=== PATIENT | male | born 1950 | race Hispanic/Latino ===

== ENCOUNTER 2021-05-30 15:36 | Emergency (ER) | payer OTHER ==
--- OUTSIDE RECORDS SUMMARY | 2021-05-30 15:38 | XMS REPORT | Continuity of Care Document ---
:1950 Author Organization [facility] t Address [address] [place] [address] Care Team Providers Name Role Phone Lorraine Attending Clinician Doctor Unassigned, Name Attending Clinician Unavailable Provider, Urgent Care Attending Clinician Unavailable Problems This patient has no known problems. Allergies, Adverse Reactions, Alerts This patient has no known allergies or adverse reactions. Medications This patient has no known medications. Procedures This patient has no known procedures. Encounters Start End Encounter Admission Attending Care Care Encounter Source Date/Time Date/Time Type Type Clinicians Facility Department ID 2021-03-02 2021-03-02 Letter Hernandez Peters [id number] 00:00:00 00:00:00 (Out) ROBERTO [id number] [facility] [id number] 2021-01-25 2021-01-25 Orders Doctor SANDRA [id number] 00:00:00 00:00:00 Only Unassigned, ROBERTO [id number] [place] [facility] [id number] 2020-12-20 2020-12-20 Urgent Provider, [facility] [id number] 17:21:39 18:31:21 Care [facility] [id number] [facility] [place] [id number] Professio [phone] [address] One Results This patient has no known results.
--- NOTE | 2021-05-30 18:40 | ER ---
Nurse's Notes [facility] Name: Raúl Najera Sr Age: 70 yrs Sex: Male : 1950 Arrival Date: 05/30/2021 Time: 15:40 Bed External Waiting Private MD: Diagnosis: Presentation: 05/30 15:50 Chief complaint: Abdominal cramping, malaise, and home BGL 200-400 x 2 days. hb Coronavirus screen: Client presents with at least one sign or symptom that may indicate coronavirus-19. Standard/surgical mask placed on the client. Provider contacted for isolation considerations. Ebola Screen: No symptoms or risks identified at this time. Initial Sepsis Screen: Does the patient meet any 2 criteria? No. Patient's initial sepsis screen is negative. Does the patient have a suspected source of infection? No. Patient's initial sepsis screen is negative. Risk Assessment: Do you want to hurt yourself or someone else? Patient reports no desire to harm self or others. Onset of symptoms was May 30, 2021. 15:50 Method Of Arrival: Ambulatory 15:50 Acuity: QUINTIN 3 hb Historical: - Allergies: 15:52 Iodine; hb - Home Meds: 15:53 metformin 500 mg Oral tab 1 tab 2 times per day [Active]; lisinopril 10 mg Oral tab 1 hb tab once daily [Active]; glimepiride 4 mg Oral tab 1 tab twice a day [Active]; atorvastatin 20 mg oral tab 1 tab once daily [Active]; - PMHx: 15:52 Diabetes mellitus; hb - PSHx: 15:52 hernia repair; hb - Immunization history:: Client reports receiving the 2nd dose of the Covid vaccine. - Social history:: Smoking status: Patient denies any tobacco usage or history of. Assessment: 18:39 Reassessment: called patient back to exam room. No answer. Unable to locate patient. ER hb registration staff member states that patient left due to wait time. Vital Signs: 15:50 BP 124 / 80; Pulse 88; Resp 16; Temp 97.8; Pulse Ox 100% on R/A; Weight 85.28 kg; hb Height 5 ft. 7 in. (170.18 cm); Pain 7/10; 15:50 Body Mass Index 29.44 (85.28 kg, 170.18 cm) hb ED Course: 15:40 Patient arrived in ED. as 15:51 Triage completed. hb 15:53 Arm band placed on. hb Administered Medications: No medications were administered Outcome: 18:39 Patient left the ED. hb Signatures: Yudelka Baker Heather, RN RN hb Corrections: (The following items were deleted from the chart) 15:53 15:52 Allergies: No Known Allergies; hb hb 15:53 15:52 Allergies: Iodinated Contrast Media - IV Dye; hb hb
[2021-05-30 18:47] VITALS: BP 124/80; TEMP 97.8; O2SAT 100
== END 2021-05-30 18:39 | disposition left against medical advice (07) ==
LOC: ER 15:36
DX: Z53.21 Procedure and treatment not carried out due to patient leaving prior to being seen by health care provider (principal)
CPT/HCPCS: 99281

== ENCOUNTER 2025-03-11 14:34 | Emergency (ER) | payer OTHER ==
--- OUTSIDE RECORDS SUMMARY | 2025-03-11 14:53 | XMS REPORT | Continuity of Care Document ---
Author Name Unknown Address [address] [place] [address] [facility] Address [address] [place] [address] Care Team Providers Care Chalk Cutter Name Role Phone Hernandez Peters Primary Care Physician Nurse, Ad[facility] Pob Immunization Attending Clinician Unavailable Emeterio Quintanilla DO Attending Clinician Hernandez Peters Attending Clinician [phone] GEORGINA TREJO Attending Clinician Unavailable Doctor Unassigned, [place] Attending Clinician U navailable MAURISIO YADAV Attending Clinician Unavailab le Provider, [facility] Attending Clinician Un available Maurisio Gonzalez Attending Clinician Payers Payer Name Policy Type Policy Number Effective Date Expirati on Date Source Problems Condition Name Condition Details Condition Category Status Onset Date Resolution Date Last Treatment Date Treating Clinician Comments Source No known active problems No known active problems Disease [facility] Allergies, Adverse Reactions, Alerts Allergy Name Allergy Type Status Severity Reaction(s) Onset Date Inactive Date Treating Clinician Comments Source [place] - Intraven ous Propensi ty to adverse reaction to drug Active 5-31 00:00: 00 Chucho Draper Iodine Strong - Oral Propensi ty to adverse reaction to drug Active 4-14 00:00: 00 Chucho Draper DYE DRUG INGREDI Active High Swelling 2-02 00:00: [address] [facility] Dye Drug Allergy Active Swelling 2-02 00:00: [address] IV [address] [facility] NO KNOWN ALLERGIE S Drug Class Active [facility] Social History Social Habit Start Date Stop Date Quantity Comments Source History of tobacco use Cigarette Smoker [facility] Exposure to SARS-CoV-2 (event) Not sure [facility] Cigarettes smoked current (pack per day) - Reported 2020-12-20 00:00:00 2020-12-20 00:00:00 [facility] Tobacco use and exposure 2020-12-20 00:00:00 2020-12-20 00:00:00 Never used [facility] Alcohol intake 2020-12-20 00:00:00 2020-12-20 00:00:00 Ex-drinker (finding) [facility] Sex Ass[birth year] At 1950 00:00:00 1950 00:00:00 [facility] Smoking Status Start Date Stop Date Source Former smoker 2020-12-20 00:00:00 2020-12-20 00:00:00 [facility] Medications Ordered Medication Name Filled Medication Name Start Date Stop Date Current Medication? Ordering Clinician Indication Dosage Frequency Signature (SIG) Comments Components Source azithromyci n 250 mg tablet 01-04 00:00: 00 Yes mg Chucho Draper fluticasone propionate 50 mcg/actuati on nasal spray,suspe nsion 01-04 00:00: 00 Yes 2mcg/ac tuation Chucho Draper Bromfed DM 2 mg-30 mg-10 mg/5 mL oral syrup 01-04 00:00: 00 Yes 10mg/5 mL Chucho Draper chlorhexidi ne gluconate 0.12 % mouthwash 01-04 00:00: 00 Yes % Chucho Draper lisinopril 10 mg tablet - 00:00: 00 Yes mg Chucho Draper metformin 500 mg tablet - 00:00: 00 Yes 1mg Chucho Draper cetirizine 10 mg tablet - 00:00: 00 Yes 1mg Chucho Draper finasteride 5 mg tablet - 00:00: 00 Yes 1mg Chucho Draper glimepiride 2 mg tablet - 00:00: 00 Yes 1mg Chucho Draper atorvastati n 80 mg tablet 1- 00:00: 00 Yes 1mg Chucho Draper Flonase Allergy Relief 50 mcg/actuati on nasal spray,suspe nsion - 00:00: 00 Yes 12mcg/a ctuatio n Chucho Draper tamsulosin 0.4 mg capsule - 00:00: 00 Yes 1mg Chucho Draper gabapentin 100 mg capsule - 00:00: 00 Yes 12mg Chucho Draper ibuprofen 800 mg tablet 2023-11 2- 00:00: 00 Yes 1mg Chucho Draper lisinopril 10 mg tablet 2023-11 0- 00:00: 00 Yes mg Chucho Draper metformin 500 mg tablet 2023-11 0- 00:00: 00 Yes 1mg Chucho Draper finasteride 5 mg tablet 2023-11 0- 00:00: 00 Yes 1mg Chucho Draper glimepiride 2 mg tablet 2023-11 0- 00:00: 00 Yes 1mg Chucho Draper atorvastati n 80 mg tablet 2023-11 0-05 00:00: 00 Yes 1mg Chucho Draper tamsulosin 0.4 mg capsule 2023-11 0- 00:00: 00 Yes 1mg Chucho Draper gabapentin 100 mg capsule 2023-11 0-05 00:00: 00 Yes 12mg Chucho Draper atorvastati n 80 mg tablet 06-15 00:00: 00 Yes 1mg Chucho Draper atorvastati n 40 mg tablet 06-05 00:00: 00 Yes mg Chucho Draper lisinopril 10 mg tablet 06-05 00:00: 00 Yes mg Chucho Draper metformin 500 mg tablet - 00:00: 00 Yes 1mg Chucho Draper finasteride 5 mg tablet - 00:00: 00 Yes 1mg Chucho Draper glimepiride 2 mg tablet 0 - 00:00: 00 Yes 1mg Chucho Draper tamsulosin 0.4 mg capsule - 00:00: 00 Yes 1mg Chucho Draper gabapentin 100 mg capsule 2023-0 - 00:00: 00 Yes 12mg Chucho Draper tamsulosin 0.4 mg capsule 0 - 00:00: 00 Yes 1mg Chucho Draper gabapentin 100 mg capsule 0 - 00:00: 00 Yes 12mg Chucho Draper finasteride 5 mg tablet 0 - 00:00: 00 Yes 1mg Chucho Draper metformin 500 mg tablet 0 - 00:00: 00 Yes 1mg Chucho Draper atorvastati n 40 mg tablet 0 - 00:00: 00 Yes mg Chucho Draper lisinopril 10 mg tablet 0 - 00:00: 00 Yes mg Chucho Draper glimepiride 2 mg tablet 0 - 00:00: 00 Yes 1mg Chucho Draper tamsulosin 0.4 mg capsule 0 - 00:00: 00 Yes 1mg Chucho Draper gabapentin 100 mg capsule 0 - 00:00: 00 Yes 12mg Chucho Draper atorvastati n 40 mg tablet 0 4- 00:00: 00 Yes mg Chucho Draper glimepiride 2 mg tablet 0 4-05 00:00: 00 Yes 1mg Chucho Draper lisinopril 10 mg tablet 0 1-22 00:00: 00 Yes mg Chucho Draper finasteride 5 mg tablet 0 1-04 00:00: 00 Yes mg Chucho Draper ergocalcife rol (vitamin D2) 1,250 mcg (50,000 unit) capsule 0 1-04 00:00: 00 Yes (50,000 unit) Chucho Draper gabapentin 100 mg capsule 0 1-03 00:00: 00 Yes mg Chucho Draper tamsulosin 0.4 mg capsule 0 1-03 00:00: 00 Yes mg Chucho Draper GLIMEPIRIDE 2 MG TABS 0 1-03 00:00: 00 Yes Chucho Draper TAKE 1 CAPSULE DAILY WITH FOOD. 0 1-03 00:00: 00 03-30 00:00 :00 No 400 Chucho Draper TAKE 1 TABLET AT BEDTIME. 1-03 00:00: 00 03-30 00:00 :00 No 40 Chucho Chayito Draper TAKE 1 TABLET BY MOUTH DAILY 2022-11 2-28 00:00: 00 03-30 00:00 :00 No 10 Chucho Chayito Draper TAKE 1 TABLET BY MOUTH DAILY 2022-11 1-25 00:00: 00 03-30 00:00 :00 No 10 Chucho Chayito Draper APPLY 1 APPLICATION ON THE SKIN TWICE A DAY APPLY TO AFFECTED AREAS 2022-11 1-09 00:00: 00 03-30 00:00 :00 No 1 Chucho Chayito Draper APPLY 1 APPLICATION ON THE SKIN TWICE A DAY APPLY TO AFFECTED AREAS 07-09 00:00: 00 03-30 00:00 :00 No 1 Chucho Chayito Draper 1 TAB EVERY 8 HOURS NEEDED FOR NAUSEA 07-09 00:00: 00 03-30 00:00 :00 No 4 Chucho Chayito Draper TAKE 1 TO 2 CAPSULES AT BEDTIME 0 07-09 00:00: 00 03-30 00:00 :00 No 100 Chucho Chayito Draper TAKE 1 TABLET BY MOUTH DAILY 0 07-09 00:00: 00 03-30 00:00 :00 No 10 Chucho Chayito Draper TAKE 1 CAPSULE BY MOUTH ONCE DAILY 07-09 00:00: 00 03-30 00:00 :00 No 4 Chucho Chayito Draper GLIMEPIRIDE 2 MG TABS 03-30 00:00: 00 Yes Chucho Chayito Drpaer TAKE 1 TABLET AT BEDTIME. 03-30 00:00: 00 03-30 00:00 :00 No 40 Chucho Chayito Draper TAKE 1 TO 2 CAPSULES AT BEDTIME 0 03-30 00:00: 00 03-30 00:00 :00 No 100 Chucho Chayito Draper TAKE 1 CAPSULE TWICE DAILY. 03-30 00:00: 00 03-30 00:00 :00 No 100 Chucho Chayito Draper TAKE 1 TABLET BY MOUTH DAILY 2023-0 5-13 00:00: 00 03-30 00:00 :00 No 10 Chucho Draper TAKE 1 TABLET BY MOUTH DAILY 3-14 00:00: 00 03-30 00:00 :00 No 10 Chucho Draper TAMSULOSIN HYDROCHLORI DE 0.4 MG 2-19 00:00: 00 Yes Chucho Draper TAKE 1 TABLET TWICE DAILY. 2-19 00:00: 00 03-30 00:00 :00 No 500 Chucho Draper ATORVASTATI N CALCIUM 40 MG TABS 2-07 00:00: 00 Yes Chucho Draper APPLY 1 APPLICATION ON THE SKIN TWICE A DAY APPLY 2GRAMS TO AFFECTED JOINTS 2 TIMES A DAY 2- 00:00: 00 03-30 00:00 :00 No 1 Chucoh Draper TAKE 1 TABLET BY MOUTH TWICE A DAY 2- 00:00: 00 03-30 00:00 :00 No 500 Chucho Draper TAKE 1 TABLET BY MOUTH TWICE A DAY - 00:00: 00 03-30 00:00 :00 No 2 Chucho Draper TAKE 1 TO 2 CAPSULES AT BEDTIME 12-25 00:00: 00 03-30 00:00 :00 No 100 Chucho Draper TAKE 1 TABLET DAILY. 1-19 00:00: 00 03-30 00:00 :00 No 10 Chucho Draper SULFAMETHOX AZOLE/TRIME THOPRIM DS 800-160 MG TABS 2021-11 0-11 00:00: 00 Yes Chucho Draper MUPIROCIN 2 % OINT 2021-11 0-11 00:00: 00 Yes Chucho Draper INDOMETHACI N 50 MG - 00:00: 00 Yes Chucho Draper GABAPENTIN 100 MG - 00:00: 00 Yes Chucho Draper TAMSULOSIN HYDROCHLORI DE 0.4 MG CAPS 9-24 00:00: 00 No TAMSULOSIN HYDROCHLORI DE 0.4 MG CAPS -24 00:00: 00 Yes Chucho Draper LEVOFLOXACI N 500 MG TABS -22 00:00: 00 Yes Chucho Draper diclofenac 1 % topical gel 04-18 00:00: 00 No % lisinopril 10 mg tablet 04-18 00:00: 00 No 1mg glimepiride 2 mg tablet 04-18 00:00: 00 No 1mg metformin ER 500 mg tablet,exte nded release 24 hr 04-18 00:00: 00 No 1mg atorvastati n 40 mg tablet 04-18 00:00: 00 No 1mg diclofenac 1 % topical gel 04-18 00:00: 00 No % lisinopril 10 mg tablet 04-18 00:00: 00 No 1mg glimepiride 2 mg tablet 04-18 00:00: 00 No 1mg metformin ER 500 mg tablet,exte nded release 24 hr 04-18 00:00: 00 No 1mg atorvastati n 40 mg tablet 04-18 00:00: 00 No 1mg diclofenac 1 % topical gel 04-18 00:00: 00 No % lisinopril 10 mg tablet 04-18 00:00: 00 No 1mg glimepiride 2 mg tablet 04-18 00:00: 00 No 1mg metformin ER 500 mg tablet,exte nded release 24 hr 04-18 00:00: 00 No 1mg atorvastati n 40 mg tablet 04-18 00:00: 00 No 1mg diclofenac 1 % topical gel 04-18 00:00: 00 Yes % Chucho Draper lisinopril 10 mg tablet 04-18 00:00: 00 Yes 1mg Chucho Draper glimepiride 2 mg tablet 04-18 00:00: 00 Yes 1mg Chucho Draper metformin ER 500 mg tablet,exte nded release 24 hr 04-18 00:00: 00 Yes 1mg Chucho Draper atorvastati n 40 mg tablet 04-18 00:00: 00 Yes 1mg Chucho Draper diclofenac 1 % topical gel 03-06 00:00: 00 No % ProAir HFA 90 mcg/actuati on aerosol inhaler 0 03-06 00:00: 00 No 12mcg/a ctuatio n prednisone 10 mg tablet 03-06 00:00: 00 No 1mg azithromyci n 250 mg tablet 03-06 00:00: 00 No mg Dose Unknown 03-06 00:00: 00 No diclofenac 1 % topical gel 03-06 00:00: 00 No % ProAir HFA 90 mcg/actuati on aerosol inhaler 03-06 00:00: 00 No 12mcg/a ctuatio n prednisone 10 mg tablet 03-06 00:00: 00 No 1mg azithromyci n 250 mg tablet 03-06 00:00: 00 No mg Dose Unknown 03-06 00:00: 00 No diclofenac 1 % topical gel 03-06 00:00: 00 No % ProAir HFA 90 mcg/actuati on aerosol inhaler 03-06 00:00: 00 No 12mcg/a ctuatio n prednisone 10 mg tablet 03-06 00:00: 00 No 1mg azithromyci n 250 mg tablet 03-06 00:00: 00 No mg Dose Unknown 03-06 00:00: 00 No diclofenac 1 % topical gel 03-06 00:00: 00 Yes % Chucho Draper ProAir HFA 90 mcg/actuati on aerosol inhaler 03-06 00:00: 00 Yes 12mcg/a ctuatio n Chucho Draper prednisone 10 mg tablet 03-06 00:00: 00 Yes 1mg Chucho Draper azithromyci n 250 mg tablet 03-06 00:00: 00 Yes mg Chucho Draper Dose Unknown 03-06 00:00: 00 Yes Chucho Draper OSELTAMIVIR PHOSPHATE 75 MG - 00:00: 00 Yes Chucho Draper AZITHROMYCI N 250 MG TABS 2022-0 4-19 00:00: 00 Yes Chucho Draper PREDNISONE 10 MG TABS 2021-0 4-19 00:00: 00 Yes Chucho Draper ALBUTEROL SULFATE HFA 108 (90 Base) MCG/ACT AERS 2021-0 4-19 00:00: 00 Yes Chucho Draper benzonatate 100 mg capsule 2021-0 4-14 00:00: 00 No 1mg Dose Unknown 2021-0 4-14 00:00: 00 No benzonatate 100 mg capsule 2021-0 4-14 00:00: 00 No 1mg Dose Unknown 2021-0 4-14 00:00: 00 No benzonatate 100 mg capsule 2021-0 4-14 00:00: 00 No 1mg Dose Unknown 2021-0 4-14 00:00: 00 No benzonatate 100 mg capsule 2021-0 4-14 00:00: 00 Yes 1mg Chucho Draper Dose Unknown 2021-0 4-14 00:00: 00 Yes Chucho Draper TAKE 1 TABLET BY MOUTH EVERY 12 HOURS NEEDED 2021-0 4-14 00:00: 00 Yes Chucho Draper bromphenira mine-pseudo ephedrine-D M 2 mg-30 mg-10 mg/5 mL oral syrup 2021-0 4-12 00:00: 00 No 5mg/5 mL Dose Unknown 2021-0 4-12 00:00: 00 No Dose Unknown 2021-0 4-12 00:00: 00 No Dose Unknown 2021-0 4-12 00:00: 00 No bromphenira mine-pseudo ephedrine-D M 2 mg-30 mg-10 mg/5 mL oral syrup 2021-0 4-12 00:00: 00 No 5mg/5 mL Dose Unknown 2021-0 4-12 00:00: 00 No Dose Unknown 2021-0 4-12 00:00: 00 No Dose Unknown 2021-0 4-12 00:00: 00 No bromphenira mine-pseudo ephedrine-D M 2 mg-30 mg-10 mg/5 mL oral syrup 2021-0 4-12 00:00: 00 No 5mg/5 mL Dose Unknown 2021-0 4-12 00:00: 00 No Dose Unknown 2021-0 4-12 00:00: 00 No Dose Unknown 2022-0 4-12 00:00: 00 No bromphenira mine-pseudo ephedrine-D M 2 mg-30 mg-10 mg/5 mL oral syrup 2022-0 4-12 00:00: 00 Yes 5mg/5 mL Chucho Draper Dose Unknown 2022-0 4-12 00:00: 00 Yes Chucho Draper Dose Unknown 2022-0 4-12 00:00: 00 Yes Chucho Draper Dose Unknown 2022-0 4-12 00:00: 00 Yes Chucho Draper Dose Unknown 2022-0 3-21 00:00: 00 No Dose Unknown 2022-0 3-21 00:00: 00 No Dose Unknown 2022-0 3-21 00:00: 00 No Dose Unknown 2022-0 3-21 00:00: 00 No Dose Unknown 2022-0 3-21 00:00: 00 No Dose Unknown 2022-0 3-21 00:00: 00 No Dose Unknown 2022-0 3-21 00:00: 00 No Dose Unknown 2022-0 3-21 00:00: 00 No Dose Unknown 2022-0 3-21 00:00: 00 No Dose Unknown 2022-0 3-21 00:00: 00 Yes Chucho Draper Dose Unknown 2022-0 3-21 00:00: 00 Yes Chucho Draper Dose Unknown 2022-0 3-21 00:00: 00 Yes Chucho Draper Dose Unknown 2022-0 3-10 00:00: 00 No Dose Unknown 2022-0 3-10 00:00: 00 No Dose Unknown 2022-0 3-10 00:00: 00 No Dose Unknown 2022-0 3-10 00:00: 00 No Dose Unknown 2022-0 3-10 00:00: 00 No Dose Unknown 2022-0 3-10 00:00: 00 No Dose Unknown 2022-0 3-10 00:00: 00 No Dose Unknown 2022-0 3-10 00:00: 00 No Dose Unknown 2022-0 3-10 00:00: 00 No Dose Unknown 2022-0 3-10 00:00: 00 Yes Chucho Draper Dose Unknown 2022-0 3-10 00:00: 00 Yes Chucho Draper Dose Unknown 2022-0 3-10 00:00: 00 Yes Chucho Draper Dose Unknown 2022-0 3-08 00:00: 00 No Dose Unknown 2022-0 3-08 00:00: 00 No Dose Unknown 2022-0 3-08 00:00: 00 No Dose Unknown 2022-0 3-08 00:00: 00 No Dose Unknown 2022-0 3-08 00:00: 00 No Dose Unknown 2022-0 3-08 00:00: 00 No Dose Unknown 2022-0 3-08 00:00: 00 No Dose Unknown 2022-0 3-08 00:00: 00 No Dose Unknown 2022-0 3-08 00:00: 00 No Dose Unknown 2022-0 3-08 00:00: 00 Yes Chucho Draper Dose Unknown 2022-0 3-08 00:00: 00 Yes Chucho Draper Dose Unknown 2022-0 3-08 00:00: 00 Yes Chucho Draper Dose Unknown 2022-0 3-07 00:00: 00 No lisinopril 10 mg tablet 2-0 3-07 00:00: 00 No 1mg metformin ER 500 mg tablet,exte nded release 24 hr 2-0 3-07 00:00: 00 No 1mg glimepiride 2 mg tablet 2-0 3-07 00:00: 00 No 1mg atorvastati n 40 mg tablet 2-0 3-07 00:00: 00 No 1mg Dose Unknown 2022-0 3-07 00:00: 00 No Dose Unknown 2-0 3-07 00:00: 00 No Dose Unknown 2-0 3-07 00:00: 00 No Dose Unknown 2-0 3-07 00:00: 00 No lisinopril 10 mg tablet 2022-0 3-07 00:00: 00 No 1mg metformin ER 500 mg tablet,exte nded release 24 hr 2-0 3-07 00:00: 00 No 1mg glimepiride 2 mg tablet 2022-0 3-07 00:00: 00 No 1mg atorvastati n 40 mg tablet 2-0 3-07 00:00: 00 No 1mg Dose Unknown 2022-0 3-07 00:00: 00 No Dose Unknown 2022-0 3-07 00:00: 00 No Dose Unknown 2022-0 3-07 00:00: 00 No Dose Unknown 0 01-22 00:00: 00 No lisinopril 10 mg tablet 0 01-22 00:00: 00 No 1mg metformin ER 500 mg tablet,exte nded release 24 hr 01-22 00:00: 00 No 1mg glimepiride 2 mg tablet 0 01-22 00:00: 00 No 1mg atorvastati n 40 mg tablet 01-22 00:00: 00 No 1mg Dose Unknown 01-22 00:00: 00 No Dose Unknown 01-22 00:00: 00 No Dose Unknown 01-22 00:00: 00 No Dose Unknown 01-22 00:00: 00 Yes Chucho Draper lisinopril 10 mg tablet 01-22 00:00: 00 Yes 1mg Chucho Draper metformin ER 500 mg tablet,exte nded release 24 hr 01-22 00:00: 00 Yes 1mg Chucho Draper glimepiride 2 mg tablet 01-22 00:00: 00 Yes 1mg Chucho Draper atorvastati n 40 mg tablet 01-22 00:00: 00 Yes 1mg Chucho Draper Dose Unknown 01-22 00:00: 00 Yes Chucho Draper Dose Unknown 01-22 00:00: 00 Yes Chucho Draper Dose Unknown 01-22 00:00: 00 Yes Chucho Draper Dose Unknown 01-22 00:00: 00 Yes 2 Chucho Draper Flonase Sensimist 27.5 mcg/actuati on nasal spray,suspe nsion 2020-11 00:00: 00 No 1mcg/ac tuation benzonatate 100 mg capsule 2020-11 00:00: 00 No 1mg Flonase Sensimist 27.5 mcg/actuati on nasal spray,suspe nsion 2020-11 00:00: 00 No 1mcg/ac tuation benzonatate 100 mg capsule 2020-11 00:00: 00 No 1mg Flonase Sensimist 27.5 mcg/actuati on nasal spray,suspe nsion 2020-11 00:00: 00 No 1mcg/ac tuation benzonatate 100 mg capsule 2020-11 00:00: 00 No 1mg Flonase Sensimist 27.5 mcg/actuati on nasal spray,suspe nsion 2020-11 00:00: 00 Yes 1mcg/ac tuation Chucho Draper benzonatate 100 mg capsule 2020-11 00:00: 00 Yes 1mg Chucho Draper atorvastati n 40 mg tablet 2020-11 00:00: 00 No 1mg lisinopril 10 mg tablet 2020-11 00:00: 00 No 1mg glimepiride 2 mg tablet 2020-11 00:00: 00 No 1mg metformin ER 500 mg tablet,exte nded release 24 hr 2020-11 00:00: 00 No 1mg atorvastati n 40 mg tablet 2020-11 00:00: 00 No 1mg lisinopril 10 mg tablet 2020-11 2 00:00: 00 No 1mg glimepiride 2 mg tablet 2020-11 2 00:00: 00 No 1mg metformin ER 500 mg tablet,exte nded release 24 hr 2020-11 00:00: 00 No 1mg atorvastati n 40 mg tablet 2020-11 2 00:00: 00 No 1mg lisinopril 10 mg tablet 2020-11 2 00:00: 00 No 1mg glimepiride 2 mg tablet 2020-11 2 00:00: 00 No 1mg metformin ER 500 mg tablet,exte nded release 24 hr 2020-11 00:00: 00 No 1mg lisinopril 10 mg tablet 2020-11 2 00:00: 00 Yes 1mg Chucho Draper glimepiride 2 mg tablet 2020-11 2 00:00: 00 Yes 1mg Chucho Draper metformin ER 500 mg tablet,exte nded release 24 hr 2020-11 00:00: 00 Yes 1mg Chucho Draper atorvastati n 40 mg tablet 2020-11 2- 00:00: 00 Yes 1mg Chucho Draper lisinopril 10 mg tablet 0 8-10 00:00: 00 No 1mg metformin ER 500 mg tablet,exte nded release 24 hr 8-10 00:00: 00 No 1mg glimepiride 2 mg tablet 0 8-10 00:00: 00 No 1mg atorvastati n 40 mg tablet 8-10 00:00: 00 No 1mg lisinopril 10 mg tablet 8-10 00:00: 00 No 1mg metformin ER 500 mg tablet,exte nded release 24 hr 8- 00:00: 00 No 1mg glimepiride 2 mg tablet 8-10 00:00: 00 No 1mg atorvastati n 40 mg tablet 8-10 00:00: 00 No 1mg lisinopril 10 mg tablet 8-10 00:00: 00 No 1mg metformin ER 500 mg tablet,exte nded release 24 hr 8- 00:00: 00 No 1mg glimepiride 2 mg tablet 8-10 00:00: 00 No 1mg atorvastati n 40 mg tablet 8-10 00:00: 00 No 1mg lisinopril 10 mg tablet 0 8-10 00:00: 00 Yes 1mg Chucho Draper metformin ER 500 mg tablet,exte nded release 24 hr 8-10 00:00: 00 Yes 1mg Chucho Draper glimepiride 2 mg tablet 8-10 00:00: 00 Yes 1mg Chucho Draper atorvastati n 40 mg tablet 8-10 00:00: 00 Yes 1mg Chucho Draper ciprofloxac in 500 mg tablet 0 7-16 00:00: 00 No 1mg ciprofloxac in 500 mg tablet 0 7-16 00:00: 00 No 1mg ciprofloxac in 500 mg tablet 0 7-16 00:00: 00 No 1mg ciprofloxac in 500 mg tablet 0 16 00:00: 00 Yes 1mg Chucho Draper glimepiride 2 mg tablet 0 05-31 00:00: 00 No 1mg metformin ER 500 mg tablet,exte nded release 24 hr 0 05-31 00:00: 00 No 1mg cyclobenzap rine 5 mg tablet 0 05-31 00:00: 00 No 12mg docusate sodium 100 mg capsule 0 05-31 00:00: 00 No 12mg dicyclomine 10 mg capsule 0 05-31 00:00: 00 No 1mg glimepiride 2 mg tablet 0 05-31 00:00: 00 No 1mg glimepiride 2 mg tablet 0 05-31 00:00: 00 No 1mg metformin ER 500 mg tablet,exte nded release 24 hr 05-31 00:00: 00 No 1mg cyclobenzap rine 5 mg tablet 05-31 00:00: 00 No 12mg docusate sodium 100 mg capsule 05-31 00:00: 00 No 12mg dicyclomine 10 mg capsule 0 05-31 00:00: 00 No 1mg metformin ER 500 mg tablet,exte nded release 24 hr 05-31 00:00: 00 No 1mg cyclobenzap rine 5 mg tablet 05-31 00:00: 00 No 12mg docusate sodium 100 mg capsule 05-31 00:00: 00 No 12mg dicyclomine 10 mg capsule 0 14 00:00: 00 No 1mg glimepiride 2 mg tablet 0 14 00:00: 00 Yes 1mg Chucho Draper metformin ER 500 mg tablet,exte nded release 24 hr 05-31 00:00: 00 Yes 1mg Chucho Draper cyclobenzap rine 5 mg tablet 0 14 00:00: 00 Yes 12mg Chucho Draper docusate sodium 100 mg capsule 0 -14 00:00: 00 Yes 12mg Chucho Draper dicyclomine 10 mg capsule -14 00:00: 00 Yes 1mg Chucho Draper levofloxaci n 500 mg tablet 0 6-16 00:00: 00 No 1mg levofloxaci n 500 mg tablet 0 6-16 00:00: 00 No 1mg levofloxaci n 500 mg tablet 0 6-16 00:00: 00 No 1mg levofloxaci n 500 mg tablet 0 05-03 00:00: 00 Yes 1mg Chucho Draper Bromfed DM 2 mg-30 mg-10 mg/5 mL oral syrup - 00:00: 00 No 5mg/5 mL Bromfed DM 2 mg-30 mg-10 mg/5 mL oral syrup 05-02 00:00: 00 No 5mg/5 mL Bromfed DM 2 mg-30 mg-10 mg/5 mL oral syrup 05-02 00:00: 00 No 5mg/5 mL Bromfed DM 2 mg-30 mg-10 mg/5 mL oral syrup 05-02 00:00: 00 Yes 5mg/5 mL Chucho Draper prednisone 20 mg tablet 04-26 00:00: 00 No 1mg azithromyci n 250 mg tablet 04-26 00:00: 00 No mg Bromfed DM 2 mg-30 mg-10 mg/5 mL oral syrup 04-26 00:00: 00 No 5mg/5 mL prednisone 20 mg tablet 04-26 00:00: 00 No 1mg azithromyci n 250 mg tablet 04-26 00:00: 00 No mg Bromfed DM 2 mg-30 mg-10 mg/5 mL oral syrup 0 04-26 00:00: 00 No 5mg/5 mL prednisone 20 mg tablet 04-26 00:00: 00 No 1mg azithromyci n 250 mg tablet 04-26 00:00: 00 No mg Bromfed DM 2 mg-30 mg-10 mg/5 mL oral syrup 0 04-26 00:00: 00 No 5mg/5 mL prednisone 20 mg tablet 04-26 00:00: 00 Yes 1mg Chucho Draper azithromyci n 250 mg tablet 04-26 00:00: 00 Yes mg Chucho Draper Bromfed DM 2 mg-30 mg-10 mg/5 mL oral syrup 04-26 00:00: 00 Yes 5mg/5 mL Chucho Draper triamcinolo ne acetonide 0.1 % topical cream 03-21 00:00: 00 No 1% dexamethaso ne 4 mg tablet 03-21 00:00: 00 No 1mg triamcinolo ne acetonide 0.1 % topical cream 03-21 00:00: 00 No 1% dexamethaso ne 4 mg tablet 03-21 00:00: 00 No 1mg triamcinolo ne acetonide 0.1 % topical cream 03-21 00:00: 00 No 1% dexamethaso ne 4 mg tablet 03-21 00:00: 00 No 1mg triamcinolo ne acetonide 0.1 % topical cream 03-21 00:00: 00 Yes 1% Chucho Draper dexamethaso ne 4 mg tablet 03-21 00:00: 00 Yes 1mg Chucho Draper hydrocortis one 0.5 % lotion 03-15 00:00: 00 No 1% prednisone 20 mg tablet 03-15 00:00: 00 No 1mg Dose Unknown 03-15 00:00: 00 No hydrocortis one 0.5 % lotion 03-15 00:00: 00 No 1% prednisone 20 mg tablet 03-15 00:00: 00 No 1mg Dose Unknown 03-15 00:00: 00 No hydrocortis one 0.5 % lotion 03-15 00:00: 00 No 1% prednisone 20 mg tablet 03-15 00:00: 00 No 1mg Dose Unknown 03-15 00:00: 00 No hydrocortis one 0.5 % lotion 03-15 00:00: 00 Yes 1% Chucho Draper prednisone 20 mg tablet - 00:00: 00 Yes 1mg Chucho Draper Dose Unknown 4-28 00:00: 00 Yes Chucho Draper lisinopril 10 mg tablet 0 3- 00:00: 00 No 1mg pioglitazon e 15 mg tablet 0 3- 00:00: 00 No 1mg metformin 500 mg tablet 0 3-11 00:00: 00 No 1mg glimepiride 4 mg tablet 0 3- 00:00: 00 No 1mg atorvastati n 40 mg tablet 0 3- 00:00: 00 No 1mg lisinopril 10 mg tablet 0 3- 00:00: 00 No 1mg pioglitazon e 15 mg tablet 0 3- 00:00: 00 No 1mg metformin 500 mg tablet 0 3- 00:00: 00 No 1mg glimepiride 4 mg tablet 0 3- 00:00: 00 No 1mg atorvastati n 40 mg tablet 0 3- 00:00: 00 No 1mg lisinopril 10 mg tablet 0 3- 00:00: 00 No 1mg pioglitazon e 15 mg tablet 0 3- 00:00: 00 No 1mg metformin 500 mg tablet 0 3- 00:00: 00 No 1mg glimepiride 4 mg tablet 0 3-11 00:00: 00 No 1mg atorvastati n 40 mg tablet 0 3-11 00:00: 00 No 1mg lisinopril 10 mg tablet 0 3-11 00:00: 00 Yes 1mg [facility] Draper pioglitazon e 15 mg tablet 0 3-11 00:00: 00 Yes 1mg [facility] Draper metformin 500 mg tablet 0 3-11 00:00: 00 Yes 1mg [facility] Draper glimepiride 4 mg tablet 0 3-11 00:00: 00 Yes 1mg [facility]uch[facility] Draper atorvastati n 40 mg tablet 0 3-11 00:00: 00 Yes 1mg [facility] Draper ondansetron (ZOFRAN-ODT ) disintegrat ing tablet 8 mg 12-21 01:15: 00 12-21 00:13 :00 No [id number] 8mg [facility] ondansetron (ZOFRAN ODT) 8 mg disintegrat ing tablet 12-20 00:00: 00 Yes [id number] 8mg Take 1 tablet by mouth every 8 (eight) hours as needed for Nausea and Vomiting (N/V). [facility] diclofenac sodium 75 mg tablet,rebeka yed release 2019-11 00:00: 00 No 1mg cyclobenzap rine 5 mg tablet 2019-11 00:00: 00 No 12mg diclofenac sodium 75 mg tablet,rebeka yed release 2019-11 00:00: 00 No 1mg cyclobenzap rine 5 mg tablet 2019-11 00:00: 00 No 12mg diclofenac sodium 75 mg tablet,reebka yed release 2019-11 00:00: 00 No 1mg cyclobenzap rine 5 mg tablet 2019-11 00:00: 00 No 12mg diclofenac sodium 75 mg tablet,rebeka yed release 2019-11 00:00: 00 Yes 1mg [facility]uch[facility] Draper cyclobenzap rine 5 mg tablet 2019-11 00:00: 00 Yes 12mg [facility] Draper ProAir HFA 90 mcg/actuati on aerosol inhaler 2019-11 00:00: 00 No 12mcg/a ctuatio n levofloxaci n 500 mg tablet 2019-11 00:00: 00 No 1mg ondansetron 8 mg disintegrat ing tablet 2019-11 00:00: 00 No 1mg benzonatate 100 mg capsule 2019-11 00:00: 00 No 12mg ProAir HFA 90 mcg/actuati on aerosol inhaler 2019-11 00:00: 00 No 12mcg/a ctuatio n levofloxaci n 500 mg tablet 2019-11 00:00: 00 No 1mg ondansetron 8 mg disintegrat ing tablet 2019-11 00:00: 00 No 1mg benzonatate 100 mg capsule 2019-11 00:00: 00 No 12mg ProAir HFA 90 mcg/actuati on aerosol inhaler 2019-11 00:00: 00 No 12mcg/a ctuatio n levofloxaci n 500 mg tablet 2019-11 00:00: 00 No 1mg ondansetron 8 mg disintegrat ing tablet 2019-11 00:00: 00 No 1mg benzonatate 100 mg capsule 2019-11 00:00: 00 No 12mg ProAir HFA 90 mcg/actuati on aerosol inhaler 2019-11 00:00: 00 Yes 12mcg/a ctuatio percy Chucho Draper levofloxaci n 500 mg tablet 2019-11 00:00: 00 Yes 1mg Chucho Draper ondansetron 8 mg disintegrat ing tablet 2019-11 00:00: 00 Yes 1mg Chucho Draper benzonatate 100 mg capsule 2019-11 00:00: 00 Yes 12mg Chucho Draper pioglitazon e 30 mg tablet 2019-11 00:00: 00 No 1mg lisinopril 10 mg tablet 2019-11 00:00: 00 No 1mg glimepiride 4 mg tablet 2019-11 00:00: 00 No 1mg metformin 500 mg tablet 2019-11 00:00: 00 No 1mg atorvastati n 40 mg tablet 2019-11 00:00: 00 No 1mg pioglitazon e 30 mg tablet 2019-11 00:00: 00 No 1mg lisinopril 10 mg tablet 2019-11 00:00: 00 No 1mg glimepiride 4 mg tablet 2019-11 00:00: 00 No 1mg metformin 500 mg tablet 2019-11 00:00: 00 No 1mg atorvastati n 40 mg tablet 2019-11 00:00: 00 No 1mg pioglitazon e 30 mg tablet 2019-11 00:00: 00 No 1mg lisinopril 10 mg tablet 2019-11 00:00: 00 No 1mg glimepiride 4 mg tablet 2019-11 00:00: 00 No 1mg metformin 500 mg tablet 2019-11 00:00: 00 No 1mg atorvastati n 40 mg tablet 2019-11 00:00: 00 No 1mg pioglitazon e 30 mg tablet 2019-11 00:00: 00 Yes 1mg Chucho Draper lisinopril 10 mg tablet 2019-11 00:00: 00 Yes 1mg Chucho Draper glimepiride 4 mg tablet 2019-11 00:00: 00 Yes 1mg Chucho Draper metformin 500 mg tablet 2019-11 00:00: 00 Yes 1mg Chucho Draper atorvastati n 40 mg tablet 2019-11 00:00: 00 Yes 1mg Chucho Draper lisinopril 10 mg tablet 05-30 00:00: 00 No 1mg pioglitazon e 30 mg tablet 05-30 00:00: 00 No 1mg metformin 500 mg tablet 05-30 00:00: 00 No 1mg glimepiride 4 mg tablet 05-30 00:00: 00 No 1mg atorvastati n 40 mg tablet 05-30 00:00: 00 No 1mg lisinopril 10 mg tablet 05-30 00:00: 00 No 1mg pioglitazon e 30 mg tablet 05-30 00:00: 00 No 1mg metformin 500 mg tablet 05-30 00:00: 00 No 1mg glimepiride 4 mg tablet 05-30 00:00: 00 No 1mg atorvastati n 40 mg tablet 05-30 00:00: 00 No 1mg lisinopril 10 mg tablet 05-30 00:00: 00 No 1mg pioglitazon e 30 mg tablet 05-30 00:00: 00 No 1mg metformin 500 mg tablet 05-30 00:00: 00 No 1mg glimepiride 4 mg tablet 05-30 00:00: 00 No 1mg atorvastati n 40 mg tablet 05-30 00:00: 00 No 1mg lisinopril 10 mg tablet 05-30 00:00: 00 Yes 1mg Chucho Draper pioglitazon e 30 mg tablet 05-30 00:00: 00 Yes 1mg Chucho Draper metformin 500 mg tablet 05-30 00:00: 00 Yes 1mg Chucho Draper glimepiride 4 mg tablet 05-30 00:00: 00 Yes 1mg Chucho Draper atorvastati n 40 mg tablet 05-30 00:00: 00 Yes 1mg Chucho Draper lisinopril 10 mg tablet 05-26 00:00: 00 No 1mg pioglitazon e 30 mg tablet 05-26 00:00: 00 No 1mg glimepiride 4 mg tablet 05-26 00:00: 00 No 1mg metformin 500 mg tablet 05-26 00:00: 00 No 1mg atorvastati n 40 mg tablet 05-26 00:00: 00 No 1mg lisinopril 10 mg tablet 05-26 00:00: 00 No 1mg pioglitazon e 30 mg tablet 05-26 00:00: 00 No 1mg glimepiride 4 mg tablet 05-26 00:00: 00 No 1mg metformin 500 mg tablet 05-26 00:00: 00 No 1mg atorvastati n 40 mg tablet 05-26 00:00: 00 No 1mg lisinopril 10 mg tablet 05-26 00:00: 00 No 1mg pioglitazon e 30 mg tablet 05-26 00:00: 00 No 1mg glimepiride 4 mg tablet 05-26 00:00: 00 No 1mg metformin 500 mg tablet 05-26 00:00: 00 No 1mg atorvastati n 40 mg tablet 05-26 00:00: 00 No 1mg lisinopril 10 mg tablet 05-26 00:00: 00 Yes 1mg Chucho Draper pioglitazon e 30 mg tablet 05-26 00:00: 00 Yes 1mg Chucho Draper glimepiride 4 mg tablet 05-26 00:00: 00 Yes 1mg Chucho Draper metformin 500 mg tablet 0 - 00:00: 00 Yes 1mg Chucho Draper atorvastati n 40 mg tablet 0 - 00:00: 00 Yes 1mg Chucho Draper pioglitazon e 30 mg tablet 0 -08 00:00: 00 No 1mg lisinopril 10 mg tablet 0 4-08 00:00: 00 No 1mg pioglitazon e 30 mg tablet 0 - 00:00: 00 No 1mg lisinopril 10 mg tablet 0 -08 00:00: 00 No 1mg glimepiride 4 mg tablet 0 -08 00:00: 00 No 1mg metformin 500 mg tablet 0 - 00:00: 00 No 1mg atorvastati n 40 mg tablet 0 - 00:00: 00 No 1mg glimepiride 4 mg tablet 0 4- 00:00: 00 No 1mg metformin 500 mg tablet 0 - 00:00: 00 No 1mg atorvastati n 40 mg tablet 0 4- 00:00: 00 No 1mg pioglitazon e 30 mg tablet 0 - 00:00: 00 No 1mg lisinopril 10 mg tablet 0 -08 00:00: 00 No 1mg glimepiride 4 mg tablet 0 4-08 00:00: 00 No 1mg metformin 500 mg tablet 0 - 00:00: 00 No 1mg atorvastati n 40 mg tablet 0 - 00:00: 00 No 1mg pioglitazon e 30 mg tablet 0 4-08 00:00: 00 Yes 1mg Chucho Draper lisinopril 10 mg tablet 0 -08 00:00: 00 Yes 1mg Chucho Draper glimepiride 4 mg tablet 0 4-08 00:00: 00 Yes 1mg Chucho Draper metformin 500 mg tablet 0 4-08 00:00: 00 Yes 1mg Chucho Draper atorvastati n 40 mg tablet 0 4-08 00:00: 00 Yes 1mg Chucho Draper pioglitazon e 30 mg tablet 0 2-13 00:00: 00 No 1mg pioglitazon e 30 mg tablet 0 2-13 00:00: 00 No 1mg pioglitazon e 30 mg tablet 0 2-13 00:00: 00 No 1mg pioglitazon e 30 mg tablet 0 2- 00:00: 00 Yes 1mg Chucho Draper pioglitazon e 30 mg tablet 2018-11 2-12 00:00: 00 No 1mg pioglitazon e 30 mg tablet 2018-11 2 00:00: 00 No 1mg pioglitazon e 30 mg tablet 2018-11 2 00:00: 00 No 1mg pioglitazon e 30 mg tablet 2018-11 2 00:00: 00 Yes 1mg Chucho Draper lisinopril 10 mg tablet 2018-11 2- 00:00: 00 No 1mg glimepiride 4 mg tablet 2018-11 2- 00:00: 00 No 1mg atorvastati n 40 mg tablet 2018-11 2 00:00: 00 No 1mg lisinopril 10 mg tablet 2018-11 2 00:00: 00 No 1mg glimepiride 4 mg tablet 2018-11 2- 00:00: 00 No 1mg atorvastati n 40 mg tablet 2018-11 2- 00:00: 00 No 1mg lisinopril 10 mg tablet 2018-11 2- 00:00: 00 No 1mg glimepiride 4 mg tablet 2018-11 2- 00:00: 00 No 1mg atorvastati n 40 mg tablet 2018-11 2 00:00: 00 No 1mg lisinopril 10 mg tablet 2018-11 2 00:00: 00 Yes 1mg Chucho Draper glimepiride 4 mg tablet 2018-11 2- 00:00: 00 Yes 1mg Chucho Draper atorvastati n 40 mg tablet 2018-11 2- 00:00: 00 Yes 1mg Chucho Draper lisinopril 10 mg tablet 2018-11 125 00:00: 00 No 1mg glimepiride 4 mg tablet 2018-11 00:00: 00 No 1mg metformin 500 mg tablet 2018-11 00:00: 00 No 1mg lisinopril 10 mg tablet 2018-11 00:00: 00 No 1mg glimepiride 4 mg tablet 2018-11 00:00: 00 No 1mg metformin 500 mg tablet 2018-11 00:00: 00 No 1mg lisinopril 10 mg tablet 2018-11 00:00: 00 No 1mg glimepiride 4 mg tablet 2018-11 00:00: 00 No 1mg metformin 500 mg tablet 2018-11 00:00: 00 No 1mg lisinopril 10 mg tablet 2018-11 00:00: 00 Yes 1mg Chucho Draper glimepiride 4 mg tablet 2018-11 00:00: 00 Yes 1mg Chucho Draper metformin 500 mg tablet 2018-11 00:00: 00 Yes 1mg Chucho Draper lisinopril 10 mg tablet 07-13 00:00: 00 No 1mg glimepiride 4 mg tablet 07-13 00:00: 00 No 1mg lisinopril 10 mg tablet 07-13 00:00: 00 No 1mg glimepiride 4 mg tablet 07-13 00:00: 00 No 1mg lisinopril 10 mg tablet 07-13 00:00: 00 No 1mg glimepiride 4 mg tablet 07-13 00:00: 00 No 1mg lisinopril 10 mg tablet 07-13 00:00: 00 Yes 1mg Chucho Draper glimepiride 4 mg tablet 07-13 00:00: 00 Yes 1mg Chucho Draper lisinopril 10 mg tablet 04-21 00:00: 00 No 1mg glimepiride 4 mg tablet 04-21 00:00: 00 No 1mg metformin 500 mg tablet 04-21 00:00: 00 No 1mg lisinopril 10 mg tablet 04-21 00:00: 00 No 1mg glimepiride 4 mg tablet 04-21 00:00: 00 No 1mg metformin 500 mg tablet 04-21 00:00: 00 No 1mg lisinopril 10 mg tablet 04-21 00:00: 00 No 1mg glimepiride 4 mg tablet 04-21 00:00: 00 No 1mg metformin 500 mg tablet 04-21 00:00: 00 No 1mg lisinopril 10 mg tablet 04-21 00:00: 00 Yes 1mg Chucho Draper glimepiride 4 mg tablet 04-21 00:00: 00 Yes 1mg Chucho Draper metformin 500 mg tablet 04-21 00:00: 00 Yes 1mg Chucho Draper lisinopril 10 mg tablet 01-08 00:00: 00 No 1mg metformin 500 mg tablet 01-08 00:00: 00 No 1mg glimepiride 4 mg tablet 01-08 00:00: 00 No 1mg lisinopril 10 mg tablet 01-08 00:00: 00 No 1mg metformin 500 mg tablet 01-08 00:00: 00 No 1mg glimepiride 4 mg tablet 01-08 00:00: 00 No 1mg lisinopril 10 mg tablet 01-08 00:00: 00 No 1mg metformin 500 mg tablet 01-08 00:00: 00 No 1mg glimepiride 4 mg tablet 01-08 00:00: 00 No 1mg lisinopril 10 mg tablet 01-08 00:00: 00 Yes 1mg Chucho Draper metformin 500 mg tablet 01-08 00:00: 00 Yes 1mg Chucho Draper glimepiride 4 mg tablet 01-08 00:00: 00 Yes 1mg Chucho Draper lisinopril 10 mg tablet 12-09 00:00: 00 No 1mg lisinopril 10 mg tablet 12-09 00:00: 00 No 1mg lisinopril 10 mg tablet 12-09 00:00: 00 No 1mg lisinopril 10 mg tablet 12-09 00:00: 00 Yes 1mg Chucho Draper glimepiride 4 mg tablet 2017-11 00:00: 00 No 1mg metformin 500 mg tablet 2017-11 00:00: 00 No 1mg glimepiride 4 mg tablet 2017-11 00:00: 00 No 1mg metformin 500 mg tablet 2017-11 00:00: 00 No 1mg glimepiride 4 mg tablet 2017-11 00:00: 00 No 1mg metformin 500 mg tablet 2017-11 00:00: 00 No 1mg glimepiride 4 mg tablet 2017-11 00:00: 00 Yes 1mg Chucho Draper metformin 500 mg tablet 2017-11 00:00: 00 Yes 1mg Chucho Draper lisinopril 10 mg tablet 2017-11 00:00: 00 No 1mg lisinopril 10 mg tablet 2017-11 00:00: 00 No 1mg lisinopril 10 mg tablet 2017-11 00:00: 00 No 1mg lisinopril 10 mg tablet 2017-11 00:00: 00 Yes 1mg Chucho Draper lisinopril 10 mg tablet 07-31 00:00: 00 No 1mg lisinopril 10 mg tablet 07-31 00:00: 00 No 1mg lisinopril 10 mg tablet 07-31 00:00: 00 No 1mg lisinopril 10 mg tablet 07-31 00:00: 00 Yes 1mg Chucho Draper lisinopril 10 mg tablet 07-09 00:00: 00 No 1mg metformin 500 mg tablet 07-09 00:00: 00 No 1mg glipizide 10 mg tablet 07-09 00:00: 00 No 1mg lisinopril 10 mg tablet 07-09 00:00: 00 No 1mg metformin 500 mg tablet 07-09 00:00: 00 No 1mg glipizide 10 mg tablet 07-09 00:00: 00 No 1mg lisinopril 10 mg tablet 07-09 00:00: 00 No 1mg metformin 500 mg tablet 07-09 00:00: 00 No 1mg glipizide 10 mg tablet 07-09 00:00: 00 No 1mg lisinopril 10 mg tablet 07-09 00:00: 00 Yes 1mg Chucho Draper metformin 500 mg tablet 07-09 00:00: 00 Yes 1mg Chucho Draper glipizide 10 mg tablet 07-09 00:00: 00 Yes 1mg Chucho Draper lisinopril 10 mg tablet 04-03 00:00: 00 No 1mg glipizide 10 mg tablet 04-03 00:00: 00 No 1mg metformin 500 mg tablet 04-03 00:00: 00 No 1mg lisinopril 10 mg tablet 04-03 00:00: 00 No 1mg glipizide 10 mg tablet 04-03 00:00: 00 No 1mg metformin 500 mg tablet 04-03 00:00: 00 No 1mg lisinopril 10 mg tablet 04-03 00:00: 00 No 1mg glipizide 10 mg tablet 04-03 00:00: 00 No 1mg metformin 500 mg tablet 04-03 00:00: 00 No 1mg lisinopril 10 mg tablet 04-03 00:00: 00 Yes 1mg Chucho Draper glipizide 10 mg tablet 04-03 00:00: 00 Yes 1mg Chucho Draper metformin 500 mg tablet 04-03 00:00: 00 Yes 1mg Chucho Draper metformin 500 mg tablet 01-07 00:00: 00 No 1mg glipizide 10 mg tablet 01-07 00:00: 00 No 1mg metformin 500 mg tablet 01-07 00:00: 00 No 1mg glipizide 10 mg tablet 01-07 00:00: 00 No 1mg metformin 500 mg tablet 01-07 00:00: 00 No 1mg glipizide 10 mg tablet 01-07 00:00: 00 No 1mg metformin 500 mg tablet 01-07 00:00: 00 Yes 1mg Chucho Draper glipizide 10 mg tablet 01-07 00:00: 00 Yes 1mg Chucho Draper lisinopril 10 mg tablet 01-06 00:00: 00 No 1mg lisinopril 10 mg tablet 01-06 00:00: 00 No 1mg lisinopril 10 mg tablet 01-06 00:00: 00 No 1mg lisinopril 10 mg tablet 01-06 00:00: 00 Yes 1mg Chucho Draper lisinopril 10 mg tablet 2016-11 00:00: 00 No 1mg metformin 1,000 mg tablet 2016-11 00:00: 00 No 1mg glipizide 10 mg tablet 2016-11 00:00: 00 No 1mg lisinopril 10 mg tablet 2016-11 00:00: 00 No 1mg metformin 1,000 mg tablet 2016-11 00:00: 00 No 1mg glipizide 10 mg tablet 2016-11 00:00: 00 No 1mg lisinopril 10 mg tablet 2016-11 00:00: 00 No 1mg metformin 1,000 mg tablet 2016-11 00:00: 00 No 1mg glipizide 10 mg tablet 2016-11 00:00: 00 No 1mg lisinopril 10 mg tablet 2016-11 00:00: 00 Yes 1mg Chucho Draper metformin 1,000 mg tablet 2016-11 00:00: 00 Yes 1mg Chucho Draper glipizide 10 mg tablet 2016-11 00:00: 00 Yes 1mg Chucho Draper lisinopril 10 mg tablet 2016-11 00:00: 00 No 1mg glipizide 10 mg tablet 2016-11 00:00: 00 No 1mg metformin 1,000 mg tablet 2016-11 00:00: 00 No 1mg lisinopril 10 mg tablet 2016-11 00:00: 00 No 1mg glipizide 10 mg tablet 2016-11 00:00: 00 No 1mg metformin 1,000 mg tablet 2016-11 00:00: 00 No 1mg lisinopril 10 mg tablet 2016-11 00:00: 00 No 1mg glipizide 10 mg tablet 2016-11 00:00: 00 No 1mg metformin 1,000 mg tablet 2016-11 00:00: 00 No 1mg lisinopril 10 mg tablet 2016-11 00:00: 00 Yes 1mg Chucho Draper glipizide 10 mg tablet 2016-11 00:00: 00 Yes 1mg Chucho Draper metformin 1,000 mg tablet 2016-11 00:00: 00 Yes 1mg Chucho Draper glipizide 10 mg tablet 05-28 00:00: 00 No 1mg metformin 1,000 mg tablet 05-28 00:00: 00 No 1mg glipizide 10 mg tablet 05-28 00:00: 00 No 1mg metformin 1,000 mg tablet 05-28 00:00: 00 No 1mg glipizide 10 mg tablet 05-28 00:00: 00 No 1mg metformin 1,000 mg tablet 05-28 00:00: 00 No 1mg glipizide 10 mg tablet 05-28 00:00: 00 Yes 1mg Chucho Draper metformin 1,000 mg tablet 05-28 00:00: 00 Yes 1mg Chucho Draper lisinopril 10 mg tablet 05-27 00:00: 00 No 1mg lisinopril 10 mg tablet 05-27 00:00: 00 No 1mg lisinopril 10 mg tablet 05-27 00:00: 00 No 1mg lisinopril 10 mg tablet 05-27 00:00: 00 Yes 1mg Chucho Draper metformin 500 mg tablet 04-09 00:00: 00 No 1mg glimepiride 2 mg tablet 04-09 00:00: 00 No 1mg metformin 500 mg tablet 04-09 00:00: 00 No 1mg glimepiride 2 mg tablet 04-09 00:00: 00 No 1mg metformin 500 mg tablet 04-09 00:00: 00 No 1mg glimepiride 2 mg tablet 04-09 00:00: 00 No 1mg metformin 500 mg tablet 04-09 00:00: 00 Yes 1mg Chucho Draper glimepiride 2 mg tablet 04-09 00:00: 00 Yes 1mg Chuch[facility] Draper Immunizations Ordered Immunization Name Filled Immunization Name Date Status Comments Source SHINGRIX VACCINE SHINGRIX VACCINE 2023-07-09 00:00:00 Completed [facility] Draper Tdap Tdap 2023-07-09 00:00:00 Completed [facility]o Draper SHINGRIX VACCINE SHINGRIX VACCINE 2023-07-09 00:00:00 Completed [facility] Draper Tdap Tdap 2023-07-09 00:00:00 Completed [facility]uch[facility] Draper SARS-COV-2 COVID-19 PFIZER VACCINE 2021-09-18 00:00:00 Completed [facility] SARS-COV-2 COVID-19 PFIZER VACCINE 2021-02-23 00:00:00 Completed [facility] SARS-COV-2 COVID-19 PFIZER VACCINE 2021-02-23 00:00:00 Completed [facility] SARS-COV-2 COVID-19 PFIZER VACCINE 2021-02-02 00:00:00 Completed [facility] SARS-COV-2 COVID-19 PFIZER VACCINE 2021-02-02 00:00:00 Completed [facility] Vital Signs Vital Name Observation Time Observation Value Comments S ource Systolic blood pressure 2020-12-20 23:54:00 125 mm[Hg] [facility] Diastolic blood pressure 2020-12-20 23:54:00 67 mm[Hg] [place] [facility] Heart rate 2020-12-20 23:54:00 91 /min [facility] Body temperature 2020-12-20 23:45:00 35.72 Elizabeth [facility] Respiratory rate 2020-12-20 23:45:00 20 /min [facility] Body height 2020-12-20 23:45:00 170.2 cm [facility] Body weight 2020-12-20 23:45:00 85.843 kg [facility] BMI 2020-12-20 23:45:00 29.64 kg/m2 [facility] Oxygen saturation in Arterial blood by Pulse oximetry 2020-12-20 23:45:00 97 /min [facility] Systolic blood pressure 2020-12-20 23:54:00 125 mm[Hg] [facility] Diastolic blood pressure 2020-12-20 23:54:00 67 mm[Hg] [facility] Heart rate 2020-12-20 23:54:00 91 /min [facility] 2020-12-20 23:45:00 35.72 Elizabeth [facility] Respiratory rate 2020-12-20 23:45:00 20 /min [facility] Body height 2020-12-20 23:45:00 170.2 cm [facility] Body weight 2020-12-20 23:45:00 85.843 kg [facility] BMI 2020-12-20 23:45:00 29.64 kg/m2 [facility] Oxygen saturation in Arterial blood by Pulse oximetry 2020-12-20 23:45:00 97 /min [facility] BP Systolic 2025-01-04 09:39:00 170 mm[Hg] Step [facility] BP Diastolic 2025-01-04 09:39:00 82 mm[Hg] Eleazar phen F [facility] Weight Measured 2025-01-04 09:39:00 168.20 pounds Chucho F [facility] Height Measured 2025-01-04 09:39:00 67.50 inches Chucho F [place] Body Temperature 2025-01-04 09:39:00 98.40 degrees Chucho F [facility] Heart Rate 2025-01-04 09:39:00 65.00 /min Josy en F [facility] Respiratory Rate 2025-01-04 09:39:00 18.00 /min Chucho F [facility] BP Systolic 2025-01-04 09:30:00 170 mm[Hg] Step hen F [facility] BP Diastolic 2025-01-04 09:30:00 82 mm[Hg] Eleazar phen F [facility] Weight Measured 2025-01-04 09:30:00 168.20 pounds Chucho F Baron Height Measured 2025-01-04 09:30:00 67.50 inches Chucho F [place] Body Temperature 2025-01-04 09:30:00 98.40 degrees Chucho F [facility] Heart Rate 2025-01-04 09:30:00 65.00 /min Josy en F [facility] Respiratory Rate 2025-01-04 09:30:00 18.00 /min Chucho F [facility] BP Systolic 2024-11-27 11:17:00 134 mm[Hg] Step hen F [facility] BP Diastolic 2024-11-27 11:17:00 66 mm[Hg] Eleazar phen F [facility] Weight Measured 2024-11-27 11:17:00 168.00 pounds Chucho F [facility] Height Measured 2024-11-27 11:17:00 67.50 inches Chucho F [facility] Body Temperature 2024-11-27 11:17:00 98.10 degrees Chucho F [facility] Heart Rate 2024-11-27 11:17:00 71.00 /min Josy en F [facility] Respiratory Rate 2024-11-27 11:17:00 18.00 /min Chucho F [facility] BP Systolic 2024-10-23 14:48:00 148 mm[Hg] Step hen F [facility] BP Diastolic 2024-10-23 14:48:00 76 mm[Hg] Eleazar phen F [facility] Weight Measured 2024-10-23 14:48:00 166.20 pounds Chucho F [facility] Height Measured 2024-10-23 14:48:00 67.50 inches Chucho F [facility] Body Temperature 2024-10-23 14:48:00 97.90 degrees Chucho F [facility] Heart Rate 2024-10-23 14:48:00 74.00 /min Josy en F [facility] Respiratory Rate 2024-10-23 14:48:00 18.00 /min Chucho F [facility] BP Systolic 2024-08-21 11:12:00 125 mm[Hg] Step hen F Baron BP Diastolic 2024-08-21 11:12:00 67 mm[Hg] Eleazar phen F Baron Weight Measured 2024-08-21 11:12:00 167.60 pounds Chucho F Baron Height Measured 2024-08-21 11:12:00 67.50 inches Chucho F Baron Body Temperature 2024-08-21 11:12:00 Chucho F Baron Heart Rate 2024-08-21 11:12:00 Josy en F Baron Respiratory Rate 2024-08-21 11:12:00 Chucho F Baron BP Systolic 2024-06-05 15:22:00 127 mm[Hg] Step hen F [facility] BP Diastolic 2024-06-05 15:22:00 60 mm[Hg] Eleazar phen F [facility] Weight Measured 2024-06-05 15:22:00 177.60 pounds Chucho F Baron Height Measured 2024-06-05 15:22:00 67.50 inches Chucho F Baron Body Temperature 2024-06-05 15:22:00 Chucho F Baron Heart Rate 2024-06-05 15:22:00 64.00 /min Josy en F Baron Respiratory Rate 2024-06-05 15:22:00 Chucho F Baron BP Systolic 2024-03-13 15:17:00 150 mm[Hg] Step hen F Baron BP Diastolic 2024-03-13 15:17:00 65 mm[Hg] Eleazar phen F Baron Weight Measured 2024-03-13 15:17:00 176.20 pounds Chucho F Baron Height Measured 2024-03-13 15:17:00 67.50 inches Chucho F Baron Body Temperature 2024-03-13 15:17:00 98.20 degrees Chucho F Baron Heart Rate 2024-03-13 15:17:00 76.00 /min Josy en F Baron Respiratory Rate 2024-03-13 15:17:00 19.00 /min Chucho F Baron BP Systolic 2024-02-22 14:58:00 153 mm[Hg] Step hen F Baron BP Diastolic 2024-02-22 14:58:00 68 mm[Hg] Eleazar phen F Baron Weight Measured 2024-02-22 14:58:00 176.40 pounds Chucho F Baron Height Measured 2024-02-22 14:58:00 67.50 inches Chucho F Baron Body Temperature 2024-02-22 14:58:00 98.30 degrees Chucho F Baron Heart Rate 2024-02-22 14:58:00 63.00 /min Josy en F Baron Respiratory Rate 2024-02-22 14:58:00 20.00 /min Chucho F Baron BP Systolic 2024-02-22 14:34:00 153 mm[Hg] Step hen F Baron BP Diastolic 2024-02-22 14:34:00 68 mm[Hg] Eleazar phen F [facility] Weight Measured 2024-02-22 14:34:00 176.40 pounds Chucho F Baron Height Measured 2024-02-22 14:34:00 67.50 inches Chucho F Baron Body Temperature 2024-02-22 14:34:00 98.30 degrees Chucho F Baron Heart Rate 2024-02-22 14:34:00 63.00 /min Josy en F Baron Respiratory Rate 2024-02-22 14:34:00 20.00 /min Chucho F Baron BP Systolic 2023-11-20 13:48:00 130 mm[Hg] Step hen F Baron BP Diastolic 2023-11-20 13:48:00 71 mm[Hg] Eleazar phen F [facility] Weight Measured 2023-11-20 13:48:00 174.20 pounds Chucho F Baron Height Measured 2023-11-20 13:48:00 67.50 inches Chucho F Baron Body Temperature 2023-11-20 13:48:00 98.10 degrees Chucho F [facility] Heart Rate 2023-11-20 13:48:00 69.00 /min Josy en F Baron Respiratory Rate 2023-11-20 13:48:00 18.00 /min Ch[place] F Baron BP Systolic 2023-07-09 14:52:00 130 mm[Hg] Step hen F Baron BP Diastolic 2023-07-09 14:52:00 73 mm[Hg] Eleazar phen F [facility] Weight Measured 2023-07-09 14:52:00 174.40 pounds Chucho F Baron Height Measured 2023-07-09 14:52:00 67.50 inches Chucho F [facility] Body Temperature 2023-07-09 14:52:00 98.10 degrees Chucho F [facility] Heart Rate 2023-07-09 14:52:00 74.00 /min Josy en F Baron Respiratory Rate 2023-07-09 14:52:00 17.00 /min Chucho F Baron BP Systolic 2023-03-30 13:19:00 145 mm[Hg] Step hen F Baron BP Diastolic 2023-03-30 13:19:00 74 mm[Hg] Eleazar phen F Baron Weight Measured 2023-03-30 13:19:00 183.00 pounds Chucho F Baron Height Measured 2023-03-30 13:19:00 67.50 inches Chucho F Baron Body Temperature 2023-03-30 13:19:00 98.40 degrees Chucho F Baron Heart Rate 2023-03-30 13:19:00 74.00 /min Josy en F Baron Respiratory Rate 2023-03-30 13:19:00 Chucho F Baron BP Systolic 2022-12-25 10:31:00 137 mm[Hg] Step hen F Baron BP Diastolic 2022-12-25 10:31:00 73 mm[Hg] Eleazar phen F Baron Weight Measured 2022-12-25 10:31:00 180.80 pounds Chucho F Baron Height Measured 2022-12-25 10:31:00 67.50 inches Chucho F Baron Body Temperature 2022-12-25 10:31:00 98.20 degrees Chucho F Baron Heart Rate 2022-12-25 10:31:00 68.00 /min Josy en F Baron Respiratory Rate 2022-12-25 10:31:00 18.00 /min Chucho F Baron BP Systolic 2022-08-28 10:42:00 126 mm[Hg] Step hen F Baron BP Diastolic 2022-08-28 10:42:00 68 mm[Hg] Eleazar phen F Baron Weight Measured 2022-08-28 10:42:00 179.60 pounds Chucho F Baron Height Measured 2022-08-28 10:42:00 67.50 inches Chucho F Baron Body Temperature 2022-08-28 10:42:00 98.20 degrees Chucho F Baron Heart Rate 2022-08-28 10:42:00 66.00 /min Josy en F Baron Respiratory Rate 2022-08-28 10:42:00 17.00 /min Chucho F Baron BP Systolic 2022-08-14 16:44:00 171 mm[Hg] Step hen F Baron BP Diastolic 2022-08-14 16:44:00 83 mm[Hg] Eleazar phen F Baron Weight Measured 2022-08-14 16:44:00 178.20 pounds Chucho F Baron Height Measured 2022-08-14 16:44:00 67.50 inches Chucho F Baron Body Temperature 2022-08-14 16:44:00 98.40 degrees Chucho F Baron Heart Rate 2022-08-14 16:44:00 74.00 /min Josy en F Baron Respiratory Rate 2022-08-14 16:44:00 18.00 /min Chucho F Baron BP Systolic 2022-08-07 14:47:00 130 mm[Hg] Step hen F Baron BP Diastolic 2022-08-07 14:47:00 75 mm[Hg] Eleazar graham F Baron Weight Measured 2022-08-07 14:47:00 179.00 pounds Chucho F Baron Height Measured 2022-08-07 14:47:00 67.50 inches Chucho F Baron Body Temperature 2022-08-07 14:47:00 98.30 degrees Chucho F Baron Heart Rate 2022-08-07 14:47:00 74.00 /min Josy en F Baron Respiratory Rate 2022-08-07 14:47:00 17.00 /min Chucho F Baron BP Systolic 2022-03-06 10:40:00 125 mm[Hg] BP Diastolic 2022-03-06 10:40:00 69 mm[Hg] Weight Measured 2022-03-06 10:40:00 177.30 pounds Height Measured 2022-03-06 10:40:00 67.50 inches Body Temperature 2022-03-06 10:40:00 98.10 degrees Heart Rate 2022-03-06 10:40:00 80.00 /min Respiratory Rate 2022-03-06 10:40:00 17.00 /min BP Systolic 2021-11-13 13:24:00 BP Diastolic 2021-11-13 13:24:00 Weight Measured 2021-11-13 13:24:00 187.00 pounds Height Measured 2021-11-13 13:24:00 67.50 inches Body Temperature 2021-11-13 13:24:00 Heart Rate 2021-11-13 13:24:00 Respiratory Rate 2021-11-13 13:24:00 BP Systolic 2021-06-14 17:31:00 132 mm[Hg] BP Diastolic 2021-06-14 17:31:00 80 mm[Hg] Weight Measured 2021-06-14 17:31:00 187.00 pounds Height Measured 2021-06-14 17:31:00 67.50 inches Body Temperature 2021-06-14 17:31:00 98.30 degrees Heart Rate 2021-06-14 17:31:00 83.00 /min Respiratory Rate 2021-06-14 17:31:00 16.00 /min BP Systolic 2021-05-31 09:37:00 151 mm[Hg] BP Diastolic 2021-05-31 09:37:00 84 mm[Hg] Weight Measured 2021-05-31 09:37:00 184.00 pounds Height Measured 2021-05-31 09:37:00 67.50 inches Body Temperature 2021-05-31 09:37:00 98.10 degrees Heart Rate 2021-05-31 09:37:00 81.00 /min Respiratory Rate 2021-05-31 09:37:00 16.00 /min BP Systolic 2021-05-17 09:09:00 126 mm[Hg] BP Diastolic 2021-05-17 09:09:00 73 mm[Hg] Weight Measured 2021-05-17 09:09:00 189.80 pounds Height Measured 2021-05-17 09:09:00 67.50 inches Body Temperature 2021-05-17 09:09:00 98.70 degrees Heart Rate 2021-05-17 09:09:00 75.00 /min Respiratory Rate 2021-05-17 09:09:00 BP Systolic 2021-05-02 09:29:00 129 mm[Hg] BP Diastolic 2021-05-02 09:29:00 80 mm[Hg] Weight Measured 2021-05-02 09:29:00 183.20 pounds Height Measured 2021-05-02 09:29:00 67.50 inches Body Temperature 2021-05-02 09:29:00 98.30 degrees Heart Rate 2021-05-02 09:29:00 74.00 /min Respiratory Rate 2021-05-02 09:29:00 16.00 /min BP Systolic 2021-03-21 10:14:00 149 mm[Hg] BP Diastolic 2021-03-21 10:14:00 70 mm[Hg] Weight Measured 2021-03-21 10:14:00 183.20 pounds Height Measured 2021-03-21 10:14:00 67.50 inches Body Temperature 2021-03-21 10:14:00 98.20 degrees Heart Rate 2021-03-21 10:14:00 73.00 /min Respiratory Rate 2021-03-21 10:14:00 16.00 /min BP Systolic 2021-03-15 10:56:00 125 mm[Hg] BP Diastolic 2021-03-15 10:56:00 67 mm[Hg] Weight Measured 2021-03-15 10:56:00 183.20 pounds Height Measured 2021-03-15 10:56:00 67.50 inches Body Temperature 2021-03-15 10:56:00 97.70 degrees Heart Rate 2021-03-15 10:56:00 66.00 /min Respiratory Rate 2021-03-15 10:56:00 17.00 /min BP Systolic 2021-01-25 14:30:00 131 mm[Hg] BP Diastolic 2021-01-25 14:30:00 76 mm[Hg] Weight Measured 2021-01-25 14:30:00 186.60 pounds Height Measured 2021-01-25 14:30:00 67.50 inches Body Temperature 2021-01-25 14:30:00 98.60 degrees Heart Rate 2021-01-25 14:30:00 83.00 /min Respiratory Rate 2021-01-25 14:30:00 16.00 /min Procedures Procedure Date / Time Performed Performing Clinicia n Source SARS-COV-2 COVID-19 VACCINE,0.3ML,IM (PFIZER) 2021-09-18 20:40:01 Doctor Unassigned, [facility] REFERRAL- REQUEST/RESPONSE 2021-01-25 06:01:00 Doctor Unassigned, [facility] Plan of Care Planned Activity Planned Date Details Comments Source Goal Plan of Care Note [code = 02973-3] Goal Plan of Care Note [code = 94068-4] Goal Plan of Care Note [code = 54255-5] Goal Plan of Care Note [code = 17195-7] Goal Plan of Care Note [code = 74501-7] Goal Plan of Care Note [code = 19399-5] Goal Plan of Care Note [code = 59057-4] Goal Plan of Care Note [code = 17236-4] Goal Plan of Care Note [code = 60262-2] Goal Plan of Care Note [code = 26658-4] Goal Plan of Care Note [code = 81880-2] Goal Plan of Care Note [code = 29196-3] Goal Plan of Care Note [code = 90278-5] Goal Plan of Care Note [code = 40195-6] Goal Plan of Care Note [code = 63052-1] Goal Plan of Care Note [code = 01249-8] Goal Plan of Care Note [code = 30653-5] Goal Plan of Care Note [code = 50776-1] Goal Plan of Care Note [code = 08987-2] Goal Plan of Care Note [code = 97778-1] Goal Plan of Care Note [code = 82088-7] Goal Plan of Care Note [code = 51488-1] Goal Plan of Care Note [code = 45837-8] Goal Plan of Care Note [code = 73257-5] Goal Plan of Care Note [code = 86655-0] Goal Plan of Care Note [code = 40496-2] Goal Plan of Care Note [code = 16843-9] Goal Plan of Care Note [code = 72087-0] Goal Plan of Care Note [code = 33078-9] Goal Plan of Care Note [code = 93826-4] Goal Plan of Care Note [code = 83460-4] Goal Plan of Care Note [code = 46296-1] Goal Plan of Care Note [code = 69014-7] Goal Plan of Care Note [code = 01120-0] Goal Plan of Care Note [code = 39338-5] Goal Plan of Care Note [code = 10028-8] Goal Plan of Care Note [code = 60848-9] Goal Plan of Care Note [code = 99826-8] Goal Plan of Care Note [code = 50070-2] Goal Plan of Care Note [code = 98276-5] Goal Plan of Care Note [code = 78050-0] Goal Plan of Care Note [code = 85782-8] Goal Plan of Care Note [code = 12814-1] Goal Plan of Care Note [code = 69702-9] Goal Plan of Care Note [code = 28078-6] Goal Plan of Care Note [code = 90713-8] Goal Plan of Care Note [code = 36204-6] Goal Plan of Care Note [code = 09518-4] Goal Plan of Care Note [code = 87250-0] Goal Plan of Care Note [code = 79327-6] Goal Plan of Care Note [code = 03637-7] Goal Plan of Care Note [code = 62759-7] Goal Plan of Care Note [code = 70799-7] Goal Plan of Care Note [code = 27103-7] Goal Plan of Care Note [code = 21804-3] Goal Plan of Care Note [code = 58778-0] Goal Plan of Care Note [code = 25976-3] Goal Plan of Care Note [code = 45454-1] Goal Plan of Care Note [code = 24829-9] Goal Plan of Care Note [code = 84490-0] Goal Plan of Care Note [code = 73112-2] Goal Plan of Care Note [code = 45921-0] Goal Plan of Care Note [code = 70474-9] Goal Plan of Care Note [code = 71165-2] Goal Plan of Care Note [code = 43492-1] Goal Plan of Care Note [code = 14745-9] Goal Plan of Care Note [code = 29343-8] Goal Plan of Care Note [code = 41111-9] Goal Plan of Care Note [code = 39683-8] Goal Plan of Care Note [code = 64768-3] Goal Plan of Care Note [code = 40511-0] Goal Plan of Care Note [code = 62194-9] Goal Plan of Care Note [code = 54656-3] Goal Plan of Care Note [code = 23487-0] Goal Plan of Care Note [code = 52613-8] Goal Plan of Care Note [code = 81706-4] Goal Plan of Care Note [code = 39880-2] Goal Plan of Care Note [code = 51234-9] Goal Plan of Care Note [code = 49045-2] Goal Plan of Care Note [code = 16682-0] Goal Plan of Care Note [code = 28922-1] Goal Plan of Care Note [code = 38555-7] Goal Plan of Care Note [code = 13157-8] Goal Plan of Care Note [code = 97357-0] Goal Plan of Care Note [code = 81853-8] Goal Plan of Care Note [code = 59854-6] Goal Plan of Care Note [code = 35245-3] Encounters Start Date/Time End Date/Time Encounter Type Admission Type Attending [facility] Care Department Encounter ID Source 2025-01-04 09:11:51 2025-01-04 09:11:51 Outpatient [facility] [id number] Chucho Draper 2025-01-04 00:00:00 2025-01-04 00:00:00 Outpatient Visit [facility] [id number] Chucho Draper 2024-11-27 11:12:57 2024-11-27 11:12:57 Outpatient [facility] [id number] Chucho Draper 2024-11-27 00:00:00 2024-11-27 00:00:00 Outpatient Visit [facility] [id number] Chucho Draper 2024-10-23 00:00:00 2024-10-23 00:00:00 Outpatient Visit [facility] [id number] [id number] Chucho Draper 2024-08-21 11:11:53 2024-08-21 11:11:53 Outpatient [facility] 1004 Chucho Draper 2024-08-21 00:00:00 2024-08-21 00:00:00 Outpatient Visit [facility] [id number] Chucho Draper 2024-06-05 15:21:57 2024-06-05 15:21:57 Outpatient [facility] [id number] Chucho Draper 2024-06-05 00:00:00 2024-06-05 00:00:00 Outpatient Visit [facility] [id number] Chucho Draper 2024-03-13 15:05:54 2024-03-13 15:05:54 Outpatient [facility] [id number] Chucho Draper 2024-03-13 00:00:00 2024-03-13 00:00:00 Outpatient Visit [facility] [id number] Chucho Draper 2024-03-02 10:00:44 2024-03-02 10:00:44 Outpatient [facility] [id number] Chucho Draper 2024-02-22 14:26:15 2024-02-22 14:26:15 Outpatient [facility] [id number] Chucho Draper 2023-11-20 13:43:12 2023-11-20 13:43:12 Outpatient [facility] [id number] Chucho Draper 2023-09-26 10:08:01 2023-09-26 10:08:01 Outpatient [facility] [id number] Chucho Draper 2023-07-11 15:02:53 2023-07-11 15:02:53 Outpatient [facility] [id number] Chucho Draper 2023 11:42:52 2023 11:42:52 Outpatient [facility] [id number] Chucho Stratton Baron 2023-07-09 14:45:49 2023-07-09 14:45:49 Outpatient [facility] [id number] Chucho Draper 2023-03-30 13:14:27 2023-03-30 13:14:27 Outpatient [facility] [id number] Chucho Draper 2022-12-26 10:38:14 2022-12-26 10:38:14 Outpatient [facility] [id number] Chucho Draper 2022-12-25 10:21:50 2022-12-25 10:21:50 Outpatient [facility] [id number] Chucho Draper 2022-08-28 10:37:54 2022-08-28 10:37:54 Outpatient [facility] [id number] Chucho Draper 2022-08-14 00:00:00 2022-08-14 00:00:00 Outpatient Visit [id number] 2022-08-09 00:00:00 2022-08-09 00:00:00 Outpatient Visit [id number] 2022-08-07 00:00:00 2022-08-07 00:00:00 Outpatient Visit [id number] -[id number] 113ced 2021-09-18 15:39:08 2021-09-18 15:49:08 Imm/Inj Visit Nurse, Porsche Shah [facility] Emeterio Bass [facility] 1.2.840.114 350.1.13.10 4.2.7.2.686 [id number] [facility] 2021-03-02 00:00:00 2021-03-02 00:00:00 Letter (Out) [facility] 1.2.840.114 350.1.13.10 4.2.7.2.686 [id number] 2021-03-02 00:00:00 2021-03-02 00:00:00 Letter (Out) [facility] 1.2.840.114 350.1.13.10 4.2.7.2.686 [id number] [facility] 2021-02-23 12:50:00 2021-02-23 12:50:00 Outpatient GEORGINA LEMUS [facility] [id number] [facility] 2021-02-02 12:50:00 2021-02-02 12:50:00 Outpatient GEORGINA LEMUS [facility] [id number] [facility] 2021-01-25 00:00:00 2021-01-25 00:00:00 Orders Only Doctor Unassigned, [facility] 1.2840.114 350.1.13.10 4.2.7.2.686 [id number] 2021-01-25 00:00:00 2021-01-25 00:00:00 Orders Only Doctor Unassigned, [facility] 1.2840.114 350.1.13.10 4.2.7.2.686 [id number] [facility] 2020-12-20 19:20:00 2020-12-20 19:20:00 Outpatient R MAURISIO YADAV [facility] [id number] [facility] 2020-12-20 17:21:39 2020-12-20 18:31:21 Urgent Care Provider, [facility] 1.840.114 350.1.13.10 4.2.7.2.686 [id number] 2020-12-20 17:21:39 2020-12-20 18:31:21 Urgent Care Provider, [facility] Maurisio Yadav [facility] 1.840.114 350.1.13.10 4.2.7.2.686 [id number] [facility] Results Test Description Test Time Test Comments Results Result Co mments Source LIPID [id number] 02:58:20* Test Item Value Reference Range Interpretation Comme nts CHOLESTEROL (test code = 2210) 128 MG/DL <200 TRIGLYCERIDES (test code = 2232) 144 MG/DL <150 HDL CHOLESTEROL (test code = 2220) 38 MG/DL >39 L CALC LDL CHOL (test code = 2237) 67 MG/DL <100 NOTE: CALCULATED LDL IS BASED ON JESUS-WHEELER METHOD WHICHINCLUDES ADJUSTABLE TRIGLYCERIDE:VLDL CHOLESTEROL RATIO.THIS FACTOR VARIES BY MEASURED TRIGLYCERIDE AND NON-HDLCHOLESTEROL CONCENTRATIONS WITH INCREASED CALCULATED LDL SEENIN HIGHER TRIGLYCERIDE OR LOWER NON-HDL SPECIMENS. FOR MOREINFORMATION, SEE CLIENT ANNOUNCEMENT AT [email or web address] RISK RATIO LDL/HDL (test code = 2237) 1.76 RATIO <3.55 COMPREHENSIVE METABOLIC [id number] 02:58:20* Test Item Value Reference Range Interpretation Comme nts GLUCOSE (test code = 2216) 260 MG/DL 70-99 H BUN (test code = 2207) 15 MG/DL 8-23 CREATININE (test code = 221) 0.76 MG/DL 0.80-1.40 L eGFR (2020 CKD-EPI) (test code = 73950) 95 ML/MIN/1.73 >60 CALC BUN/CREAT (test code = 2234) 20 RATIO 6-28 SODIUM (test code = 223) 132 MEQ/L 133-146 L POTASSIUM (test code = 2228) 4.1 MEQ/L 3.5-5.4 CHLORIDE (test code = 2214) 97 MEQ/L 95-107 CARBON DIOXIDE (test code = 2206) 23 MEQ/L 19-31 CALCIUM (test code = 2209) 8.9 MG/DL 8.5-10.5 PROTEIN, TOTAL (test code = 222) 6.5 G/DL 6.1-8.3 ALBUMIN (test code = 2201) 3.9 G/DL 3.5-5.2 CALC GLOBULIN (test code = 2240) 2.6 G/DL 1.9-3.7 CALC A/G RATIO (test code = 2233) 1.5 RATIO 1.0-2.6 BILIRUBIN, TOTAL (test code = 2206) 0.4 MG/DL <=1.2 ALKALINE PHOSPHATASE (test code = 220) 96 U/L 40-125 AST (test code = 2218) 9 U/L 9-50 ALT (test code = 2219) 8 U/L 5-50 UNLESS OTHERWISE INDICATED, ALL TESTING PERFORMED AT [facility] [address] [place] [address] [employer] INSTALLER: MAL LOZANO M.D. CLIA NUMBER [id number] [place]. [id number] HEMOGLOBIN [id number] 00:00:00* Test Item Value Reference Range Interpretation Comme nts HEMOGLOBIN A1c (test code = 32916) 8.7 % Chucho DraperLIPID [id number] 00:00:00* Test Item Value Reference Range Interpretation Comme nts CHOLESTEROL (test code = 2210) 128 MG/DL TRIGLYCERIDES (test code = 2232) 144 MG/DL HDL CHOLESTEROL (test code = 2220) 38 MG/DL CALC LDL CHOL (test code = 2237) 67 MG/DL RISK RATIO LDL/HDL (test cod e = 2238) 1.76 RATIO Ch[facility] DraperCOMPREHENSIVE METABOLIC [id number] 00:00:00* Test Item Value Reference Range Interpretation Comme nts GLUCOSE (test code = 2217) 260 MG/DL BUN (test code = 2208) 15 MG/DL CREATININE (test code = 2214) 0.76 MG/DL eGFR (2020 CKD-EPI) (test co de = 88637) 95 ML/MIN/1.73 CALC BUN/CREAT (test code = 2235) 20 RATIO SODIUM (test code = 2231) 132 MEQ/L POTASSIUM (test code = 2228) 4.1 MEQ/L CHLORIDE (test code = 2215) 97 MEQ/L CARBON DIOXIDE (test code = 2206) 23 MEQ/L CALCIUM (test code = 2209) 8.9 MG/DL PROTEIN, TOTAL (test code = 2229) 6.5 G/DL ALBUMIN (test code = 2201) 3.9 G/DL CALC GLOBULIN (test code = 2240) 2.6 G/DL CALC A/G RATIO (test code = 2234) 1.5 RATIO BILIRUBIN, TOTAL (test code = 2207) 0.4 MG/DL ALKALINE PHOSPHATASE (test code = 2204) 96 U/L AST (test code = 2218) 9 U/L ALT (test code = 2219) 8 U/L Chucho DraperURIC [id number] 04:28:43* Test Item Value Reference Range Interpretation Comme nts URIC ACID (test code = 2233) 3.9 MG/DL 3.7-8.0 UNLESS OTHERWISE INDICATED, ALL TESTING PERFORMED AT [facility] [address] [place] [address] [employer] INSTALLER: MAL LOZANO M.D. CLIA NUMBER [id number] [place]. [id number] URIC [id number] 00:00:00* Test Item Value Reference Range Interpretation Comme nts URIC ACID (test code = 2233) 3.9 MG/DL Chucho DraperURIC [id number] 00:00:00* Test Item Value Reference Range Interpretation Comme nts URIC ACID (test code = 2233) 3.9 MG/DL Chucho DraperALBUMIN/CREATININE RATIO, URINE, [id number] 04:46:32* Test Item Value Reference Range Interpretation Comme nts CREATININE, URINE, CONC. (test code = 2072) 311.9 MG/DL NOT ESTAB ALBUMIN, URINE, RANDOM (test code = 92754) 2.3 MG/DL NOT ESTAB CALC ALBUMIN/CREAT, RND (test code = 38912) 7 MG/G <30 Note: Albumin/Creatinine ratio reference interval reflects ADA and NKF guidelines. HIV 1/2 4TH GEN, RFLX [id number] 04:14:20* Test Item Value Reference Range Interpretation Comme nts HIV 1/2 4TH GEN, RFLX CONF (test code = 3514) NON-REACTIVE NON-REACTIVE UNLESS OTHERWISE INDICATED, ALL TESTING PERFORMED AT [facility] [address] [place] [address] [employer] INSTALLER: MAL LOZANO M.D. CLIA NUMBER [id number] [place]. [id number] LIPID [id number] 03:44:22* Test Item Value Reference Range Interpretation Comme nts CHOLESTEROL (test code = 2210) 161 MG/DL <200 TRIGLYCERIDES (test code = 2232) 147 MG/DL <150 HDL CHOLESTEROL (test code = 2220) 39 MG/DL >39 L CALC LDL CHOL (test code = 2237) 98 MG/DL <100 NOTE: CALCULATED LDL IS BASED ON JESUS-WHEELER METHOD WHICHINCLUDES ADJUSTABLE TRIGLYCERIDE:VLDL CHOLESTEROL RATIO.THIS FACTOR VARIES BY MEASURED TRIGLYCERIDE AND NON-HDLCHOLESTEROL CONCENTRATIONS WITH INCREASED CALCULATED LDL SEENIN HIGHER TRIGLYCERIDE OR LOWER NON-HDL SPECIMENS. FOR MOREINFORMATION, SEE CLIENT ANNOUNCEMENT AT [email or web address]-[email or web address] RISK RATIO LDL/HDL (test code = 2238) 2.51 RATIO <3.55 COMPREHENSIVE METABOLIC [id number] 03:44:22* Test Item Value Reference Range Interpretation Comme nts GLUCOSE (test code = 2216) 128 MG/DL 70-99 H BUN (test code = 2207) 21 MG/DL 8-23 CREATININE (test code = 4) 0.91 MG/DL 0.80-1.40 eGFR (2020 CKD-EPI) (test co de = 06233) 89 ML/MIN/1.73 >60 CALC BUN/CREAT (test code = 2235) 23 RATIO 6-28 SODIUM (test code = 223) 140 MEQ/L 133-146 POTASSIUM (test code = 2228) 4.4 MEQ/L 3.5-5.4 CHLORIDE (test code = 2214) 102 MEQ/L 95-107 CARBON DIOXIDE (test code = 6) 25 MEQ/L 19-31 CALCIUM (test code = 2208) 9.7 MG/DL 8.5-10.5 PROTEIN, TOTAL (test code = 2228) 7.3 G/DL 6.1-8.3 ALBUMIN (test code = 2200) 4.4 G/DL 3.5-5.2 CALC GLOBULIN (test code = 2240) 2.9 G/DL 1.9-3.7 CALC A/G RATIO (test code = 4) 1.5 RATIO 1.0-2.6 BILIRUBIN, TOTAL (test code = 2206) 0.7 MG/DL <=1.2 ALKALINE PHOSPHATASE (test code = 2203) 80 U/L 40-125 AST (test code = 2218) 11 U/L 9-50 ALT (test code = 2219) 10 U/L 5-50 HEMOGLOBIN [id number] 03:09:15* Test Item Value Reference Range Interpretation Comme nts HEMOGLOBIN A1c (test code = 68387) 7.4 % 4.2-5.6 H [employer] GUIDELINES FOR HGB A1C: PREDIABETES/INCREASED RISK . . . . . . . 5.7-6.4% DIAGNOSIS OF DIABETES . . . . . . . . . >=6.5% WITH CONFIRMATION OR APPROPRIATE SYMPTOMS NOTE: ASSAY MAY BE AFFECTED BY HEMOGLOBINOPATHIES (SICKLE CELL ANEMIA, S-C DISEASE, OTHERS) OR ARTIFICIALLY LOWERED BY DECREASED RED CELL SURVIVAL (HEMOLYTIC ANEMIAS, BLOOD LOSS, ETC.). CONSIDER ALTERNATE TESTING OR LABORATORY CONSULTATION. CBC W/AUTO DIFF WITH [id number] 02:33:45* Test Item Value Reference Range Interpretation Comme nts WBC (test code = 1001) 10.1 K/UL 3.5-11.0 RBC (test code = 1002) 5.18 M/UL 4.50-6.10 HEMOGLOBIN (test code = 1003) 14.5 G/DL 13.5-17.0 HEMATOCRIT (test code = 1004) 44.5 % 40.0-51.0 MCV (test code = 1005) 85.9 fL 80.0-99.0 MCH (test code = 1006) 28.0 PG 25.0-33.0 MCHC (test code = 1007) 32.6 G/DL 31.0-36.0 RDW (test code = 1038) 13.5 % 11.5-15.0 NEUTROPHILS (test code = 1008) 78.3 % LYMPHOCYTES (test code = 1010) 11.4 % MONOCYTES (test code = 1011) 6.2 % EOSINOPHILS (test code = 1012) 3.2 % BASOPHILS (test code = 1013) 0.5 % IMMATURE GRANULOCYTES (test code = 1036) 0.4 % NUCLEATED RBCS (test code = 1065) 0.0 /100 WBC'S See_Comment [Automated messa ge] The system which generated this result transmitted reference range: 0.0. The reference range was not used to interpret this result as normal/abnormal. PLATELET COUNT (test code = 1015) 264 K/UL 130-400 ABSOLUTE NEUTROPHILS (test code = 1066) 7.92 K/UL 1.50-7.50 H ABSOLUTE LYMPHOCYTES (test code = 1067) 1.15 K/UL 1.00-4.00 ABSOLUTE MONOCYTES (test code = 1068) 0.63 K/UL 0.20-1.00 ABSOLUTE EOSINOPHILS (test code = 1040) 0.32 K/UL 0.00-0.50 ABSOLUTE BASOPHILS (test code = 1069) 0.05 K/UL 0.00-0.20 ABS IMMATURE GRANULOCYTES (test code = 1020) 0.04 K/UL 0.00-0.10 ABS NUCLEATED RBCS (test code = 64821) 0.00 K/UL 0.00-0.11 HEMOGLOBIN [id number] 00:00:00* Test Item Value Reference Range Interpretation Comme nts HEMOGLOBIN A1c (test code = 74094) 7.4 % Chucho DraperLIPID [id number] 00:00:00* Test Item Value Reference Range Interpretation Comme nts CHOLESTEROL (test code = 2210) 161 MG/DL TRIGLYCERIDES (test code = 2232) 147 MG/DL HDL CHOLESTEROL (test code = 2220) 39 MG/DL CALC LDL CHOL (test code = 2237) 98 MG/DL RISK RATIO LDL/HDL (test cod e = 2238) 2.51 RATIO Chucho DraperCBC W/AUTO [id number] 00:00:00* Test Item Value Reference Range Interpretation Comme nts WBC (test code = 1001) 10.1 K/UL RBC (test code = 1002) 5.18 M/UL HEMOGLOBIN (test code = 1003) 14.5 G/DL HEMATOCRIT (test code = 1004) 44.5 % MCV (test code = 1005) 85.9 fL MCH (test code = 1006) 28.0 PG MCHC (test code = 1007) 32.6 G/DL RDW (test code = 1038) 13.5 % NEUTROPHILS (test code = 1008) 78.3 % LYMPHOCYTES (test code = 1010) 11.4 % MONOCYTES (test code = 1011) 6.2 % EOSINOPHILS (test code = 1012) 3.2 % BASOPHILS (test code = 1013) 0.5 % IMMATURE GRANULOCYTES (test code = 1036) 0.4 % NUCLEATED RBCS (test code = 1065) 0.0 /100WBC'S PLATELET COUNT (test code = 1015) 264 K/UL ABSOLUTE NEUTROPHILS (test c ode = 1066) 7.92 K/UL ABSOLUTE LYMPHOCYTES (test c ode = 1067) 1.15 K/UL ABSOLUTE MONOCYTES (test cod e = 1068) 0.63 K/UL ABSOLUTE EOSINOPHILS (test c ode = 1040) 0.32 K/UL ABSOLUTE BASOPHILS (test cod e = 1069) 0.05 K/UL ABS IMMATURE GRANULOCYTES (t est code = 1020) 0.04 K/UL ABS NUCLEATED RBCS (test cod e = 54979) 0.00 K/UL Chucho DraperCOMPREHENSIVE METABOLIC [id number] 00:00:00* Test Item Value Reference Range Interpretation Comme nts GLUCOSE (test code = 7) 128 MG/DL BUN (test code = 2208) 21 MG/DL CREATININE (test code = 2214) 0.91 MG/DL eGFR (2020 CKD-EPI) (test co de = 37869) 89 ML/MIN/1.73 CALC BUN/CREAT (test code = 2235) 23 RATIO SODIUM (test code = 2231) 140 MEQ/L POTASSIUM (test code = 2228) 4.4 MEQ/L CHLORIDE (test code = 2215) 102 MEQ/L CARBON DIOXIDE (test code = 2206) 25 MEQ/L CALCIUM (test code = 2209) 9.7 MG/DL PROTEIN, TOTAL (test code = 222) 7.3 G/DL ALBUMIN (test code = 2200) 4.4 G/DL CALC GLOBULIN (test code = 2240) 2.9 G/DL CALC A/G RATIO (test code = 2234) 1.5 RATIO BILIRUBIN, TOTAL (test code = 2207) 0.7 MG/DL ALKALINE PHOSPHATASE (test code = 4) 80 U/L AST (test code = 2218) 11 U/L ALT (test code = 2219) 10 U/L Chucho DraperALBUMIN/CREATININE RATIO, RANDOM [id number] 00:00:00* Test Item Value Reference Range Interpretation Comme nts CREATININE, URINE, CONC. (te st code = 2072) 311.9 MG/DL ALBUMIN, URINE, RANDOM (test code = 95680) 2.3 MG/DL CALC ALBUMIN/CREAT, RND (irina t code = 94976) 7 MG/G Chucho DraperHIV 1/2 4TH GEN, RFLX [id number] 00:00:00* Test Item Value Reference Range Interpretation Comme thong HIV 1/2 4TH GEN, RFLX CONF ( test code = 3514) NON-REACTIVE Chucho DraperHEMOGLOBIN [id number] 00:00:00* Test Item Value Reference Range Interpretation Comme nts HEMOGLOBIN A1c (test code = 01746) 7.4 % Chucho DraperLIPID [id number] 00:00:00* Test Item Value Reference Range Interpretation Comme nts CHOLESTEROL (test code = 2210) 161 MG/DL TRIGLYCERIDES (test code = 2232) 147 MG/DL HDL CHOLESTEROL (test code = 2220) 39 MG/DL CALC LDL CHOL (test code = 2237) 98 MG/DL RISK RATIO LDL/HDL (test cod e = 2238) 2.51 RATIO Chucho DraperCBC W/AUTO [id number] 00:00:00* Test Item Value Reference Range Interpretation Comme nts WBC (test code = 1001) 10.1 K/UL RBC (test code = 1002) 5.18 M/UL HEMOGLOBIN (test code = 1003) 14.5 G/DL HEMATOCRIT (test code = 1004) 44.5 % MCV (test code = 1005) 85.9 fL MCH (test code = 1006) 28.0 PG MCHC (test code = 1007) 32.6 G/DL RDW (test code = 1038) 13.5 % NEUTROPHILS (test code = 1008) 78.3 % LYMPHOCYTES (test code = 1010) 11.4 % MONOCYTES (test code = 1011) 6.2 % EOSINOPHILS (test code = 1012) 3.2 % BASOPHILS (test code = 1013) 0.5 % IMMATURE GRANULOCYTES (test code = 1036) 0.4 % NUCLEATED RBCS (test code = 1065) 0.0 /100WBC'S PLATELET COUNT (test code = 1015) 264 K/UL ABSOLUTE NEUTROPHILS (test c ode = 1066) 7.92 K/UL ABSOLUTE LYMPHOCYTES (test c ode = 1067) 1.15 K/UL ABSOLUTE MONOCYTES (test cod e = 1068) 0.63 K/UL ABSOLUTE EOSINOPHILS (test c ode = 1040) 0.32 K/UL ABSOLUTE BASOPHILS (test cod e = 1069) 0.05 K/UL ABS IMMATURE GRANULOCYTES (t est code = 1020) 0.04 K/UL ABS NUCLEATED RBCS (test cod e = 06886) 0.00 K/UL Chucho DraperCOMPREHENSIVE METABOLIC [id number] 00:00:00* Test Item Value Reference Range Interpretation Comme nts GLUCOSE (test code = 2217) 128 MG/DL BUN (test code = 2208) 21 MG/DL CREATININE (test code = 2214) 0.91 MG/DL eGFR (2020 CKD-EPI) (test co de = 62791) 89 ML/MIN/1.73 CALC BUN/CREAT (test code = 2235) 23 RATIO SODIUM (test code = 2231) 140 MEQ/L POTASSIUM (test code = 2228) 4.4 MEQ/L CHLORIDE (test code = 2215) 102 MEQ/L CARBON DIOXIDE (test code = 2206) 25 MEQ/L CALCIUM (test code = 2209) 9.7 MG/DL PROTEIN, TOTAL (test code = 2229) 7.3 G/DL ALBUMIN (test code = 2201) 4.4 G/DL CALC GLOBULIN (test code = 2240) 2.9 G/DL CALC A/G RATIO (test code = 2234) 1.5 RATIO BILIRUBIN, TOTAL (test code = 2207) 0.7 MG/DL ALKALINE PHOSPHATASE (test code = 2204) 80 U/L AST (test code = 2218) 11 U/L ALT (test code = 2219) 10 U/L Chucho DraperALBUMIN/CREATININE RATIO, RANDOM [id number] 00:00:00* Test Item Value Reference Range Interpretation Comme [facility] CREATININE, URINE, CONC. (te st code = 2072) 311.9 MG/DL ALBUMIN, URINE, RANDOM (test code = 19108) 2.3 MG/DL CALC ALBUMIN/CREAT, RND (irina t code = 58519) 7 MG/G Chucho DraperHIV 1/2 4TH GEN, RFLX [id number] 00:00:00* Test Item Value Reference Range Interpretation Comme thong HIV 1/2 4TH GEN, RFLX CONF ( test code = 3514) NON-REACTIVE Chucho DraperHEMOGLOBIN [id number] 00:00:00* Test Item Value Reference Range Interpretation Comme nts HEMOGLOBIN A1c (test code = 42384) 7.4 % Chucho DraperLIPID [id number] 00:00:00* Test Item Value Reference Range Interpretation Comme nts CHOLESTEROL (test code = 2210) 161 MG/DL TRIGLYCERIDES (test code = 2232) 147 MG/DL HDL CHOLESTEROL (test code = 2220) 39 MG/DL CALC LDL CHOL (test code = 2237) 98 MG/DL RISK RATIO LDL/HDL (test cod e = 2238) 2.51 RATIO Chucho DraperCBC W/AUTO [id number] 00:00:00* Test Item Value Reference Range Interpretation Comme nts WBC (test code = 1001) 10.1 K/UL RBC (test code = 1002) 5.18 M/UL HEMOGLOBIN (test code = 1003) 14.5 G/DL HEMATOCRIT (test code = 1004) 44.5 % MCV (test code = 1005) 85.9 fL MCH (test code = 1006) 28.0 PG MCHC (test code = 1007) 32.6 G/DL RDW (test code = 1038) 13.5 % NEUTROPHILS (test code = 1008) 78.3 % LYMPHOCYTES (test code = 1010) 11.4 % MONOCYTES (test code = 1011) 6.2 % EOSINOPHILS (test code = 1012) 3.2 % BASOPHILS (test code = 1013) 0.5 % IMMATURE GRANULOCYTES (test code = 1036) 0.4 % NUCLEATED RBCS (test code = 1065) 0.0 /100WBC'S PLATELET COUNT (test code = 1015) 264 K/UL ABSOLUTE NEUTROPHILS (test c ode = 1066) 7.92 K/UL ABSOLUTE LYMPHOCYTES (test c ode = 1067) 1.15 K/UL ABSOLUTE MONOCYTES (test cod e = 1068) 0.63 K/UL ABSOLUTE EOSINOPHILS (test c ode = 1040) 0.32 K/UL ABSOLUTE BASOPHILS (test cod e = 1069) 0.05 K/UL ABS IMMATURE GRANULOCYTES (t est code = 1020) 0.04 K/UL ABS NUCLEATED RBCS (test cod e = 22015) 0.00 K/UL Chucho Stratton OberlinCOMPREHENSIVE METABOLIC [id number] 00:00:00* Test Item Value Reference Range Interpretation Comme nts GLUCOSE (test code = 2217) 128 MG/DL BUN (test code = 2208) 21 MG/DL CREATININE (test code = 2214) 0.91 MG/DL eGFR (2020 CKD-EPI) (test co de = 38840) 89 ML/MIN/1.73 CALC BUN/CREAT (test code = 2235) 23 RATIO SODIUM (test code = 2231) 140 MEQ/L POTASSIUM (test code = 2228) 4.4 MEQ/L CHLORIDE (test code = 2215) 102 MEQ/L CARBON DIOXIDE (test code = 2206) 25 MEQ/L CALCIUM (test code = 2209) 9.7 MG/DL PROTEIN, TOTAL (test code = 2229) 7.3 G/DL ALBUMIN (test code = 2201) 4.4 G/DL CALC GLOBULIN (test code = 2240) 2.9 G/DL CALC A/G RATIO (test code = 2234) 1.5 RATIO BILIRUBIN, TOTAL (test code = 2207) 0.7 MG/DL ALKALINE PHOSPHATASE (test code = 2204) 80 U/L AST (test code = 2218) 11 U/L ALT (test code = 2219) 10 U/L Chucho DraperALBUMIN/CREATININE RATIO, RANDOM [id number] 00:00:00* Test Item Value Reference Range Interpretation Comme thong CREATININE, URINE, CONC. (te st code = 2072) 311.9 MG/DL ALBUMIN, URINE, RANDOM (test code = 52892) 2.3 MG/DL CALC ALBUMIN/CREAT, RND (irina t code = 26632) 7 MG/G Chucho DraperHIV 1/2 4TH GEN, RFLX [id number] 00:00:00* Test Item Value Reference Range Interpretation Comme thong HIV 1/2 4TH GEN, RFLX CONF ( test code = 3514) NON-REACTIVE Chucho DraperHEMOGLOBIN [id number] 00:00:00* Test Item Value Reference Range Interpretation Comme thong HEMOGLOBIN A1c (test code = 73850) 7.4 % Chucho DraperLIPID [id number] 00:00:00* Test Item Value Reference Range Interpretation Comme thong CHOLESTEROL (test code = 2210) 161 MG/DL TRIGLYCERIDES (test code = 2232) 147 MG/DL HDL CHOLESTEROL (test code = 2220) 39 MG/DL CALC LDL CHOL (test code = 2237) 98 MG/DL RISK RATIO LDL/HDL (test cod e = 2238) 2.51 RATIO Chucho DraperCBC W/AUTO [id number] 00:00:00* Test Item Value Reference Range Interpretation Comme nts WBC (test code = 1001) 10.1 K/UL RBC (test code = 1002) 5.18 M/UL HEMOGLOBIN (test code = 1003) 14.5 G/DL HEMATOCRIT (test code = 1004) 44.5 % MCV (test code = 1005) 85.9 fL MCH (test code = 1006) 28.0 PG MCHC (test code = 1007) 32.6 G/DL RDW (test code = 1038) 13.5 % NEUTROPHILS (test code = 1008) 78.3 % LYMPHOCYTES (test code = 1010) 11.4 % MONOCYTES (test code = 1011) 6.2 % EOSINOPHILS (test code = 1012) 3.2 % BASOPHILS (test code = 1013) 0.5 % IMMATURE GRANULOCYTES (test code = 1036) 0.4 % NUCLEATED RBCS (test code = 1065) 0.0 /100WBC'S PLATELET COUNT (test code = 1015) 264 K/UL ABSOLUTE NEUTROPHILS (test c ode = 1066) 7.92 K/UL ABSOLUTE LYMPHOCYTES (test c ode = 1067) 1.15 K/UL ABSOLUTE MONOCYTES (test cod e = 1068) 0.63 K/UL ABSOLUTE EOSINOPHILS (test c ode = 1040) 0.32 K/UL ABSOLUTE BASOPHILS (test cod e = 1069) 0.05 K/UL ABS IMMATURE GRANULOCYTES (t est code = 1020) 0.04 K/UL ABS NUCLEATED RBCS (test cod e = 88780) 0.00 K/UL Chucho F BaronCOMPREHENSIVE METABOLIC [id number] 00:00:00* Test Item Value Reference Range Interpretation Comme nts GLUCOSE (test code = 2217) 128 MG/DL BUN (test code = 2208) 21 MG/DL CREATININE (test code = 2214) 0.91 MG/DL eGFR (2020 CKD-EPI) (test co de = 84018) 89 ML/MIN/1.73 CALC BUN/CREAT (test code = 2235) 23 RATIO SODIUM (test code = 2231) 140 MEQ/L POTASSIUM (test code = 2228) 4.4 MEQ/L CHLORIDE (test code = 2215) 102 MEQ/L CARBON DIOXIDE (test code = 2206) 25 MEQ/L CALCIUM (test code = 2209) 9.7 MG/DL PROTEIN, TOTAL (test code = 2229) 7.3 G/DL ALBUMIN (test code = 2201) 4.4 G/DL CALC GLOBULIN (test code = 2240) 2.9 G/DL CALC A/G RATIO (test code = 2234) 1.5 RATIO BILIRUBIN, TOTAL (test code = 2207) 0.7 MG/DL ALKALINE PHOSPHATASE (test code = 2204) 80 U/L AST (test code = 2218) 11 U/L ALT (test code = 2219) 10 U/L Chucho Stratton AustinALBUMIN/CREATININE RATIO, RANDOM [id number] 00:00:00* Test Item Value Reference Range Interpretation Comme nts CREATININE, URINE, CONC. (te st code = 207) 311.9 MG/DL ALBUMIN, URINE, RANDOM (test code = 25172) 2.3 MG/DL CALC ALBUMIN/CREAT, RND (irina t code = 78051) 7 MG/G Chucho Stratton AustinHIV 1/2 4TH GEN, RFLX [id number] 00:00:00* Test Item Value Reference Range Interpretation Comme nts HIV 1/2 4TH GEN, RFLX CONF ( test code = 3514) NON-REACTIVE Chucho Stratton AustinALBUMIN/CREATININE RATIO, URINE, [id number] 09:59:05* Test Item Value Reference Range Interpretation Comme nts CREATININE, URINE, CONC. (test code = 207) TEST NOT PERFORMED MG/DL NOT ESTAB Unable to perform testing, specimen not received.Charges adjusted as applicable. ALBUMIN, URINE, RANDOM (test code = 63368) TEST NOT PERFORMED MG/DL NOT ESTAB CALC ALBUMIN/CREAT, RND (test code = 92543) TEST NOT PERFORMED MG/G <30 Note: Albumin/Creatinine ratio reference interval reflects ADA and NKF guidelines. ALBUMIN/CREATININE RATIO, RANDOM [id number] 00:00:00* Test Item Value Reference Range Interpretation Comme nts CREATININE, URINE, CONC. (test code = 207) TEST NOT PERFORMED MG/DL ALBUMIN, URINE, RANDOM (test code = 63818) TEST NOT PERFORMED MG/DL CALC ALBUMIN/CREAT, RND (test code = 13643) TEST NOT PERFORMED MG/G Chucho Chayito AustinALBUMIN/CREATININE RATIO, RANDOM [id number] 00:00:00* Test Item Value Reference Range Interpretation Comme nts CREATININE, URINE, CONC. (test code = 2072) TEST NOT PERFORMED MG/DL ALBUMIN, URINE, RANDOM (test code = 46084) TEST NOT PERFORMED MG/DL CALC ALBUMIN/CREAT, RND (test code = 72973) TEST NOT PERFORMED MG/G Chucho Chayito AustinALBUMIN/CREATININE RATIO, RANDOM [id number] 00:00:00* Test Item Value Reference Range Interpretation Comme nts CREATININE, URINE, CONC. (test code = 207) TEST NOT PERFORMED MG/DL ALBUMIN, URINE, RANDOM (test code = 12379) TEST NOT PERFORMED MG/DL CALC ALBUMIN/CREAT, RND (test code = 59639) TEST NOT PERFORMED MG/G Chucho Stratton AustinALBUMIN/CREATININE RATIO, RANDOM [id number] 00:00:00* Test Item Value Reference Range Interpretation Comme nts CREATININE, URINE, CONC. (test code = 2071) TEST NOT PERFORMED MG/DL ALBUMIN, URINE, RANDOM (test code = 33771) TEST NOT PERFORMED MG/DL CALC ALBUMIN/CREAT, RND (test code = 27798) TEST NOT PERFORMED MG/G Chucho DraperCOMPREHENSIVE METABOLIC [id number] 00:26:42* Test Item Value Reference Range Interpretation Comme nts GLUCOSE (test code = 2216) 218 MG/DL 70-99 H BUN (test code = 2207) 12 MG/DL 8-23 CREATININE (test code = 2213) 1.00 MG/DL 0.80-1.40 eGFR (2020 CKD-EPI) (test co de = 13503) 80 ML/MIN/1.73 >60 CALC BUN/CREAT (test code = 2234) 12 RATIO 6-28 SODIUM (test code = 2231) 136 MEQ/L 133-146 POTASSIUM (test code = 2228) 4.5 MEQ/L 3.5-5.4 CHLORIDE (test code = 2215) 100 MEQ/L 95-107 CARBON DIOXIDE (test code = 2206) 26 MEQ/L 19-31 CALCIUM (test code = 2209) 9.2 MG/DL 8.5-10.5 PROTEIN, TOTAL (test code = 2229) 6.7 G/DL 6.1-8.3 ALBUMIN (test code = 1) 4.3 G/DL 3.5-5.2 CALC GLOBULIN (test code = 2240) 2.4 G/DL 1.9-3.7 CALC A/G RATIO (test code = 2234) 1.8 RATIO 1.0-2.6 BILIRUBIN, TOTAL (test code = 2206) 0.3 MG/DL <=1.2 ALKALINE PHOSPHATASE (test code = 2204) 85 U/L 40-125 AST (test code = 2218) 10 U/L 9-50 ALT (test code = 2219) 13 U/L 5-50 LIPID [id number] 00:26:42* Test Item Value Reference Range Interpretation Comme nts CHOLESTEROL (test code = 2210) 198 MG/DL <200 TRIGLYCERIDES (test code = 2232) 326 MG/DL <150 H HDL CHOLESTEROL (test code = 2220) 41 MG/DL >39 CALC LDL CHOL (test code = 2237) 114 MG/DL <100 H NOTE: CALCULATED LDL IS BASED ON JESUS-WHEELER METHOD WHICHINCLUDES ADJUSTABLE TRIGLYCERIDE:VLDL CHOLESTEROL RATIO.THIS FACTOR VARIES BY MEASURED TRIGLYCERIDE AND NON-HDLCHOLESTEROL CONCENTRATIONS WITH INCREASED CALCULATED LDL SEENIN HIGHER TRIGLYCERIDE OR LOWER NON-HDL SPECIMENS. FOR MOREINFORMATION, SEE CLIENT ANNOUNCEMENT AT [email or web address] RISK RATIO LDL/HDL (test code = 2238) 2.78 RATIO <3.55 COMPREHENSIVE METABOLIC [id number] 00:00:00* Test Item Value Reference Range Interpretation Comme nts GLUCOSE (test code = 2217) 218 MG/DL BUN (test code = 2208) 12 MG/DL CREATININE (test code = 2214) 1.00 MG/DL eGFR (2020 CKD-EPI) (test co de = 89175) 80 ML/MIN/1.73 CALC BUN/CREAT (test code = 2235) 12 RATIO SODIUM (test code = 2231) 136 MEQ/L POTASSIUM (test code = 2228) 4.5 MEQ/L CHLORIDE (test code = 2215) 100 MEQ/L CARBON DIOXIDE (test code = 2206) 26 MEQ/L CALCIUM (test code = 2209) 9.2 MG/DL PROTEIN, TOTAL (test code = 2229) 6.7 G/DL ALBUMIN (test code = 2201) 4.3 G/DL CALC GLOBULIN (test code = 2240) 2.4 G/DL CALC A/G RATIO (test code = 2234) 1.8 RATIO BILIRUBIN, TOTAL (test code = 2207) 0.3 MG/DL ALKALINE PHOSPHATASE (test code = 2204) 85 U/L AST (test code = 2218) 10 U/L ALT (test code = 2219) 13 U/L Chucho Stratton AustinLIPID [id number] 00:00:00* Test Item Value Reference Range Interpretation Comme nts CHOLESTEROL (test code = 2210) 198 MG/DL TRIGLYCERIDES (test code = 2232) 326 MG/DL HDL CHOLESTEROL (test code = 2220) 41 MG/DL CALC LDL CHOL (test code = 2237) 114 MG/DL RISK RATIO LDL/HDL (test cod e = 2238) 2.78 RATIO Chucho Stratton AustinCOMPREHENSIVE METABOLIC [id number] 00:00:00* Test Item Value Reference Range Interpretation Comme nts GLUCOSE (test code = 2217) 218 MG/DL BUN (test code = 2208) 12 MG/DL CREATININE (test code = 2214) 1.00 MG/DL eGFR (2020 CKD-EPI) (test co de = 16477) 80 ML/MIN/1.73 CALC BUN/CREAT (test code = 2235) 12 RATIO SODIUM (test code = 2231) 136 MEQ/L POTASSIUM (test code = 2228) 4.5 MEQ/L CHLORIDE (test code = 2215) 100 MEQ/L CARBON DIOXIDE (test code = 2206) 26 MEQ/L CALCIUM (test code = 2209) 9.2 MG/DL PROTEIN, TOTAL (test code = 2229) 6.7 G/DL ALBUMIN (test code = 2201) 4.3 G/DL CALC GLOBULIN (test code = 2240) 2.4 G/DL CALC A/G RATIO (test code = 2234) 1.8 RATIO BILIRUBIN, TOTAL (test code = 2207) 0.3 MG/DL ALKALINE PHOSPHATASE (test code = 2204) 85 U/L AST (test code = 2218) 10 U/L ALT (test code = 2219) 13 U/L Chucho Stratton AustinLIPID [id number] 00:00:00* Test Item Value Reference Range Interpretation Comme nts CHOLESTEROL (test code = 2210) 198 MG/DL TRIGLYCERIDES (test code = 2232) 326 MG/DL HDL CHOLESTEROL (test code = 2220) 41 MG/DL CALC LDL CHOL (test code = 2237) 114 MG/DL RISK RATIO LDL/HDL (test cod e = 2238) 2.78 RATIO Chucho Stratton AustinCOMPREHENSIVE METABOLIC [id number] 00:00:00* Test Item Value Reference Range Interpretation Comme nts GLUCOSE (test code = 2217) 218 MG/DL BUN (test code = 2208) 12 MG/DL CREATININE (test code = 2214) 1.00 MG/DL eGFR (2020 CKD-EPI) (test co de = 77063) 80 ML/MIN/1.73 CALC BUN/CREAT (test code = 2235) 12 RATIO SODIUM (test code = 2231) 136 MEQ/L POTASSIUM (test code = 2228) 4.5 MEQ/L CHLORIDE (test code = 2215) 100 MEQ/L CARBON DIOXIDE (test code = 2206) 26 MEQ/L CALCIUM (test code = 2209) 9.2 MG/DL PROTEIN, TOTAL (test code = 2229) 6.7 G/DL ALBUMIN (test code = 2201) 4.3 G/DL CALC GLOBULIN (test code = 2240) 2.4 G/DL CALC A/G RATIO (test code = 2234) 1.8 RATIO BILIRUBIN, TOTAL (test code = 2207) 0.3 MG/DL ALKALINE PHOSPHATASE (test code = 2204) 85 U/L AST (test code = 2218) 10 U/L ALT (test code = 2219) 13 U/L Chucho Stratton AustinLIPID [id number] 00:00:00* Test Item Value Reference Range Interpretation Comme nts CHOLESTEROL (test code = 2210) 198 MG/DL TRIGLYCERIDES (test code = 2232) 326 MG/DL HDL CHOLESTEROL (test code = 2220) 41 MG/DL CALC LDL CHOL (test code = 2237) 114 MG/DL RISK RATIO LDL/HDL (test cod e = 2238) 2.78 RATIO Chucho DraperCOMPREHENSIVE METABOLIC [id number] 00:00:00* Test Item Value Reference Range Interpretation Comme nts GLUCOSE (test code = 2217) 218 MG/DL BUN (test code = 2208) 12 MG/DL CREATININE (test code = 2214) 1.00 MG/DL eGFR (2020 CKD-EPI) (test co de = 40352) 80 ML/MIN/1.73 CALC BUN/CREAT (test code = 2235) 12 RATIO SODIUM (test code = 2231) 136 MEQ/L POTASSIUM (test code = 2228) 4.5 MEQ/L CHLORIDE (test code = 2215) 100 MEQ/L CARBON DIOXIDE (test code = 2206) 26 MEQ/L CALCIUM (test code = 2209) 9.2 MG/DL PROTEIN, TOTAL (test code = 2229) 6.7 G/DL ALBUMIN (test code = 2201) 4.3 G/DL CALC GLOBULIN (test code = 2240) 2.4 G/DL CALC A/G RATIO (test code = 2234) 1.8 RATIO BILIRUBIN, TOTAL (test code = 2207) 0.3 MG/DL ALKALINE PHOSPHATASE (test code = 2204) 85 U/L AST (test code = 2218) 10 U/L ALT (test code = 2219) 13 U/L Chucho DraperLIPID [id number] 00:00:00* Test Item Value Reference Range Interpretation Comme nts CHOLESTEROL (test code = 2210) 198 MG/DL TRIGLYCERIDES (test code = 2232) 326 MG/DL HDL CHOLESTEROL (test code = 2220) 41 MG/DL CALC LDL CHOL (test code = 2237) 114 MG/DL RISK RATIO LDL/HDL (test cod e = 2238) 2.78 RATIO Chucho Stratton AustinHEMOGLOBIN [id number] 04:07:14* Test Item Value Reference Range Interpretation Comme nts HEMOGLOBIN A1c (test code = 99459) 7.5 % 4.2-5.6 H [employer] GUIDELINES FOR HGB A1C: PREDIABETES/INCREASED RISK . . . . . . . 5.7-6.4% DIAGNOSIS OF DIABETES . . . . . . . . . >=6.5% WITH CONFIRMATION OR APPROPRIATE SYMPTOMS NOTE: ASSAY MAY BE AFFECTED BY HEMOGLOBINOPATHIES (SICKLE CELL ANEMIA, S-C DISEASE, OTHERS) OR ARTIFICIALLY LOWERED BY DECREASED RED CELL SURVIVAL (HEMOLYTIC ANEMIAS, BLOOD LOSS, ETC.). CONSIDER ALTERNATE TESTING OR LABORATORY CONSULTATION. UNLESS OTHERWISE INDICATED, ALL TESTING PERFORMED AT [facility] [address] [place] [address] [employer] INSTALLER: MAL LOZANO M.D. CLIA NUMBER [id number] [place]. [id number] HEMOGLOBIN [id number] 00:00:00* Test Item Value Reference Range Interpretation Comme nts HEMOGLOBIN A1c (test code = 40267) 7.5 % Chucho F AustinHEMOGLOBIN [id number] 00:00:00* Test Item Value Reference Range Interpretation Comme thong HEMOGLOBIN A1c (test code = 20971) 7.5 % Chucho DraperHEMOGLOBIN [id number] 00:00:00* Test Item Value Reference Range Interpretation Comme thong HEMOGLOBIN A1c (test code = 34427) 7.5 % Chucho Stratton AustinHEMOGLOBIN [id number] 00:00:00* Test Item Value Reference Range Interpretation Comme thong HEMOGLOBIN A1c (test code = 47767) 7.5 % Chucho DraperVITAMIN D, 25 [id number] 11:09:33* Test Item Value Reference Range Interpretation Comme [facility] VITAMIN D, 25 OH (test code = 4958) 35 NG/ML SEE BELOW NOTE: 25-HYDR OXYVITAMIN D ASSAY INCLUDES 25-HYDROXYVITAMIN D2 AND D3. INTERPRETIVE RANGES PEDIATRIC (<17 YEARS) . . . . . . . . . . . NG/ML 20-100ADULT: INSUFFICIENT . . . . . . . . . . . . . . NG/ML <20 SUBOPTIMAL . . . . . . . . . . . . . . . NG/ML 20-29 OPTIMAL . . . . . . . . . . . . . . . . . NG/ML 30-100 HEMOGLOBIN [id number] 02:54:21* Test Item Value Reference Range Interpretation Comme [facility] HEMOGLOBIN A1c (test code = 77537) 6.9 % 4.2-5.6 H [employer] GUIDELINES FOR HGB A1C: PREDIABETES/INCREASED RISK . . . . . . . 5.7-6.4% DIAGNOSIS OF DIABETES . . . . . . . . . >=6.5% WITH CONFIRMATION OR APPROPRIATE SYMPTOMS NOTE: ASSAY MAY BE AFFECTED BY HEMOGLOBINOPATHIES (SICKLE CELL ANEMIA, S-C DISEASE, OTHERS) OR ARTIFICIALLY LOWERED BY DECREASED RED CELL SURVIVAL (HEMOLYTIC ANEMIAS, BLOOD LOSS, ETC.). CONSIDER ALTERNATE TESTING OR LABORATORY CONSULTATION. UNLESS OTHERWISE INDICATED, ALL TESTING PERFORMED AT [facility] [address] [place] [address] [employer]FF[employer] INSTALLER: MAL LOZANO M.D. [place] NUMBER [id number] [place]. [id number] VITAMIN D, 25 [id number] 00:00:00* Test Item Value Reference Range Interpretation Comme nts VITAMIN D, 25 OH (test code = 4958) 35 NG/ML Chucho Stratton AustinHEMOGLOBIN [id number] 00:00:00* Test Item Value Reference Range Interpretation Comme nts HEMOGLOBIN A1c (test code = 49902) 6.9 % Chucho Stratton AustinVITAMIN D, 25 [id number] 00:00:00* Test Item Value Reference Range Interpretation Comme nts VITAMIN D, 25 OH (test code = 4958) 35 NG/ML Chucho Stratton AustinHEMOGLOBIN [id number] 00:00:00* Test Item Value Reference Range Interpretation Comme nts HEMOGLOBIN A1c (test code = 34302) 6.9 % Chucho Stratton AustinVITAMIN D, 25 [id number] 00:00:00* Test Item Value Reference Range Interpretation Comme nts VITAMIN D, 25 OH (test code = 4958) 35 NG/ML Chucho Stratton AustinHEMOGLOBIN [id number] 00:00:00* Test Item Value Reference Range Interpretation Comme nts HEMOGLOBIN A1c (test code = 33481) 6.9 % Chucho Stratton AustinVITAMIN D, 25 [id number] 00:00:00* Test Item Value Reference Range Interpretation Comme nts VITAMIN D, 25 OH (test code = 4958) 35 NG/ML Chucho Stratton AustinHEMOGLOBIN [id number] 00:00:00* Test Item Value Reference Range Interpretation Comme nts HEMOGLOBIN A1c (test code = 75636) 6.9 % Chucho Stratton AustinVITAMIN D, 25 [id number] 00:00:00* Test Item Value Reference Range Interpretation Comme nts VITAMIN D, 25 OH (test code = 4958) 35 NG/ML Chucho Stratton AustinHEMOGLOBIN [id number] 00:00:00* Test Item Value Reference Range Interpretation Comme nts HEMOGLOBIN A1c (test code = 97278) 6.9 % Chucho Stratton AustinVITAMIN D, 25 [id number] 00:00:00* Test Item Value Reference Range Interpretation Comme nts VITAMIN D, 25 OH (test code = 4958) 35 NG/ML Chucho Stratton AustinHEMOGLOBIN [id number] 00:00:00* Test Item Value Reference Range Interpretation Comme nts HEMOGLOBIN A1c (test code = 52336) 6.9 % Chucho DraperVITAMIN D, 25 [id number] 05:30:43* Test Item Value Reference Range Interpretation Comme [facility] VITAMIN D, 25 OH (test code = 4958) 15 NG/ML SEE BELOW L EFFECTIVE 2022, PLEASE NOTE NEW METHODOLOGY IS ELECTROCHEMILUMINESCENCE BINDING ASSAY. NOTE: 25-HYDROXYVITAMIN D ASSAY INCLUDES 25-HYDROXYVITAMIN D2 AND D3. INTERPRETIVE RANGES PEDIATRIC (<17 YEARS) . . . . . . . . . . . NG/ML 20-100ADULT: INSUFFICIENT . . . . . . . . . . . . . . NG/ML <20 SUBOPTIMAL . . . . . . . . . . . . . . . NG/ML 20-29 OPTIMAL . . . . . . . . . . . . . . . . . NG/ML 30-100 UNLESS OTHERWISE INDICATED, ALL TESTING PERFORMED AT [facility] [address] [place] [address] MUFFLER INSTALLER: MAL LOZANO M.D. IA NUMBER [id number] [place] [id number] PSA, [id number] 05:04:57* Test Item Value Reference Range Interpretation Comme [facility] PSA, TOTAL (test code = 2606) 8.12 NG/ML <=4.00 H NOTE: Methodolog y is Juan Jose Blanca Electrochemiluminescence Immunoassay traceable to WHO reference standard 96/760. HEMOGLOBIN [id number] 04:34:19* Test Item Value Reference Range Interpretation Comme [facility] HEMOGLOBIN A1c (test code = 56505) 6.6 % 4.2-5.6 H [employer] GUIDELINES FOR HGB A1C: PREDIABETES/INCREASED RISK . . . . . . . 5.7-6.4% DIAGNOSIS OF DIABETES . . . . . . . . . >=6.5% WITH CONFIRMATION OR APPROPRIATE SYMPTOMS NOTE: ASSAY MAY BE AFFECTED BY HEMOGLOBINOPATHIES (SICKLE CELL ANEMIA, S-C DISEASE, OTHERS) OR ARTIFICIALLY LOWERED BY DECREASED RED CELL SURVIVAL (HEMOLYTIC ANEMIAS, BLOOD LOSS, ETC.). CONSIDER ALTERNATE TESTING OR LABORATORY CONSULTATION. LIPID [id number] 04:25:59* Test Item Value Reference Range Interpretation Comme nts CHOLESTEROL (test code = 2210) 146 MG/DL <200 TRIGLYCERIDES (test code = 2232) 160 MG/DL <150 H HDL CHOLESTEROL (test code = 2220) 48 MG/DL >39 CALC LDL CHOL (test code = 2237) 74 MG/DL <100 NOTE: CALCULATED LDL IS BASED ON JESUS-WHEELER METHOD WHICHINCLUDES ADJUSTABLE TRIGLYCERIDE:VLDL CHOLESTEROL RATIO.THIS FACTOR VARIES BY MEASURED TRIGLYCERIDE AND NON-HDLCHOLESTEROL CONCENTRATIONS WITH INCREASED CALCULATED LDL SEENIN HIGHER TRIGLYCERIDE OR LOWER NON-HDL SPECIMENS. FOR MOREINFORMATION, SEE CLIENT ANNOUNCEMENT AT [email or web address] [email or web address] RATIO LDL/HDL (test code = 2238) 1.54 RATIO <3.55 COMPREHENSIVE METABOLIC [id number] 04:25:59* Test Item Value Reference Range Interpretation Comme nts GLUCOSE (test code = 221) 66 MG/DL 70-99 L BUN (test code = 2207) 16 MG/DL 8-23 CREATININE (test code = 2214) 0.91 MG/DL 0.80-1.40 eGFR (2020 CKD-EPI) (test co de = 35456) 90 ML/MIN/1.73 >60 CALC BUN/CREAT (test code = 2235) 18 RATIO 6-28 SODIUM (test code = 223) 137 MEQ/L 133-146 POTASSIUM (test code = 2228) 4.3 MEQ/L 3.5-5.4 CHLORIDE (test code = 2215) 100 MEQ/L 95-107 CARBON DIOXIDE (test code = 2206) 27 MEQ/L 19-31 CALCIUM (test code = 2209) 9.7 MG/DL 8.5-10.5 PROTEIN, TOTAL (test code = 222) 7.4 G/DL 6.1-8.3 ALBUMIN (test code = 2201) 4.5 G/DL 3.5-5.2 CALC GLOBULIN (test code = 2240) 2.9 G/DL 1.9-3.7 CALC A/G RATIO (test code = 2234) 1.6 RATIO 1.0-2.6 BILIRUBIN, TOTAL (test code = 2207) 0.6 MG/DL <=1.2 ALKALINE PHOSPHATASE (test code = 2204) 78 U/L 40-125 AST (test code = 2218) 13 U/L 9-50 ALT (test code = 2219) 11 U/L 5-50 CBC W/AUTO DIFF WITH [id number] 03:27:25* Test Item Value Reference Range Interpretation Comme nts WBC (test code = 1001) 7.9 K/UL 3.5-11.0 RBC (test code = 1002) 5.49 M/UL 4.50-6.10 HEMOGLOBIN (test code = 1003) 14.9 G/DL 13.5-17.0 HEMATOCRIT (test code = 1004) 45.8 % 40.0-51.0 MCV (test code = 1005) 83.4 fL 80.0-99.0 MCH (test code = 1006) 27.1 PG 25.0-33.0 MCHC (test code = 1007) 32.5 G/DL 31.0-36.0 RDW (test code = 1038) 13.3 % 11.5-15.0 NEUTROPHILS (test code = 1008) 59.5 % LYMPHOCYTES (test code = 1010) 29.2 % MONOCYTES (test code = 1011) 8.1 % EOSINOPHILS (test code = 1012) 2.4 % BASOPHILS (test code = 1013) 0.5 % IMMATURE GRANULOCYTES (test code = 1036) 0.3 % NUCLEATED RBCS (test code = 1065) 0.0 /100 WBC'S See_Comment [Automated [employer]] The system which generated this result transmitted reference range: 0.0. The reference range was not used to interpret this result as normal/abnormal. PLATELET COUNT (test code = 1015) 249 K/UL 130-400 ABSOLUTE NEUTROPHILS (test code = 1066) 4.73 K/UL 1.50-7.50 ABSOLUTE LYMPHOCYTES (test code = 1067) 2.32 K/UL 1.00-4.00 ABSOLUTE MONOCYTES (test code = 1068) 0.64 K/UL 0.20-1.00 ABSOLUTE EOSINOPHILS (test code = 1040) 0.19 K/UL 0.00-0.50 ABSOLUTE BASOPHILS (test code = 1069) 0.04 K/UL 0.00-0.20 ABS IMMATURE GRANULOCYTES (test code = 1020) 0.02 K/UL 0.00-0.10 ABS NUCLEATED RBCS (test code = 51824) 0.00 K/UL 0.00-0.11 CBC W/AUTO [id number] 00:00:00* Test Item Value Reference Range Interpretation Comme nts WBC (test code = 1001) 7.9 K/UL RBC (test code = 1002) 5.49 M/UL HEMOGLOBIN (test code = 1003) 14.9 G/DL HEMATOCRIT (test code = 1004) 45.8 % MCV (test code = 1005) 83.4 fL MCH (test code = 1006) 27.1 PG MCHC (test code = 1007) 32.5 G/DL RDW (test code = 1038) 13.3 % NEUTROPHILS (test code = 1008) 59.5 % LYMPHOCYTES (test code = 1010) 29.2 % MONOCYTES (test code = 1011) 8.1 % EOSINOPHILS (test code = 1012) 2.4 % BASOPHILS (test code = 1013) 0.5 % IMMATURE GRANULOCYTES (test code = 1036) 0.3 % NUCLEATED RBCS (test code = 1065) 0.0 /100WBC'S PLATELET COUNT (test code = 1015) 249 K/UL ABSOLUTE NEUTROPHILS (test c ode = 1066) 4.73 K/UL ABSOLUTE LYMPHOCYTES (test c ode = 1067) 2.32 K/UL ABSOLUTE MONOCYTES (test cod e = 1068) 0.64 K/UL ABSOLUTE EOSINOPHILS (test c ode = 1040) 0.19 K/UL ABSOLUTE BASOPHILS (test cod e = 1069) 0.04 K/UL ABS IMMATURE GRANULOCYTES (t est code = 1020) 0.02 K/UL ABS NUCLEATED RBCS (test cod e = 80101) 0.00 K/UL Chucho DraperHEMOGLOBIN [id number] 00:00:00* Test Item Value Reference Range Interpretation Comme nts HEMOGLOBIN A1c (test code = 58754) 6.6 % Chucho DraperLIPID [id number] 00:00:00* Test Item Value Reference Range Interpretation Comme nts CHOLESTEROL (test code = 2210) 146 MG/DL TRIGLYCERIDES (test code = 2232) 160 MG/DL HDL CHOLESTEROL (test code = 2220) 48 MG/DL CALC LDL CHOL (test code = 2237) 74 MG/DL RISK RATIO LDL/HDL (test cod e = 2238) 1.54 RATIO Chucoh DraperCOMPREHENSIVE METABOLIC [id number] 00:00:00* Test Item Value Reference Range Interpretation Comme nts GLUCOSE (test code = 2217) 66 MG/DL BUN (test code = 2208) 16 MG/DL CREATININE (test code = 2214) 0.91 MG/DL eGFR (2020 CKD-EPI) (test co de = 94709) 90 ML/MIN/1.73 CALC BUN/CREAT (test code = 2235) 18 RATIO SODIUM (test code = 2231) 137 MEQ/L POTASSIUM (test code = 2228) 4.3 MEQ/L CHLORIDE (test code = 2215) 100 MEQ/L CARBON DIOXIDE (test code = 2206) 27 MEQ/L CALCIUM (test code = 2209) 9.7 MG/DL PROTEIN, TOTAL (test code = 2229) 7.4 G/DL ALBUMIN (test code = 2201) 4.5 G/DL CALC GLOBULIN (test code = 2240) 2.9 G/DL CALC A/G RATIO (test code = 2234) 1.6 RATIO BILIRUBIN, TOTAL (test code = 2207) 0.6 MG/DL ALKALINE PHOSPHATASE (test code = 2203) 78 U/L AST (test code = 221) 13 U/L ALT (test code = 2219) 11 U/L Chucho Chayito BaronPSA, [id number] 00:00:00* Test Item Value Reference Range Interpretation Comme [facility] PSA, TOTAL (test code = 2606) 8.12 NG/ML Chucho Stratton BaronVITAMIN D, 25 [id number] 00:00:00* Test Item Value Reference Range Interpretation Comme [facility] VITAMIN D, 25 OH (test code = 4958) 15 NG/ML Chucho Stratton BaronCBC W/AUTO [id number] 00:00:00* Test Item Value Reference Range Interpretation Comme nts WBC (test code = 1001) 7.9 K/UL RBC (test code = 1002) 5.49 M/UL HEMOGLOBIN (test code = 1003) 14.9 G/DL HEMATOCRIT (test code = 1004) 45.8 % MCV (test code = 1005) 83.4 fL MCH (test code = 1006) 27.1 PG MCHC (test code = 1007) 32.5 G/DL RDW (test code = 1038) 13.3 % NEUTROPHILS (test code = 1008) 59.5 % LYMPHOCYTES (test code = 1010) 29.2 % MONOCYTES (test code = 1011) 8.1 % EOSINOPHILS (test code = 1012) 2.4 % BASOPHILS (test code = 1013) 0.5 % IMMATURE GRANULOCYTES (test code = 1036) 0.3 % NUCLEATED RBCS (test code = 1065) 0.0 /100WBC'S PLATELET COUNT (test code = 1015) 249 K/UL ABSOLUTE NEUTROPHILS (test c ode = 1066) 4.73 K/UL ABSOLUTE LYMPHOCYTES (test c ode = 1067) 2.32 K/UL ABSOLUTE MONOCYTES (test cod e = 1068) 0.64 K/UL ABSOLUTE EOSINOPHILS (test c ode = 1040) 0.19 K/UL ABSOLUTE BASOPHILS (test cod e = 1069) 0.04 K/UL ABS IMMATURE GRANULOCYTES (t est code = 1020) 0.02 K/UL ABS NUCLEATED RBCS (test cod e = 13561) 0.00 K/UL Chucho DraperHEMOGLOBIN [id number] 00:00:00* Test Item Value Reference Range Interpretation Comme nts HEMOGLOBIN A1c (test code = 94328) 6.6 % Chucho DraperLIPID [id number] 00:00:00* Test Item Value Reference Range Interpretation Comme nts CHOLESTEROL (test code = 2210) 146 MG/DL TRIGLYCERIDES (test code = 2232) 160 MG/DL HDL CHOLESTEROL (test code = 2220) 48 MG/DL CALC LDL CHOL (test code = 2237) 74 MG/DL RISK RATIO LDL/HDL (test cod e = 2238) 1.54 RATIO Chucho DraperCOMPREHENSIVE METABOLIC [id number] 00:00:00* Test Item Value Reference Range Interpretation Comme nts GLUCOSE (test code = 2217) 66 MG/DL BUN (test code = 2208) 16 MG/DL CREATININE (test code = 2214) 0.91 MG/DL eGFR (2020 CKD-EPI) (test co de = 97154) 90 ML/MIN/1.73 CALC BUN/CREAT (test code = 2235) 18 RATIO SODIUM (test code = 2231) 137 MEQ/L POTASSIUM (test code = 2228) 4.3 MEQ/L CHLORIDE (test code = 2215) 100 MEQ/L CARBON DIOXIDE (test code = 2206) 27 MEQ/L CALCIUM (test code = 2209) 9.7 MG/DL PROTEIN, TOTAL (test code = 2229) 7.4 G/DL ALBUMIN (test code = 2201) 4.5 G/DL CALC GLOBULIN (test code = 2240) 2.9 G/DL CALC A/G RATIO (test code = 2234) 1.6 RATIO BILIRUBIN, TOTAL (test code = 2207) 0.6 MG/DL ALKALINE PHOSPHATASE (test code = 2204) 78 U/L AST (test code = 2218) 13 U/L ALT (test code = 2219) 11 U/L Chucho DraperPSA, [id number] 00:00:00* Test Item Value Reference Range Interpretation Comme nts PSA, TOTAL (test code = 2606) 8.12 NG/ML Chucho DraperVITAMIN D, 25 [id number] 00:00:00* Test Item Value Reference Range Interpretation Comme nts VITAMIN D, 25 OH (test code = 4958) 15 NG/ML Chucho DraperCBC W/AUTO [id number] 00:00:00* Test Item Value Reference Range Interpretation Comme nts WBC (test code = 1001) 7.9 K/UL RBC (test code = 1002) 5.49 M/UL HEMOGLOBIN (test code = 1003) 14.9 G/DL HEMATOCRIT (test code = 1004) 45.8 % MCV (test code = 1005) 83.4 fL MCH (test code = 1006) 27.1 PG MCHC (test code = 1007) 32.5 G/DL RDW (test code = 1038) 13.3 % NEUTROPHILS (test code = 1008) 59.5 % LYMPHOCYTES (test code = 1010) 29.2 % MONOCYTES (test code = 1011) 8.1 % EOSINOPHILS (test code = 1012) 2.4 % BASOPHILS (test code = 1013) 0.5 % IMMATURE GRANULOCYTES (test code = 1036) 0.3 % NUCLEATED RBCS (test code = 1065) 0.0 /100WBC'S PLATELET COUNT (test code = 1015) 249 K/UL ABSOLUTE NEUTROPHILS (test c ode = 1066) 4.73 K/UL ABSOLUTE LYMPHOCYTES (test c ode = 1067) 2.32 K/UL ABSOLUTE MONOCYTES (test cod e = 1068) 0.64 K/UL ABSOLUTE EOSINOPHILS (test c ode = 1040) 0.19 K/UL ABSOLUTE BASOPHILS (test cod e = 1069) 0.04 K/UL ABS IMMATURE GRANULOCYTES (t est code = 1020) 0.02 K/UL ABS NUCLEATED RBCS (test cod e = 81732) 0.00 K/UL Chucho DraperHEMOGLOBIN [id number] 00:00:00* Test Item Value Reference Range Interpretation Comme nts HEMOGLOBIN A1c (test code = 24821) 6.6 % Chucho DraperLIPID [id number] 00:00:00* Test Item Value Reference Range Interpretation Comme nts CHOLESTEROL (test code = 2210) 146 MG/DL TRIGLYCERIDES (test code = 2232) 160 MG/DL HDL CHOLESTEROL (test code = 2220) 48 MG/DL CALC LDL CHOL (test code = 2237) 74 MG/DL RISK RATIO LDL/HDL (test cod e = 2238) 1.54 RATIO Chucho DraperCOMPREHENSIVE METABOLIC [id number] 00:00:00* Test Item Value Reference Range Interpretation Comme nts GLUCOSE (test code = 2217) 66 MG/DL BUN (test code = 2208) 16 MG/DL CREATININE (test code = 2214) 0.91 MG/DL eGFR (2020 CKD-EPI) (test co de = 29084) 90 ML/MIN/1.73 CALC BUN/CREAT (test code = 2235) 18 RATIO SODIUM (test code = 2231) 137 MEQ/L POTASSIUM (test code = 2228) 4.3 MEQ/L CHLORIDE (test code = 2215) 100 MEQ/L CARBON DIOXIDE (test code = 2206) 27 MEQ/L CALCIUM (test code = 2209) 9.7 MG/DL PROTEIN, TOTAL (test code = 2229) 7.4 G/DL ALBUMIN (test code = 2201) 4.5 G/DL CALC GLOBULIN (test code = 2240) 2.9 G/DL CALC A/G RATIO (test code = 2234) 1.6 RATIO BILIRUBIN, TOTAL (test code = 2207) 0.6 MG/DL ALKALINE PHOSPHATASE (test code = 2204) 78 U/L AST (test code = 2218) 13 U/L ALT (test code = 2219) 11 U/L Chucho DraperPSA, [id number] 00:00:00* Test Item Value Reference Range Interpretation Comme nts PSA, TOTAL (test code = 2606) 8.12 NG/ML Chucho DraperVITAMIN D, 25 [id number] 00:00:00* Test Item Value Reference Range Interpretation Comme nts VITAMIN D, 25 OH (test code = 4958) 15 NG/ML Chucho DraperCBC W/AUTO [id number] 00:00:00* Test Item Value Reference Range Interpretation Comme nts WBC (test code = 1001) 7.9 K/UL RBC (test code = 1002) 5.49 M/UL HEMOGLOBIN (test code = 1003) 14.9 G/DL HEMATOCRIT (test code = 1004) 45.8 % MCV (test code = 1005) 83.4 fL MCH (test code = 1006) 27.1 PG MCHC (test code = 1007) 32.5 G/DL RDW (test code = 1038) 13.3 % NEUTROPHILS (test code = 1008) 59.5 % LYMPHOCYTES (test code = 1010) 29.2 % MONOCYTES (test code = 1011) 8.1 % EOSINOPHILS (test code = 1012) 2.4 % BASOPHILS (test code = 1013) 0.5 % IMMATURE GRANULOCYTES (test code = 1036) 0.3 % NUCLEATED RBCS (test code = 1065) 0.0 /100WBC'S PLATELET COUNT (test code = 1015) 249 K/UL ABSOLUTE NEUTROPHILS (test c ode = 1066) 4.73 K/UL ABSOLUTE LYMPHOCYTES (test c ode = 1067) 2.32 K/UL ABSOLUTE MONOCYTES (test cod e = 1068) 0.64 K/UL ABSOLUTE EOSINOPHILS (test c ode = 1040) 0.19 K/UL ABSOLUTE BASOPHILS (test cod e = 1069) 0.04 K/UL ABS IMMATURE GRANULOCYTES (t est code = 1020) 0.02 K/UL ABS NUCLEATED RBCS (test cod e = 52949) 0.00 K/UL Chucho DraperHEMOGLOBIN [id number] 00:00:00* Test Item Value Reference Range Interpretation Comme nts HEMOGLOBIN A1c (test code = 32526) 6.6 % Chucho DraperLIPID [id number] 00:00:00* Test Item Value Reference Range Interpretation Comme nts CHOLESTEROL (test code = 2210) 146 MG/DL TRIGLYCERIDES (test code = 2232) 160 MG/DL HDL CHOLESTEROL (test code = 2220) 48 MG/DL CALC LDL CHOL (test code = 2237) 74 MG/DL RISK RATIO LDL/HDL (test cod e = 2238) 1.54 RATIO Chucho DraperCOMPREHENSIVE METABOLIC [id number] 00:00:00* Test Item Value Reference Range Interpretation Comme nts GLUCOSE (test code = 2217) 66 MG/DL BUN (test code = 2208) 16 MG/DL CREATININE (test code = 2214) 0.91 MG/DL eGFR (2020 CKD-EPI) (test co de = 94347) 90 ML/MIN/1.73 CALC BUN/CREAT (test code = 2235) 18 RATIO SODIUM (test code = 2231) 137 MEQ/L POTASSIUM (test code = 2228) 4.3 MEQ/L CHLORIDE (test code = 2215) 100 MEQ/L CARBON DIOXIDE (test code = 2206) 27 MEQ/L CALCIUM (test code = 2209) 9.7 MG/DL PROTEIN, TOTAL (test code = 2229) 7.4 G/DL ALBUMIN (test code = 2201) 4.5 G/DL CALC GLOBULIN (test code = 2240) 2.9 G/DL CALC A/G RATIO (test code = 2234) 1.6 RATIO BILIRUBIN, TOTAL (test code = 2207) 0.6 MG/DL ALKALINE PHOSPHATASE (test code = 2204) 78 U/L AST (test code = 2218) 13 U/L ALT (test code = 2219) 11 U/L Chucho DraperPSA, [id number] 00:00:00* Test Item Value Reference Range Interpretation Comme nts PSA, TOTAL (test code = 2606) 8.12 NG/ML Chucho DraperVITAMIN D, 25 [id number] 00:00:00* Test Item Value Reference Range Interpretation Comme nts VITAMIN D, 25 OH (test code = 4958) 15 NG/ML Chucho DraperCBC W/AUTO [id number] 00:00:00* Test Item Value Reference Range Interpretation Comme nts WBC (test code = 1001) 7.9 K/UL RBC (test code = 1002) 5.49 M/UL HEMOGLOBIN (test code = 1003) 14.9 G/DL HEMATOCRIT (test code = 1004) 45.8 % MCV (test code = 1005) 83.4 fL MCH (test code = 1006) 27.1 PG MCHC (test code = 1007) 32.5 G/DL RDW (test code = 1038) 13.3 % NEUTROPHILS (test code = 1008) 59.5 % LYMPHOCYTES (test code = 1010) 29.2 % MONOCYTES (test code = 1011) 8.1 % EOSINOPHILS (test code = 1012) 2.4 % BASOPHILS (test code = 1013) 0.5 % IMMATURE GRANULOCYTES (test code = 1036) 0.3 % NUCLEATED RBCS (test code = 1065) 0.0 /100WBC'S PLATELET COUNT (test code = 1015) 249 K/UL ABSOLUTE NEUTROPHILS (test c ode = 1066) 4.73 K/UL ABSOLUTE LYMPHOCYTES (test c ode = 1067) 2.32 K/UL ABSOLUTE MONOCYTES (test cod e = 1068) 0.64 K/UL ABSOLUTE EOSINOPHILS (test c ode = 1040) 0.19 K/UL ABSOLUTE BASOPHILS (test cod e = 1069) 0.04 K/UL ABS IMMATURE GRANULOCYTES (t est code = 1020) 0.02 K/UL ABS NUCLEATED RBCS (test cod e = 21389) 0.00 K/UL Chucho DraperHEMOGLOBIN [id number] 00:00:00* Test Item Value Reference Range Interpretation Comme nts HEMOGLOBIN A1c (test code = 76416) 6.6 % Chucho DraperLIPID [id number] 00:00:00* Test Item Value Reference Range Interpretation Comme nts CHOLESTEROL (test code = 2210) 146 MG/DL TRIGLYCERIDES (test code = 2232) 160 MG/DL HDL CHOLESTEROL (test code = 2220) 48 MG/DL CALC LDL CHOL (test code = 2237) 74 MG/DL RISK RATIO LDL/HDL (test cod e = 2238) 1.54 RATIO Chucho DraperCOMPREHENSIVE METABOLIC [id number] 00:00:00* Test Item Value Reference Range Interpretation Comme nts GLUCOSE (test code = 2217) 66 MG/DL BUN (test code = 2208) 16 MG/DL CREATININE (test code = 2214) 0.91 MG/DL eGFR (2020 CKD-EPI) (test co de = 59858) 90 ML/MIN/1.73 CALC BUN/CREAT (test code = 2235) 18 RATIO SODIUM (test code = 2231) 137 MEQ/L POTASSIUM (test code = 2228) 4.3 MEQ/L CHLORIDE (test code = 2215) 100 MEQ/L CARBON DIOXIDE (test code = 2206) 27 MEQ/L CALCIUM (test code = 2209) 9.7 MG/DL PROTEIN, TOTAL (test code = 2229) 7.4 G/DL ALBUMIN (test code = 2201) 4.5 G/DL CALC GLOBULIN (test code = 2240) 2.9 G/DL CALC A/G RATIO (test code = 2234) 1.6 RATIO BILIRUBIN, TOTAL (test code = 2207) 0.6 MG/DL ALKALINE PHOSPHATASE (test code = 220) 78 U/L AST (test code = 2218) 13 U/L ALT (test code = 2219) 11 U/L Chucho DraperPSA, [id number] 00:00:00* Test Item Value Reference Range Interpretation Comme [facility] PSA, TOTAL (test code = 2606) 8.12 NG/ML Chucho DraperVITAMIN D, 25 [id number] 00:00:00* Test Item Value Reference Range Interpretation Comme [facility] VITAMIN D, 25 OH (test code = 4958) 15 NG/ML Chucho DraperCBC W/AUTO [id number] 00:00:00* Test Item Value Reference Range Interpretation Comme nts WBC (test code = 1001) 7.9 K/UL RBC (test code = 1002) 5.49 M/UL HEMOGLOBIN (test code = 1003) 14.9 G/DL HEMATOCRIT (test code = 1004) 45.8 % MCV (test code = 1005) 83.4 fL MCH (test code = 1006) 27.1 PG MCHC (test code = 1007) 32.5 G/DL RDW (test code = 1038) 13.3 % NEUTROPHILS (test code = 1008) 59.5 % LYMPHOCYTES (test code = 1010) 29.2 % MONOCYTES (test code = 1011) 8.1 % EOSINOPHILS (test code = 1012) 2.4 % BASOPHILS (test code = 1013) 0.5 % IMMATURE GRANULOCYTES (test code = 1036) 0.3 % NUCLEATED RBCS (test code = 1065) 0.0 /100WBC'S PLATELET COUNT (test code = 1015) 249 K/UL ABSOLUTE NEUTROPHILS (test c ode = 1066) 4.73 K/UL ABSOLUTE LYMPHOCYTES (test c ode = 1067) 2.32 K/UL ABSOLUTE MONOCYTES (test cod e = 1068) 0.64 K/UL ABSOLUTE EOSINOPHILS (test c ode = 1040) 0.19 K/UL ABSOLUTE BASOPHILS (test cod e = 1069) 0.04 K/UL ABS IMMATURE GRANULOCYTES (t est code = 1020) 0.02 K/UL ABS NUCLEATED RBCS (test cod e = 65009) 0.00 K/UL Chucho DraperHEMOGLOBIN [id number] 00:00:00* Test Item Value Reference Range Interpretation Comme nts HEMOGLOBIN A1c (test code = 36723) 6.6 % Chucho DraperLIPID [id number] 00:00:00* Test Item Value Reference Range Interpretation Comme nts CHOLESTEROL (test code = 2210) 146 MG/DL TRIGLYCERIDES (test code = 2232) 160 MG/DL HDL CHOLESTEROL (test code = 2220) 48 MG/DL CALC LDL CHOL (test code = 2237) 74 MG/DL RISK RATIO LDL/HDL (test cod e = 2238) 1.54 RATIO Chucho DraperCOMPREHENSIVE METABOLIC [id number] 00:00:00* Test Item Value Reference Range Interpretation Comme nts GLUCOSE (test code = 2217) 66 MG/DL BUN (test code = 2208) 16 MG/DL CREATININE (test code = 2214) 0.91 MG/DL eGFR (2020 CKD-EPI) (test co de = 21827) 90 ML/MIN/1.73 CALC BUN/CREAT (test code = 2235) 18 RATIO SODIUM (test code = 2231) 137 MEQ/L POTASSIUM (test code = 2228) 4.3 MEQ/L CHLORIDE (test code = 2215) 100 MEQ/L CARBON DIOXIDE (test code = 2206) 27 MEQ/L CALCIUM (test code = 2209) 9.7 MG/DL PROTEIN, TOTAL (test code = 2229) 7.4 G/DL ALBUMIN (test code = 2201) 4.5 G/DL CALC GLOBULIN (test code = 2240) 2.9 G/DL CALC A/G RATIO (test code = 2234) 1.6 RATIO BILIRUBIN, TOTAL (test code = 2207) 0.6 MG/DL ALKALINE PHOSPHATASE (test code = 2204) 78 U/L AST (test code = 2218) 13 U/L ALT (test code = 2219) 11 U/L Chucho DraperPSA, [id number] 00:00:00* Test Item Value Reference Range Interpretation Comme [facility] PSA, TOTAL (test code = 2606) 8.12 NG/ML Chucho DraperVITAMIN D, 25 [id number] 00:00:00* Test Item Value Reference Range Interpretation Comme [facility] VITAMIN D, 25 OH (test code = 4958) 15 NG/ML Chucho DraperPSA, [id number] 05:52:53* Test Item Value Reference Range [facility]ation [facility], T[facility] (test code = 2606) TEST NOT PERFORMED NG/ML See_Comment Specimen received in an unspun tube not compliant with tube marketing database consultant requirements. Results cannot be reported. NOTE: Methodology is Juan Jose Blanca Electrochemiluminescence Immunoassay traceable to WHO reference standard 96/760. [Automated message] The system which generated this result transmitted reference range: <=4.00. The reference range was not used to interpret this result as normal/abnormal. HEMOGLOBIN [id number] 01:58:35* Test Item Value Reference Range Interpretation Comme [facility] HEMOGLOBIN A1c (test code = 67082) 6.8 % 4.2-5.6 H [employer] GUIDELINES FOR HGB A1C: PREDIABETES/INCREASED RISK . . . . . . . 5.7-6.4% DIAGNOSIS OF DIABETES . . . . . . . . . >=6.5% WITH CONFIRMATION OR APPROPRIATE SYMPTOMS NOTE: ASSAY MAY BE AFFECTED BY HEMOGLOBINOPATHIES (SICKLE CELL ANEMIA, S-C DISEASE, OTHERS) OR ARTIFICIALLY LOWERED BY DECREASED RED CELL SURVIVAL (HEMOLYTIC ANEMIAS, BLOOD LOSS, ETC.). CONSIDER ALTERNATE TESTING OR LABORATORY CONSULTATION. UNLESS OTHERWISE INDICATED, ALL TESTING PERFORMED AT [facility] [address] [place] [id number] MUFFLER INSTALLER: MAL LOZANO M.D. CLIA NUMBER [id number] [place]. [id number] HEMOGLOBIN [id number] 00:00:00* Test Item Value Reference Range Interpretation Comme nts HEMOGLOBIN A1c (test code = 70227) 6.8 % Chucho DraperPSA, [id number] 00:00:00* Test Item Value Reference Range Interpretation Comme nts PSA, TOTAL (test code = 2606) TEST NOT PERFORMED NG/ML Chucho Stratton AustinHEMOGLOBIN [id number] 00:00:00* Test Item Value Reference Range Interpretation Comme nts HEMOGLOBIN A1c (test code = 64389) 6.8 % Chucho Stratton AustinPSA, [id number] 00:00:00* Test Item Value Reference Range Interpretation Comme nts PSA, TOTAL (test code = 2606) TEST NOT PERFORMED NG/ML Chucho Stratton AustinHEMOGLOBIN [id number] 00:00:00* Test Item Value Reference Range Interpretation Comme nts HEMOGLOBIN A1c (test code = 78625) 6.8 % Chucho Stratton AustinPSA, [id number] 00:00:00* Test Item Value Reference Range Interpretation Comme nts PSA, TOTAL (test code = 2606) TEST NOT PERFORMED NG/ML Chucho Stratton AustinHEMOGLOBIN [id number] 00:00:00* Test Item Value Reference Range Interpretation Comme nts HEMOGLOBIN A1c (test code = 00862) 6.8 % Chucho Stratton AustinPSA, [id number] 00:00:00* Test Item Value Reference Range Interpretation Comme nts PSA, TOTAL (test code = 2606) TEST NOT PERFORMED NG/ML Chucho Stratton AustinHEMOGLOBIN [id number] 00:00:00* Test Item Value Reference Range Interpretation Comme nts HEMOGLOBIN A1c (test code = 96412) 6.8 % Chucho Stratton AustinPSA, [id number] 00:00:00* Test Item Value Reference Range Interpretation Comme nts PSA, TOTAL (test code = 2606) TEST NOT PERFORMED NG/ML Chucho Stratton AustinHEMOGLOBIN [id number] 00:00:00* Test Item Value Reference Range Interpretation Comme nts HEMOGLOBIN A1c (test code = 97935) 6.8 % Chucho Stratton AustinPSA, [id number] 00:00:00* Test Item Value Reference Range Interpretation Comme nts PSA, TOTAL (test code = 2606) TEST NOT PERFORMED NG/ML Chucho Dill, [id number] 05:57:20* Test Item Value Reference Range Interpretation Comme nts PSA, TOTAL (test code = 2606) 6.96 NG/ML See_Comment H NOTE: Methodolog y is Juan Jose Blanca Electrochemiluminescence Immunoassay traceable to WHO reference standard 96/760. [facility] has important pathology staff changes effective 01/16/2023. New pathology staff will provide uninterrupted, excellent patient care and clinical consultation. See URL: [email or web address]. UNLESS OTHERWISE INDICATED, ALL TESTING PERFORMED AT [facility] [address] [place] [address] CLIA: [id number], CAP: [id number] [Automated message] The system which generated this result transmitted reference range: <=4.00. The reference range was not used to interpret this result as normal/abnormal. HEMOGLOBIN [id number] 05:36:24* Test Item Value Reference Range Interpretation Comme [facility] HEMOGLOBIN A1c (test code = 72431) 7.2 % 4.2-5.6 H [employer] GUIDELINES FOR HGB A1C: PREDIABETES/INCREASED RISK . . . . . . . 5.7-6.4% DIAGNOSIS OF DIABETES . . . . . . . . . >=6.5% WITH CONFIRMATION OR APPROPRIATE SYMPTOMS NOTE: ASSAY MAY BE AFFECTED BY HEMOGLOBINOPATHIES (SICKLE CELL ANEMIA, S-C DISEASE, OTHERS) OR ARTIFICIALLY LOWERED BY DECREASED RED CELL SURVIVAL (HEMOLYTIC ANEMIAS, BLOOD LOSS, ETC.). CONSIDER ALTERNATE TESTING OR LABORATORY CONSULTATION. LIPID [id number] 03:10:33* Test Item Value Reference Range Interpretation Comme nts CHOLESTEROL (test code = 2210) 127 MG/DL <200 TRIGLYCERIDES (test code = 2232) 149 MG/DL <150 HDL CHOLESTEROL (test code = 2220) 39 MG/DL >39 L CALC LDL CHOL (test code = 2237) 65 MG/DL <100 NOTE: CALCULATED LDL IS BASED ON JESUS-WHEELER METHOD WHICHINCLUDES ADJUSTABLE TRIGLYCERIDE:VLDL CHOLESTEROL RATIO.THIS FACTOR VARIES BY MEASURED TRIGLYCERIDE AND NON-HDLCHOLESTEROL CONCENTRATIONS WITH INCREASED CALCULATED LDL SEENIN HIGHER TRIGLYCERIDE OR LOWER NON-HDL SPECIMENS. FOR MOREINFORMATION, SEE CLIENT ANNOUNCEMENT AT [email or web address] RISK RATIO LDL/HDL (test code = 2238) 1.67 RATIO <3.55 LIPID [id number] 00:00:00* Test Item Value Reference Range Interpretation Comme nts CHOLESTEROL (test code = 2210) 127 MG/DL TRIGLYCERIDES (test code = 2232) 149 MG/DL HDL CHOLESTEROL (test code = 2220) 39 MG/DL CALC LDL CHOL (test code = 2237) 65 MG/DL RISK RATIO LDL/HDL (test cod e = 2238) 1.67 RATIO Chucho DraperPSA, [id number] 00:00:00* Test Item Value Reference Range Interpretation Comme nts PSA, TOTAL (test code = 2606) 6.96 NG/ML Chucho [place] [id number] 00:00:00* Test Item Value Reference Range Interpretation Comme nts HEMOGLOBIN A1c (test code = 85644) 7.2 % Chucho DraperLIPID [id number] 00:00:00* Test Item Value Reference Range Interpretation Comme nts CHOLESTEROL (test code = 2210) 127 MG/DL TRIGLYCERIDES (test code = 2232) 149 MG/DL HDL CHOLESTEROL (test code = 2220) 39 MG/DL CALC LDL CHOL (test code = 2237) 65 MG/DL RISK RATIO LDL/HDL (test cod e = 2238) 1.67 RATIO Chucho DraperPSA, [id number] 00:00:00* Test Item Value Reference Range Interpretation Comme nts PSA, TOTAL (test code = 2606) 6.96 NG/ML Chucho [place] [id number] 00:00:00* Test Item Value Reference Range Interpretation Comme nts HEMOGLOBIN A1c (test code = 30554) 7.2 % Chucho Strat[place] [id number] 00:00:00* Test Item Value Reference Range Interpretation Comme nts CHOLESTEROL (test code = 2210) 127 MG/DL TRIGLYCERIDES (test code = 2232) 149 MG/DL HDL CHOLESTEROL (test code = 2220) 39 MG/DL CALC LDL CHOL (test code = 2237) 65 MG/DL RISK RATIO LDL/HDL (test cod e = 2238) 1.67 RATIO Chucho DraperPSA, [id number] 00:00:00* Test Item Value Reference Range Interpretation Comme nts PSA, TOTAL (test code = 2606) 6.96 NG/ML Chucho DraperHEMOGLOBIN [id number] 00:00:00* Test Item Value Reference Range Interpretation Comme nts HEMOGLOBIN A1c (test code = 22027) 7.2 % Chucho DraperLIPID [id number] 00:00:00* Test Item Value Reference Range Interpretation Comme nts CHOLESTEROL (test code = 2210) 127 MG/DL TRIGLYCERIDES (test code = 2232) 149 MG/DL HDL CHOLESTEROL (test code = 2220) 39 MG/DL CALC LDL CHOL (test code = 2237) 65 MG/DL RISK RATIO LDL/HDL (test cod e = 2238) 1.67 RATIO Chucho DraperPSA, [id number] 00:00:00* Test Item Value Reference Range Interpretation Comme nts PSA, TOTAL (test code = 2606) 6.96 NG/ML Chucho DraperHEMOGLOBIN [id number] 00:00:00* Test Item Value Reference Range Interpretation Comme nts HEMOGLOBIN A1c (test code = 82154) 7.2 % Chucho DraperLIPID [id number] 00:00:00* Test Item Value Reference Range Interpretation Comme nts CHOLESTEROL (test code = 2210) 127 MG/DL TRIGLYCERIDES (test code = 2232) 149 MG/DL HDL CHOLESTEROL (test code = 2220) 39 MG/DL CALC LDL CHOL (test code = 2237) 65 MG/DL RISK RATIO LDL/HDL (test cod e = 2238) 1.67 RATIO Chucho DraperPSA, [id number] 00:00:00* Test Item Value Reference Range Interpretation Comme nts PSA, TOTAL (test code = 2606) 6.96 NG/ML Chucho [place] AustinHEMOGLOBIN [id number] 00:00:00* Test Item Value Reference Range Interpretation Comme nts HEMOGLOBIN A1c (test code = 06099) 7.2 % Chucho DraperLIPID [id number] 00:00:00* Test Item Value Reference Range Interpretation Comme nts CHOLESTEROL (test code = 2210) 127 MG/DL TRIGLYCERIDES (test code = 2232) 149 MG/DL HDL CHOLESTEROL (test code = 2220) 39 MG/DL CALC LDL CHOL (test code = 2237) 65 MG/DL RISK RATIO LDL/HDL (test cod e = 2238) 1.67 RATIO Chucho DraperPSA, [id number] 00:00:00* Test Item Value Reference Range Interpretation Comme thong PSA, TOTAL (test code = 2606) 6.96 NG/ML Chucho DraperHEMOGLOBIN [id number] 00:00:00* Test Item Value Reference Range Interpretation Comme nts HEMOGLOBIN A1c (test code = 31481) 7.2 % Chucho DraperCOMPREHENSIVE METABOLIC [id number] 05:49:17* Test Item Value Reference Range Interpretation Comme nts GLUCOSE (test code = 2217) 146 MG/DL 70-99 H BUN (test code = 2208) 19 MG/DL 8-23 CREATININE (test code = 2214) 0.93 MG/DL 0.80-1.40 eGFR (2020 CKD-EPI) (test code = 94259) 88 ML/MIN/1.73 >60 CALC BUN/CREAT (test code = 2235) 20 RATIO 6-28 SODIUM (test code = 2231) 140 MEQ/L 133-146 POTASSIUM (test code = 2228) 4.1 MEQ/L 3.5-5.4 CHLORIDE (test code = 2215) 104 MEQ/L 95-107 CARBON DIOXIDE (test code = 2206) 24 MEQ/L 19-31 CALCIUM (test code = 2209) 9.4 MG/DL 8.5-10.5 PROTEIN, TOTAL (test code = 2229) 7.0 G/DL 6.1-8.3 ALBUMIN (test code = 2201) 4.2 G/DL 3.5-5.2 CALC GLOBULIN (test code = 2240) 2.8 G/DL 1.9-3.7 CALC A/G RATIO (test code = 2234) 1.5 RATIO 1.0-2.6 BILIRUBIN, TOTAL (test code = 2207) 0.3 MG/DL See_Comment [Automated me ssage] The system which generated this result transmitted reference range: <=1.2. The reference range was not used to interpret this result as normal/abnormal. ALKALINE PHOSPHATASE (test code = 2204) 95 U/L 40-125 AST (test code = 2218) 8 U/L 9-50 L ALT (test code = 2219) 7 U/L 5-50 LIPID [id number] 05:49:17* Test Item Value Reference Range Interpretation Comme nts CHOLESTEROL (test code = 2210) 176 MG/DL <200 TRIGLYCERIDES (test code = 2232) 308 MG/DL <150 H HDL CHOLESTEROL (test code = 2220) 32 MG/DL >39 L CALC LDL CHOL (test code = 2237) 103 MG/DL <100 H NOTE: CALCULATED LDL IS BASED ON JESUS-WHEELER METHOD WHICHINCLUDES ADJUSTABLE TRIGLYCERIDE:VLDL CHOLESTEROL RATIO.THIS FACTOR VARIES BY MEASURED TRIGLYCERIDE AND NON-HDLCHOLESTEROL CONCENTRATIONS WITH INCREASED CALCULATED LDL SEENIN HIGHER TRIGLYCERIDE OR LOWER NON-HDL SPECIMENS. FOR MOREINFORMATION, SEE CLIENT ANNOUNCEMENT AT [email or web address] RISK RATIO LDL/HDL (test code = 2238) 3.22 RATIO <3.55 PSA, [id number] 05:47:25* Test Item Value Reference Range Interpretation Comme nts PSA, TOTAL (test code = 2606) 7.90 NG/ML See_Comment H NOTE: Methodolog y is Juan [employer]anca Electrochemiluminescence Immunoassay traceable to WHO reference standard 96/760. [Automated message] The system which generated this result transmitted reference range: <=4.00. The reference range was not used to interpret this result as normal/abnormal. HEMOGLOBIN [id number] 05:17:46* Test Item Value Reference Range Interpretation Comme [facility] HEMOGLOBIN A1c (test code = 28079) 7.2 % 4.2-5.6 H [employer] GUIDELINES FOR HGB A1C: PREDIABETES/INCREASED RISK . . . . . . . 5.7-6.4% DIAGNOSIS OF DIABETES . . . . . . . . . >=6.5% WITH CONFIRMATION OR APPROPRIATE SYMPTOMS NOTE: ASSAY MAY BE AFFECTED BY HEMOGLOBINOPATHIES (SICKLE CELL ANEMIA, S-C DISEASE, OTHERS) OR ARTIFICIALLY LOWERED BY DECREASED RED CELL SURVIVAL (HEMOLYTIC ANEMIAS, BLOOD LOSS, ETC.). CONSIDER ALTERNATE TESTING OR LABORATORY CONSULTATION. UNLESS OTHERWISE INDICATED, ALL TESTING PERFORMED [facility] [employer] [address] [place] [id number] MUFFLER INSTALLER: CINDY GRESHAM M.D. CLIA NUMBER [id number] [place]. [id number] CBC W/AUTO DIFF WITH [id number] 02:43:45* Test Item Value Reference Range Interpretation Comme nts WBC (test code = 1001) 7.4 K/UL 3.5-11.0 RBC (test code = 1002) 5.26 M/UL 4.50-6.10 HEMOGLOBIN (test code = 1003) 14.5 G/DL 13.5-17.0 HEMATOCRIT (test code = 1004) 42.8 % 40.0-51.0 MCV (test code = 1005) 81.4 fL 80.0-99.0 MCH (test code = 1006) 27.6 PG 25.0-33.0 MCHC (test code = 1007) 33.9 G/DL 31.0-36.0 RDW (test code = 1038) 13.5 % 11.5-15.0 NEUTROPHILS (test code = 1008) 57.3 % LYMPHOCYTES (test code = 1010) 32.2 % MONOCYTES (test code = 1011) 7.7 % EOSINOPHILS (test code = 1012) 2.0 % BASOPHILS (test code = 1013) 0.4 % IMMATURE GRANULOCYTES (test code = 1036) 0.4 % NUCLEATED RBCS (test code = 1065) 0.0 /100 WBC'S See_Comment [Automated [employer]] The system which generated this result transmitted reference range: 0.0. The reference range was not used to interpret this result as normal/abnormal. PLATELET COUNT (test code = 1015) 235 K/UL 130-400 ABSOLUTE NEUTROPHILS (test code = 1066) 4.22 K/UL 1.50-7.50 ABSOLUTE LYMPHOCYTES (test code = 1067) 2.38 K/UL 1.00-4.00 ABSOLUTE MONOCYTES (test code = 1068) 0.57 K/UL 0.20-1.00 ABSOLUTE EOSINOPHILS (test code = 1040) 0.15 K/UL 0.00-0.50 ABSOLUTE BASOPHILS (test code = 1069) 0.03 K/UL 0.00-0.20 ABS IMMATURE GRANULOCYTES (test code = 1020) 0.03 K/UL 0.00-0.10 ABS NUCLEATED RBCS (test code = 49908) 0.00 K/UL 0.00-0.11 PSA, [id number] 00:00:00* Test Item Value Reference Range Interpretation Comme nts PSA, TOTAL (test code = 2606) 7.90 NG/ML CBC W/AUTO [id number] 00:00:00* Test Item Value Reference Range Interpretation Comme nts WBC (test code = 1001) 7.4 K/UL RBC (test code = 1002) 5.26 M/UL HEMOGLOBIN (test code = 1003) 14.5 G/DL HEMATOCRIT (test code = 1004) 42.8 % MCV (test code = 1005) 81.4 fL MCH (test code = 1006) 27.6 PG MCHC (test code = 1007) 33.9 G/DL RDW (test code = 1038) 13.5 % NEUTROPHILS (test code = 1008) 57.3 % LYMPHOCYTES (test code = 1010) 32.2 % MONOCYTES (test code = 1011) 7.7 % EOSINOPHILS (test code = 1012) 2.0 % BASOPHILS (test code = 1013) 0.4 % IMMATURE GRANULOCYTES (test code = 1036) 0.4 % NUCLEATED RBCS (test code = 1065) 0.0 /100WBC'S PLATELET COUNT (test code = 1015) 235 K/UL ABSOLUTE NEUTROPHILS (test c ode = 1066) 4.22 K/UL ABSOLUTE LYMPHOCYTES (test c ode = 1067) 2.38 K/UL ABSOLUTE MONOCYTES (test cod e = 1068) 0.57 K/UL ABSOLUTE EOSINOPHILS (test c ode = 1040) 0.15 K/UL ABSOLUTE BASOPHILS (test cod e = 1069) 0.03 K/UL ABS IMMATURE GRANULOCYTES (t est code = 1020) 0.03 K/UL ABS NUCLEATED RBCS (test cod e = 74456) 0.00 K/UL COMPREHENSIVE METABOLIC [id number] 00:00:00* Test Item Value Reference Range Interpretation Comme nts GLUCOSE (test code = 2217) 146 MG/DL BUN (test code = 2208) 19 MG/DL CREATININE (test code = 2214) 0.93 MG/DL eGFR (2020 CKD-EPI) (test co de = 38405) 88 ML/MIN/1.73 CALC BUN/CREAT (test code = 2235) 20 RATIO SODIUM (test code = 2231) 140 MEQ/L POTASSIUM (test code = 2228) 4.1 MEQ/L CHLORIDE (test code = 2215) 104 MEQ/L CARBON DIOXIDE (test code = 2206) 24 MEQ/L CALCIUM (test code = 2209) 9.4 MG/DL PROTEIN, TOTAL (test code = 2229) 7.0 G/DL ALBUMIN (test code = 2201) 4.2 G/DL CALC GLOBULIN (test code = 2240) 2.8 G/DL CALC A/G RATIO (test code = 2234) 1.5 RATIO BILIRUBIN, TOTAL (test code = 2207) 0.3 MG/DL ALKALINE PHOSPHATASE (test code = 2204) 95 U/L AST (test code = 2218) 8 U/L ALT (test code = 2219) 7 U/L LIPID [id number] 00:00:00* Test Item Value Reference Range Interpretation Comme nts CHOLESTEROL (test code = 2210) 176 MG/DL TRIGLYCERIDES (test code = 2232) 308 MG/DL HDL CHOLESTEROL (test code = 2220) 32 MG/DL CALC LDL CHOL (test code = 2237) 103 MG/DL RISK RATIO LDL/HDL (test cod e = 2238) 3.22 RATIO HEMOGLOBIN [id number] 00:00:00* Test Item Value Reference Range Interpretation Comme nts HEMOGLOBIN A1c (test code = 87532) 7.2 % PSA, [id number] 00:00:00* Test Item Value Reference Range Interpretation Comme nts PSA, TOTAL (test code = 2606) 7.90 NG/ML CBC W/AUTO [id number] 00:00:00* Test Item Value Reference Range Interpretation Comme nts WBC (test code = 1001) 7.4 K/UL RBC (test code = 1002) 5.26 M/UL HEMOGLOBIN (test code = 1003) 14.5 G/DL HEMATOCRIT (test code = 1004) 42.8 % MCV (test code = 1005) 81.4 fL MCH (test code = 1006) 27.6 PG MCHC (test code = 1007) 33.9 G/DL RDW (test code = 1038) 13.5 % NEUTROPHILS (test code = 1008) 57.3 % LYMPHOCYTES (test code = 1010) 32.2 % MONOCYTES (test code = 1011) 7.7 % EOSINOPHILS (test code = 1012) 2.0 % BASOPHILS (test code = 1013) 0.4 % IMMATURE GRANULOCYTES (test code = 1036) 0.4 % NUCLEATED RBCS (test code = 1065) 0.0 /100WBC'S PLATELET COUNT (test code = 1015) 235 K/UL ABSOLUTE NEUTROPHILS (test c ode = 1066) 4.22 K/UL ABSOLUTE LYMPHOCYTES (test c ode = 1067) 2.38 K/UL ABSOLUTE MONOCYTES (test cod e = 1068) 0.57 K/UL ABSOLUTE EOSINOPHILS (test c ode = 1040) 0.15 K/UL ABSOLUTE BASOPHILS (test cod e = 1069) 0.03 K/UL ABS IMMATURE GRANULOCYTES (t est code = 1020) 0.03 K/UL ABS NUCLEATED RBCS (test cod e = 53882) 0.00 K/UL COMPREHENSIVE METABOLIC [id number] 00:00:00* Test Item Value Reference Range Interpretation Comme nts GLUCOSE (test code = 2217) 146 MG/DL BUN (test code = 2208) 19 MG/DL CREATININE (test code = 2214) 0.93 MG/DL eGFR (2020 CKD-EPI) (test co de = 15565) 88 ML/MIN/1.73 CALC BUN/CREAT (test code = 2235) 20 RATIO SODIUM (test code = 2231) 140 MEQ/L POTASSIUM (test code = 2228) 4.1 MEQ/L CHLORIDE (test code = 2215) 104 MEQ/L CARBON DIOXIDE (test code = 2206) 24 MEQ/L CALCIUM (test code = 2209) 9.4 MG/DL PROTEIN, TOTAL (test code = 2229) 7.0 G/DL ALBUMIN (test code = 2201) 4.2 G/DL CALC GLOBULIN (test code = 2240) 2.8 G/DL CALC A/G RATIO (test code = 2234) 1.5 RATIO BILIRUBIN, TOTAL (test code = 2207) 0.3 MG/DL ALKALINE PHOSPHATASE (test code = 2204) 95 U/L AST (test code = 2218) 8 U/L ALT (test code = 2219) 7 U/L LIPID [id number] 00:00:00* Test Item Value Reference Range Interpretation Comme nts CHOLESTEROL (test code = 2210) 176 MG/DL TRIGLYCERIDES (test code = 2232) 308 MG/DL HDL CHOLESTEROL (test code = 2220) 32 MG/DL CALC LDL CHOL (test code = 2237) 103 MG/DL RISK RATIO LDL/HDL (test cod e = 2238) 3.22 RATIO HEMOGLOBIN [id number] 00:00:00* Test Item Value Reference Range Interpretation Comme nts HEMOGLOBIN A1c (test code = 98310) 7.2 % PSA, [id number] 00:00:00* Test Item Value Reference Range Interpretation Comme nts PSA, TOTAL (test code = 2606) 7.90 NG/ML CBC W/AUTO [id number] 00:00:00* Test Item Value Reference Range Interpretation Comme nts WBC (test code = 1001) 7.4 K/UL RBC (test code = 1002) 5.26 M/UL HEMOGLOBIN (test code = 1003) 14.5 G/DL HEMATOCRIT (test code = 1004) 42.8 % MCV (test code = 1005) 81.4 fL MCH (test code = 1006) 27.6 PG MCHC (test code = 1007) 33.9 G/DL RDW (test code = 1038) 13.5 % NEUTROPHILS (test code = 1008) 57.3 % LYMPHOCYTES (test code = 1010) 32.2 % MONOCYTES (test code = 1011) 7.7 % EOSINOPHILS (test code = 1012) 2.0 % BASOPHILS (test code = 1013) 0.4 % IMMATURE GRANULOCYTES (test code = 1036) 0.4 % NUCLEATED RBCS (test code = 1065) 0.0 /100WBC'S PLATELET COUNT (test code = 1015) 235 K/UL ABSOLUTE NEUTROPHILS (test c ode = 1066) 4.22 K/UL ABSOLUTE LYMPHOCYTES (test c ode = 1067) 2.38 K/UL ABSOLUTE MONOCYTES (test cod e = 1068) 0.57 K/UL ABSOLUTE EOSINOPHILS (test c ode = 1040) 0.15 K/UL ABSOLUTE BASOPHILS (test cod e = 1069) 0.03 K/UL ABS IMMATURE GRANULOCYTES (t est code = 1020) 0.03 K/UL ABS NUCLEATED RBCS (test cod e = 37526) 0.00 K/UL COMPREHENSIVE METABOLIC [id number] 00:00:00* Test Item Value Reference Range Interpretation Comme nts GLUCOSE (test code = 2217) 146 MG/DL BUN (test code = 2208) 19 MG/DL CREATININE (test code = 2214) 0.93 MG/DL eGFR (2020 CKD-EPI) (test co de = 01739) 88 ML/MIN/1.73 CALC BUN/CREAT (test code = 2235) 20 RATIO SODIUM (test code = 2231) 140 MEQ/L POTASSIUM (test code = 2228) 4.1 MEQ/L CHLORIDE (test code = 2215) 104 MEQ/L CARBON DIOXIDE (test code = 2206) 24 MEQ/L CALCIUM (test code = 2209) 9.4 MG/DL PROTEIN, TOTAL (test code = 2229) 7.0 G/DL ALBUMIN (test code = 2201) 4.2 G/DL CALC GLOBULIN (test code = 2240) 2.8 G/DL CALC A/G RATIO (test code = 2234) 1.5 RATIO BILIRUBIN, TOTAL (test code = 2207) 0.3 MG/DL ALKALINE PHOSPHATASE (test code = 2204) 95 U/L AST (test code = 2218) 8 U/L ALT (test code = 2219) 7 U/L LIPID [id number] 00:00:00* Test Item Value Reference Range Interpretation Comme nts CHOLESTEROL (test code = 2210) 176 MG/DL TRIGLYCERIDES (test code = 2232) 308 MG/DL HDL CHOLESTEROL (test code = 2220) 32 MG/DL CALC LDL CHOL (test code = 2237) 103 MG/DL RISK RATIO LDL/HDL (test cod e = 2238) 3.22 RATIO HEMOGLOBIN [id number] 00:00:00* Test Item Value Reference Range Interpretation Comme nts HEMOGLOBIN A1c (test code = 53114) 7.2 % CBC W/AUTO [id number] 00:00:00* Test Item Value Reference Range Interpretation Comme nts WBC (test code = 1001) 7.4 K/UL RBC (test code = 1002) 5.26 M/UL HEMOGLOBIN (test code = 1003) 14.5 G/DL HEMATOCRIT (test code = 1004) 42.8 % MCV (test code = 1005) 81.4 fL MCH (test code = 1006) 27.6 PG MCHC (test code = 1007) 33.9 G/DL RDW (test code = 1038) 13.5 % NEUTROPHILS (test code = 1008) 57.3 % LYMPHOCYTES (test code = 1010) 32.2 % MONOCYTES (test code = 1011) 7.7 % EOSINOPHILS (test code = 1012) 2.0 % BASOPHILS (test code = 1013) 0.4 % IMMATURE GRANULOCYTES (test code = 1036) 0.4 % NUCLEATED RBCS (test code = 1065) 0.0 /100WBC'S PLATELET COUNT (test code = 1015) 235 K/UL ABSOLUTE NEUTROPHILS (test c ode = 1066) 4.22 K/UL ABSOLUTE LYMPHOCYTES (test c ode = 1067) 2.38 K/UL ABSOLUTE MONOCYTES (test cod e = 1068) 0.57 K/UL ABSOLUTE EOSINOPHILS (test c ode = 1040) 0.15 K/UL ABSOLUTE BASOPHILS (test cod e = 1069) 0.03 K/UL ABS IMMATURE GRANULOCYTES (t est code = 1020) 0.03 K/UL ABS NUCLEATED RBCS (test cod e = 50046) 0.00 K/UL Chucho F BaronCOMPREHENSIVE METABOLIC [id number] 00:00:00* Test Item Value Reference Range Interpretation Comme nts GLUCOSE (test code = 2217) 146 MG/DL BUN (test code = 2208) 19 MG/DL CREATININE (test code = 2214) 0.93 MG/DL eGFR (2020 CKD-EPI) (test co de = 94268) 88 ML/MIN/1.73 CALC BUN/CREAT (test code = 2235) 20 RATIO SODIUM (test code = 2231) 140 MEQ/L POTASSIUM (test code = 2228) 4.1 MEQ/L CHLORIDE (test code = 2215) 104 MEQ/L CARBON DIOXIDE (test code = 2206) 24 MEQ/L CALCIUM (test code = 2209) 9.4 MG/DL PROTEIN, TOTAL (test code = 2229) 7.0 G/DL ALBUMIN (test code = 2201) 4.2 G/DL CALC GLOBULIN (test code = 2240) 2.8 G/DL CALC A/G RATIO (test code = 2234) 1.5 RATIO BILIRUBIN, TOTAL (test code = 2207) 0.3 MG/DL ALKALINE PHOSPHATASE (test code = 2204) 95 U/L AST (test code = 2218) 8 U/L ALT (test code = 2219) 7 U/L Chucho DraperLIPID [id number] 00:00:00* Test Item Value Reference Range Interpretation Comme nts CHOLESTEROL (test code = 2210) 176 MG/DL TRIGLYCERIDES (test code = 2232) 308 MG/DL HDL CHOLESTEROL (test code = 2220) 32 MG/DL CALC LDL CHOL (test code = 2237) 103 MG/DL RISK RATIO LDL/HDL (test cod e = 2238) 3.22 RATIO Chucho DraperHEMOGLOBIN [id number] 00:00:00* Test Item Value Reference Range Interpretation Comme thong HEMOGLOBIN A1c (test code = 21491) 7.2 % Chucho DraperPSA, [id number] 00:00:00* Test Item Value Reference Range Interpretation Comme nts PSA, TOTAL (test code = 2606) 7.90 NG/ML Chucho DraperCBC W/AUTO [id number] 00:00:00* Test Item Value Reference Range Interpretation Comme nts WBC (test code = 1001) 7.4 K/UL RBC (test code = 1002) 5.26 M/UL HEMOGLOBIN (test code = 1003) 14.5 G/DL HEMATOCRIT (test code = 1004) 42.8 % MCV (test code = 1005) 81.4 fL MCH (test code = 1006) 27.6 PG MCHC (test code = 1007) 33.9 G/DL RDW (test code = 1038) 13.5 % NEUTROPHILS (test code = 1008) 57.3 % LYMPHOCYTES (test code = 1010) 32.2 % MONOCYTES (test code = 1011) 7.7 % EOSINOPHILS (test code = 1012) 2.0 % BASOPHILS (test code = 1013) 0.4 % IMMATURE GRANULOCYTES (test code = 1036) 0.4 % NUCLEATED RBCS (test code = 1065) 0.0 /100WBC'S PLATELET COUNT (test code = 1015) 235 K/UL ABSOLUTE NEUTROPHILS (test c ode = 1066) 4.22 K/UL ABSOLUTE LYMPHOCYTES (test c ode = 1067) 2.38 K/UL ABSOLUTE MONOCYTES (test cod e = 1068) 0.57 K/UL ABSOLUTE EOSINOPHILS (test c ode = 1040) 0.15 K/UL ABSOLUTE BASOPHILS (test cod e = 1069) 0.03 K/UL ABS IMMATURE GRANULOCYTES (t est code = 1020) 0.03 K/UL ABS NUCLEATED RBCS (test cod e = 82779) 0.00 K/UL Chucho DraperCOMPREHENSIVE METABOLIC [id number] 00:00:00* Test Item Value Reference Range Interpretation Comme nts GLUCOSE (test code = 2217) 146 MG/DL BUN (test code = 2208) 19 MG/DL CREATININE (test code = 2214) 0.93 MG/DL eGFR (2020 CKD-EPI) (test co de = 41049) 88 ML/MIN/1.73 CALC BUN/CREAT (test code = 2235) 20 RATIO SODIUM (test code = 2231) 140 MEQ/L POTASSIUM (test code = 2228) 4.1 MEQ/L CHLORIDE (test code = 2215) 104 MEQ/L CARBON DIOXIDE (test code = 2206) 24 MEQ/L CALCIUM (test code = 2209) 9.4 MG/DL PROTEIN, TOTAL (test code = 2229) 7.0 G/DL ALBUMIN (test code = 2201) 4.2 G/DL CALC GLOBULIN (test code = 2240) 2.8 G/DL CALC A/G RATIO (test code = 2234) 1.5 RATIO BILIRUBIN, TOTAL (test code = 2207) 0.3 MG/DL ALKALINE PHOSPHATASE (test code = 2204) 95 U/L AST (test code = 2218) 8 U/L ALT (test code = 2219) 7 U/L Chucho DraperLIPID [id number] 00:00:00* Test Item Value Reference Range Interpretation Comme nts CHOLESTEROL (test code = 2210) 176 MG/DL TRIGLYCERIDES (test code = 2232) 308 MG/DL HDL CHOLESTEROL (test code = 2220) 32 MG/DL CALC LDL CHOL (test code = 2237) 103 MG/DL RISK RATIO LDL/HDL (test cod e = 2238) 3.22 RATIO Chucho DraperHEMOGLOBIN [id number] 00:00:00* Test Item Value Reference Range Interpretation Comme nts HEMOGLOBIN A1c (test code = 03149) 7.2 % Chucho DraperPSA, [id number] 00:00:00* Test Item Value Reference Range Interpretation Comme nts PSA, TOTAL (test code = 2606) 7.90 NG/ML Chucho DraperCBC W/AUTO [id number] 00:00:00* Test Item Value Reference Range Interpretation Comme nts WBC (test code = 1001) 7.4 K/UL RBC (test code = 1002) 5.26 M/UL HEMOGLOBIN (test code = 1003) 14.5 G/DL HEMATOCRIT (test code = 1004) 42.8 % MCV (test code = 1005) 81.4 fL MCH (test code = 1006) 27.6 PG MCHC (test code = 1007) 33.9 G/DL RDW (test code = 1038) 13.5 % NEUTROPHILS (test code = 1008) 57.3 % LYMPHOCYTES (test code = 1010) 32.2 % MONOCYTES (test code = 1011) 7.7 % EOSINOPHILS (test code = 1012) 2.0 % BASOPHILS (test code = 1013) 0.4 % IMMATURE GRANULOCYTES (test code = 1036) 0.4 % NUCLEATED RBCS (test code = 1065) 0.0 /100WBC'S PLATELET COUNT (test code = 1015) 235 K/UL ABSOLUTE NEUTROPHILS (test c ode = 1066) 4.22 K/UL ABSOLUTE LYMPHOCYTES (test c ode = 1067) 2.38 K/UL ABSOLUTE MONOCYTES (test cod e = 1068) 0.57 K/UL ABSOLUTE EOSINOPHILS (test c ode = 1040) 0.15 K/UL ABSOLUTE BASOPHILS (test cod e = 1069) 0.03 K/UL ABS IMMATURE GRANULOCYTES (t est code = 1020) 0.03 K/UL ABS NUCLEATED RBCS (test cod e = 87433) 0.00 K/UL Chucho DraperCOMPREHENSIVE METABOLIC [id number] 00:00:00* Test Item Value Reference Range Interpretation Comme nts GLUCOSE (test code = 2217) 146 MG/DL BUN (test code = 2208) 19 MG/DL CREATININE (test code = 2214) 0.93 MG/DL eGFR (2020 CKD-EPI) (test co de = 55401) 88 ML/MIN/1.73 CALC BUN/CREAT (test code = 2235) 20 RATIO SODIUM (test code = 2231) 140 MEQ/L POTASSIUM (test code = 2228) 4.1 MEQ/L CHLORIDE (test code = 2215) 104 MEQ/L CARBON DIOXIDE (test code = 2206) 24 MEQ/L CALCIUM (test code = 2209) 9.4 MG/DL PROTEIN, TOTAL (test code = 2229) 7.0 G/DL ALBUMIN (test code = 2201) 4.2 G/DL CALC GLOBULIN (test code = 2240) 2.8 G/DL CALC A/G RATIO (test code = 2234) 1.5 RATIO BILIRUBIN, TOTAL (test code = 2207) 0.3 MG/DL ALKALINE PHOSPHATASE (test code = 2204) 95 U/L AST (test code = 2218) 8 U/L ALT (test code = 2219) 7 U/L Chucho DraperLIPID [id number] 00:00:00* Test Item Value Reference Range Interpretation Comme nts CHOLESTEROL (test code = 2210) 176 MG/DL TRIGLYCERIDES (test code = 2232) 308 MG/DL HDL CHOLESTEROL (test code = 2220) 32 MG/DL CALC LDL CHOL (test code = 2237) 103 MG/DL RISK RATIO LDL/HDL (test cod e = 2238) 3.22 RATIO Chucho DraperHEMOGLOBIN [id number] 00:00:00* Test Item Value Reference Range Interpretation Comme nts HEMOGLOBIN A1c (test code = 79270) 7.2 % Chucho DraperPSA, [id number] 00:00:00* Test Item Value Reference Range Interpretation Comme nts PSA, TOTAL (test code = 2606) 7.90 NG/ML Chucho DraperCBC W/AUTO [id number] 00:00:00* Test Item Value Reference Range Interpretation Comme nts WBC (test code = 1001) 7.4 K/UL RBC (test code = 1002) 5.26 M/UL HEMOGLOBIN (test code = 1003) 14.5 G/DL HEMATOCRIT (test code = 1004) 42.8 % MCV (test code = 1005) 81.4 fL MCH (test code = 1006) 27.6 PG MCHC (test code = 1007) 33.9 G/DL RDW (test code = 1038) 13.5 % NEUTROPHILS (test code = 1008) 57.3 % LYMPHOCYTES (test code = 1010) 32.2 % MONOCYTES (test code = 1011) 7.7 % EOSINOPHILS (test code = 1012) 2.0 % BASOPHILS (test code = 1013) 0.4 % IMMATURE GRANULOCYTES (test code = 1036) 0.4 % NUCLEATED RBCS (test code = 1065) 0.0 /100WBC'S PLATELET COUNT (test code = 1015) 235 K/UL ABSOLUTE NEUTROPHILS (test c ode = 1066) 4.22 K/UL ABSOLUTE LYMPHOCYTES (test c ode = 1067) 2.38 K/UL ABSOLUTE MONOCYTES (test cod e = 1068) 0.57 K/UL ABSOLUTE EOSINOPHILS (test c ode = 1040) 0.15 K/UL ABSOLUTE BASOPHILS (test cod e = 1069) 0.03 K/UL ABS IMMATURE GRANULOCYTES (t est code = 1020) 0.03 K/UL ABS NUCLEATED RBCS (test cod e = 37378) 0.00 K/UL Chucho DraperCOMPREHENSIVE METABOLIC [id number] 00:00:00* Test Item Value Reference Range Interpretation Comme nts GLUCOSE (test code = 2217) 146 MG/DL BUN (test code = 2208) 19 MG/DL CREATININE (test code = 2214) 0.93 MG/DL eGFR (2020 CKD-EPI) (test co de = 39722) 88 ML/MIN/1.73 CALC BUN/CREAT (test code = 2235) 20 RATIO SODIUM (test code = 2231) 140 MEQ/L POTASSIUM (test code = 2228) 4.1 MEQ/L CHLORIDE (test code = 2215) 104 MEQ/L CARBON DIOXIDE (test code = 2206) 24 MEQ/L CALCIUM (test code = 2209) 9.4 MG/DL PROTEIN, TOTAL (test code = 2229) 7.0 G/DL ALBUMIN (test code = 2201) 4.2 G/DL CALC GLOBULIN (test code = 2240) 2.8 G/DL CALC A/G RATIO (test code = 2234) 1.5 RATIO BILIRUBIN, TOTAL (test code = 2207) 0.3 MG/DL ALKALINE PHOSPHATASE (test code = 2204) 95 U/L AST (test code = 2218) 8 U/L ALT (test code = 2219) 7 U/L Chucho DraperLIPID [id number] 00:00:00* Test Item Value Reference Range Interpretation Comme nts CHOLESTEROL (test code = 2210) 176 MG/DL TRIGLYCERIDES (test code = 2232) 308 MG/DL HDL CHOLESTEROL (test code = 2220) 32 MG/DL CALC LDL CHOL (test code = 2237) 103 MG/DL RISK RATIO LDL/HDL (test cod e = 2238) 3.22 RATIO Chucho DraperHEMOGLOBIN [id number] 00:00:00* Test Item Value Reference Range Interpretation Comme nts HEMOGLOBIN A1c (test code = 53174) 7.2 % Chucho DraperPSA, [id number] 00:00:00* Test Item Value Reference Range Interpretation Comme nts PSA, TOTAL (test code = 2606) 7.90 NG/ML Chucho DraperCBC W/AUTO [id number] 00:00:00* Test Item Value Reference Range Interpretation Comme nts WBC (test code = 1001) 7.4 K/UL RBC (test code = 1002) 5.26 M/UL HEMOGLOBIN (test code = 1003) 14.5 G/DL HEMATOCRIT (test code = 1004) 42.8 % MCV (test code = 1005) 81.4 fL MCH (test code = 1006) 27.6 PG MCHC (test code = 1007) 33.9 G/DL RDW (test code = 1038) 13.5 % NEUTROPHILS (test code = 1008) 57.3 % LYMPHOCYTES (test code = 1010) 32.2 % MONOCYTES (test code = 1011) 7.7 % EOSINOPHILS (test code = 1012) 2.0 % BASOPHILS (test code = 1013) 0.4 % IMMATURE GRANULOCYTES (test code = 1036) 0.4 % NUCLEATED RBCS (test code = 1065) 0.0 /100WBC'S PLATELET COUNT (test code = 1015) 235 K/UL ABSOLUTE NEUTROPHILS (test c ode = 1066) 4.22 K/UL ABSOLUTE LYMPHOCYTES (test c ode = 1067) 2.38 K/UL ABSOLUTE MONOCYTES (test cod e = 1068) 0.57 K/UL ABSOLUTE EOSINOPHILS (test c ode = 1040) 0.15 K/UL ABSOLUTE BASOPHILS (test cod e = 1069) 0.03 K/UL ABS IMMATURE GRANULOCYTES (t est code = 1020) 0.03 K/UL ABS NUCLEATED RBCS (test cod e = 53451) 0.00 K/UL Chucho DraperCOMPREHENSIVE METABOLIC [id number] 00:00:00* Test Item Value Reference Range Interpretation Comme nts GLUCOSE (test code = 2217) 146 MG/DL BUN (test code = 2208) 19 MG/DL CREATININE (test code = 2214) 0.93 MG/DL eGFR (2020 CKD-EPI) (test co de = 63311) 88 ML/MIN/1.73 CALC BUN/CREAT (test code = 2235) 20 RATIO SODIUM (test code = 2231) 140 MEQ/L POTASSIUM (test code = 2228) 4.1 MEQ/L CHLORIDE (test code = 2215) 104 MEQ/L CARBON DIOXIDE (test code = 2206) 24 MEQ/L CALCIUM (test code = 2209) 9.4 MG/DL PROTEIN, TOTAL (test code = 2229) 7.0 G/DL ALBUMIN (test code = 2201) 4.2 G/DL CALC GLOBULIN (test code = 2240) 2.8 G/DL CALC A/G RATIO (test code = 2234) 1.5 RATIO BILIRUBIN, TOTAL (test code = 2207) 0.3 MG/DL ALKALINE PHOSPHATASE (test code = 2204) 95 U/L AST (test code = 2218) 8 U/L ALT (test code = 2219) 7 U/L Chucho DraeprLIPID [id number] 00:00:00* Test Item Value Reference Range Interpretation Comme nts CHOLESTEROL (test code = 2210) 176 MG/DL TRIGLYCERIDES (test code = 2232) 308 MG/DL HDL CHOLESTEROL (test code = 2220) 32 MG/DL CALC LDL CHOL (test code = 2237) 103 MG/DL RISK RATIO LDL/HDL (test cod e = 2238) 3.22 RATIO Chucho DraperHEMOGLOBIN [id number] 00:00:00* Test Item Value Reference Range Interpretation Comme nts HEMOGLOBIN A1c (test code = 00545) 7.2 % Chucho DraperPSA, [id number] 00:00:00* Test Item Value Reference Range Interpretation Comme nts PSA, TOTAL (test code = 2606) 7.90 NG/ML Chucho DraperCBC W/AUTO [id number] 00:00:00* Test Item Value Reference Range Interpretation Comme nts WBC (test code = 1001) 7.4 K/UL RBC (test code = 1002) 5.26 M/UL HEMOGLOBIN (test code = 1003) 14.5 G/DL HEMATOCRIT (test code = 1004) 42.8 % MCV (test code = 1005) 81.4 fL MCH (test code = 1006) 27.6 PG MCHC (test code = 1007) 33.9 G/DL RDW (test code = 1038) 13.5 % NEUTROPHILS (test code = 1008) 57.3 % LYMPHOCYTES (test code = 1010) 32.2 % MONOCYTES (test code = 1011) 7.7 % EOSINOPHILS (test code = 1012) 2.0 % BASOPHILS (test code = 1013) 0.4 % IMMATURE GRANULOCYTES (test code = 1036) 0.4 % NUCLEATED RBCS (test code = 1065) 0.0 /100WBC'S PLATELET COUNT (test code = 1015) 235 K/UL ABSOLUTE NEUTROPHILS (test c ode = 1066) 4.22 K/UL ABSOLUTE LYMPHOCYTES (test c ode = 1067) 2.38 K/UL ABSOLUTE MONOCYTES (test cod e = 1068) 0.57 K/UL ABSOLUTE EOSINOPHILS (test c ode = 1040) 0.15 K/UL ABSOLUTE BASOPHILS (test cod e = 1069) 0.03 K/UL ABS IMMATURE GRANULOCYTES (t est code = 1020) 0.03 K/UL ABS NUCLEATED RBCS (test cod e = 75160) 0.00 K/UL Chucho DraperCOMPREHENSIVE METABOLIC [id number] 00:00:00* Test Item Value Reference Range Interpretation Comme nts GLUCOSE (test code = 2217) 146 MG/DL BUN (test code = 2208) 19 MG/DL CREATININE (test code = 2214) 0.93 MG/DL eGFR (2020 CKD-EPI) (test co de = 66357) 88 ML/MIN/1.73 CALC BUN/CREAT (test code = 2235) 20 RATIO SODIUM (test code = 2231) 140 MEQ/L POTASSIUM (test code = 2228) 4.1 MEQ/L CHLORIDE (test code = 2215) 104 MEQ/L CARBON DIOXIDE (test code = 2206) 24 MEQ/L CALCIUM (test code = 2209) 9.4 MG/DL PROTEIN, TOTAL (test code = 2229) 7.0 G/DL ALBUMIN (test code = 2201) 4.2 G/DL CALC GLOBULIN (test code = 2240) 2.8 G/DL CALC A/G RATIO (test code = 2234) 1.5 RATIO BILIRUBIN, TOTAL (test code = 2207) 0.3 MG/DL ALKALINE PHOSPHATASE (test code = 2204) 95 U/L AST (test code = 2218) 8 U/L ALT (test code = 2219) 7 U/L Chucho DraperLIPID [id number] 00:00:00* Test Item Value Reference Range Interpretation Comme nts CHOLESTEROL (test code = 2210) 176 MG/DL TRIGLYCERIDES (test code = 2232) 308 MG/DL HDL CHOLESTEROL (test code = 0) 32 MG/DL CALC LDL CHOL (test code = 7) 103 MG/DL RISK RATIO LDL/HDL (test cod e = 2238) 3.22 RATIO Chucho DraperHEMOGLOBIN [id number] 00:00:00* Test Item Value Reference Range Interpretation Comme thong HEMOGLOBIN A1c (test code = 77814) 7.2 % Chucho DraperPSA, [id number] 00:00:00* Test Item Value Reference Range Interpretation Comme nts PSA, TOTAL (test code = 2606) 7.90 NG/ML Chucho DraperCOMPREHENSIVE METABOLIC [id number] 00:00:00* Test Item Value Reference Range Interpretation Comme nts GLUCOSE (test code = 2217) 176 MG/DL BUN (test code = 2208) 22 MG/DL CREATININE (test code = 2214) 0.99 MG/DL eGFR AMER. (test cod e = 37484) 90 ML/MIN/1.73 eGFR NON- AMER. (test code = 95500) 77 ML/MIN/1.73 CALC BUN/CREAT (test code = 2235) 22 RATIO SODIUM (test code = 2231) 135 MEQ/L POTASSIUM (test code = 2228) 4.9 MEQ/L CHLORIDE (test code = 2215) 99 MEQ/L CARBON DIOXIDE (test code = 2206) 24 MEQ/L CALCIUM (test code = 2209) 9.9 MG/DL PROTEIN, TOTAL (test code = 2229) 7.5 G/DL ALBUMIN (test code = 2201) 4.7 G/DL CALC GLOBULIN (test code = 2240) 2.8 G/DL CALC A/G RATIO (test code = 2234) 1.7 RATIO BILIRUBIN, TOTAL (test code = 2207) 1.1 MG/DL ALKALINE PHOSPHATASE (test code = 2204) 70 U/L AST (test code = 2218) 8 U/L ALT (test code = 2219) 17 U/L CBC W/AUTO [id number] 00:00:00* Test Item Value Reference Range Interpretation Comme nts WBC (test code = 1001) 12.1 K/UL RBC (test code = 1002) 5.94 M/UL HEMOGLOBIN (test code = 1003) 16.0 G/DL HEMATOCRIT (test code = 1004) 48.0 % MCV (test code = 1005) 80.8 fL MCH (test code = 1006) 26.9 PG MCHC (test code = 1007) 33.3 G/DL RDW (test code = 1038) 14.4 % NEUTROPHILS (test code = 1008) 79.6 % LYMPHOCYTES (test code = 1010) 11.7 % MONOCYTES (test code = 1011) 6.2 % EOSINOPHILS (test code = 1012) 0.2 % BASOPHILS (test code = 1013) 0.4 % IMMATURE GRANULOCYTES (test code = 1036) 1.9 % NUCLEATED RBCS (test code = 1065) 0.0 /100WBC'S PLATELET COUNT (test code = 1015) 285 K/UL ABSOLUTE NEUTROPHILS (test c ode = 1066) 9.65 K/UL ABSOLUTE LYMPHOCYTES (test c ode = 1067) 1.42 K/UL ABSOLUTE MONOCYTES (test cod e = 1068) 0.75 K/UL ABSOLUTE EOSINOPHILS (test c ode = 1040) 0.03 K/UL ABSOLUTE BASOPHILS (test cod e = 1069) 0.05 K/UL ABS IMMATURE GRANULOCYTES (t est code = 1020) 0.23 K/UL ABS NUCLEATED RBCS (test cod e = 28178) 0.00 K/UL HEMOGLOBIN [id number] 00:00:00* Test Item Value Reference Range Interpretation Comme nts HEMOGLOBIN A1c (test code = 05121) 7.6 % COMPREHENSIVE METABOLIC [id number] 00:00:00* Test Item Value Reference Range Interpretation Comme nts GLUCOSE (test code = 2217) 176 MG/DL BUN (test code = 2208) 22 MG/DL CREATININE (test code = 2214) 0.99 MG/DL eGFR AMER. (test cod e = 05652) 90 ML/MIN/1.73 eGFR NON- AMER. (test code = 15481) 77 ML/MIN/1.73 CALC BUN/CREAT (test code = 2235) 22 RATIO SODIUM (test code = 2231) 135 MEQ/L POTASSIUM (test code = 2228) 4.9 MEQ/L CHLORIDE (test code = 2215) 99 MEQ/L CARBON DIOXIDE (test code = 2206) 24 MEQ/L CALCIUM (test code = 2209) 9.9 MG/DL PROTEIN, TOTAL (test code = 2229) 7.5 G/DL ALBUMIN (test code = 2201) 4.7 G/DL CALC GLOBULIN (test code = 2240) 2.8 G/DL CALC A/G RATIO (test code = 2234) 1.7 RATIO BILIRUBIN, TOTAL (test code = 2207) 1.1 MG/DL ALKALINE PHOSPHATASE (test code = 2204) 70 U/L AST (test code = 2218) 8 U/L ALT (test code = 2219) 17 U/L CBC W/AUTO [id number] 00:00:00* Test Item Value Reference Range Interpretation Comme nts WBC (test code = 1001) 12.1 K/UL RBC (test code = 1002) 5.94 M/UL HEMOGLOBIN (test code = 1003) 16.0 G/DL HEMATOCRIT (test code = 1004) 48.0 % MCV (test code = 1005) 80.8 fL MCH (test code = 1006) 26.9 PG MCHC (test code = 1007) 33.3 G/DL RDW (test code = 1038) 14.4 % NEUTROPHILS (test code = 1008) 79.6 % LYMPHOCYTES (test code = 1010) 11.7 % MONOCYTES (test code = 1011) 6.2 % EOSINOPHILS (test code = 1012) 0.2 % BASOPHILS (test code = 1013) 0.4 % IMMATURE GRANULOCYTES (test code = 1036) 1.9 % NUCLEATED RBCS (test code = 1065) 0.0 /100WBC'S PLATELET COUNT (test code = 1015) 285 K/UL ABSOLUTE NEUTROPHILS (test c ode = 1066) 9.65 K/UL ABSOLUTE LYMPHOCYTES (test c ode = 1067) 1.42 K/UL ABSOLUTE MONOCYTES (test cod e = 1068) 0.75 K/UL ABSOLUTE EOSINOPHILS (test c ode = 1040) 0.03 K/UL ABSOLUTE BASOPHILS (test cod e = 1069) 0.05 K/UL ABS IMMATURE GRANULOCYTES (t est code = 1020) 0.23 K/UL ABS NUCLEATED RBCS (test cod e = 35959) 0.00 K/UL HEMOGLOBIN [id number] 00:00:00* Test Item Value Reference Range Interpretation Comme nts HEMOGLOBIN A1c (test code = 10797) 7.6 % COMPREHENSIVE METABOLIC [id number] 00:00:00* Test Item Value Reference Range Interpretation Comme nts GLUCOSE (test code = 2217) 176 MG/DL BUN (test code = 2208) 22 MG/DL CREATININE (test code = 2214) 0.99 MG/DL eGFR AMER. (test cod e = 51099) 90 ML/MIN/1.73 eGFR NON- AMER. (test code = 64554) 77 ML/MIN/1.73 CALC BUN/CREAT (test code = 2235) 22 RATIO SODIUM (test code = 2231) 135 MEQ/L POTASSIUM (test code = 2228) 4.9 MEQ/L CHLORIDE (test code = 2215) 99 MEQ/L CARBON DIOXIDE (test code = 2206) 24 MEQ/L CALCIUM (test code = 2209) 9.9 MG/DL PROTEIN, TOTAL (test code = 2229) 7.5 G/DL ALBUMIN (test code = 2201) 4.7 G/DL CALC GLOBULIN (test code = 2240) 2.8 G/DL CALC A/G RATIO (test code = 2234) 1.7 RATIO BILIRUBIN, TOTAL (test code = 2207) 1.1 MG/DL ALKALINE PHOSPHATASE (test code = 2204) 70 U/L AST (test code = 2218) 8 U/L ALT (test code = 2219) 17 U/L CBC W/AUTO [id number] 00:00:00* Test Item Value Reference Range Interpretation Comme nts WBC (test code = 1001) 12.1 K/UL RBC (test code = 1002) 5.94 M/UL HEMOGLOBIN (test code = 1003) 16.0 G/DL HEMATOCRIT (test code = 1004) 48.0 % MCV (test code = 1005) 80.8 fL MCH (test code = 1006) 26.9 PG MCHC (test code = 1007) 33.3 G/DL RDW (test code = 1038) 14.4 % NEUTROPHILS (test code = 1008) 79.6 % LYMPHOCYTES (test code = 1010) 11.7 % MONOCYTES (test code = 1011) 6.2 % EOSINOPHILS (test code = 1012) 0.2 % BASOPHILS (test code = 1013) 0.4 % IMMATURE GRANULOCYTES (test code = 1036) 1.9 % NUCLEATED RBCS (test code = 1065) 0.0 /100WBC'S PLATELET COUNT (test code = 1015) 285 K/UL ABSOLUTE NEUTROPHILS (test c ode = 1066) 9.65 K/UL ABSOLUTE LYMPHOCYTES (test c ode = 1067) 1.42 K/UL ABSOLUTE MONOCYTES (test cod e = 1068) 0.75 K/UL ABSOLUTE EOSINOPHILS (test c ode = 1040) 0.03 K/UL ABSOLUTE BASOPHILS (test cod e = 1069) 0.05 K/UL ABS IMMATURE GRANULOCYTES (t est code = 1020) 0.23 K/UL ABS NUCLEATED RBCS (test cod e = 28113) 0.00 K/UL HEMOGLOBIN [id number] 00:00:00* Test Item Value Reference Range Interpretation Comme nts HEMOGLOBIN A1c (test code = 84983) 7.6 % CBC W/AUTO [id number] 00:00:00* Test Item Value Reference Range Interpretation Comme nts WBC (test code = 1001) 12.1 K/UL RBC (test code = 1002) 5.94 M/UL HEMOGLOBIN (test code = 1003) 16.0 G/DL HEMATOCRIT (test code = 1004) 48.0 % MCV (test code = 1005) 80.8 fL MCH (test code = 1006) 26.9 PG MCHC (test code = 1007) 33.3 G/DL RDW (test code = 1038) 14.4 % NEUTROPHILS (test code = 1008) 79.6 % LYMPHOCYTES (test code = 1010) 11.7 % MONOCYTES (test code = 1011) 6.2 % EOSINOPHILS (test code = 1012) 0.2 % BASOPHILS (test code = 1013) 0.4 % IMMATURE GRANULOCYTES (test code = 1036) 1.9 % NUCLEATED RBCS (test code = 1065) 0.0 /100WBC'S PLATELET COUNT (test code = 1015) 285 K/UL ABSOLUTE NEUTROPHILS (test c ode = 1066) 9.65 K/UL ABSOLUTE LYMPHOCYTES (test c ode = 1067) 1.42 K/UL ABSOLUTE MONOCYTES (test cod e = 1068) 0.75 K/UL ABSOLUTE EOSINOPHILS (test c ode = 1040) 0.03 K/UL ABSOLUTE BASOPHILS (test cod e = 1069) 0.05 K/UL ABS IMMATURE GRANULOCYTES (t est code = 1020) 0.23 K/UL ABS NUCLEATED RBCS (test cod e = 93798) 0.00 K/UL Chucho DraperHEMOGLOBIN [id number] 00:00:00* Test Item Value Reference Range Interpretation Comme nts HEMOGLOBIN A1c (test code = 85730) 7.6 % Chucho DraperCOMPREHENSIVE METABOLIC [id number] 00:00:00* Test Item Value Reference Range Interpretation Comme nts GLUCOSE (test code = 2217) 176 MG/DL BUN (test code = 2208) 22 MG/DL CREATININE (test code = 2214) 0.99 MG/DL eGFR AMER. (test cod e = 68186) 90 ML/MIN/1.73 eGFR NON- AMER. (test code = 66686) 77 ML/MIN/1.73 CALC BUN/CREAT (test code = 2235) 22 RATIO SODIUM (test code = 2231) 135 MEQ/L POTASSIUM (test code = 2228) 4.9 MEQ/L CHLORIDE (test code = 2215) 99 MEQ/L CARBON DIOXIDE (test code = 2206) 24 MEQ/L CALCIUM (test code = 2209) 9.9 MG/DL PROTEIN, TOTAL (test code = 2229) 7.5 G/DL ALBUMIN (test code = 2201) 4.7 G/DL CALC GLOBULIN (test code = 2240) 2.8 G/DL CALC A/G RATIO (test code = 2234) 1.7 RATIO BILIRUBIN, TOTAL (test code = 2207) 1.1 MG/DL ALKALINE PHOSPHATASE (test code = 2204) 70 U/L AST (test code = 2218) 8 U/L ALT (test code = 2219) 17 U/L Chucho DraperCBC W/AUTO [id number] 00:00:00* Test Item Value Reference Range Interpretation Comme nts WBC (test code = 1001) 12.1 K/UL RBC (test code = 1002) 5.94 M/UL HEMOGLOBIN (test code = 1003) 16.0 G/DL HEMATOCRIT (test code = 1004) 48.0 % MCV (test code = 1005) 80.8 fL MCH (test code = 1006) 26.9 PG MCHC (test code = 1007) 33.3 G/DL RDW (test code = 1038) 14.4 % NEUTROPHILS (test code = 1008) 79.6 % LYMPHOCYTES (test code = 1010) 11.7 % MONOCYTES (test code = 1011) 6.2 % EOSINOPHILS (test code = 1012) 0.2 % BASOPHILS (test code = 1013) 0.4 % IMMATURE GRANULOCYTES (test code = 1036) 1.9 % NUCLEATED RBCS (test code = 1065) 0.0 /100WBC'S PLATELET COUNT (test code = 1015) 285 K/UL ABSOLUTE NEUTROPHILS (test c ode = 1066) 9.65 K/UL ABSOLUTE LYMPHOCYTES (test c ode = 1067) 1.42 K/UL ABSOLUTE MONOCYTES (test cod e = 1068) 0.75 K/UL ABSOLUTE EOSINOPHILS (test c ode = 1040) 0.03 K/UL ABSOLUTE BASOPHILS (test cod e = 1069) 0.05 K/UL ABS IMMATURE GRANULOCYTES (t est code = 1020) 0.23 K/UL ABS NUCLEATED RBCS (test cod e = 96022) 0.00 K/UL Chucho DraperHEMOGLOBIN [id number] 00:00:00* Test Item Value Reference Range Interpretation Comme nts HEMOGLOBIN A1c (test code = 87150) 7.6 % Chucho DraperCOMPREHENSIVE METABOLIC [id number] 00:00:00* Test Item Value Reference Range Interpretation Comme nts GLUCOSE (test code = 2217) 176 MG/DL BUN (test code = 2208) 22 MG/DL CREATININE (test code = 2214) 0.99 MG/DL eGFR AMER. (test cod e = 47263) 90 ML/MIN/1.73 eGFR NON- AMER. (test code = 24468) 77 ML/MIN/1.73 CALC BUN/CREAT (test code = 2235) 22 RATIO SODIUM (test code = 2231) 135 MEQ/L POTASSIUM (test code = 2228) 4.9 MEQ/L CHLORIDE (test code = 2215) 99 MEQ/L CARBON DIOXIDE (test code = 2206) 24 MEQ/L CALCIUM (test code = 2209) 9.9 MG/DL PROTEIN, TOTAL (test code = 2229) 7.5 G/DL ALBUMIN (test code = 2201) 4.7 G/DL CALC GLOBULIN (test code = 2240) 2.8 G/DL CALC A/G RATIO (test code = 2234) 1.7 RATIO BILIRUBIN, TOTAL (test code = 2207) 1.1 MG/DL ALKALINE PHOSPHATASE (test code = 2204) 70 U/L AST (test code = 2218) 8 U/L ALT (test code = 2219) 17 U/L Chucho DraperCBC W/AUTO [id number] 00:00:00* Test Item Value Reference Range Interpretation Comme nts WBC (test code = 1001) 12.1 K/UL RBC (test code = 1002) 5.94 M/UL HEMOGLOBIN (test code = 1003) 16.0 G/DL HEMATOCRIT (test code = 1004) 48.0 % MCV (test code = 1005) 80.8 fL MCH (test code = 1006) 26.9 PG MCHC (test code = 1007) 33.3 G/DL RDW (test code = 1038) 14.4 % NEUTROPHILS (test code = 1008) 79.6 % LYMPHOCYTES (test code = 1010) 11.7 % MONOCYTES (test code = 1011) 6.2 % EOSINOPHILS (test code = 1012) 0.2 % BASOPHILS (test code = 1013) 0.4 % IMMATURE GRANULOCYTES (test code = 1036) 1.9 % NUCLEATED RBCS (test code = 1065) 0.0 /100WBC'S PLATELET COUNT (test code = 1015) 285 K/UL ABSOLUTE NEUTROPHILS (test c ode = 1066) 9.65 K/UL ABSOLUTE LYMPHOCYTES (test c ode = 1067) 1.42 K/UL ABSOLUTE MONOCYTES (test cod e = 1068) 0.75 K/UL ABSOLUTE EOSINOPHILS (test c ode = 1040) 0.03 K/UL ABSOLUTE BASOPHILS (test cod e = 1069) 0.05 K/UL ABS IMMATURE GRANULOCYTES (t est code = 1020) 0.23 K/UL ABS NUCLEATED RBCS (test cod e = 21806) 0.00 K/UL Chucho DraperHEMOGLOBIN [id number] 00:00:00* Test Item Value Reference Range Interpretation Comme nts HEMOGLOBIN A1c (test code = 24100) 7.6 % Chucho DraperCOMPREHENSIVE METABOLIC [id number] 00:00:00* Test Item Value Reference Range Interpretation Comme nts GLUCOSE (test code = 2217) 176 MG/DL BUN (test code = 2208) 22 MG/DL CREATININE (test code = 2214) 0.99 MG/DL eGFR AMER. (test cod e = 30066) 90 ML/MIN/1.73 eGFR NON- AMER. (test code = 70625) 77 ML/MIN/1.73 CALC BUN/CREAT (test code = 2235) 22 RATIO SODIUM (test code = 2231) 135 MEQ/L POTASSIUM (test code = 2228) 4.9 MEQ/L CHLORIDE (test code = 2215) 99 MEQ/L CARBON DIOXIDE (test code = 2206) 24 MEQ/L CALCIUM (test code = 2209) 9.9 MG/DL PROTEIN, TOTAL (test code = 2229) 7.5 G/DL ALBUMIN (test code = 2201) 4.7 G/DL CALC GLOBULIN (test code = 2240) 2.8 G/DL CALC A/G RATIO (test code = 2234) 1.7 RATIO BILIRUBIN, TOTAL (test code = 2207) 1.1 MG/DL ALKALINE PHOSPHATASE (test code = 2204) 70 U/L AST (test code = 2218) 8 U/L ALT (test code = 2219) 17 U/L Chucho DraperCBC W/AUTO [id number] 00:00:00* Test Item Value Reference Range Interpretation Comme nts WBC (test code = 1001) 12.1 K/UL RBC (test code = 1002) 5.94 M/UL HEMOGLOBIN (test code = 1003) 16.0 G/DL HEMATOCRIT (test code = 1004) 48.0 % MCV (test code = 1005) 80.8 fL MCH (test code = 1006) 26.9 PG MCHC (test code = 1007) 33.3 G/DL RDW (test code = 1038) 14.4 % NEUTROPHILS (test code = 1008) 79.6 % LYMPHOCYTES (test code = 1010) 11.7 % MONOCYTES (test code = 1011) 6.2 % EOSINOPHILS (test code = 1012) 0.2 % BASOPHILS (test code = 1013) 0.4 % IMMATURE GRANULOCYTES (test code = 1036) 1.9 % NUCLEATED RBCS (test code = 1065) 0.0 /100WBC'S PLATELET COUNT (test code = 1015) 285 K/UL ABSOLUTE NEUTROPHILS (test c ode = 1066) 9.65 K/UL ABSOLUTE LYMPHOCYTES (test c ode = 1067) 1.42 K/UL ABSOLUTE MONOCYTES (test cod e = 1068) 0.75 K/UL ABSOLUTE EOSINOPHILS (test c ode = 1040) 0.03 K/UL ABSOLUTE BASOPHILS (test cod e = 1069) 0.05 K/UL ABS IMMATURE GRANULOCYTES (t est code = 1020) 0.23 K/UL ABS NUCLEATED RBCS (test cod e = 72130) 0.00 K/UL Chucho DraperHEMOGLOBIN [id number] 00:00:00* Test Item Value Reference Range Interpretation Comme nts HEMOGLOBIN A1c (test code = 90833) 7.6 % Chucho DraperCOMPREHENSIVE METABOLIC [id number] 00:00:00* Test Item Value Reference Range Interpretation Comme nts GLUCOSE (test code = 2217) 176 MG/DL BUN (test code = 2208) 22 MG/DL CREATININE (test code = 2214) 0.99 MG/DL eGFR AMER. (test cod e = 92200) 90 ML/MIN/1.73 eGFR NON- AMER. (test code = 59927) 77 ML/MIN/1.73 CALC BUN/CREAT (test code = 2235) 22 RATIO SODIUM (test code = 2231) 135 MEQ/L POTASSIUM (test code = 2228) 4.9 MEQ/L CHLORIDE (test code = 2215) 99 MEQ/L CARBON DIOXIDE (test code = 2206) 24 MEQ/L CALCIUM (test code = 2209) 9.9 MG/DL PROTEIN, TOTAL (test code = 2229) 7.5 G/DL ALBUMIN (test code = 2201) 4.7 G/DL CALC GLOBULIN (test code = 2240) 2.8 G/DL CALC A/G RATIO (test code = 2234) 1.7 RATIO BILIRUBIN, TOTAL (test code = 2207) 1.1 MG/DL ALKALINE PHOSPHATASE (test code = 2204) 70 U/L AST (test code = 2218) 8 U/L ALT (test code = 2219) 17 U/L Chucho [facility] W/AUTO [id number] 00:00:00* Test Item Value Reference Range Interpretation Comme nts WBC (test code = 1001) 12.1 K/UL RBC (test code = 1002) 5.94 M/UL HEMOGLOBIN (test code = 1003) 16.0 G/DL HEMATOCRIT (test code = 1004) 48.0 % MCV (test code = 1005) 80.8 fL MCH (test code = 1006) 26.9 PG MCHC (test code = 1007) 33.3 G/DL RDW (test code = 1038) 14.4 % NEUTROPHILS (test code = 1008) 79.6 % LYMPHOCYTES (test code = 1010) 11.7 % MONOCYTES (test code = 1011) 6.2 % EOSINOPHILS (test code = 1012) 0.2 % BASOPHILS (test code = 1013) 0.4 % IMMATURE GRANULOCYTES (test code = 1036) 1.9 % NUCLEATED RBCS (test code = 1065) 0.0 /100WBC'S PLATELET COUNT (test code = 1015) 285 K/UL ABSOLUTE NEUTROPHILS (test c ode = 1066) 9.65 K/UL ABSOLUTE LYMPHOCYTES (test c ode = 1067) 1.42 K/UL ABSOLUTE MONOCYTES (test cod e = 1068) 0.75 K/UL ABSOLUTE EOSINOPHILS (test c ode = 1040) 0.03 K/UL ABSOLUTE BASOPHILS (test cod e = 1069) 0.05 K/UL ABS IMMATURE GRANULOCYTES (t est code = 1020) 0.23 K/UL ABS NUCLEATED RBCS (test cod e = 89329) 0.00 K/UL Chucho DraperHEMOGLOBIN [id number] 00:00:00* Test Item Value Reference Range Interpretation Comme nts HEMOGLOBIN A1c (test code = 29008) 7.6 % Chucho DraperCOMPREHENSIVE METABOLIC [id number] 00:00:00* Test Item Value Reference Range Interpretation Comme nts GLUCOSE (test code = 2217) 176 MG/DL BUN (test code = 2208) 22 MG/DL CREATININE (test code = 2214) 0.99 MG/DL eGFR AMER. (test cod e = 45243) 90 ML/MIN/1.73 eGFR NON- AMER. (test code = 18647) 77 ML/MIN/1.73 CALC BUN/CREAT (test code = 2235) 22 RATIO SODIUM (test code = 2231) 135 MEQ/L POTASSIUM (test code = 2228) 4.9 MEQ/L CHLORIDE (test code = 2215) 99 MEQ/L CARBON DIOXIDE (test code = 2206) 24 MEQ/L CALCIUM (test code = 2209) 9.9 MG/DL PROTEIN, TOTAL (test code = 2229) 7.5 G/DL ALBUMIN (test code = 2201) 4.7 G/DL CALC GLOBULIN (test code = 2240) 2.8 G/DL CALC A/G RATIO (test code = 2234) 1.7 RATIO BILIRUBIN, TOTAL (test code = 2207) 1.1 MG/DL ALKALINE PHOSPHATASE (test code = 2204) 70 U/L AST (test code = 2218) 8 U/L ALT (test code = 2219) 17 U/L Chucho DraperCBC W/AUTO [id number] 00:00:00* Test Item Value Reference Range Interpretation Comme nts WBC (test code = 1001) 12.1 K/UL RBC (test code = 1002) 5.94 M/UL HEMOGLOBIN (test code = 1003) 16.0 G/DL HEMATOCRIT (test code = 1004) 48.0 % MCV (test code = 1005) 80.8 fL MCH (test code = 1006) 26.9 PG MCHC (test code = 1007) 33.3 G/DL RDW (test code = 1038) 14.4 % NEUTROPHILS (test code = 1008) 79.6 % LYMPHOCYTES (test code = 1010) 11.7 % MONOCYTES (test code = 1011) 6.2 % EOSINOPHILS (test code = 1012) 0.2 % BASOPHILS (test code = 1013) 0.4 % IMMATURE GRANULOCYTES (test code = 1036) 1.9 % NUCLEATED RBCS (test code = 1065) 0.0 /100WBC'S PLATELET COUNT (test code = 1015) 285 K/UL ABSOLUTE NEUTROPHILS (test c ode = 1066) 9.65 K/UL ABSOLUTE LYMPHOCYTES (test c ode = 1067) 1.42 K/UL ABSOLUTE MONOCYTES (test cod e = 1068) 0.75 K/UL ABSOLUTE EOSINOPHILS (test c ode = 1040) 0.03 K/UL ABSOLUTE BASOPHILS (test cod e = 1069) 0.05 K/UL ABS IMMATURE GRANULOCYTES (t est code = 1020) 0.23 K/UL ABS NUCLEATED RBCS (test cod e = 61613) 0.00 K/UL Chucho DraperHEMOGLOBIN [id number] 00:00:00* Test Item Value Reference Range Interpretation Comme nts HEMOGLOBIN A1c (test code = 67858) 7.6 % Chucho DraperCOMPREHENSIVE METABOLIC [id number] 00:00:00* Test Item Value Reference Range Interpretation Comme nts GLUCOSE (test code = 2217) 176 MG/DL BUN (test code = 2208) 22 MG/DL CREATININE (test code = 2214) 0.99 MG/DL eGFR AMER. (test cod e = 65668) 90 ML/MIN/1.73 eGFR NON- AMER. (test code = 14384) 77 ML/MIN/1.73 CALC BUN/CREAT (test code = 2235) 22 RATIO SODIUM (test code = 2231) 135 MEQ/L POTASSIUM (test code = 2228) 4.9 MEQ/L CHLORIDE (test code = 2215) 99 MEQ/L CARBON DIOXIDE (test code = 2206) 24 MEQ/L CALCIUM (test code = 2209) 9.9 MG/DL PROTEIN, TOTAL (test code = 2229) 7.5 G/DL ALBUMIN (test code = 2201) 4.7 G/DL CALC GLOBULIN (test code = 2240) 2.8 G/DL CALC A/G RATIO (test code = 2234) 1.7 RATIO BILIRUBIN, TOTAL (test code = 2207) 1.1 MG/DL ALKALINE PHOSPHATASE (test code = 2204) 70 U/L AST (test code = 2218) 8 U/L ALT (test code = 2219) 17 U/L Chucho Stratton AustinCOMPREHENSIVE METABOLIC [id number] 00:00:00* Test Item Value Reference Range Interpretation Comme nts GLUCOSE (test code = 2217) 93 MG/DL BUN (test code = 2208) 22 MG/DL CREATININE (test code = 2214) 0.96 MG/DL eGFR AMER. (test cod e = 72996) 93 ML/MIN/1.73 eGFR NON- AMER. (test code = 30594) 80 ML/MIN/1.73 CALC BUN/CREAT (test code = 2235) 23 RATIO SODIUM (test code = 2231) 138 MEQ/L POTASSIUM (test code = 2228) 4.8 MEQ/L CHLORIDE (test code = 2215) 98 MEQ/L CARBON DIOXIDE (test code = 2206) 27 MEQ/L CALCIUM (test code = 2209) 10.0 MG/DL PROTEIN, TOTAL (test code = 2229) 7.8 G/DL ALBUMIN (test code = 2201) 4.9 G/DL CALC GLOBULIN (test code = 2240) 2.9 G/DL CALC A/G RATIO (test code = 2234) 1.7 RATIO BILIRUBIN, TOTAL (test code = 2207) 0.7 MG/DL ALKALINE PHOSPHATASE (test code = 2204) 73 U/L AST (test code = 2218) 8 U/L ALT (test code = 2219) 12 U/L CBC W/AUTO [id number] 00:00:00* Test Item Value Reference Range Interpretation Comme nts WBC (test code = 1001) 14.4 K/UL RBC (test code = 1002) 5.60 M/UL HEMOGLOBIN (test code = 1003) 15.5 G/DL HEMATOCRIT (test code = 1004) 45.6 % MCV (test code = 1005) 81.4 fL MCH (test code = 1006) 27.7 PG MCHC (test code = 1007) 34.0 G/DL RDW (test code = 1038) 14.5 % NEUTROPHILS (test code = 1008) 83.1 % LYMPHOCYTES (test code = 1010) 12.7 % MONOCYTES (test code = 1011) 3.2 % EOSINOPHILS (test code = 1012) 0.1 % BASOPHILS (test code = 1013) 0.3 % IMMATURE GRANULOCYTES (test code = 1036) 0.6 % NUCLEATED RBCS (test code = 1065) 0.0 /100WBC'S PLATELET COUNT (test code = 1015) 255 K/UL ABSOLUTE NEUTROPHILS (test c ode = 1066) 11.99 K/UL ABSOLUTE LYMPHOCYTES (test c ode = 1067) 1.83 K/UL ABSOLUTE MONOCYTES (test cod e = 1068) 0.46 K/UL ABSOLUTE EOSINOPHILS (test c ode = 1040) 0.01 K/UL ABSOLUTE BASOPHILS (test cod e = 1069) 0.05 K/UL ABS IMMATURE GRANULOCYTES (t est code = 1020) 0.09 K/UL ABS NUCLEATED RBCS (test cod e = 52328) 0.00 K/UL LIPID [id number] 00:00:00* Test Item Value Reference Range Interpretation Comme nts CHOLESTEROL (test code = 2210) 173 MG/DL TRIGLYCERIDES (test code = 2232) 227 MG/DL HDL CHOLESTEROL (test code = 2220) 45 MG/DL CALC LDL CHOL (test code = 2237) 96 MG/DL RISK RATIO LDL/HDL (test cod e = 2238) 2.13 RATIO HEMOGLOBIN [id number] 00:00:00* Test Item Value Reference Range Interpretation Comme nts HEMOGLOBIN A1c (test code = 72496) 6.5 % PSA, [id number] 00:00:00* Test Item Value Reference Range Interpretation Comme nts PSA, TOTAL (test code = 2606) 6.88 NG/ML COMPREHENSIVE METABOLIC [id number] 00:00:00* Test Item Value Reference Range Interpretation Comme nts GLUCOSE (test code = 2217) 93 MG/DL BUN (test code = 2208) 22 MG/DL CREATININE (test code = 2214) 0.96 MG/DL eGFR AMER. (test cod e = 36441) 93 ML/MIN/1.73 eGFR NON- AMER. (test code = 10095) 80 ML/MIN/1.73 CALC BUN/CREAT (test code = 2235) 23 RATIO SODIUM (test code = 2231) 138 MEQ/L POTASSIUM (test code = 2228) 4.8 MEQ/L CHLORIDE (test code = 2215) 98 MEQ/L CARBON DIOXIDE (test code = 2206) 27 MEQ/L CALCIUM (test code = 2209) 10.0 MG/DL PROTEIN, TOTAL (test code = 2229) 7.8 G/DL ALBUMIN (test code = 2201) 4.9 G/DL CALC GLOBULIN (test code = 2240) 2.9 G/DL CALC A/G RATIO (test code = 2234) 1.7 RATIO BILIRUBIN, TOTAL (test code = 2207) 0.7 MG/DL ALKALINE PHOSPHATASE (test code = 2204) 73 U/L AST (test code = 2218) 8 U/L ALT (test code = 2219) 12 U/L CBC W/AUTO [id number] 00:00:00* Test Item Value Reference Range Interpretation Comme nts WBC (test code = 1001) 14.4 K/UL RBC (test code = 1002) 5.60 M/UL HEMOGLOBIN (test code = 1003) 15.5 G/DL HEMATOCRIT (test code = 1004) 45.6 % MCV (test code = 1005) 81.4 fL MCH (test code = 1006) 27.7 PG MCHC (test code = 1007) 34.0 G/DL RDW (test code = 1038) 14.5 % NEUTROPHILS (test code = 1008) 83.1 % LYMPHOCYTES (test code = 1010) 12.7 % MONOCYTES (test code = 1011) 3.2 % EOSINOPHILS (test code = 1012) 0.1 % BASOPHILS (test code = 1013) 0.3 % IMMATURE GRANULOCYTES (test code = 1036) 0.6 % NUCLEATED RBCS (test code = 1065) 0.0 /100WBC'S PLATELET COUNT (test code = 1015) 255 K/UL ABSOLUTE NEUTROPHILS (test c ode = 1066) 11.99 K/UL ABSOLUTE LYMPHOCYTES (test c ode = 1067) 1.83 K/UL ABSOLUTE MONOCYTES (test cod e = 1068) 0.46 K/UL ABSOLUTE EOSINOPHILS (test c ode = 1040) 0.01 K/UL ABSOLUTE BASOPHILS (test cod e = 1069) 0.05 K/UL ABS IMMATURE GRANULOCYTES (t est code = 1020) 0.09 K/UL ABS NUCLEATED RBCS (test cod e = 08095) 0.00 K/UL LIPID [id number] 00:00:00* Test Item Value Reference Range Interpretation Comme nts CHOLESTEROL (test code = 2210) 173 MG/DL TRIGLYCERIDES (test code = 2232) 227 MG/DL HDL CHOLESTEROL (test code = 2220) 45 MG/DL CALC LDL CHOL (test code = 2237) 96 MG/DL RISK RATIO LDL/HDL (test cod e = 2238) 2.13 RATIO HEMOGLOBIN [id number] 00:00:00* Test Item Value Reference Range Interpretation Comme nts HEMOGLOBIN A1c (test code = 53754) 6.5 % PSA, [id number] 00:00:00* Test Item Value Reference Range Interpretation Comme nts PSA, TOTAL (test code = 2606) 6.88 NG/ML COMPREHENSIVE METABOLIC [id number] 00:00:00* Test Item Value Reference Range Interpretation Comme nts GLUCOSE (test code = 2217) 93 MG/DL BUN (test code = 2208) 22 MG/DL CREATININE (test code = 2214) 0.96 MG/DL eGFR AMER. (test cod e = 08889) 93 ML/MIN/1.73 eGFR NON- AMER. (test code = 99906) 80 ML/MIN/1.73 CALC BUN/CREAT (test code = 2235) 23 RATIO SODIUM (test code = 2231) 138 MEQ/L POTASSIUM (test code = 2228) 4.8 MEQ/L CHLORIDE (test code = 2215) 98 MEQ/L CARBON DIOXIDE (test code = 2206) 27 MEQ/L CALCIUM (test code = 2209) 10.0 MG/DL PROTEIN, TOTAL (test code = 2229) 7.8 G/DL ALBUMIN (test code = 2201) 4.9 G/DL CALC GLOBULIN (test code = 2240) 2.9 G/DL CALC A/G RATIO (test code = 2234) 1.7 RATIO BILIRUBIN, TOTAL (test code = 2207) 0.7 MG/DL ALKALINE PHOSPHATASE (test code = 2204) 73 U/L AST (test code = 2218) 8 U/L ALT (test code = 2219) 12 U/L CBC W/AUTO [id number] 00:00:00* Test Item Value Reference Range Interpretation Comme nts WBC (test code = 1001) 14.4 K/UL RBC (test code = 1002) 5.60 M/UL HEMOGLOBIN (test code = 1003) 15.5 G/DL HEMATOCRIT (test code = 1004) 45.6 % MCV (test code = 1005) 81.4 fL MCH (test code = 1006) 27.7 PG MCHC (test code = 1007) 34.0 G/DL RDW (test code = 1038) 14.5 % NEUTROPHILS (test code = 1008) 83.1 % LYMPHOCYTES (test code = 1010) 12.7 % MONOCYTES (test code = 1011) 3.2 % EOSINOPHILS (test code = 1012) 0.1 % BASOPHILS (test code = 1013) 0.3 % IMMATURE GRANULOCYTES (test code = 1036) 0.6 % NUCLEATED RBCS (test code = 1065) 0.0 /100WBC'S PLATELET COUNT (test code = 1015) 255 K/UL ABSOLUTE NEUTROPHILS (test c ode = 1066) 11.99 K/UL ABSOLUTE LYMPHOCYTES (test c ode = 1067) 1.83 K/UL ABSOLUTE MONOCYTES (test cod e = 1068) 0.46 K/UL ABSOLUTE EOSINOPHILS (test c ode = 1040) 0.01 K/UL ABSOLUTE BASOPHILS (test cod e = 1069) 0.05 K/UL ABS IMMATURE GRANULOCYTES (t est code = 1020) 0.09 K/UL ABS NUCLEATED RBCS (test cod e = 54190) 0.00 K/UL LIPID [id number] 00:00:00* Test Item Value Reference Range Interpretation Comme nts CHOLESTEROL (test code = 2210) 173 MG/DL TRIGLYCERIDES (test code = 2232) 227 MG/DL HDL CHOLESTEROL (test code = 2220) 45 MG/DL CALC LDL CHOL (test code = 2237) 96 MG/DL RISK RATIO LDL/HDL (test cod e = 2238) 2.13 RATIO HEMOGLOBIN [id number] 00:00:00* Test Item Value Reference Range Interpretation Comme nts HEMOGLOBIN A1c (test code = 06957) 6.5 % PSA, [id number] 00:00:00* Test Item Value Reference Range Interpretation Comme nts PSA, TOTAL (test code = 2606) 6.88 NG/ML COMPREHENSIVE METABOLIC [id number] 00:00:00* Test Item Value Reference Range Interpretation Comme nts GLUCOSE (test code = 2217) 93 MG/DL BUN (test code = 2208) 22 MG/DL CREATININE (test code = 2214) 0.96 MG/DL eGFR AMER. (test cod e = 30340) 93 ML/MIN/1.73 eGFR NON- AMER. (test code = 61125) 80 ML/MIN/1.73 CALC BUN/CREAT (test code = 2235) 23 RATIO SODIUM (test code = 2231) 138 MEQ/L POTASSIUM (test code = 2228) 4.8 MEQ/L CHLORIDE (test code = 2215) 98 MEQ/L CARBON DIOXIDE (test code = 2206) 27 MEQ/L CALCIUM (test code = 2209) 10.0 MG/DL PROTEIN, TOTAL (test code = 2229) 7.8 G/DL ALBUMIN (test code = 2201) 4.9 G/DL CALC GLOBULIN (test code = 2240) 2.9 G/DL CALC A/G RATIO (test code = 2234) 1.7 RATIO BILIRUBIN, TOTAL (test code = 2207) 0.7 MG/DL ALKALINE PHOSPHATASE (test code = 2204) 73 U/L AST (test code = 2218) 8 U/L ALT (test code = 2219) 12 U/L Chucho DraperCBBlue W/AUTO [id number] 00:00:00* Test Item Value Reference Range Interpretation Comme nts WBC (test code = 1001) 14.4 K/UL RBC (test code = 1002) 5.60 M/UL HEMOGLOBIN (test code = 1003) 15.5 G/DL HEMATOCRIT (test code = 1004) 45.6 % MCV (test code = 1005) 81.4 fL MCH (test code = 1006) 27.7 PG MCHC (test code = 1007) 34.0 G/DL RDW (test code = 1038) 14.5 % NEUTROPHILS (test code = 1008) 83.1 % LYMPHOCYTES (test code = 1010) 12.7 % MONOCYTES (test code = 1011) 3.2 % EOSINOPHILS (test code = 1012) 0.1 % BASOPHILS (test code = 1013) 0.3 % IMMATURE GRANULOCYTES (test code = 1036) 0.6 % NUCLEATED RBCS (test code = 1065) 0.0 /100WBC'S PLATELET COUNT (test code = 1015) 255 K/UL ABSOLUTE NEUTROPHILS (test c ode = 1066) 11.99 K/UL ABSOLUTE LYMPHOCYTES (test c ode = 1067) 1.83 K/UL ABSOLUTE MONOCYTES (test cod e = 1068) 0.46 K/UL ABSOLUTE EOSINOPHILS (test c ode = 1040) 0.01 K/UL ABSOLUTE BASOPHILS (test cod e = 1069) 0.05 K/UL ABS IMMATURE GRANULOCYTES (t est code = 1020) 0.09 K/UL ABS NUCLEATED RBCS (test cod e = 43280) 0.00 K/UL Chucho DraperLIPID [id number] 00:00:00* Test Item Value Reference Range Interpretation Comme nts CHOLESTEROL (test code = 2210) 173 MG/DL TRIGLYCERIDES (test code = 2232) 227 MG/DL HDL CHOLESTEROL (test code = 2220) 45 MG/DL CALC LDL CHOL (test code = 2237) 96 MG/DL RISK RATIO LDL/HDL (test cod e = 2238) 2.13 RATIO Chucho DraperHEMOGLOBIN [id number] 00:00:00* Test Item Value Reference Range Interpretation Comme nts HEMOGLOBIN A1c (test code = 56690) 6.5 % Chucho DraperPSA, [id number] 00:00:00* Test Item Value Reference Range Interpretation Comme nts PSA, TOTAL (test code = 2606) 6.88 NG/ML Chcuho DraperCOMPREHENSIVE METABOLIC [id number] 00:00:00* Test Item Value Reference Range Interpretation Comme nts GLUCOSE (test code = 2217) 93 MG/DL BUN (test code = 2208) 22 MG/DL CREATININE (test code = 2214) 0.96 MG/DL eGFR AMER. (test cod e = 28921) 93 ML/MIN/1.73 eGFR NON- AMER. (test code = 26243) 80 ML/MIN/1.73 CALC BUN/CREAT (test code = 2235) 23 RATIO SODIUM (test code = 2231) 138 MEQ/L POTASSIUM (test code = 2228) 4.8 MEQ/L CHLORIDE (test code = 2215) 98 MEQ/L CARBON DIOXIDE (test code = 2206) 27 MEQ/L CALCIUM (test code = 2209) 10.0 MG/DL PROTEIN, TOTAL (test code = 2229) 7.8 G/DL ALBUMIN (test code = 2201) 4.9 G/DL CALC GLOBULIN (test code = 2240) 2.9 G/DL CALC A/G RATIO (test code = 2234) 1.7 RATIO BILIRUBIN, TOTAL (test code = 2207) 0.7 MG/DL ALKALINE PHOSPHATASE (test code = 2204) 73 U/L AST (test code = 2218) 8 U/L ALT (test code = 2219) 12 U/L Chucho [facility] W/AUTO [id number] 00:00:00* Test Item Value Reference Range Interpretation Comme nts WBC (test code = 1001) 14.4 K/UL RBC (test code = 1002) 5.60 M/UL HEMOGLOBIN (test code = 1003) 15.5 G/DL HEMATOCRIT (test code = 1004) 45.6 % MCV (test code = 1005) 81.4 fL MCH (test code = 1006) 27.7 PG MCHC (test code = 1007) 34.0 G/DL RDW (test code = 1038) 14.5 % NEUTROPHILS (test code = 1008) 83.1 % LYMPHOCYTES (test code = 1010) 12.7 % MONOCYTES (test code = 1011) 3.2 % EOSINOPHILS (test code = 1012) 0.1 % BASOPHILS (test code = 1013) 0.3 % IMMATURE GRANULOCYTES (test code = 1036) 0.6 % NUCLEATED RBCS (test code = 1065) 0.0 /100WBC'S PLATELET COUNT (test code = 1015) 255 K/UL ABSOLUTE NEUTROPHILS (test c ode = 1066) 11.99 K/UL ABSOLUTE LYMPHOCYTES (test c ode = 1067) 1.83 K/UL ABSOLUTE MONOCYTES (test cod e = 1068) 0.46 K/UL ABSOLUTE EOSINOPHILS (test c ode = 1040) 0.01 K/UL ABSOLUTE BASOPHILS (test cod e = 1069) 0.05 K/UL ABS IMMATURE GRANULOCYTES (t est code = 1020) 0.09 K/UL ABS NUCLEATED RBCS (test cod e = 25197) 0.00 K/UL Chucho DraperLIPID [id number] 00:00:00* Test Item Value Reference Range Interpretation Comme nts CHOLESTEROL (test code = 2210) 173 MG/DL TRIGLYCERIDES (test code = 2232) 227 MG/DL HDL CHOLESTEROL (test code = 2220) 45 MG/DL CALC LDL CHOL (test code = 2237) 96 MG/DL RISK RATIO LDL/HDL (test cod e = 2238) 2.13 RATIO Chucho DraperHEMOGLOBIN [id number] 00:00:00* Test Item Value Reference Range Interpretation Comme thong HEMOGLOBIN A1c (test code = 66228) 6.5 % Chucho DraperPSA, [id number] 00:00:00* Test Item Value Reference Range Interpretation Comme nts PSA, TOTAL (test code = 2606) 6.88 NG/ML Chucho DraperCOMPREHENSIVE METABOLIC [id number] 00:00:00* Test Item Value Reference Range Interpretation Comme nts GLUCOSE (test code = 2217) 93 MG/DL BUN (test code = 2208) 22 MG/DL CREATININE (test code = 2214) 0.96 MG/DL eGFR AMER. (test cod e = 49732) 93 ML/MIN/1.73 eGFR NON- AMER. (test code = 53084) 80 ML/MIN/1.73 CALC BUN/CREAT (test code = 2235) 23 RATIO SODIUM (test code = 2231) 138 MEQ/L POTASSIUM (test code = 2228) 4.8 MEQ/L CHLORIDE (test code = 2215) 98 MEQ/L CARBON DIOXIDE (test code = 2206) 27 MEQ/L CALCIUM (test code = 2209) 10.0 MG/DL PROTEIN, TOTAL (test code = 2229) 7.8 G/DL ALBUMIN (test code = 2201) 4.9 G/DL CALC GLOBULIN (test code = 2240) 2.9 G/DL CALC A/G RATIO (test code = 2234) 1.7 RATIO BILIRUBIN, TOTAL (test code = 2207) 0.7 MG/DL ALKALINE PHOSPHATASE (test code = 2204) 73 U/L AST (test code = 2218) 8 U/L ALT (test code = 2219) 12 U/L Chucho DraperCBC W/AUTO [id number] 00:00:00* Test Item Value Reference Range Interpretation Comme nts WBC (test code = 1001) 14.4 K/UL RBC (test code = 1002) 5.60 M/UL HEMOGLOBIN (test code = 1003) 15.5 G/DL HEMATOCRIT (test code = 1004) 45.6 % MCV (test code = 1005) 81.4 fL MCH (test code = 1006) 27.7 PG MCHC (test code = 1007) 34.0 G/DL RDW (test code = 1038) 14.5 % NEUTROPHILS (test code = 1008) 83.1 % LYMPHOCYTES (test code = 1010) 12.7 % MONOCYTES (test code = 1011) 3.2 % EOSINOPHILS (test code = 1012) 0.1 % BASOPHILS (test code = 1013) 0.3 % IMMATURE GRANULOCYTES (test code = 1036) 0.6 % NUCLEATED RBCS (test code = 1065) 0.0 /100WBC'S PLATELET COUNT (test code = 1015) 255 K/UL ABSOLUTE NEUTROPHILS (test c ode = 1066) 11.99 K/UL ABSOLUTE LYMPHOCYTES (test c ode = 1067) 1.83 K/UL ABSOLUTE MONOCYTES (test cod e = 1068) 0.46 K/UL ABSOLUTE EOSINOPHILS (test c ode = 1040) 0.01 K/UL ABSOLUTE BASOPHILS (test cod e = 1069) 0.05 K/UL ABS IMMATURE GRANULOCYTES (t est code = 1020) 0.09 K/UL ABS NUCLEATED RBCS (test cod e = 49213) 0.00 K/UL Chucho DraperLIPID [id number] 00:00:00* Test Item Value Reference Range Interpretation Comme nts CHOLESTEROL (test code = 2210) 173 MG/DL TRIGLYCERIDES (test code = 2232) 227 MG/DL HDL CHOLESTEROL (test code = 2220) 45 MG/DL CALC LDL CHOL (test code = 2237) 96 MG/DL RISK RATIO LDL/HDL (test cod e = 2238) 2.13 RATIO Chucho DraperHEMOGLOBIN [id number] 00:00:00* Test Item Value Reference Range Interpretation Comme thong HEMOGLOBIN A1c (test code = 56221) 6.5 % Chucho DraperPSA, [id number] 00:00:00* Test Item Value Reference Range Interpretation Comme thong PSA, TOTAL (test code = 2606) 6.88 NG/ML Chucho DraperCOMPREHENSIVE METABOLIC [id number] 00:00:00* Test Item Value Reference Range Interpretation Comme nts GLUCOSE (test code = 2217) 93 MG/DL BUN (test code = 2208) 22 MG/DL CREATININE (test code = 2214) 0.96 MG/DL eGFR AMER. (test cod e = 35021) 93 ML/MIN/1.73 eGFR NON- AMER. (test code = 68953) 80 ML/MIN/1.73 CALC BUN/CREAT (test code = 2235) 23 RATIO SODIUM (test code = 2231) 138 MEQ/L POTASSIUM (test code = 2228) 4.8 MEQ/L CHLORIDE (test code = 2215) 98 MEQ/L CARBON DIOXIDE (test code = 2206) 27 MEQ/L CALCIUM (test code = 2209) 10.0 MG/DL PROTEIN, TOTAL (test code = 2229) 7.8 G/DL ALBUMIN (test code = 2201) 4.9 G/DL CALC GLOBULIN (test code = 2240) 2.9 G/DL CALC A/G RATIO (test code = 2234) 1.7 RATIO BILIRUBIN, TOTAL (test code = 2207) 0.7 MG/DL ALKALINE PHOSPHATASE (test code = 2204) 73 U/L AST (test code = 2218) 8 U/L ALT (test code = 2219) 12 U/L Chucho DraperCBC W/AUTO [id number] 00:00:00* Test Item Value Reference Range Interpretation Comme nts WBC (test code = 1001) 14.4 K/UL RBC (test code = 1002) 5.60 M/UL HEMOGLOBIN (test code = 1003) 15.5 G/DL HEMATOCRIT (test code = 1004) 45.6 % MCV (test code = 1005) 81.4 fL MCH (test code = 1006) 27.7 PG MCHC (test code = 1007) 34.0 G/DL RDW (test code = 1038) 14.5 % NEUTROPHILS (test code = 1008) 83.1 % LYMPHOCYTES (test code = 1010) 12.7 % MONOCYTES (test code = 1011) 3.2 % EOSINOPHILS (test code = 1012) 0.1 % BASOPHILS (test code = 1013) 0.3 % IMMATURE GRANULOCYTES (test code = 1036) 0.6 % NUCLEATED RBCS (test code = 1065) 0.0 /100WBC'S PLATELET COUNT (test code = 1015) 255 K/UL ABSOLUTE NEUTROPHILS (test c ode = 1066) 11.99 K/UL ABSOLUTE LYMPHOCYTES (test c ode = 1067) 1.83 K/UL ABSOLUTE MONOCYTES (test cod e = 1068) 0.46 K/UL ABSOLUTE EOSINOPHILS (test c ode = 1040) 0.01 K/UL ABSOLUTE BASOPHILS (test cod e = 1069) 0.05 K/UL ABS IMMATURE GRANULOCYTES (t est code = 1020) 0.09 K/UL ABS NUCLEATED RBCS (test cod e = 64326) 0.00 K/UL Chucho DraperLIPID [id number] 00:00:00* Test Item Value Reference Range Interpretation Comme nts CHOLESTEROL (test code = 2210) 173 MG/DL TRIGLYCERIDES (test code = 2232) 227 MG/DL HDL CHOLESTEROL (test code = 2220) 45 MG/DL CALC LDL CHOL (test code = 2237) 96 MG/DL RISK RATIO LDL/HDL (test cod e = 2238) 2.13 RATIO Chucho DraperHEMOGLOBIN [id number] 00:00:00* Test Item Value Reference Range Interpretation Comme nts HEMOGLOBIN A1c (test code = 37878) 6.5 % Chucho DraperPSA, [id number] 00:00:00* Test Item Value Reference Range Interpretation Comme nts PSA, TOTAL (test code = 2606) 6.88 NG/ML Chucho DraperCOMPREHENSIVE METABOLIC [id number] 00:00:00* Test Item Value Reference Range Interpretation Comme nts GLUCOSE (test code = 2217) 93 MG/DL BUN (test code = 2208) 22 MG/DL CREATININE (test code = 2214) 0.96 MG/DL eGFR AMER. (test cod e = 40629) 93 ML/MIN/1.73 eGFR NON- AMER. (test code = 80120) 80 ML/MIN/1.73 CALC BUN/CREAT (test code = 2235) 23 RATIO SODIUM (test code = 2231) 138 MEQ/L POTASSIUM (test code = 2228) 4.8 MEQ/L CHLORIDE (test code = 2215) 98 MEQ/L CARBON DIOXIDE (test code = 2206) 27 MEQ/L CALCIUM (test code = 2209) 10.0 MG/DL PROTEIN, TOTAL (test code = 2229) 7.8 G/DL ALBUMIN (test code = 2201) 4.9 G/DL CALC GLOBULIN (test code = 2240) 2.9 G/DL CALC A/G RATIO (test code = 2234) 1.7 RATIO BILIRUBIN, TOTAL (test code = 2207) 0.7 MG/DL ALKALINE PHOSPHATASE (test code = 2204) 73 U/L AST (test code = 2218) 8 U/L ALT (test code = 2219) 12 U/L [facility] [id number] 00:00:00* Test Item Value Reference Range Interpretation Comme nts WBC (test code = 1001) 14.4 K/UL RBC (test code = 1002) 5.60 M/UL HEMOGLOBIN (test code = 1003) 15.5 G/DL HEMATOCRIT (test code = 1004) 45.6 % MCV (test code = 1005) 81.4 fL MCH (test code = 1006) 27.7 PG MCHC (test code = 1007) 34.0 G/DL RDW (test code = 1038) 14.5 % NEUTROPHILS (test code = 1008) 83.1 % LYMPHOCYTES (test code = 1010) 12.7 % MONOCYTES (test code = 1011) 3.2 % EOSINOPHILS (test code = 1012) 0.1 % BASOPHILS (test code = 1013) 0.3 % IMMATURE GRANULOCYTES (test code = 1036) 0.6 % NUCLEATED RBCS (test code = 1065) 0.0 /100WBC'S PLATELET COUNT (test code = 1015) 255 K/UL ABSOLUTE NEUTROPHILS (test c ode = 1066) 11.99 K/UL ABSOLUTE LYMPHOCYTES (test c ode = 1067) 1.83 K/UL ABSOLUTE MONOCYTES (test cod e = 1068) 0.46 K/UL ABSOLUTE EOSINOPHILS (test c ode = 1040) 0.01 K/UL ABSOLUTE BASOPHILS (test cod e = 1069) 0.05 K/UL ABS IMMATURE GRANULOCYTES (t est code = 1020) 0.09 K/UL ABS NUCLEATED RBCS (test cod e = 36471) 0.00 K/UL Chucho DraperLIPID [id number] 00:00:00* Test Item Value Reference Range Interpretation Comme nts CHOLESTEROL (test code = 2210) 173 MG/DL TRIGLYCERIDES (test code = 2232) 227 MG/DL HDL CHOLESTEROL (test code = 2220) 45 MG/DL CALC LDL CHOL (test code = 2237) 96 MG/DL RISK RATIO LDL/HDL (test cod e = 2238) 2.13 RATIO Chucho DraperHEMOGLOBIN [id number] 00:00:00* Test Item Value Reference Range Interpretation Comme nts HEMOGLOBIN A1c (test code = 11992) 6.5 % Chucho DraperPSA, [id number] 00:00:00* Test Item Value Reference Range Interpretation Comme nts PSA, TOTAL (test code = 2606) 6.88 NG/ML Chucho DraperCOMPREHENSIVE METABOLIC [id number] 00:00:00* Test Item Value Reference Range Interpretation Comme nts GLUCOSE (test code = 2217) 93 MG/DL BUN (test code = 2208) 22 MG/DL CREATININE (test code = 2214) 0.96 MG/DL eGFR AMER. (test cod e = 44373) 93 ML/MIN/1.73 eGFR NON- AMER. (test code = 84132) 80 ML/MIN/1.73 CALC BUN/CREAT (test code = 2235) 23 RATIO SODIUM (test code = 2231) 138 MEQ/L POTASSIUM (test code = 2228) 4.8 MEQ/L CHLORIDE (test code = 2215) 98 MEQ/L CARBON DIOXIDE (test code = 2206) 27 MEQ/L CALCIUM (test code = 2209) 10.0 MG/DL PROTEIN, TOTAL (test code = 2229) 7.8 G/DL ALBUMIN (test code = 2201) 4.9 G/DL CALC GLOBULIN (test code = 2240) 2.9 G/DL CALC A/G RATIO (test code = 2234) 1.7 RATIO BILIRUBIN, TOTAL (test code = 2207) 0.7 MG/DL ALKALINE PHOSPHATASE (test code = 2204) 73 U/L AST (test code = 2218) 8 U/L ALT (test code = 2219) 12 U/L Chucho DraperCBC W/AUTO [id number] 00:00:00* Test Item Value Reference Range Interpretation Comme nts WBC (test code = 1001) 14.4 K/UL RBC (test code = 1002) 5.60 M/UL HEMOGLOBIN (test code = 1003) 15.5 G/DL HEMATOCRIT (test code = 1004) 45.6 % MCV (test code = 1005) 81.4 fL MCH (test code = 1006) 27.7 PG MCHC (test code = 1007) 34.0 G/DL RDW (test code = 1038) 14.5 % NEUTROPHILS (test code = 1008) 83.1 % LYMPHOCYTES (test code = 1010) 12.7 % MONOCYTES (test code = 1011) 3.2 % EOSINOPHILS (test code = 1012) 0.1 % BASOPHILS (test code = 1013) 0.3 % IMMATURE GRANULOCYTES (test code = 1036) 0.6 % NUCLEATED RBCS (test code = 1065) 0.0 /100WBC'S PLATELET COUNT (test code = 1015) 255 K/UL ABSOLUTE NEUTROPHILS (test c ode = 1066) 11.99 K/UL ABSOLUTE LYMPHOCYTES (test c ode = 1067) 1.83 K/UL ABSOLUTE MONOCYTES (test cod e = 1068) 0.46 K/UL ABSOLUTE EOSINOPHILS (test c ode = 1040) 0.01 K/UL ABSOLUTE BASOPHILS (test cod e = 1069) 0.05 K/UL ABS IMMATURE GRANULOCYTES (t est code = 1020) 0.09 K/UL ABS NUCLEATED RBCS (test cod e = 12449) 0.00 K/UL Chucho DraperLIPID [id number] 00:00:00* Test Item Value Reference Range Interpretation Comme nts CHOLESTEROL (test code = 2210) 173 MG/DL TRIGLYCERIDES (test code = 2232) 227 MG/DL HDL CHOLESTEROL (test code = 2220) 45 MG/DL CALC LDL CHOL (test code = 2237) 96 MG/DL RISK RATIO LDL/HDL (test cod e = 2238) 2.13 RATIO Chucho DraperHEMOGLOBIN [id number] 00:00:00* Test Item Value Reference Range Interpretation Comme thong HEMOGLOBIN A1c (test code = 20566) 6.5 % Chucho DraperPSA, [id number] 00:00:00* Test Item Value Reference Range Interpretation Comme thong PSA, TOTAL (test code = 2606) 6.88 NG/ML Chucho DraperCOMPREHENSIVE METABOLIC [id number] 00:00:00* Test Item Value Reference Range Interpretation Comme nts GLUCOSE (test code = 2217) 54 MG/DL BUN (test code = 2208) 22 MG/DL CREATININE (test code = 2214) 1.00 MG/DL eGFR AMER. (test cod e = 23519) 89 ML/MIN/1.73 eGFR NON- AMER. (test code = 83216) 76 ML/MIN/1.73 CALC BUN/CREAT (test code = 2235) 22 RATIO SODIUM (test code = 2231) 140 MEQ/L POTASSIUM (test code = 2228) 4.2 MEQ/L CHLORIDE (test code = 2215) 102 MEQ/L CARBON DIOXIDE (test code = 2206) 28 MEQ/L CALCIUM (test code = 2209) 9.4 MG/DL PROTEIN, TOTAL (test code = 2229) 7.4 G/DL ALBUMIN (test code = 2201) 4.6 G/DL CALC GLOBULIN (test code = 2240) 2.8 G/DL CALC A/G RATIO (test code = 2234) 1.6 RATIO BILIRUBIN, TOTAL (test code = 2207) 0.4 MG/DL ALKALINE PHOSPHATASE (test code = 2204) 63 U/L AST (test code = 2218) 7 U/L ALT (test code = 2219) 6 U/L HEMOGLOBIN [id number] 00:00:00* Test Item Value Reference Range Interpretation Comme thong HEMOGLOBIN A1c (test code = 62825) 6.3 % CBC W/AUTO [id number] 00:00:00* Test Item Value Reference Range Interpretation Comme nts WBC (test code = 1001) 8.7 K/UL RBC (test code = 1002) 5.63 M/UL HEMOGLOBIN (test code = 1003) 15.2 G/DL HEMATOCRIT (test code = 1004) 45.9 % MCV (test code = 1005) 81.5 fL MCH (test code = 1006) 27.0 PG MCHC (test code = 1007) 33.1 G/DL RDW (test code = 1038) 14.4 % NEUTROPHILS (test code = 1008) 67.6 % LYMPHOCYTES (test code = 1010) 23.9 % MONOCYTES (test code = 1011) 6.5 % EOSINOPHILS (test code = 1012) 0.8 % BASOPHILS (test code = 1013) 0.6 % IMMATURE GRANULOCYTES (test code = 1036) 0.6 % NUCLEATED RBCS (test code = 1065) 0.0 /100WBC'S PLATELET COUNT (test code = 1015) 231 K/UL ABSOLUTE NEUTROPHILS (test c ode = 1066) 5.87 K/UL ABSOLUTE LYMPHOCYTES (test c ode = 1067) 2.07 K/UL ABSOLUTE MONOCYTES (test cod e = 1068) 0.56 K/UL ABSOLUTE EOSINOPHILS (test c ode = 1040) 0.07 K/UL ABSOLUTE BASOPHILS (test cod e = 1069) 0.05 K/UL ABS IMMATURE GRANULOCYTES (t est code = 1020) 0.05 K/UL ABS NUCLEATED RBCS (test cod e = 08541) 0.00 K/UL COMPREHENSIVE METABOLIC [id number] 00:00:00* Test Item Value Reference Range Interpretation Comme nts GLUCOSE (test code = 2217) 54 MG/DL BUN (test code = 2208) 22 MG/DL CREATININE (test code = 2214) 1.00 MG/DL eGFR AMER. (test cod e = 60550) 89 ML/MIN/1.73 eGFR NON- AMER. (test code = 23183) 76 ML/MIN/1.73 CALC BUN/CREAT (test code = 2235) 22 RATIO SODIUM (test code = 2231) 140 MEQ/L POTASSIUM (test code = 2228) 4.2 MEQ/L CHLORIDE (test code = 2215) 102 MEQ/L CARBON DIOXIDE (test code = 2206) 28 MEQ/L CALCIUM (test code = 2209) 9.4 MG/DL PROTEIN, TOTAL (test code = 2229) 7.4 G/DL ALBUMIN (test code = 2201) 4.6 G/DL CALC GLOBULIN (test code = 2240) 2.8 G/DL CALC A/G RATIO (test code = 2234) 1.6 RATIO BILIRUBIN, TOTAL (test code = 2207) 0.4 MG/DL ALKALINE PHOSPHATASE (test code = 2204) 63 U/L AST (test code = 2218) 7 U/L ALT (test code = 2219) 6 U/L HEMOGLOBIN [id number] 00:00:00* Test Item Value Reference Range Interpretation Comme nts HEMOGLOBIN A1c (test code = 15749) 6.3 % CBC W/AUTO [id number] 00:00:00* Test Item Value Reference Range Interpretation Comme nts WBC (test code = 1001) 8.7 K/UL RBC (test code = 1002) 5.63 M/UL HEMOGLOBIN (test code = 1003) 15.2 G/DL HEMATOCRIT (test code = 1004) 45.9 % MCV (test code = 1005) 81.5 fL MCH (test code = 1006) 27.0 PG MCHC (test code = 1007) 33.1 G/DL RDW (test code = 1038) 14.4 % NEUTROPHILS (test code = 1008) 67.6 % LYMPHOCYTES (test code = 1010) 23.9 % MONOCYTES (test code = 1011) 6.5 % EOSINOPHILS (test code = 1012) 0.8 % BASOPHILS (test code = 1013) 0.6 % IMMATURE GRANULOCYTES (test code = 1036) 0.6 % NUCLEATED RBCS (test code = 1065) 0.0 /100WBC'S PLATELET COUNT (test code = 1015) 231 K/UL ABSOLUTE NEUTROPHILS (test c ode = 1066) 5.87 K/UL ABSOLUTE LYMPHOCYTES (test c ode = 1067) 2.07 K/UL ABSOLUTE MONOCYTES (test cod e = 1068) 0.56 K/UL ABSOLUTE EOSINOPHILS (test c ode = 1040) 0.07 K/UL ABSOLUTE BASOPHILS (test cod e = 1069) 0.05 K/UL ABS IMMATURE GRANULOCYTES (t est code = 1020) 0.05 K/UL ABS NUCLEATED RBCS (test cod e = 23734) 0.00 K/UL COMPREHENSIVE METABOLIC [id number] 00:00:00* Test Item Value Reference Range Interpretation Comme nts GLUCOSE (test code = 2217) 54 MG/DL BUN (test code = 2208) 22 MG/DL CREATININE (test code = 2214) 1.00 MG/DL eGFR AMER. (test cod e = 61630) 89 ML/MIN/1.73 eGFR NON- AMER. (test code = 92288) 76 ML/MIN/1.73 CALC BUN/CREAT (test code = 2235) 22 RATIO SODIUM (test code = 2231) 140 MEQ/L POTASSIUM (test code = 2228) 4.2 MEQ/L CHLORIDE (test code = 2215) 102 MEQ/L CARBON DIOXIDE (test code = 2206) 28 MEQ/L CALCIUM (test code = 2209) 9.4 MG/DL PROTEIN, TOTAL (test code = 2229) 7.4 G/DL ALBUMIN (test code = 2201) 4.6 G/DL CALC GLOBULIN (test code = 2240) 2.8 G/DL CALC A/G RATIO (test code = 2234) 1.6 RATIO BILIRUBIN, TOTAL (test code = 2207) 0.4 MG/DL ALKALINE PHOSPHATASE (test code = 2204) 63 U/L AST (test code = 2218) 7 U/L ALT (test code = 2219) 6 U/L HEMOGLOBIN [id number] 00:00:00* Test Item Value Reference Range Interpretation Comme nts HEMOGLOBIN A1c (test code = 95193) 6.3 % CBC W/AUTO [id number] 00:00:00* Test Item Value Reference Range Interpretation Comme nts WBC (test code = 1001) 8.7 K/UL RBC (test code = 1002) 5.63 M/UL HEMOGLOBIN (test code = 1003) 15.2 G/DL HEMATOCRIT (test code = 1004) 45.9 % MCV (test code = 1005) 81.5 fL MCH (test code = 1006) 27.0 PG MCHC (test code = 1007) 33.1 G/DL RDW (test code = 1038) 14.4 % NEUTROPHILS (test code = 1008) 67.6 % LYMPHOCYTES (test code = 1010) 23.9 % MONOCYTES (test code = 1011) 6.5 % EOSINOPHILS (test code = 1012) 0.8 % BASOPHILS (test code = 1013) 0.6 % IMMATURE GRANULOCYTES (test code = 1036) 0.6 % NUCLEATED RBCS (test code = 1065) 0.0 /100WBC'S PLATELET COUNT (test code = 1015) 231 K/UL ABSOLUTE NEUTROPHILS (test c ode = 1066) 5.87 K/UL ABSOLUTE LYMPHOCYTES (test c ode = 1067) 2.07 K/UL ABSOLUTE MONOCYTES (test cod e = 1068) 0.56 K/UL ABSOLUTE EOSINOPHILS (test c ode = 1040) 0.07 K/UL ABSOLUTE BASOPHILS (test cod e = 1069) 0.05 K/UL ABS IMMATURE GRANULOCYTES (t est code = 1020) 0.05 K/UL ABS NUCLEATED RBCS (test cod e = 63915) 0.00 K/UL HEMOGLOBIN [id number] 00:00:00* Test Item Value Reference Range Interpretation Comme nts HEMOGLOBIN A1c (test code = 92296) 6.3 % [facility] [id number] 00:00:00* Test Item Value Reference Range Interpretation Comme nts WBC (test code = 1001) 8.7 K/UL RBC (test code = 1002) 5.63 M/UL HEMOGLOBIN (test code = 1003) 15.2 G/DL HEMATOCRIT (test code = 1004) 45.9 % MCV (test code = 1005) 81.5 fL MCH (test code = 1006) 27.0 PG MCHC (test code = 1007) 33.1 G/DL RDW (test code = 1038) 14.4 % NEUTROPHILS (test code = 1008) 67.6 % LYMPHOCYTES (test code = 1010) 23.9 % MONOCYTES (test code = 1011) 6.5 % EOSINOPHILS (test code = 1012) 0.8 % BASOPHILS (test code = 1013) 0.6 % IMMATURE GRANULOCYTES (test code = 1036) 0.6 % NUCLEATED RBCS (test code = 1065) 0.0 /100WBC'S PLATELET COUNT (test code = 1015) 231 K/UL ABSOLUTE NEUTROPHILS (test c ode = 1066) 5.87 K/UL ABSOLUTE LYMPHOCYTES (test c ode = 1067) 2.07 K/UL ABSOLUTE MONOCYTES (test cod e = 1068) 0.56 K/UL ABSOLUTE EOSINOPHILS (test c ode = 1040) 0.07 K/UL ABSOLUTE BASOPHILS (test cod e = 1069) 0.05 K/UL ABS IMMATURE GRANULOCYTES (t est code = 1020) 0.05 K/UL ABS NUCLEATED RBCS (test cod e = 60848) 0.00 K/UL Chucho DraperCOMPREHENSIVE METABOLIC [id number] 00:00:00* Test Item Value Reference Range Interpretation Comme nts GLUCOSE (test code = 2217) 54 MG/DL BUN (test code = 2208) 22 MG/DL CREATININE (test code = 2214) 1.00 MG/DL eGFR AMER. (test cod e = 07919) 89 ML/MIN/1.73 eGFR NON- AMER. (test code = 16966) 76 ML/MIN/1.73 CALC BUN/CREAT (test code = 2235) 22 RATIO SODIUM (test code = 2231) 140 MEQ/L POTASSIUM (test code = 2228) 4.2 MEQ/L CHLORIDE (test code = 2215) 102 MEQ/L CARBON DIOXIDE (test code = 2206) 28 MEQ/L CALCIUM (test code = 2209) 9.4 MG/DL PROTEIN, TOTAL (test code = 2229) 7.4 G/DL ALBUMIN (test code = 2201) 4.6 G/DL CALC GLOBULIN (test code = 2240) 2.8 G/DL CALC A/G RATIO (test code = 2234) 1.6 RATIO BILIRUBIN, TOTAL (test code = 2207) 0.4 MG/DL ALKALINE PHOSPHATASE (test code = 2204) 63 U/L AST (test code = 2218) 7 U/L ALT (test code = 2219) 6 U/L Chucho DraperHEMOGLOBIN [id number] 00:00:00* Test Item Value Reference Range Interpretation Comme thong HEMOGLOBIN A1c (test code = 31976) 6.3 % Chucho DraperCBC W/AUTO [id number] 00:00:00* Test Item Value Reference Range Interpretation Comme nts WBC (test code = 1001) 8.7 K/UL RBC (test code = 1002) 5.63 M/UL HEMOGLOBIN (test code = 1003) 15.2 G/DL HEMATOCRIT (test code = 1004) 45.9 % MCV (test code = 1005) 81.5 fL MCH (test code = 1006) 27.0 PG MCHC (test code = 1007) 33.1 G/DL RDW (test code = 1038) 14.4 % NEUTROPHILS (test code = 1008) 67.6 % LYMPHOCYTES (test code = 1010) 23.9 % MONOCYTES (test code = 1011) 6.5 % EOSINOPHILS (test code = 1012) 0.8 % BASOPHILS (test code = 1013) 0.6 % IMMATURE GRANULOCYTES (test code = 1036) 0.6 % NUCLEATED RBCS (test code = 1065) 0.0 /100WBC'S PLATELET COUNT (test code = 1015) 231 K/UL ABSOLUTE NEUTROPHILS (test c ode = 1066) 5.87 K/UL ABSOLUTE LYMPHOCYTES (test c ode = 1067) 2.07 K/UL ABSOLUTE MONOCYTES (test cod e = 1068) 0.56 K/UL ABSOLUTE EOSINOPHILS (test c ode = 1040) 0.07 K/UL ABSOLUTE BASOPHILS (test cod e = 1069) 0.05 K/UL ABS IMMATURE GRANULOCYTES (t est code = 1020) 0.05 K/UL ABS NUCLEATED RBCS (test cod e = 87589) 0.00 K/UL Chucho [place] [facility]linCOMPREHENSIVE METABOLIC [id number] 00:00:00* Test Item Value Reference Range Interpretation Comme nts GLUCOSE (test code = 2217) 54 MG/DL BUN (test code = 2208) 22 MG/DL CREATININE (test code = 2214) 1.00 MG/DL eGFR AMER. (test cod e = 26211) 89 ML/MIN/1.73 eGFR NON- AMER. (test code = 20514) 76 ML/MIN/1.73 CALC BUN/CREAT (test code = 2235) 22 RATIO SODIUM (test code = 2231) 140 MEQ/L POTASSIUM (test code = 2228) 4.2 MEQ/L CHLORIDE (test code = 2215) 102 MEQ/L CARBON DIOXIDE (test code = 2206) 28 MEQ/L CALCIUM (test code = 2209) 9.4 MG/DL PROTEIN, TOTAL (test code = 2229) 7.4 G/DL ALBUMIN (test code = 2201) 4.6 G/DL CALC GLOBULIN (test code = 2240) 2.8 G/DL CALC A/G RATIO (test code = 2234) 1.6 RATIO BILIRUBIN, TOTAL (test code = 2207) 0.4 MG/DL ALKALINE PHOSPHATASE (test code = 2204) 63 U/L AST (test code = 2218) 7 U/L ALT (test code = 2219) 6 U/L Chucho DraperHEMOGLOBIN [id number] 00:00:00* Test Item Value Reference Range Interpretation Comme nts HEMOGLOBIN A1c (test code = 81873) 6.3 % Chucho DraperCBC W/AUTO [id number] 00:00:00* Test Item Value Reference Range Interpretation Comme nts WBC (test code = 1001) 8.7 K/UL RBC (test code = 1002) 5.63 M/UL HEMOGLOBIN (test code = 1003) 15.2 G/DL HEMATOCRIT (test code = 1004) 45.9 % MCV (test code = 1005) 81.5 fL MCH (test code = 1006) 27.0 PG MCHC (test code = 1007) 33.1 G/DL RDW (test code = 1038) 14.4 % NEUTROPHILS (test code = 1008) 67.6 % LYMPHOCYTES (test code = 1010) 23.9 % MONOCYTES (test code = 1011) 6.5 % EOSINOPHILS (test code = 1012) 0.8 % BASOPHILS (test code = 1013) 0.6 % IMMATURE GRANULOCYTES (test code = 1036) 0.6 % NUCLEATED RBCS (test code = 1065) 0.0 /100WBC'S PLATELET COUNT (test code = 1015) 231 K/UL ABSOLUTE NEUTROPHILS (test c ode = 1066) 5.87 K/UL ABSOLUTE LYMPHOCYTES (test c ode = 1067) 2.07 K/UL ABSOLUTE MONOCYTES (test cod e = 1068) 0.56 K/UL ABSOLUTE EOSINOPHILS (test c ode = 1040) 0.07 K/UL ABSOLUTE BASOPHILS (test cod e = 1069) 0.05 K/UL ABS IMMATURE GRANULOCYTES (t est code = 1020) 0.05 K/UL ABS NUCLEATED RBCS (test cod e = 07228) 0.00 K/UL Chucho DraperCOMPREHENSIVE METABOLIC [id number] 00:00:00* Test Item Value Reference Range Interpretation Comme nts GLUCOSE (test code = 2217) 54 MG/DL BUN (test code = 2208) 22 MG/DL CREATININE (test code = 2214) 1.00 MG/DL eGFR AMER. (test cod e = 65917) 89 ML/MIN/1.73 eGFR NON- AMER. (test code = 99778) 76 ML/MIN/1.73 CALC BUN/CREAT (test code = 2235) 22 RATIO SODIUM (test code = 2231) 140 MEQ/L POTASSIUM (test code = 2228) 4.2 MEQ/L CHLORIDE (test code = 2215) 102 MEQ/L CARBON DIOXIDE (test code = 2206) 28 MEQ/L CALCIUM (test code = 2209) 9.4 MG/DL PROTEIN, TOTAL (test code = 2229) 7.4 G/DL ALBUMIN (test code = 2201) 4.6 G/DL CALC GLOBULIN (test code = 2240) 2.8 G/DL CALC A/G RATIO (test code = 2234) 1.6 RATIO BILIRUBIN, TOTAL (test code = 2207) 0.4 MG/DL ALKALINE PHOSPHATASE (test code = 2204) 63 U/L AST (test code = 2218) 7 U/L ALT (test code = 2219) 6 U/L Chucho DraperHEMOGLOBIN [id number] 00:00:00* Test Item Value Reference Range Interpretation Comme [facility] HEMOGLOBIN A1c (test code = 71709) 6.3 % Chucho DraperCBC W/AUTO [id number] 00:00:00* Test Item Value Reference Range Interpretation Comme [facility] WBC (test code = 1001) 8.7 K/UL RBC (test code = 1002) 5.63 M/UL HEMOGLOBIN (test code = 1003) 15.2 G/DL HEMATOCRIT (test code = 1004) 45.9 % MCV (test code = 1005) 81.5 fL MCH (test code = 1006) 27.0 PG MCHC (test code = 1007) 33.1 G/DL RDW (test code = 1038) 14.4 % NEUTROPHILS (test code = 1008) 67.6 % LYMPHOCYTES (test code = 1010) 23.9 % MONOCYTES (test code = 1011) 6.5 % EOSINOPHILS (test code = 1012) 0.8 % BASOPHILS (test code = 1013) 0.6 % IMMATURE GRANULOCYTES (test code = 1036) 0.6 % NUCLEATED RBCS (test code = 1065) 0.0 /100WBC'S PLATELET COUNT (test code = 1015) 231 K/UL ABSOLUTE NEUTROPHILS (test c ode = 1066) 5.87 K/UL ABSOLUTE LYMPHOCYTES (test c ode = 1067) 2.07 K/UL ABSOLUTE MONOCYTES (test cod e = 1068) 0.56 K/UL ABSOLUTE EOSINOPHILS (test c ode = 1040) 0.07 K/UL ABSOLUTE BASOPHILS (test cod e = 1069) 0.05 K/UL ABS IMMATURE GRANULOCYTES (t est code = 1020) 0.05 K/UL ABS NUCLEATED RBCS (test cod e = 99425) 0.00 K/UL Chucho DraperCOMPREHENSIVE METABOLIC [id number] 00:00:00* Test Item Value Reference Range Interpretation Comme nts GLUCOSE (test code = 2217) 54 MG/DL BUN (test code = 2208) 22 MG/DL CREATININE (test code = 2214) 1.00 MG/DL eGFR AMER. (test cod e = 73032) 89 ML/MIN/1.73 eGFR NON- AMER. (test code = 42448) 76 ML/MIN/1.73 CALC BUN/CREAT (test code = 2235) 22 RATIO SODIUM (test code = 2231) 140 MEQ/L POTASSIUM (test code = 2228) 4.2 MEQ/L CHLORIDE (test code = 2215) 102 MEQ/L CARBON DIOXIDE (test code = 2206) 28 MEQ/L CALCIUM (test code = 2209) 9.4 MG/DL PROTEIN, TOTAL (test code = 2229) 7.4 G/DL ALBUMIN (test code = 2201) 4.6 G/DL CALC GLOBULIN (test code = 2240) 2.8 G/DL CALC A/G RATIO (test code = 2234) 1.6 RATIO BILIRUBIN, TOTAL (test code = 2207) 0.4 MG/DL ALKALINE PHOSPHATASE (test code = 2204) 63 U/L AST (test code = 2218) 7 U/L ALT (test code = 2219) 6 U/L Chucho DraperHEMOGLOBIN [id number] 00:00:00* Test Item Value Reference Range Interpretation Comme nts HEMOGLOBIN A1c (test code = 04975) 6.3 % Chucho DraperCBC W/AUTO [id number] 00:00:00* Test Item Value Reference Range Interpretation Comme nts WBC (test code = 1001) 8.7 K/UL RBC (test code = 1002) 5.63 M/UL HEMOGLOBIN (test code = 1003) 15.2 G/DL HEMATOCRIT (test code = 1004) 45.9 % MCV (test code = 1005) 81.5 fL MCH (test code = 1006) 27.0 PG MCHC (test code = 1007) 33.1 G/DL RDW (test code = 1038) 14.4 % NEUTROPHILS (test code = 1008) 67.6 % LYMPHOCYTES (test code = 1010) 23.9 % MONOCYTES (test code = 1011) 6.5 % EOSINOPHILS (test code = 1012) 0.8 % BASOPHILS (test code = 1013) 0.6 % IMMATURE GRANULOCYTES (test code = 1036) 0.6 % NUCLEATED RBCS (test code = 1065) 0.0 /100WBC'S PLATELET COUNT (test code = 1015) 231 K/UL ABSOLUTE NEUTROPHILS (test c ode = 1066) 5.87 K/UL ABSOLUTE LYMPHOCYTES (test c ode = 1067) 2.07 K/UL ABSOLUTE MONOCYTES (test cod e = 1068) 0.56 K/UL ABSOLUTE EOSINOPHILS (test c ode = 1040) 0.07 K/UL ABSOLUTE BASOPHILS (test cod e = 1069) 0.05 K/UL ABS IMMATURE GRANULOCYTES (t est code = 1020) 0.05 K/UL ABS NUCLEATED RBCS (test cod e = 01646) 0.00 K/UL Chucho DraperCOMPREHENSIVE METABOLIC [id number] 00:00:00* Test Item Value Reference Range Interpretation Comme nts GLUCOSE (test code = 2217) 54 MG/DL BUN (test code = 2208) 22 MG/DL CREATININE (test code = 2214) 1.00 MG/DL eGFR AMER. (test cod e = 98430) 89 ML/MIN/1.73 eGFR NON- AMER. (test code = 70293) 76 ML/MIN/1.73 CALC BUN/CREAT (test code = 2235) 22 RATIO SODIUM (test code = 2231) 140 MEQ/L POTASSIUM (test code = 2228) 4.2 MEQ/L CHLORIDE (test code = 2215) 102 MEQ/L CARBON DIOXIDE (test code = 2206) 28 MEQ/L CALCIUM (test code = 2209) 9.4 MG/DL PROTEIN, TOTAL (test code = 2229) 7.4 G/DL ALBUMIN (test code = 2201) 4.6 G/DL CALC GLOBULIN (test code = 2240) 2.8 G/DL CALC A/G RATIO (test code = 2234) 1.6 RATIO BILIRUBIN, TOTAL (test code = 2207) 0.4 MG/DL ALKALINE PHOSPHATASE (test code = 2204) 63 U/L AST (test code = 2218) 7 U/L ALT (test code = 2219) 6 U/L Chucho DraperHEMOGLOBIN [id number] 00:00:00* Test Item Value Reference Range Interpretation Comme nts HEMOGLOBIN A1c (test code = 17389) 6.3 % [place] DraperCBC W/AUTO [id number] 00:00:00* Test Item Value Reference Range Interpretation Comme nts WBC (test code = 1001) 8.7 K/UL RBC (test code = 1002) 5.63 M/UL HEMOGLOBIN (test code = 1003) 15.2 G/DL HEMATOCRIT (test code = 1004) 45.9 % MCV (test code = 1005) 81.5 fL MCH (test code = 1006) 27.0 PG MCHC (test code = 1007) 33.1 G/DL RDW (test code = 1038) 14.4 % NEUTROPHILS (test code = 1008) 67.6 % LYMPHOCYTES (test code = 1010) 23.9 % MONOCYTES (test code = 1011) 6.5 % EOSINOPHILS (test code = 1012) 0.8 % BASOPHILS (test code = 1013) 0.6 % IMMATURE GRANULOCYTES (test code = 1036) 0.6 % NUCLEATED RBCS (test code = 1065) 0.0 /100WBC'S PLATELET COUNT (test code = 1015) 231 K/UL ABSOLUTE NEUTROPHILS (test c ode = 1066) 5.87 K/UL ABSOLUTE LYMPHOCYTES (test c ode = 1067) 2.07 K/UL ABSOLUTE MONOCYTES (test cod e = 1068) 0.56 K/UL ABSOLUTE EOSINOPHILS (test c ode = 1040) 0.07 K/UL ABSOLUTE BASOPHILS (test cod e = 1069) 0.05 K/UL ABS IMMATURE GRANULOCYTES (t est code = 1020) 0.05 K/UL ABS NUCLEATED RBCS (test cod e = 95316) 0.00 K/UL Chucho DraperCOMPREHENSIVE METABOLIC [id number] 00:00:00* Test Item Value Reference Range Interpretation Comme nts GLUCOSE (test code = 2217) 54 MG/DL BUN (test code = 2208) 22 MG/DL CREATININE (test code = 2214) 1.00 MG/DL eGFR AMER. (test cod e = 37394) 89 ML/MIN/1.73 eGFR NON- AMER. (test code = 02897) 76 ML/MIN/1.73 CALC BUN/CREAT (test code = 2235) 22 RATIO SODIUM (test code = 2231) 140 MEQ/L POTASSIUM (test code = 2228) 4.2 MEQ/L CHLORIDE (test code = 2215) 102 MEQ/L CARBON DIOXIDE (test code = 2206) 28 MEQ/L CALCIUM (test code = 2209) 9.4 MG/DL PROTEIN, TOTAL (test code = 2229) 7.4 G/DL ALBUMIN (test code = 2201) 4.6 G/DL CALC GLOBULIN (test code = 2240) 2.8 G/DL CALC A/G RATIO (test code = 2234) 1.6 RATIO BILIRUBIN, TOTAL (test code = 2207) 0.4 MG/DL ALKALINE PHOSPHATASE (test code = 2204) 63 U/L AST (test code = 2218) 7 U/L ALT (test code = 2219) 6 U/L Chucho DraperHEMOGLOBIN [id number] 00:00:00* Test Item Value Reference Range Interpretation Comme nts HEMOGLOBIN A1c (test code = 01489) 6.1 % HEMOGLOBIN [id number] 00:00:00* Test Item Value Reference Range Interpretation Comme nts HEMOGLOBIN A1c (test code = 72600) 6.1 % HEMOGLOBIN [id number] 00:00:00* Test Item Value Reference Range Interpretation Comme nts HEMOGLOBIN A1c (test code = 32136) 6.1 % HEMOGLOBIN [id number] 00:00:00* Test Item Value Reference Range Interpretation Comme nts HEMOGLOBIN A1c (test code = 69799) 6.1 % [place]ucho [place]HEMOGLOBIN [id number] 00:00:00* Test Item Value Reference Range Interpretation Comme nts HEMOGLOBIN A1c (test code = 11889) 6.1 % Chucho [place] AustinHEMOGLOBIN [id number] 00:00:00* Test Item Value Reference Range Interpretation Comme nts HEMOGLOBIN A1c (test code = 90495) 6.1 % Chucho [place] AustinHEMOGLOBIN [id number] 00:00:00* Test Item Value Reference Range Interpretation Comme nts HEMOGLOBIN A1c (test code = 35127) 6.1 % Chucho [place] AustinHEMOGLOBIN [id number] 00:00:00* Test Item Value Reference Range Interpretation Comme nts HEMOGLOBIN A1c (test code = 25665) 6.1 % Chucho [place] AustinHEMOGLOBIN [id number] 00:00:00* Test Item Value Reference Range Interpretation Comme nts HEMOGLOBIN A1c (test code = 52094) 6.1 % Chucho [place] AustinCBC W/AUTO [id number] 00:00:00* Test Item Value Reference Range Interpretation Comme nts WBC (test code = 1001) 6.5 K/UL RBC (test code = 1002) 4.79 M/UL HEMOGLOBIN (test code = 1003) 13.1 G/DL HEMATOCRIT (test code = 1004) 39.1 % MCV (test code = 1005) 81.6 fL MCH (test code = 1006) 27.3 PG MCHC (test code = 1007) 33.5 G/DL RDW (test code = 1038) 13.9 % NEUTROPHILS (test code = 1008) 75.4 % LYMPHOCYTES (test code = 1010) 16.4 % MONOCYTES (test code = 1011) 7.1 % EOSINOPHILS (test code = 1012) 0.9 % BASOPHILS (test code = 1013) 0.2 % PLATELET COUNT (test code = 1015) 189 K/UL COMPREHENSIVE METABOLIC [id number] 00:00:00* Test Item Value Reference Range Interpretation Comme nts GLUCOSE (test code = 2217) 57 MG/DL BUN (test code = 2208) 18 MG/DL CREATININE (test code = 2214) 0.82 MG/DL eGFR AMER. (test cod e = 58482) 105 ML/MIN/1.73 eGFR NON- AMER. (test code = 50736) 90 ML/MIN/1.73 CALC BUN/CREAT (test code = 2235) 22 RATIO SODIUM (test code = 2231) 141 MEQ/L POTASSIUM (test code = 2228) 4.2 MEQ/L CHLORIDE (test code = 2215) 105 MEQ/L CARBON DIOXIDE (test code = 2206) 27 MEQ/L CALCIUM (test code = 2209) 9.3 MG/DL PROTEIN, TOTAL (test code = 2229) 7.2 G/DL ALBUMIN (test code = 2201) 4.3 G/DL CALC GLOBULIN (test code = 2240) 2.9 G/DL CALC A/G RATIO (test code = 2234) 1.5 RATIO BILIRUBIN, TOTAL (test code = 2207) 0.6 MG/DL ALKALINE PHOSPHATASE (test code = 2204) 59 U/L AST (test code = 2218) 11 U/L ALT (test code = 2219) 10 U/L LIPID [id number] 00:00:00* Test Item Value Reference Range Interpretation Comme nts CHOLESTEROL (test code = 2210) 149 MG/DL TRIGLYCERIDES (test code = 2232) 133 MG/DL HDL CHOLESTEROL (test code = 2220) 43 MG/DL CALC LDL CHOL (test code = 2237) 83 MG/DL RISK RATIO LDL/HDL (test cod e = 2238) 1.93 RATIO HEMOGLOBIN [id number] 00:00:00* Test Item Value Reference Range Interpretation Comme nts HEMOGLOBIN A1c (test code = 59702) 6.3 % CBC W/AUTO [id number] 00:00:00* Test Item Value Reference Range Interpretation Comme nts WBC (test code = 1001) 6.5 K/UL RBC (test code = 1002) 4.79 M/UL HEMOGLOBIN (test code = 1003) 13.1 G/DL HEMATOCRIT (test code = 1004) 39.1 % MCV (test code = 1005) 81.6 fL MCH (test code = 1006) 27.3 PG MCHC (test code = 1007) 33.5 G/DL RDW (test code = 1038) 13.9 % NEUTROPHILS (test code = 1008) 75.4 % LYMPHOCYTES (test code = 1010) 16.4 % MONOCYTES (test code = 1011) 7.1 % EOSINOPHILS (test code = 1012) 0.9 % BASOPHILS (test code = 1013) 0.2 % PLATELET COUNT (test code = 1015) 189 K/UL COMPREHENSIVE METABOLIC [id number] 00:00:00* Test Item Value Reference Range Interpretation Comme nts GLUCOSE (test code = 2217) 57 MG/DL BUN (test code = 2208) 18 MG/DL CREATININE (test code = 2214) 0.82 MG/DL eGFR AMER. (test cod e = 71018) 105 ML/MIN/1.73 eGFR NON- AMER. (test code = 01639) 90 ML/MIN/1.73 CALC BUN/CREAT (test code = 2235) 22 RATIO SODIUM (test code = 2231) 141 MEQ/L POTASSIUM (test code = 2228) 4.2 MEQ/L CHLORIDE (test code = 2215) 105 MEQ/L CARBON DIOXIDE (test code = 2206) 27 MEQ/L CALCIUM (test code = 2209) 9.3 MG/DL PROTEIN, TOTAL (test code = 2229) 7.2 G/DL ALBUMIN (test code = 2201) 4.3 G/DL CALC GLOBULIN (test code = 2240) 2.9 G/DL CALC A/G RATIO (test code = 2234) 1.5 RATIO BILIRUBIN, TOTAL (test code = 2207) 0.6 MG/DL ALKALINE PHOSPHATASE (test code = 2204) 59 U/L AST (test code = 2218) 11 U/L ALT (test code = 2219) 10 U/L LIPID [id number] 00:00:00* Test Item Value Reference Range Interpretation Comme nts CHOLESTEROL (test code = 2210) 149 MG/DL TRIGLYCERIDES (test code = 2232) 133 MG/DL HDL CHOLESTEROL (test code = 2220) 43 MG/DL CALC LDL CHOL (test code = 2237) 83 MG/DL RISK RATIO LDL/HDL (test cod e = 2238) 1.93 RATIO HEMOGLOBIN [id number] 00:00:00* Test Item Value Reference Range Interpretation Comme nts HEMOGLOBIN A1c (test code = 38436) 6.3 % CBC W/AUTO [id number] 00:00:00* Test Item Value Reference Range Interpretation Comme nts WBC (test code = 1001) 6.5 K/UL RBC (test code = 1002) 4.79 M/UL HEMOGLOBIN (test code = 1003) 13.1 G/DL HEMATOCRIT (test code = 1004) 39.1 % MCV (test code = 1005) 81.6 fL MCH (test code = 1006) 27.3 PG MCHC (test code = 1007) 33.5 G/DL RDW (test code = 1038) 13.9 % NEUTROPHILS (test code = 1008) 75.4 % LYMPHOCYTES (test code = 1010) 16.4 % MONOCYTES (test code = 1011) 7.1 % EOSINOPHILS (test code = 1012) 0.9 % BASOPHILS (test code = 1013) 0.2 % PLATELET COUNT (test code = 1015) 189 K/UL COMPREHENSIVE METABOLIC [id number] 00:00:00* Test Item Value Reference Range Interpretation Comme nts GLUCOSE (test code = 2217) 57 MG/DL BUN (test code = 2208) 18 MG/DL CREATININE (test code = 2214) 0.82 MG/DL eGFR AMER. (test cod e = 09845) 105 ML/MIN/1.73 eGFR NON- AMER. (test code = 74138) 90 ML/MIN/1.73 CALC BUN/CREAT (test code = 2235) 22 RATIO SODIUM (test code = 2231) 141 MEQ/L POTASSIUM (test code = 2228) 4.2 MEQ/L CHLORIDE (test code = 2215) 105 MEQ/L CARBON DIOXIDE (test code = 2206) 27 MEQ/L CALCIUM (test code = 2209) 9.3 MG/DL PROTEIN, TOTAL (test code = 2229) 7.2 G/DL ALBUMIN (test code = 2201) 4.3 G/DL CALC GLOBULIN (test code = 2240) 2.9 G/DL CALC A/G RATIO (test code = 2234) 1.5 RATIO BILIRUBIN, TOTAL (test code = 2207) 0.6 MG/DL ALKALINE PHOSPHATASE (test code = 2204) 59 U/L AST (test code = 2218) 11 U/L ALT (test code = 2219) 10 U/L LIPID [id number] 00:00:00* Test Item Value Reference Range Interpretation Comme nts CHOLESTEROL (test code = 2210) 149 MG/DL TRIGLYCERIDES (test code = 2232) 133 MG/DL HDL CHOLESTEROL (test code = 2220) 43 MG/DL CALC LDL CHOL (test code = 2237) 83 MG/DL RISK RATIO LDL/HDL (test cod e = 2238) 1.93 RATIO HEMOGLOBIN [id number] 00:00:00* Test Item Value Reference Range Interpretation Comme nts HEMOGLOBIN A1c (test code = 55620) 6.3 % COMPREHENSIVE METABOLIC [id number] 00:00:00* Test Item Value Reference Range Interpretation Comme nts GLUCOSE (test code = 2217) 57 MG/DL BUN (test code = 2208) 18 MG/DL CREATININE (test code = 2214) 0.82 MG/DL eGFR AMER. (test cod e = 29000) 105 ML/MIN/1.73 eGFR NON- AMER. (test code = 17573) 90 ML/MIN/1.73 CALC BUN/CREAT (test code = 2235) 22 RATIO SODIUM (test code = 2231) 141 MEQ/L POTASSIUM (test code = 2228) 4.2 MEQ/L CHLORIDE (test code = 2215) 105 MEQ/L CARBON DIOXIDE (test code = 2206) 27 MEQ/L CALCIUM (test code = 2209) 9.3 MG/DL PROTEIN, TOTAL (test code = 2229) 7.2 G/DL ALBUMIN (test code = 2201) 4.3 G/DL CALC GLOBULIN (test code = 2240) 2.9 G/DL CALC A/G RATIO (test code = 2234) 1.5 RATIO BILIRUBIN, TOTAL (test code = 2207) 0.6 MG/DL ALKALINE PHOSPHATASE (test code = 2204) 59 U/L AST (test code = 2218) 11 U/L ALT (test code = 2219) 10 U/L Chucho F AustinLIPID [id number] 00:00:00* Test Item Value Reference Range Interpretation Comme nts CHOLESTEROL (test code = 2210) 149 MG/DL TRIGLYCERIDES (test code = 2232) 133 MG/DL HDL CHOLESTEROL (test code = 2220) 43 MG/DL CALC LDL CHOL (test code = 2237) 83 MG/DL RISK RATIO LDL/HDL (test cod e = 2238) 1.93 RATIO Chucho DraperHEMOGLOBIN [id number] 00:00:00* Test Item Value Reference Range Interpretation Comme thong HEMOGLOBIN A1c (test code = 93031) 6.3 % Chucho DraperCBC W/AUTO [id number] 00:00:00* Test Item Value Reference Range Interpretation Comme nts WBC (test code = 1001) 6.5 K/UL RBC (test code = 1002) 4.79 M/UL HEMOGLOBIN (test code = 1003) 13.1 G/DL HEMATOCRIT (test code = 1004) 39.1 % MCV (test code = 1005) 81.6 fL MCH (test code = 1006) 27.3 PG MCHC (test code = 1007) 33.5 G/DL RDW (test code = 1038) 13.9 % NEUTROPHILS (test code = 1008) 75.4 % LYMPHOCYTES (test code = 1010) 16.4 % MONOCYTES (test code = 1011) 7.1 % EOSINOPHILS (test code = 1012) 0.9 % BASOPHILS (test code = 1013) 0.2 % PLATELET COUNT (test code = 1015) 189 K/UL Chucho DraperCOMPREHENSIVE METABOLIC [id number] 00:00:00* Test Item Value Reference Range Interpretation Comme thong GLUCOSE (test code = 2217) 57 MG/DL BUN (test code = 2208) 18 MG/DL CREATININE (test code = 2214) 0.82 MG/DL eGFR AMER. (test cod e = 74662) 105 ML/MIN/1.73 eGFR NON- AMER. (test code = 24753) 90 ML/MIN/1.73 CALC BUN/CREAT (test code = 2235) 22 RATIO SODIUM (test code = 2231) 141 MEQ/L POTASSIUM (test code = 2228) 4.2 MEQ/L CHLORIDE (test code = 2215) 105 MEQ/L CARBON DIOXIDE (test code = 2206) 27 MEQ/L CALCIUM (test code = 2209) 9.3 MG/DL PROTEIN, TOTAL (test code = 2229) 7.2 G/DL ALBUMIN (test code = 2201) 4.3 G/DL CALC GLOBULIN (test code = 2240) 2.9 G/DL CALC A/G RATIO (test code = 2234) 1.5 RATIO BILIRUBIN, TOTAL (test code = 2207) 0.6 MG/DL ALKALINE PHOSPHATASE (test code = 2204) 59 U/L AST (test code = 2218) 11 U/L ALT (test code = 2219) 10 U/L Chucho DraperLIPID [id number] 00:00:00* Test Item Value Reference Range Interpretation Comme nts CHOLESTEROL (test code = 2210) 149 MG/DL TRIGLYCERIDES (test code = 2232) 133 MG/DL HDL CHOLESTEROL (test code = 2220) 43 MG/DL CALC LDL CHOL (test code = 2237) 83 MG/DL RISK RATIO LDL/HDL (test cod e = 2238) 1.93 RATIO Chucho DraperHEMOGLOBIN [id number] 00:00:00* Test Item Value Reference Range Interpretation Comme thong HEMOGLOBIN A1c (test code = 51757) 6.3 % Chucho DraperCBC W/AUTO [id number] 00:00:00* Test Item Value Reference Range Interpretation Comme nts WBC (test code = 1001) 6.5 K/UL RBC (test code = 1002) 4.79 M/UL HEMOGLOBIN (test code = 1003) 13.1 G/DL HEMATOCRIT (test code = 1004) 39.1 % MCV (test code = 1005) 81.6 fL MCH (test code = 1006) 27.3 PG MCHC (test code = 1007) 33.5 G/DL RDW (test code = 1038) 13.9 % NEUTROPHILS (test code = 1008) 75.4 % LYMPHOCYTES (test code = 1010) 16.4 % MONOCYTES (test code = 1011) 7.1 % EOSINOPHILS (test code = 1012) 0.9 % BASOPHILS (test code = 1013) 0.2 % PLATELET COUNT (test code = 1015) 189 K/UL Chucho DraperCOMPREHENSIVE METABOLIC [id number] 00:00:00* Test Item Value Reference Range Interpretation Comme nts GLUCOSE (test code = 2217) 57 MG/DL BUN (test code = 2208) 18 MG/DL CREATININE (test code = 2214) 0.82 MG/DL eGFR AMER. (test cod e = 45784) 105 ML/MIN/1.73 eGFR NON- AMER. (test code = 46596) 90 ML/MIN/1.73 CALC BUN/CREAT (test code = 2235) 22 RATIO SODIUM (test code = 2231) 141 MEQ/L POTASSIUM (test code = 2228) 4.2 MEQ/L CHLORIDE (test code = 2215) 105 MEQ/L CARBON DIOXIDE (test code = 2206) 27 MEQ/L CALCIUM (test code = 2209) 9.3 MG/DL PROTEIN, TOTAL (test code = 2229) 7.2 G/DL ALBUMIN (test code = 2201) 4.3 G/DL CALC GLOBULIN (test code = 2240) 2.9 G/DL CALC A/G RATIO (test code = 2234) 1.5 RATIO BILIRUBIN, TOTAL (test code = 2207) 0.6 MG/DL ALKALINE PHOSPHATASE (test code = 2204) 59 U/L AST (test code = 2218) 11 U/L ALT (test code = 2219) 10 U/L Chucho Strat[place] BaronLIPID [id number] 00:00:00* Test Item Value Reference Range Interpretation Comme nts CHOLESTEROL (test code = 2210) 149 MG/DL TRIGLYCERIDES (test code = 2232) 133 MG/DL HDL CHOLESTEROL (test code = 2220) 43 MG/DL CALC LDL CHOL (test code = 2237) 83 MG/DL RISK RATIO LDL/HDL (test cod e = 2238) 1.93 RATIO Chucho [place] BaronHEMOGLOBIN [id number] 00:00:00* Test Item Value Reference Range Interpretation Comme nts HEMOGLOBIN A1c (test code = 53865) 6.3 % Chucho Stratton BaronCBC W/AUTO [id number] 00:00:00* Test Item Value Reference Range Interpretation Comme nts WBC (test code = 1001) 6.5 K/UL RBC (test code = 1002) 4.79 M/UL HEMOGLOBIN (test code = 1003) 13.1 G/DL HEMATOCRIT (test code = 1004) 39.1 % MCV (test code = 1005) 81.6 fL MCH (test code = 1006) 27.3 PG MCHC (test code = 1007) 33.5 G/DL RDW (test code = 1038) 13.9 % NEUTROPHILS (test code = 1008) 75.4 % LYMPHOCYTES (test code = 1010) 16.4 % MONOCYTES (test code = 1011) 7.1 % EOSINOPHILS (test code = 1012) 0.9 % BASOPHILS (test code = 1013) 0.2 % PLATELET COUNT (test code = 1015) 189 K/UL Chucho DraperCOMPREHENSIVE METABOLIC [id number] 00:00:00* Test Item Value Reference Range Interpretation Comme nts GLUCOSE (test code = 2217) 57 MG/DL BUN (test code = 2208) 18 MG/DL CREATININE (test code = 2214) 0.82 MG/DL eGFR AMER. (test cod e = 40415) 105 ML/MIN/1.73 eGFR NON- AMER. (test code = 11795) 90 ML/MIN/1.73 CALC BUN/CREAT (test code = 2235) 22 RATIO SODIUM (test code = 2231) 141 MEQ/L POTASSIUM (test code = 2228) 4.2 MEQ/L CHLORIDE (test code = 2215) 105 MEQ/L CARBON DIOXIDE (test code = 2206) 27 MEQ/L CALCIUM (test code = 2209) 9.3 MG/DL PROTEIN, TOTAL (test code = 2229) 7.2 G/DL ALBUMIN (test code = 2201) 4.3 G/DL CALC GLOBULIN (test code = 2240) 2.9 G/DL CALC A/G RATIO (test code = 2234) 1.5 RATIO BILIRUBIN, TOTAL (test code = 2207) 0.6 MG/DL ALKALINE PHOSPHATASE (test code = 2204) 59 U/L AST (test code = 2218) 11 U/L ALT (test code = 2219) 10 U/L Chucho DraperLIPID [id number] 00:00:00* Test Item Value Reference Range Interpretation Comme nts CHOLESTEROL (test code = 2210) 149 MG/DL TRIGLYCERIDES (test code = 2232) 133 MG/DL HDL CHOLESTEROL (test code = 2220) 43 MG/DL CALC LDL CHOL (test code = 2237) 83 MG/DL RISK RATIO LDL/HDL (test cod e = 2238) 1.93 RATIO Chucho DraperHEMOGLOBIN [id number] 00:00:00* Test Item Value Reference Range Interpretation Comme nts HEMOGLOBIN A1c (test code = 62273) 6.3 % Chucho DraperCBC W/AUTO [id number] 00:00:00* Test Item Value Reference Range Interpretation Comme nts WBC (test code = 1001) 6.5 K/UL RBC (test code = 1002) 4.79 M/UL HEMOGLOBIN (test code = 1003) 13.1 G/DL HEMATOCRIT (test code = 1004) 39.1 % MCV (test code = 1005) 81.6 fL MCH (test code = 1006) 27.3 PG MCHC (test code = 1007) 33.5 G/DL RDW (test code = 1038) 13.9 % NEUTROPHILS (test code = 1008) 75.4 % LYMPHOCYTES (test code = 1010) 16.4 % MONOCYTES (test code = 1011) 7.1 % EOSINOPHILS (test code = 1012) 0.9 % BASOPHILS (test code = 1013) 0.2 % PLATELET COUNT (test code = 1015) 189 K/UL Chucho DraperCOMPREHENSIVE METABOLIC [id number] 00:00:00* Test Item Value Reference Range Interpretation Comme nts GLUCOSE (test code = 2217) 57 MG/DL BUN (test code = 2208) 18 MG/DL CREATININE (test code = 2214) 0.82 MG/DL eGFR AMER. (test cod e = 89683) 105 ML/MIN/1.73 eGFR NON- AMER. (test code = 56866) 90 ML/MIN/1.73 CALC BUN/CREAT (test code = 2235) 22 RATIO SODIUM (test code = 2231) 141 MEQ/L POTASSIUM (test code = 2228) 4.2 MEQ/L CHLORIDE (test code = 2215) 105 MEQ/L CARBON DIOXIDE (test code = 2206) 27 MEQ/L CALCIUM (test code = 2209) 9.3 MG/DL PROTEIN, TOTAL (test code = 2229) 7.2 G/DL ALBUMIN (test code = 2201) 4.3 G/DL CALC GLOBULIN (test code = 2240) 2.9 G/DL CALC A/G RATIO (test code = 2234) 1.5 RATIO BILIRUBIN, TOTAL (test code = 2207) 0.6 MG/DL ALKALINE PHOSPHATASE (test code = 2204) 59 U/L AST (test code = 2218) 11 U/L ALT (test code = 2219) 10 U/L Chucho DraperLIPID [id number] 00:00:00* Test Item Value Reference Range Interpretation Comme nts CHOLESTEROL (test code = 2210) 149 MG/DL TRIGLYCERIDES (test code = 2232) 133 MG/DL HDL CHOLESTEROL (test code = 2220) 43 MG/DL CALC LDL CHOL (test code = 2237) 83 MG/DL RISK RATIO LDL/HDL (test cod e = 2238) 1.93 RATIO Chucho DraperHEMOGLOBIN [id number] 00:00:00* Test Item Value Reference Range Interpretation Comme thong HEMOGLOBIN A1c (test code = 16244) 6.3 % Chucho DraperCBC W/AUTO [id number] 00:00:00* Test Item Value Reference Range Interpretation Comme nts WBC (test code = 1001) 6.5 K/UL RBC (test code = 1002) 4.79 M/UL HEMOGLOBIN (test code = 1003) 13.1 G/DL HEMATOCRIT (test code = 1004) 39.1 % MCV (test code = 1005) 81.6 fL MCH (test code = 1006) 27.3 PG MCHC (test code = 1007) 33.5 G/DL RDW (test code = 1038) 13.9 % NEUTROPHILS (test code = 1008) 75.4 % LYMPHOCYTES (test code = 1010) 16.4 % MONOCYTES (test code = 1011) 7.1 % EOSINOPHILS (test code = 1012) 0.9 % BASOPHILS (test code = 1013) 0.2 % PLATELET COUNT (test code = 1015) 189 K/UL Chucho DraperCOMPREHENSIVE METABOLIC [id number] 00:00:00* Test Item Value Reference Range Interpretation Comme nts GLUCOSE (test code = 2217) 57 MG/DL BUN (test code = 2208) 18 MG/DL CREATININE (test code = 2214) 0.82 MG/DL eGFR AMER. (test cod e = 94247) 105 ML/MIN/1.73 eGFR NON- AMER. (test code = 90939) 90 ML/MIN/1.73 CALC BUN/CREAT (test code = 2235) 22 RATIO SODIUM (test code = 2231) 141 MEQ/L POTASSIUM (test code = 2228) 4.2 MEQ/L CHLORIDE (test code = 2215) 105 MEQ/L CARBON DIOXIDE (test code = 2206) 27 MEQ/L CALCIUM (test code = 2209) 9.3 MG/DL PROTEIN, TOTAL (test code = 2229) 7.2 G/DL ALBUMIN (test code = 2201) 4.3 G/DL CALC GLOBULIN (test code = 2240) 2.9 G/DL CALC A/G RATIO (test code = 2234) 1.5 RATIO BILIRUBIN, TOTAL (test code = 2207) 0.6 MG/DL ALKALINE PHOSPHATASE (test code = 2204) 59 U/L AST (test code = 2218) 11 U/L ALT (test code = 2219) 10 U/L Chucho DraperLIPID [id number] 00:00:00* Test Item Value Reference Range Interpretation Comme nts CHOLESTEROL (test code = 2210) 149 MG/DL TRIGLYCERIDES (test code = 2232) 133 MG/DL HDL CHOLESTEROL (test code = 2220) 43 MG/DL CALC LDL CHOL (test code = 2237) 83 MG/DL RISK RATIO LDL/HDL (test cod e = 2238) 1.93 RATIO Chucho DraperHEMOGLOBIN [id number] 00:00:00* Test Item Value Reference Range Interpretation Comme nts HEMOGLOBIN A1c (test code = 47126) 6.3 % Chucho DraperCBC W/AUTO [id number] 00:00:00* Test Item Value Reference Range Interpretation Comme nts WBC (test code = 1001) 6.5 K/UL RBC (test code = 1002) 4.79 M/UL HEMOGLOBIN (test code = 1003) 13.1 G/DL HEMATOCRIT (test code = 1004) 39.1 % MCV (test code = 1005) 81.6 fL MCH (test code = 1006) 27.3 PG MCHC (test code = 1007) 33.5 G/DL RDW (test code = 1038) 13.9 % NEUTROPHILS (test code = 1008) 75.4 % LYMPHOCYTES (test code = 1010) 16.4 % MONOCYTES (test code = 1011) 7.1 % EOSINOPHILS (test code = 1012) 0.9 % BASOPHILS (test code = 1013) 0.2 % PLATELET COUNT (test code = 1015) 189 K/UL Chucho [place] [id number] (COVID-19) by RT-PCR (HIGH RISK)2020-10-05 00:00:00* Test Item Value Reference Range Interpretation Comme nts SARS-CoV-2 INTERPRETATION (test code = 86634) Negative SOURCE (test code = 65572) Nasal_Swab_in _VTM__ UTM SARS-CoV-2 (COVID-19) by RT-PCR (HIGH RISK)2020-10-05 00:00:00* Test Item Value Reference Range Interpretation Comme nts SARS-CoV-2 INTERPRETATION (test code = 26305) Negative SOURCE (test code = 63002) Nasal_Swab_in _VTM__ UTM SARS-CoV-2 (COVID-19) by RT-PCR (HIGH RISK)2020-10-05 00:00:00* Test Item Value Reference Range Interpretation Comme nts SARS-CoV-2 INTERPRETATION (test code = 64497) Negative SOURCE (test code = 43405) Nasal_Swab_in _VTM__ UTM SARS-CoV-2 (COVID-19) by RT-PCR (HIGH RISK)2020-10-05 00:00:00* Test Item Value Reference Range Interpretation Comme nts SARS-CoV-2 INTERPRETATION (test code = 06438) Negative SOURCE (test code = 32491) Nasal_Swab_in _VTM__ UTM Chucho F IllqmeCZSZ-FwE-1 (COVID-19) by RT-PCR (HIGH RISK)2020-10-05 00:00:00* Test Item Value Reference Range Interpretation Comme nts SARS-CoV-2 INTERPRETATION (test code = 21944) Negative SOURCE (test code = 52463) Nasal_Swab_in _VTM__ UTM Chucho F QuyeyyIHRB-LzU-0 (COVID-19) by RT-PCR (HIGH RISK)2020-10-05 00:00:00* Test Item Value Reference Range Interpretation Comme nts SARS-CoV-2 INTERPRETATION (test code = 98552) Negative SOURCE (test code = 43653) Nasal_Swab_in _VTM__ UTM Chucho F ZbobdkDPHV-WlH-7 (COVID-19) by RT-PCR (HIGH RISK)2020-10-05 00:00:00* Test Item Value Reference Range Interpretation Comme nts SARS-CoV-2 INTERPRETATION (test code = 28021) Negative SOURCE (test code = 85277) Nasal_Swab_in _VTM__ UTM Chucho Strat[place] TicxgiNROV-ThG-2 (COVID-19) by RT-PCR (HIGH RISK)2020-10-05 00:00:00* Test Item Value Reference Range Interpretation Comme nts SARS-CoV-2 INTERPRETATION (test code = 72763) Negative SOURCE (test code = 00504) Nasal_Swab_in _VTM__ UTM Chucho [place] LqbjfzUHOL-HgV-3 (COVID-19) by RT-PCR (HIGH RISK)2020-10-05 00:00:00* Test Item Value Reference Range Interpretation Comme nts SARS-CoV-2 INTERPRETATION (test code = 38552) Negative SOURCE (test code = 61790) Nasal_Swab_in _VTM__ UTM Chucho DraperCOMPREHENSIVE METABOLIC [id number] 00:00:00* Test Item Value Reference Range Interpretation Comme nts GLUCOSE (test code = 2217) 125 MG/DL BUN (test code = 2208) 28 MG/DL CREATININE (test code = 2214) 1.21 MG/DL eGFR AMER. (test cod e = 84924) 71 ML/MIN/1.73 eGFR NON- AMER. (test code = 49212) 61 ML/MIN/1.73 CALC BUN/CREAT (test code = 2235) 23 RATIO SODIUM (test code = 2231) 140 MEQ/L POTASSIUM (test code = 2228) 4.6 MEQ/L CHLORIDE (test code = 2215) 101 MEQ/L CARBON DIOXIDE (test code = 2206) 23 MEQ/L CALCIUM (test code = 2209) 9.5 MG/DL PROTEIN, TOTAL (test code = 2229) 7.1 G/DL ALBUMIN (test code = 2201) 4.4 G/DL CALC GLOBULIN (test code = 2240) 2.7 G/DL CALC A/G RATIO (test code = 2234) 1.6 RATIO BILIRUBIN, TOTAL (test code = 2207) 0.3 MG/DL ALKALINE PHOSPHATASE (test code = 2204) 63 U/L AST (test code = 2218) 11 U/L ALT (test code = 2219) 10 U/L LIPID [id number] 00:00:00* Test Item Value Reference Range Interpretation Comme nts CHOLESTEROL (test code = 2210) 106 MG/DL TRIGLYCERIDES (test code = 2232) 140 MG/DL HDL CHOLESTEROL (test code = 2220) 42 MG/DL CALC LDL CHOL (test code = 2237) 42 MG/DL RISK RATIO LDL/HDL (test cod e = 2238) 1.00 RATIO HEMOGLOBIN [id number] 00:00:00* Test Item Value Reference Range Interpretation Comme nts HEMOGLOBIN A1c (test code = 24438) 6.0 % MICROALBUMIN/CREATININE, RANDOM AND [id number] 00:00:00* Test Item Value Reference Range Interpretation Comme nts CREATININE, URINE, CONC. (te st code = 2072) 356.9 MG/DL ALBUMIN, URINE, RANDOM (test code = 01930) 2.7 MG/DL CALC ALBUMIN/CREAT, RND (irina t code = 08054) 8 MG/G COMPREHENSIVE METABOLIC [id number] 00:00:00* Test Item Value Reference Range Interpretation Comme nts GLUCOSE (test code = 2217) 125 MG/DL BUN (test code = 2208) 28 MG/DL CREATININE (test code = 2214) 1.21 MG/DL eGFR AMER. (test cod e = 82968) 71 ML/MIN/1.73 eGFR NON- AMER. (test code = 86196) 61 ML/MIN/1.73 CALC BUN/CREAT (test code = 2235) 23 RATIO SODIUM (test code = 2231) 140 MEQ/L POTASSIUM (test code = 2228) 4.6 MEQ/L CHLORIDE (test code = 2215) 101 MEQ/L CARBON DIOXIDE (test code = 2206) 23 MEQ/L CALCIUM (test code = 2209) 9.5 MG/DL PROTEIN, TOTAL (test code = 2229) 7.1 G/DL ALBUMIN (test code = 2201) 4.4 G/DL CALC GLOBULIN (test code = 2240) 2.7 G/DL CALC A/G RATIO (test code = 2234) 1.6 RATIO BILIRUBIN, TOTAL (test code = 2207) 0.3 MG/DL ALKALINE PHOSPHATASE (test code = 2204) 63 U/L AST (test code = 2218) 11 U/L ALT (test code = 2219) 10 U/L LIPID [id number] 00:00:00* Test Item Value Reference Range Interpretation Comme nts CHOLESTEROL (test code = 2210) 106 MG/DL TRIGLYCERIDES (test code = 2232) 140 MG/DL HDL CHOLESTEROL (test code = 2220) 42 MG/DL CALC LDL CHOL (test code = 2237) 42 MG/DL RISK RATIO LDL/HDL (test cod e = 2238) 1.00 RATIO HEMOGLOBIN [id number] 00:00:00* Test Item Value Reference Range Interpretation Comme nts HEMOGLOBIN A1c (test code = 96674) 6.0 % MICROALBUMIN/CREATININE, RANDOM AND [id number] 00:00:00* Test Item Value Reference Range Interpretation Comme nts CREATININE, URINE, CONC. (te st code = 2072) 356.9 MG/DL ALBUMIN, URINE, RANDOM (test code = 18400) 2.7 MG/DL CALC ALBUMIN/CREAT, RND (irina t code = 72531) 8 MG/G COMPREHENSIVE METABOLIC [id number] 00:00:00* Test Item Value Reference Range Interpretation Comme nts GLUCOSE (test code = 2217) 125 MG/DL BUN (test code = 2208) 28 MG/DL CREATININE (test code = 2214) 1.21 MG/DL eGFR AMER. (test cod e = 93154) 71 ML/MIN/1.73 eGFR NON- AMER. (test code = 73370) 61 ML/MIN/1.73 CALC BUN/CREAT (test code = 2235) 23 RATIO SODIUM (test code = 2231) 140 MEQ/L POTASSIUM (test code = 2228) 4.6 MEQ/L CHLORIDE (test code = 2215) 101 MEQ/L CARBON DIOXIDE (test code = 2206) 23 MEQ/L CALCIUM (test code = 2209) 9.5 MG/DL PROTEIN, TOTAL (test code = 2229) 7.1 G/DL ALBUMIN (test code = 2201) 4.4 G/DL CALC GLOBULIN (test code = 2240) 2.7 G/DL CALC A/G RATIO (test code = 2234) 1.6 RATIO BILIRUBIN, TOTAL (test code = 2207) 0.3 MG/DL ALKALINE PHOSPHATASE (test code = 4) 63 U/L AST (test code = 2218) 11 U/L ALT (test code = 2219) 10 U/L LIPID [id number] 00:00:00* Test Item Value Reference Range Interpretation Comme nts CHOLESTEROL (test code = 2210) 106 MG/DL TRIGLYCERIDES (test code = 2232) 140 MG/DL HDL CHOLESTEROL (test code = 2220) 42 MG/DL CALC LDL CHOL (test code = 2237) 42 MG/DL RISK RATIO LDL/HDL (test cod e = 2238) 1.00 RATIO HEMOGLOBIN [id number] 00:00:00* Test Item Value Reference Range Interpretation Comme nts HEMOGLOBIN A1c (test code = 80083) 6.0 % MICROALBUMIN/CREATININE, RANDOM AND [id number] 00:00:00* Test Item Value Reference Range Interpretation Comme nts CREATININE, URINE, CONC. (te st code = 2072) 356.9 MG/DL ALBUMIN, URINE, RANDOM (test code = 90949) 2.7 MG/DL CALC ALBUMIN/CREAT, RND (irina t code = 66525) 8 MG/G COMPREHENSIVE METABOLIC [id number] 00:00:00* Test Item Value Reference Range Interpretation Comme nts GLUCOSE (test code = 7) 125 MG/DL BUN (test code = 8) 28 MG/DL CREATININE (test code = 2214) 1.21 MG/DL eGFR AMER. (test cod e = 96072) 71 ML/MIN/1.73 eGFR NON- AMER. (test code = 51585) 61 ML/MIN/1.73 CALC BUN/CREAT (test code = 2235) 23 RATIO SODIUM (test code = 2231) 140 MEQ/L POTASSIUM (test code = 2228) 4.6 MEQ/L CHLORIDE (test code = 2215) 101 MEQ/L CARBON DIOXIDE (test code = 2206) 23 MEQ/L CALCIUM (test code = 2209) 9.5 MG/DL PROTEIN, TOTAL (test code = 2229) 7.1 G/DL ALBUMIN (test code = 2201) 4.4 G/DL CALC GLOBULIN (test code = 2240) 2.7 G/DL CALC A/G RATIO (test code = 2234) 1.6 RATIO BILIRUBIN, TOTAL (test code = 2207) 0.3 MG/DL ALKALINE PHOSPHATASE (test code = 2204) 63 U/L AST (test code = 2218) 11 U/L ALT (test code = 2219) 10 U/L Chucho DraperLIPID [id number] 00:00:00* Test Item Value Reference Range Interpretation Comme nts CHOLESTEROL (test code = 2210) 106 MG/DL TRIGLYCERIDES (test code = 2232) 140 MG/DL HDL CHOLESTEROL (test code = 2220) 42 MG/DL CALC LDL CHOL (test code = 2237) 42 MG/DL RISK RATIO LDL/HDL (test cod e = 2238) 1.00 RATIO Chucho DraperHEMOGLOBIN [id number] 00:00:00* Test Item Value Reference Range Interpretation Comme thong HEMOGLOBIN A1c (test code = 52631) 6.0 % Chucho DraperMICROALBUMIN/CREATININE, RANDOM AND [id number] 00:00:00* Test Item Value Reference Range Interpretation Comme thong CREATININE, URINE, CONC. (te st code = 2072) 356.9 MG/DL ALBUMIN, URINE, RANDOM (test code = 98970) 2.7 MG/DL CALC ALBUMIN/CREAT, RND (irina t code = 19677) 8 MG/G Chucho DraperCOMPREHENSIVE METABOLIC [id number] 00:00:00* Test Item Value Reference Range Interpretation Comme nts GLUCOSE (test code = 2217) 125 MG/DL BUN (test code = 2208) 28 MG/DL CREATININE (test code = 2214) 1.21 MG/DL eGFR AMER. (test cod e = 20832) 71 ML/MIN/1.73 eGFR NON- AMER. (test code = 97808) 61 ML/MIN/1.73 CALC BUN/CREAT (test code = 2235) 23 RATIO SODIUM (test code = 2231) 140 MEQ/L POTASSIUM (test code = 2228) 4.6 MEQ/L CHLORIDE (test code = 2215) 101 MEQ/L CARBON DIOXIDE (test code = 2206) 23 MEQ/L CALCIUM (test code = 2209) 9.5 MG/DL PROTEIN, TOTAL (test code = 2229) 7.1 G/DL ALBUMIN (test code = 2201) 4.4 G/DL CALC GLOBULIN (test code = 2240) 2.7 G/DL CALC A/G RATIO (test code = 2234) 1.6 RATIO BILIRUBIN, TOTAL (test code = 2207) 0.3 MG/DL ALKALINE PHOSPHATASE (test code = 2204) 63 U/L AST (test code = 2218) 11 U/L ALT (test code = 2219) 10 U/L Chucho Strat[place] AustinLIPID [id number] 00:00:00* Test Item Value Reference Range Interpretation Comme nts CHOLESTEROL (test code = 2210) 106 MG/DL TRIGLYCERIDES (test code = 2232) 140 MG/DL HDL CHOLESTEROL (test code = 2220) 42 MG/DL CALC LDL CHOL (test code = 2237) 42 MG/DL RISK RATIO LDL/HDL (test cod e = 2238) 1.00 RATIO Chucho DraperHEMOGLOBIN [id number] 00:00:00* Test Item Value Reference Range Interpretation Comme thong HEMOGLOBIN A1c (test code = 70780) 6.0 % Chucho DraperMICROALBUMIN/CREATININE, RANDOM AND [id number] 00:00:00* Test Item Value Reference Range Interpretation Comme nts CREATININE, URINE, CONC. (te st code = 2072) 356.9 MG/DL ALBUMIN, URINE, RANDOM (test code = 80622) 2.7 MG/DL CALC ALBUMIN/CREAT, RND (irina t code = 88501) 8 MG/G Chucho DraperCOMPREHENSIVE METABOLIC [id number] 00:00:00* Test Item Value Reference Range Interpretation Comme nts GLUCOSE (test code = 2217) 125 MG/DL BUN (test code = 2208) 28 MG/DL CREATININE (test code = 2214) 1.21 MG/DL eGFR AMER. (test cod e = 06976) 71 ML/MIN/1.73 eGFR NON- AMER. (test code = 76114) 61 ML/MIN/1.73 CALC BUN/CREAT (test code = 2235) 23 RATIO SODIUM (test code = 2231) 140 MEQ/L POTASSIUM (test code = 2228) 4.6 MEQ/L CHLORIDE (test code = 2215) 101 MEQ/L CARBON DIOXIDE (test code = 2206) 23 MEQ/L CALCIUM (test code = 2209) 9.5 MG/DL PROTEIN, TOTAL (test code = 2229) 7.1 G/DL ALBUMIN (test code = 2201) 4.4 G/DL CALC GLOBULIN (test code = 2240) 2.7 G/DL CALC A/G RATIO (test code = 2234) 1.6 RATIO BILIRUBIN, TOTAL (test code = 2207) 0.3 MG/DL ALKALINE PHOSPHATASE (test code = 2204) 63 U/L AST (test code = 2218) 11 U/L ALT (test code = 2219) 10 U/L Chucho DraperLIPID [id number] 00:00:00* Test Item Value Reference Range Interpretation Comme nts CHOLESTEROL (test code = 2210) 106 MG/DL TRIGLYCERIDES (test code = 2232) 140 MG/DL HDL CHOLESTEROL (test code = 2220) 42 MG/DL CALC LDL CHOL (test code = 2237) 42 MG/DL RISK RATIO LDL/HDL (test cod e = 2238) 1.00 RATIO Chucho DraperHEMOGLOBIN [id number] 00:00:00* Test Item Value Reference Range Interpretation Comme nts HEMOGLOBIN A1c (test code = 01314) 6.0 % Chucho DraperMICROALBUMIN/CREATININE, RANDOM AND [id number] 00:00:00* Test Item Value Reference Range Interpretation Comme nts CREATININE, URINE, CONC. (te st code = 2072) 356.9 MG/DL ALBUMIN, URINE, RANDOM (test code = 09575) 2.7 MG/DL CALC ALBUMIN/CREAT, RND (irina t code = 16691) 8 MG/G Chucho DraperCOMPREHENSIVE METABOLIC [id number] 00:00:00* Test Item Value Reference Range Interpretation Comme nts GLUCOSE (test code = 2217) 125 MG/DL BUN (test code = 2208) 28 MG/DL CREATININE (test code = 2214) 1.21 MG/DL eGFR AMER. (test cod e = 51304) 71 ML/MIN/1.73 eGFR NON- AMER. (test code = 05024) 61 ML/MIN/1.73 CALC BUN/CREAT (test code = 2235) 23 RATIO SODIUM (test code = 2231) 140 MEQ/L POTASSIUM (test code = 2228) 4.6 MEQ/L CHLORIDE (test code = 2215) 101 MEQ/L CARBON DIOXIDE (test code = 2206) 23 MEQ/L CALCIUM (test code = 2209) 9.5 MG/DL PROTEIN, TOTAL (test code = 2229) 7.1 G/DL ALBUMIN (test code = 2201) 4.4 G/DL CALC GLOBULIN (test code = 2240) 2.7 G/DL CALC A/G RATIO (test code = 2234) 1.6 RATIO BILIRUBIN, TOTAL (test code = 2207) 0.3 MG/DL ALKALINE PHOSPHATASE (test code = 2204) 63 U/L AST (test code = 2218) 11 U/L ALT (test code = 2219) 10 U/L Chucho DraperLIPID [id number] 00:00:00* Test Item Value Reference Range Interpretation Comme nts CHOLESTEROL (test code = 2210) 106 MG/DL TRIGLYCERIDES (test code = 2232) 140 MG/DL HDL CHOLESTEROL (test code = 2220) 42 MG/DL CALC LDL CHOL (test code = 2237) 42 MG/DL RISK RATIO LDL/HDL (test cod e = 2238) 1.00 RATIO Chucho DraperHEMOGLOBIN [id number] 00:00:00* Test Item Value Reference Range Interpretation Comme nts HEMOGLOBIN A1c (test code = 08181) 6.0 % Chucho DraperMICROALBUMIN/CREATININE, RANDOM AND [id number] 00:00:00* Test Item Value Reference Range Interpretation Comme nts CREATININE, URINE, CONC. (te st code = 2072) 356.9 MG/DL ALBUMIN, URINE, RANDOM (test code = 21992) 2.7 MG/DL CALC ALBUMIN/CREAT, RND (irina t code = 86184) 8 MG/G Chucho DraperCOMPREHENSIVE METABOLIC [id number] 00:00:00* Test Item Value Reference Range Interpretation Comme nts GLUCOSE (test code = 2217) 125 MG/DL BUN (test code = 8) 28 MG/DL CREATININE (test code = 2214) 1.21 MG/DL eGFR AMER. (test cod e = 71388) 71 ML/MIN/1.73 eGFR NON- AMER. (test code = 58738) 61 ML/MIN/1.73 CALC BUN/CREAT (test code = 2235) 23 RATIO SODIUM (test code = 2231) 140 MEQ/L POTASSIUM (test code = 2228) 4.6 MEQ/L CHLORIDE (test code = 2215) 101 MEQ/L CARBON DIOXIDE (test code = 2206) 23 MEQ/L CALCIUM (test code = 2209) 9.5 MG/DL PROTEIN, TOTAL (test code = 2229) 7.1 G/DL ALBUMIN (test code = 2201) 4.4 G/DL CALC GLOBULIN (test code = 2240) 2.7 G/DL CALC A/G RATIO (test code = 2234) 1.6 RATIO BILIRUBIN, TOTAL (test code = 2207) 0.3 MG/DL ALKALINE PHOSPHATASE (test code = 2204) 63 U/L AST (test code = 2218) 11 U/L ALT (test code = 2219) 10 U/L Chucho DraperLIPID [id number] 00:00:00* Test Item Value Reference Range Interpretation Comme nts CHOLESTEROL (test code = 2210) 106 MG/DL TRIGLYCERIDES (test code = 2232) 140 MG/DL HDL CHOLESTEROL (test code = 2220) 42 MG/DL CALC LDL CHOL (test code = 2237) 42 MG/DL RISK RATIO LDL/HDL (test cod e = 2238) 1.00 RATIO Chucho DraperHEMOGLOBIN [id number] 00:00:00* Test Item Value Reference Range Interpretation Comme nts HEMOGLOBIN A1c (test code = 72358) 6.0 % Chucho DraperMICROALBUMIN/CREATININE, RANDOM AND [id number] 00:00:00* Test Item Value Reference Range Interpretation Comme nts CREATININE, URINE, CONC. (te st code = 2072) 356.9 MG/DL ALBUMIN, URINE, RANDOM (test code = 45745) 2.7 MG/DL CALC ALBUMIN/CREAT, RND (irina t code = 16942) 8 MG/G Chucho Strat[place] BaronCOMPREHENSIVE METABOLIC [id number] 00:00:00* Test Item Value Reference Range Interpretation Comme nts GLUCOSE (test code = 2217) 125 MG/DL BUN (test code = 2208) 28 MG/DL CREATININE (test code = 2214) 1.21 MG/DL eGFR AMER. (test cod e = 55275) 71 ML/MIN/1.73 eGFR NON- AMER. (test code = 50693) 61 ML/MIN/1.73 CALC BUN/CREAT (test code = 2235) 23 RATIO SODIUM (test code = 2231) 140 MEQ/L POTASSIUM (test code = 2228) 4.6 MEQ/L CHLORIDE (test code = 2215) 101 MEQ/L CARBON DIOXIDE (test code = 2206) 23 MEQ/L CALCIUM (test code = 2209) 9.5 MG/DL PROTEIN, TOTAL (test code = 2229) 7.1 G/DL ALBUMIN (test code = 2201) 4.4 G/DL CALC GLOBULIN (test code = 2240) 2.7 G/DL CALC A/G RATIO (test code = 2234) 1.6 RATIO BILIRUBIN, TOTAL (test code = 2207) 0.3 MG/DL ALKALINE PHOSPHATASE (test code = 2204) 63 U/L AST (test code = 2218) 11 U/L ALT (test code = 2219) 10 U/L Chucho Strat[place] AustinLIPID [id number] 00:00:00* Test Item Value Reference Range Interpretation Comme nts CHOLESTEROL (test code = 2210) 106 MG/DL TRIGLYCERIDES (test code = 2232) 140 MG/DL HDL CHOLESTEROL (test code = 2220) 42 MG/DL CALC LDL CHOL (test code = 2237) 42 MG/DL RISK RATIO LDL/HDL (test cod e = 2238) 1.00 RATIO Chucho Strat[place] AustinHEMOGLOBIN [id number] 00:00:00* Test Item Value Reference Range Interpretation Comme nts HEMOGLOBIN A1c (test code = 24966) 6.0 % Chucho Strat[place] AustinMICROALBUMIN/CREATININE, RANDOM AND [id number] 00:00:00* Test Item Value Reference Range Interpretation Comme nts CREATININE, URINE, CONC. (te st code = 2072) 356.9 MG/DL ALBUMIN, URINE, RANDOM (test code = 08740) 2.7 MG/DL CALC ALBUMIN/CREAT, RND (irina t code = 33588) 8 MG/G Chucho Stratton AustinHEMOGLOBIN [id number] 00:00:00* Test Item Value Reference Range Interpretation Comme nts HEMOGLOBIN A1c (test code = 23292) 9.5 % COMPREHENSIVE METABOLIC [id number] 00:00:00* Test Item Value Reference Range Interpretation Comme nts GLUCOSE (test code = 2217) 201 MG/DL BUN (test code = 2208) 16 MG/DL CREATININE (test code = 2214) 1.05 MG/DL eGFR AMER. (test cod e = 33541) 84 ML/MIN/1.73 eGFR NON- AMER. (test code = 43602) 73 ML/MIN/1.73 CALC BUN/CREAT (test code = 2235) 15 RATIO SODIUM (test code = 2231) 138 MEQ/L POTASSIUM (test code = 2228) 4.8 MEQ/L CHLORIDE (test code = 2215) 100 MEQ/L CARBON DIOXIDE (test code = 2206) 28 MEQ/L CALCIUM (test code = 2209) 9.9 MG/DL PROTEIN, TOTAL (test code = 2229) 7.5 G/DL ALBUMIN (test code = 2201) 4.8 G/DL CALC GLOBULIN (test code = 2240) 2.7 G/DL CALC A/G RATIO (test code = 2234) 1.8 RATIO BILIRUBIN, TOTAL (test code = 2207) 0.6 MG/DL ALKALINE PHOSPHATASE (test code = 2204) 87 U/L AST (test code = 2218) 12 U/L ALT (test code = 2219) 9 U/L LIPID [id number] 00:00:00* Test Item Value Reference Range Interpretation Comme nts CHOLESTEROL (test code = 2210) 119 MG/DL TRIGLYCERIDES (test code = 2232) 138 MG/DL HDL CHOLESTEROL (test code = 2220) 41 MG/DL CALC LDL CHOL (test code = 2237) 50 MG/DL RISK RATIO LDL/HDL (test cod e = 2238) 1.23 RATIO HEMOGLOBIN [id number] 00:00:00* Test Item Value Reference Range Interpretation Comme nts HEMOGLOBIN A1c (test code = 30621) 9.5 % COMPREHENSIVE METABOLIC [id number] 00:00:00* Test Item Value Reference Range Interpretation Comme nts GLUCOSE (test code = 2217) 201 MG/DL BUN (test code = 2208) 16 MG/DL CREATININE (test code = 2214) 1.05 MG/DL eGFR AMER. (test cod e = 35561) 84 ML/MIN/1.73 eGFR NON- AMER. (test code = 28847) 73 ML/MIN/1.73 CALC BUN/CREAT (test code = 2235) 15 RATIO SODIUM (test code = 2231) 138 MEQ/L POTASSIUM (test code = 2228) 4.8 MEQ/L CHLORIDE (test code = 2215) 100 MEQ/L CARBON DIOXIDE (test code = 2206) 28 MEQ/L CALCIUM (test code = 2209) 9.9 MG/DL PROTEIN, TOTAL (test code = 2229) 7.5 G/DL ALBUMIN (test code = 2201) 4.8 G/DL CALC GLOBULIN (test code = 2240) 2.7 G/DL CALC A/G RATIO (test code = 2234) 1.8 RATIO BILIRUBIN, TOTAL (test code = 2207) 0.6 MG/DL ALKALINE PHOSPHATASE (test code = 2204) 87 U/L AST (test code = 2218) 12 U/L ALT (test code = 2219) 9 U/L LIPID [id number] 00:00:00* Test Item Value Reference Range Interpretation Comme nts CHOLESTEROL (test code = 2210) 119 MG/DL TRIGLYCERIDES (test code = 2232) 138 MG/DL HDL CHOLESTEROL (test code = 2220) 41 MG/DL CALC LDL CHOL (test code = 2237) 50 MG/DL RISK RATIO LDL/HDL (test cod e = 2238) 1.23 RATIO HEMOGLOBIN [id number] 00:00:00* Test Item Value Reference Range Interpretation Comme nts HEMOGLOBIN A1c (test code = 63838) 9.5 % COMPREHENSIVE METABOLIC [id number] 00:00:00* Test Item Value Reference Range Interpretation Comme nts GLUCOSE (test code = 2217) 201 MG/DL BUN (test code = 2208) 16 MG/DL CREATININE (test code = 2214) 1.05 MG/DL eGFR AMER. (test cod e = 39435) 84 ML/MIN/1.73 eGFR NON- AMER. (test code = 74413) 73 ML/MIN/1.73 CALC BUN/CREAT (test code = 2235) 15 RATIO SODIUM (test code = 2231) 138 MEQ/L POTASSIUM (test code = 2228) 4.8 MEQ/L CHLORIDE (test code = 2215) 100 MEQ/L CARBON DIOXIDE (test code = 2206) 28 MEQ/L CALCIUM (test code = 2209) 9.9 MG/DL PROTEIN, TOTAL (test code = 2229) 7.5 G/DL ALBUMIN (test code = 2201) 4.8 G/DL CALC GLOBULIN (test code = 2240) 2.7 G/DL CALC A/G RATIO (test code = 2234) 1.8 RATIO BILIRUBIN, TOTAL (test code = 2207) 0.6 MG/DL ALKALINE PHOSPHATASE (test code = 2204) 87 U/L AST (test code = 2218) 12 U/L ALT (test code = 2219) 9 U/L LIPID [id number] 00:00:00* Test Item Value Reference Range Interpretation Comme nts CHOLESTEROL (test code = 2210) 119 MG/DL TRIGLYCERIDES (test code = 2232) 138 MG/DL HDL CHOLESTEROL (test code = 2220) 41 MG/DL CALC LDL CHOL (test code = 2237) 50 MG/DL RISK RATIO LDL/HDL (test cod e = 2238) 1.23 RATIO COMPREHENSIVE METABOLIC [id number] 00:00:00* Test Item Value Reference Range Interpretation Comme nts GLUCOSE (test code = 2217) 201 MG/DL BUN (test code = 2208) 16 MG/DL CREATININE (test code = 2214) 1.05 MG/DL eGFR AMER. (test cod e = 94157) 84 ML/MIN/1.73 eGFR NON- AMER. (test code = 56447) 73 ML/MIN/1.73 CALC BUN/CREAT (test code = 2235) 15 RATIO SODIUM (test code = 2231) 138 MEQ/L POTASSIUM (test code = 2228) 4.8 MEQ/L CHLORIDE (test code = 2215) 100 MEQ/L CARBON DIOXIDE (test code = 2206) 28 MEQ/L CALCIUM (test code = 2209) 9.9 MG/DL PROTEIN, TOTAL (test code = 2229) 7.5 G/DL ALBUMIN (test code = 2201) 4.8 G/DL CALC GLOBULIN (test code = 2240) 2.7 G/DL CALC A/G RATIO (test code = 2234) 1.8 RATIO BILIRUBIN, TOTAL (test code = 2207) 0.6 MG/DL ALKALINE PHOSPHATASE (test code = 2204) 87 U/L AST (test code = 2218) 12 U/L ALT (test code = 2219) 9 U/L Chucho DraperLIPID [id number] 00:00:00* Test Item Value Reference Range Interpretation Comme nts CHOLESTEROL (test code = 2210) 119 MG/DL TRIGLYCERIDES (test code = 2232) 138 MG/DL HDL CHOLESTEROL (test code = 2220) 41 MG/DL CALC LDL CHOL (test code = 2237) 50 MG/DL RISK RATIO LDL/HDL (test cod e = 2238) 1.23 RATIO Chucho DraperHEMOGLOBIN [id number] 00:00:00* Test Item Value Reference Range Interpretation Comme nts HEMOGLOBIN A1c (test code = 09148) 9.5 % Chucho DraperCOMPREHENSIVE METABOLIC [id number] 00:00:00* Test Item Value Reference Range Interpretation Comme nts GLUCOSE (test code = 2217) 201 MG/DL BUN (test code = 2208) 16 MG/DL CREATININE (test code = 2214) 1.05 MG/DL eGFR AMER. (test cod e = 12930) 84 ML/MIN/1.73 eGFR NON- AMER. (test code = 27617) 73 ML/MIN/1.73 CALC BUN/CREAT (test code = 2235) 15 RATIO SODIUM (test code = 2231) 138 MEQ/L POTASSIUM (test code = 2228) 4.8 MEQ/L CHLORIDE (test code = 2215) 100 MEQ/L CARBON DIOXIDE (test code = 2206) 28 MEQ/L CALCIUM (test code = 2209) 9.9 MG/DL PROTEIN, TOTAL (test code = 2229) 7.5 G/DL ALBUMIN (test code = 2201) 4.8 G/DL CALC GLOBULIN (test code = 2240) 2.7 G/DL CALC A/G RATIO (test code = 2234) 1.8 RATIO BILIRUBIN, TOTAL (test code = 2207) 0.6 MG/DL ALKALINE PHOSPHATASE (test code = 2204) 87 U/L AST (test code = 2218) 12 U/L ALT (test code = 2219) 9 U/L Chucho DraperLIPID [id number] 00:00:00* Test Item Value Reference Range Interpretation Comme nts CHOLESTEROL (test code = 2210) 119 MG/DL TRIGLYCERIDES (test code = 2232) 138 MG/DL HDL CHOLESTEROL (test code = 2220) 41 MG/DL CALC LDL CHOL (test code = 2237) 50 MG/DL RISK RATIO LDL/HDL (test cod e = 2238) 1.23 RATIO Chucho DraperHEMOGLOBIN [id number] 00:00:00* Test Item Value Reference Range Interpretation Comme nts HEMOGLOBIN A1c (test code = 11156) 9.5 % Chucho DraperCOMPREHENSIVE METABOLIC [id number] 00:00:00* Test Item Value Reference Range Interpretation Comme nts GLUCOSE (test code = 2217) 201 MG/DL BUN (test code = 2208) 16 MG/DL CREATININE (test code = 2214) 1.05 MG/DL eGFR AMER. (test cod e = 83298) 84 ML/MIN/1.73 eGFR NON- AMER. (test code = 21743) 73 ML/MIN/1.73 CALC BUN/CREAT (test code = 2235) 15 RATIO SODIUM (test code = 2231) 138 MEQ/L POTASSIUM (test code = 2228) 4.8 MEQ/L CHLORIDE (test code = 2215) 100 MEQ/L CARBON DIOXIDE (test code = 2206) 28 MEQ/L CALCIUM (test code = 2209) 9.9 MG/DL PROTEIN, TOTAL (test code = 2229) 7.5 G/DL ALBUMIN (test code = 2201) 4.8 G/DL CALC GLOBULIN (test code = 2240) 2.7 G/DL CALC A/G RATIO (test code = 2234) 1.8 RATIO BILIRUBIN, TOTAL (test code = 2207) 0.6 MG/DL ALKALINE PHOSPHATASE (test code = 2204) 87 U/L AST (test code = 2218) 12 U/L ALT (test code = 2219) 9 U/L Chucho DraperLIPID [id number] 00:00:00* Test Item Value Reference Range Interpretation Comme nts CHOLESTEROL (test code = 2210) 119 MG/DL TRIGLYCERIDES (test code = 2232) 138 MG/DL HDL CHOLESTEROL (test code = 2220) 41 MG/DL CALC LDL CHOL (test code = 2237) 50 MG/DL RISK RATIO LDL/HDL (test cod e = 2238) 1.23 RATIO Chucho DraperHEMOGLOBIN [id number] 00:00:00* Test Item Value Reference Range Interpretation Comme nts HEMOGLOBIN A1c (test code = 04314) 9.5 % Chucho DraperCOMPREHENSIVE METABOLIC [id number] 00:00:00* Test Item Value Reference Range Interpretation Comme nts GLUCOSE (test code = 2217) 201 MG/DL BUN (test code = 2208) 16 MG/DL CREATININE (test code = 2214) 1.05 MG/DL eGFR AMER. (test cod e = 38227) 84 ML/MIN/1.73 eGFR NON- AMER. (test code = 11057) 73 ML/MIN/1.73 CALC BUN/CREAT (test code = 2235) 15 RATIO SODIUM (test code = 2231) 138 MEQ/L POTASSIUM (test code = 2228) 4.8 MEQ/L CHLORIDE (test code = 2215) 100 MEQ/L CARBON DIOXIDE (test code = 2206) 28 MEQ/L CALCIUM (test code = 2209) 9.9 MG/DL PROTEIN, TOTAL (test code = 2229) 7.5 G/DL ALBUMIN (test code = 2201) 4.8 G/DL CALC GLOBULIN (test code = 2240) 2.7 G/DL CALC A/G RATIO (test code = 2234) 1.8 RATIO BILIRUBIN, TOTAL (test code = 2207) 0.6 MG/DL ALKALINE PHOSPHATASE (test code = 2204) 87 U/L AST (test code = 2218) 12 U/L ALT (test code = 2219) 9 U/L Chucho Stratton AustinLIPID [id number] 00:00:00* Test Item Value Reference Range Interpretation Comme nts CHOLESTEROL (test code = 2210) 119 MG/DL TRIGLYCERIDES (test code = 2232) 138 MG/DL HDL CHOLESTEROL (test code = 2220) 41 MG/DL CALC LDL CHOL (test code = 2237) 50 MG/DL RISK RATIO LDL/HDL (test cod e = 2238) 1.23 RATIO Chucho DraperHEMOGLOBIN [id number] 00:00:00* Test Item Value Reference Range Interpretation Comme nts HEMOGLOBIN A1c (test code = 53608) 9.5 % Chucho Stratton AustinCOMPREHENSIVE METABOLIC [id number] 00:00:00* Test Item Value Reference Range Interpretation Comme nts GLUCOSE (test code = 2217) 201 MG/DL BUN (test code = 2208) 16 MG/DL CREATININE (test code = 2214) 1.05 MG/DL eGFR AMER. (test cod e = 37049) 84 ML/MIN/1.73 eGFR NON- AMER. (test code = 44083) 73 ML/MIN/1.73 CALC BUN/CREAT (test code = 2235) 15 RATIO SODIUM (test code = 2231) 138 MEQ/L POTASSIUM (test code = 2228) 4.8 MEQ/L CHLORIDE (test code = 2215) 100 MEQ/L CARBON DIOXIDE (test code = 2206) 28 MEQ/L CALCIUM (test code = 2209) 9.9 MG/DL PROTEIN, TOTAL (test code = 2229) 7.5 G/DL ALBUMIN (test code = 2201) 4.8 G/DL CALC GLOBULIN (test code = 2240) 2.7 G/DL CALC A/G RATIO (test code = 2234) 1.8 RATIO BILIRUBIN, TOTAL (test code = 2207) 0.6 MG/DL ALKALINE PHOSPHATASE (test code = 2204) 87 U/L AST (test code = 2218) 12 U/L ALT (test code = 2219) 9 U/L Chucho Strat[place] AustinLIPID [id number] 00:00:00* Test Item Value Reference Range Interpretation Comme nts CHOLESTEROL (test code = 2210) 119 MG/DL TRIGLYCERIDES (test code = 2232) 138 MG/DL HDL CHOLESTEROL (test code = 2220) 41 MG/DL CALC LDL CHOL (test code = 2237) 50 MG/DL RISK RATIO LDL/HDL (test cod e = 2238) 1.23 RATIO Chucho DraperHEMOGLOBIN [id number] 00:00:00* Test Item Value Reference Range Interpretation Comme nts HEMOGLOBIN A1c (test code = 59678) 9.5 % Chucho Stratton AustinCOMPREHENSIVE METABOLIC [id number] 00:00:00* Test Item Value Reference Range Interpretation Comme nts GLUCOSE (test code = 2217) 201 MG/DL BUN (test code = 2208) 16 MG/DL CREATININE (test code = 2214) 1.05 MG/DL eGFR AMER. (test cod e = 61081) 84 ML/MIN/1.73 eGFR NON- AMER. (test code = 77449) 73 ML/MIN/1.73 CALC BUN/CREAT (test code = 2235) 15 RATIO SODIUM (test code = 2231) 138 MEQ/L POTASSIUM (test code = 2228) 4.8 MEQ/L CHLORIDE (test code = 2215) 100 MEQ/L CARBON DIOXIDE (test code = 2206) 28 MEQ/L CALCIUM (test code = 2209) 9.9 MG/DL PROTEIN, TOTAL (test code = 2229) 7.5 G/DL ALBUMIN (test code = 2201) 4.8 G/DL CALC GLOBULIN (test code = 2240) 2.7 G/DL CALC A/G RATIO (test code = 2234) 1.8 RATIO BILIRUBIN, TOTAL (test code = 2207) 0.6 MG/DL ALKALINE PHOSPHATASE (test code = 2204) 87 U/L AST (test code = 2218) 12 U/L ALT (test code = 2219) 9 U/L Chucho DraperLIPID [id number] 00:00:00* Test Item Value Reference Range Interpretation Comme nts CHOLESTEROL (test code = 2210) 119 MG/DL TRIGLYCERIDES (test code = 2232) 138 MG/DL HDL CHOLESTEROL (test code = 2220) 41 MG/DL CALC LDL CHOL (test code = 2237) 50 MG/DL RISK RATIO LDL/HDL (test cod e = 223) 1.23 RATIO Chucho DraperHEMOGLOBIN [id number] 00:00:00* Test Item Value Reference Range Interpretation Comme nts HEMOGLOBIN A1c (test code = 66581) 9.5 % Chucho DraperCBC W/AUTO [id number] 00:00:00* Test Item Value Reference Range Interpretation Comme nts WBC (test code = 1001) 9.4 K/UL RBC (test code = 1002) 4.86 M/UL HEMOGLOBIN (test code = 1003) 13.2 G/DL HEMATOCRIT (test code = 1004) 39.6 % MCV (test code = 1005) 81.5 fL MCH (test code = 1006) 27.2 PG MCHC (test code = 1007) 33.3 G/DL RDW (test code = 1038) 15.0 % NEUTROPHILS (test code = 1008) 74.3 % LYMPHOCYTES (test code = 1010) 18.6 % MONOCYTES (test code = 1011) 6.2 % EOSINOPHILS (test code = 1012) 0.6 % BASOPHILS (test code = 1013) 0.3 % PLATELET COUNT (test code = 1015) 224 K/UL HEMOGLOBIN [id number] 00:00:00* Test Item Value Reference Range Interpretation Comme nts HEMOGLOBIN A1c (test code = 83765) 6.1 % LIPID [id number] 00:00:00* Test Item Value Reference Range Interpretation Comme nts CHOLESTEROL (test code = 2210) 141 MG/DL TRIGLYCERIDES (test code = 2232) 97 MG/DL HDL CHOLESTEROL (test code = 2220) 55 MG/DL CALC LDL CHOL (test code = 2237) 67 MG/DL RISK RATIO LDL/HDL (test cod e = 2238) 1.21 RATIO COMPREHENSIVE METABOLIC [id number] 00:00:00* Test Item Value Reference Range Interpretation Comme nts GLUCOSE (test code = 2217) 70 MG/DL BUN (test code = 2208) 16 MG/DL CREATININE (test code = 2214) 1.01 MG/DL eGFR AMER. (test cod e = 64999) 88 ML/MIN/1.73 eGFR NON- AMER. (test code = 25439) 76 ML/MIN/1.73 CALC BUN/CREAT (test code = 2235) 16 RATIO SODIUM (test code = 2231) 142 MEQ/L POTASSIUM (test code = 2228) 4.3 MEQ/L CHLORIDE (test code = 2215) 103 MEQ/L CARBON DIOXIDE (test code = 2206) 27 MEQ/L CALCIUM (test code = 2209) 9.6 MG/DL PROTEIN, TOTAL (test code = 2229) 7.4 G/DL ALBUMIN (test code = 2201) 4.5 G/DL CALC GLOBULIN (test code = 2240) 2.9 G/DL CALC A/G RATIO (test code = 2234) 1.6 RATIO BILIRUBIN, TOTAL (test code = 2207) 0.4 MG/DL ALKALINE PHOSPHATASE (test code = 2204) 71 U/L AST (test code = 2218) 14 U/L ALT (test code = 2219) 14 U/L CBC W/AUTO [id number] 00:00:00* Test Item Value Reference Range Interpretation Comme nts WBC (test code = 1001) 9.4 K/UL RBC (test code = 1002) 4.86 M/UL HEMOGLOBIN (test code = 1003) 13.2 G/DL HEMATOCRIT (test code = 1004) 39.6 % MCV (test code = 1005) 81.5 fL MCH (test code = 1006) 27.2 PG MCHC (test code = 1007) 33.3 G/DL RDW (test code = 1038) 15.0 % NEUTROPHILS (test code = 1008) 74.3 % LYMPHOCYTES (test code = 1010) 18.6 % MONOCYTES (test code = 1011) 6.2 % EOSINOPHILS (test code = 1012) 0.6 % BASOPHILS (test code = 1013) 0.3 % PLATELET COUNT (test code = 1015) 224 K/UL HEMOGLOBIN [id number] 00:00:00* Test Item Value Reference Range Interpretation Comme nts HEMOGLOBIN A1c (test code = 38783) 6.1 % LIPID [id number] 00:00:00* Test Item Value Reference Range Interpretation Comme nts CHOLESTEROL (test code = 2210) 141 MG/DL TRIGLYCERIDES (test code = 2232) 97 MG/DL HDL CHOLESTEROL (test code = 2220) 55 MG/DL CALC LDL CHOL (test code = 2237) 67 MG/DL RISK RATIO LDL/HDL (test cod e = 2238) 1.21 RATIO COMPREHENSIVE METABOLIC [id number] 00:00:00* Test Item Value Reference Range Interpretation Comme nts GLUCOSE (test code = 2217) 70 MG/DL BUN (test code = 2208) 16 MG/DL CREATININE (test code = 2214) 1.01 MG/DL eGFR AMER. (test cod e = 41700) 88 ML/MIN/1.73 eGFR NON- AMER. (test code = 95070) 76 ML/MIN/1.73 CALC BUN/CREAT (test code = 2235) 16 RATIO SODIUM (test code = 2231) 142 MEQ/L POTASSIUM (test code = 2228) 4.3 MEQ/L CHLORIDE (test code = 2215) 103 MEQ/L CARBON DIOXIDE (test code = 2206) 27 MEQ/L CALCIUM (test code = 2209) 9.6 MG/DL PROTEIN, TOTAL (test code = 2229) 7.4 G/DL ALBUMIN (test code = 2201) 4.5 G/DL CALC GLOBULIN (test code = 2240) 2.9 G/DL CALC A/G RATIO (test code = 2234) 1.6 RATIO BILIRUBIN, TOTAL (test code = 2207) 0.4 MG/DL ALKALINE PHOSPHATASE (test code = 2204) 71 U/L AST (test code = 2218) 14 U/L ALT (test code = 2219) 14 U/L CBC W/AUTO [id number] 00:00:00* Test Item Value Reference Range Interpretation Comme nts WBC (test code = 1001) 9.4 K/UL RBC (test code = 1002) 4.86 M/UL HEMOGLOBIN (test code = 1003) 13.2 G/DL HEMATOCRIT (test code = 1004) 39.6 % MCV (test code = 1005) 81.5 fL MCH (test code = 1006) 27.2 PG MCHC (test code = 1007) 33.3 G/DL RDW (test code = 1038) 15.0 % NEUTROPHILS (test code = 1008) 74.3 % LYMPHOCYTES (test code = 1010) 18.6 % MONOCYTES (test code = 1011) 6.2 % EOSINOPHILS (test code = 1012) 0.6 % BASOPHILS (test code = 1013) 0.3 % PLATELET COUNT (test code = 1015) 224 K/UL HEMOGLOBIN [id number] 00:00:00* Test Item Value Reference Range Interpretation Comme nts HEMOGLOBIN A1c (test code = 87330) 6.1 % LIPID [id number] 00:00:00* Test Item Value Reference Range Interpretation Comme nts CHOLESTEROL (test code = 2210) 141 MG/DL TRIGLYCERIDES (test code = 2232) 97 MG/DL HDL CHOLESTEROL (test code = 2220) 55 MG/DL CALC LDL CHOL (test code = 2237) 67 MG/DL RISK RATIO LDL/HDL (test cod e = 2238) 1.21 RATIO COMPREHENSIVE METABOLIC [id number] 00:00:00* Test Item Value Reference Range Interpretation Comme nts GLUCOSE (test code = 2217) 70 MG/DL BUN (test code = 2208) 16 MG/DL CREATININE (test code = 2214) 1.01 MG/DL eGFR AMER. (test cod e = 53485) 88 ML/MIN/1.73 eGFR NON- AMER. (test code = 65454) 76 ML/MIN/1.73 CALC BUN/CREAT (test code = 2235) 16 RATIO SODIUM (test code = 2231) 142 MEQ/L POTASSIUM (test code = 2228) 4.3 MEQ/L CHLORIDE (test code = 2215) 103 MEQ/L CARBON DIOXIDE (test code = 2206) 27 MEQ/L CALCIUM (test code = 2209) 9.6 MG/DL PROTEIN, TOTAL (test code = 2229) 7.4 G/DL ALBUMIN (test code = 2201) 4.5 G/DL CALC GLOBULIN (test code = 2240) 2.9 G/DL CALC A/G RATIO (test code = 2234) 1.6 RATIO BILIRUBIN, TOTAL (test code = 2207) 0.4 MG/DL ALKALINE PHOSPHATASE (test code = 2204) 71 U/L AST (test code = 2218) 14 U/L ALT (test code = 2219) 14 U/L CBC W/AUTO [id number] 00:00:00* Test Item Value Reference Range Interpretation Comme nts WBC (test code = 1001) 9.4 K/UL RBC (test code = 1002) 4.86 M/UL HEMOGLOBIN (test code = 1003) 13.2 G/DL HEMATOCRIT (test code = 1004) 39.6 % MCV (test code = 1005) 81.5 fL MCH (test code = 1006) 27.2 PG MCHC (test code = 1007) 33.3 G/DL RDW (test code = 1038) 15.0 % NEUTROPHILS (test code = 1008) 74.3 % LYMPHOCYTES (test code = 1010) 18.6 % MONOCYTES (test code = 1011) 6.2 % EOSINOPHILS (test code = 1012) 0.6 % BASOPHILS (test code = 1013) 0.3 % PLATELET COUNT (test code = 1015) 224 K/UL Chucho F AustinHEMOGLOBIN [id number] 00:00:00* Test Item Value Reference Range Interpretation Comme nts HEMOGLOBIN A1c (test code = 92077) 6.1 % Chucho DraperLIPID [id number] 00:00:00* Test Item Value Reference Range Interpretation Comme nts CHOLESTEROL (test code = 2210) 141 MG/DL TRIGLYCERIDES (test code = 2232) 97 MG/DL HDL CHOLESTEROL (test code = 2220) 55 MG/DL CALC LDL CHOL (test code = 2237) 67 MG/DL RISK RATIO LDL/HDL (test cod e = 2238) 1.21 RATIO Chucho DraperCOMPREHENSIVE METABOLIC [id number] 00:00:00* Test Item Value Reference Range Interpretation Comme nts GLUCOSE (test code = 2217) 70 MG/DL BUN (test code = 2208) 16 MG/DL CREATININE (test code = 2214) 1.01 MG/DL eGFR AMER. (test cod e = 57164) 88 ML/MIN/1.73 eGFR NON- AMER. (test code = 66370) 76 ML/MIN/1.73 CALC BUN/CREAT (test code = 2235) 16 RATIO SODIUM (test code = 2231) 142 MEQ/L POTASSIUM (test code = 2228) 4.3 MEQ/L CHLORIDE (test code = 2215) 103 MEQ/L CARBON DIOXIDE (test code = 2206) 27 MEQ/L CALCIUM (test code = 2209) 9.6 MG/DL PROTEIN, TOTAL (test code = 2229) 7.4 G/DL ALBUMIN (test code = 2201) 4.5 G/DL CALC GLOBULIN (test code = 2240) 2.9 G/DL CALC A/G RATIO (test code = 2234) 1.6 RATIO BILIRUBIN, TOTAL (test code = 2207) 0.4 MG/DL ALKALINE PHOSPHATASE (test code = 2204) 71 U/L AST (test code = 2218) 14 U/L ALT (test code = 2219) 14 U/L Chucho DraperCBC W/AUTO [id number] 00:00:00* Test Item Value Reference Range Interpretation Comme nts WBC (test code = 1001) 9.4 K/UL RBC (test code = 1002) 4.86 M/UL HEMOGLOBIN (test code = 1003) 13.2 G/DL HEMATOCRIT (test code = 1004) 39.6 % MCV (test code = 1005) 81.5 fL MCH (test code = 1006) 27.2 PG MCHC (test code = 1007) 33.3 G/DL RDW (test code = 1038) 15.0 % NEUTROPHILS (test code = 1008) 74.3 % LYMPHOCYTES (test code = 1010) 18.6 % MONOCYTES (test code = 1011) 6.2 % EOSINOPHILS (test code = 1012) 0.6 % BASOPHILS (test code = 1013) 0.3 % PLATELET COUNT (test code = 1015) 224 K/UL Chucho DraperHEMOGLOBIN [id number] 00:00:00* Test Item Value Reference Range Interpretation Comme nts HEMOGLOBIN A1c (test code = 19211) 6.1 % Chucho DraperLIPID [id number] 00:00:00* Test Item Value Reference Range Interpretation Comme nts CHOLESTEROL (test code = 2210) 141 MG/DL TRIGLYCERIDES (test code = 2232) 97 MG/DL HDL CHOLESTEROL (test code = 2220) 55 MG/DL CALC LDL CHOL (test code = 2237) 67 MG/DL RISK RATIO LDL/HDL (test cod e = 2238) 1.21 RATIO Chucho DraperCOMPREHENSIVE METABOLIC [id number] 00:00:00* Test Item Value Reference Range Interpretation Comme nts GLUCOSE (test code = 2217) 70 MG/DL BUN (test code = 2208) 16 MG/DL CREATININE (test code = 2214) 1.01 MG/DL eGFR AMER. (test cod e = 65881) 88 ML/MIN/1.73 eGFR NON- AMER. (test code = 04647) 76 ML/MIN/1.73 CALC BUN/CREAT (test code = 2235) 16 RATIO SODIUM (test code = 2231) 142 MEQ/L POTASSIUM (test code = 2228) 4.3 MEQ/L CHLORIDE (test code = 2215) 103 MEQ/L CARBON DIOXIDE (test code = 2206) 27 MEQ/L CALCIUM (test code = 2209) 9.6 MG/DL PROTEIN, TOTAL (test code = 2229) 7.4 G/DL ALBUMIN (test code = 2201) 4.5 G/DL CALC GLOBULIN (test code = 2240) 2.9 G/DL CALC A/G RATIO (test code = 2234) 1.6 RATIO BILIRUBIN, TOTAL (test code = 2207) 0.4 MG/DL ALKALINE PHOSPHATASE (test code = 2204) 71 U/L AST (test code = 2218) 14 U/L ALT (test code = 2219) 14 U/L Chucho DraperCBC W/AUTO [id number] 00:00:00* Test Item Value Reference Range Interpretation Comme nts WBC (test code = 1001) 9.4 K/UL RBC (test code = 1002) 4.86 M/UL HEMOGLOBIN (test code = 1003) 13.2 G/DL HEMATOCRIT (test code = 1004) 39.6 % MCV (test code = 1005) 81.5 fL MCH (test code = 1006) 27.2 PG MCHC (test code = 1007) 33.3 G/DL RDW (test code = 1038) 15.0 % NEUTROPHILS (test code = 1008) 74.3 % LYMPHOCYTES (test code = 1010) 18.6 % MONOCYTES (test code = 1011) 6.2 % EOSINOPHILS (test code = 1012) 0.6 % BASOPHILS (test code = 1013) 0.3 % PLATELET COUNT (test code = 1015) 224 K/UL Chucho DraperHEMOGLOBIN [id number] 00:00:00* Test Item Value Reference Range Interpretation Comme [facility] HEMOGLOBIN A1c (test code = 83357) 6.1 % Chucho DraperLIPID [id number] 00:00:00* Test Item Value Reference Range Interpretation Comme nts CHOLESTEROL (test code = 2210) 141 MG/DL TRIGLYCERIDES (test code = 2232) 97 MG/DL HDL CHOLESTEROL (test code = 2220) 55 MG/DL CALC LDL CHOL (test code = 2237) 67 MG/DL RISK RATIO LDL/HDL (test cod e = 2238) 1.21 RATIO Chucho DraperCOMPREHENSIVE METABOLIC [id number] 00:00:00* Test Item Value Reference Range Interpretation Comme nts GLUCOSE (test code = 2217) 70 MG/DL BUN (test code = 2208) 16 MG/DL CREATININE (test code = 2214) 1.01 MG/DL eGFR AMER. (test cod e = 12526) 88 ML/MIN/1.73 eGFR NON- AMER. (test code = 79594) 76 ML/MIN/1.73 CALC BUN/CREAT (test code = 2235) 16 RATIO SODIUM (test code = 2231) 142 MEQ/L POTASSIUM (test code = 2228) 4.3 MEQ/L CHLORIDE (test code = 2215) 103 MEQ/L CARBON DIOXIDE (test code = 2206) 27 MEQ/L CALCIUM (test code = 2209) 9.6 MG/DL PROTEIN, TOTAL (test code = 2229) 7.4 G/DL ALBUMIN (test code = 2201) 4.5 G/DL CALC GLOBULIN (test code = 2240) 2.9 G/DL CALC A/G RATIO (test code = 2234) 1.6 RATIO BILIRUBIN, TOTAL (test code = 2207) 0.4 MG/DL ALKALINE PHOSPHATASE (test code = 2204) 71 U/L AST (test code = 2218) 14 U/L ALT (test code = 2219) 14 U/L Chucho DraperCBC W/AUTO [id number] 00:00:00* Test Item Value Reference Range Interpretation Comme nts WBC (test code = 1001) 9.4 K/UL RBC (test code = 1002) 4.86 M/UL HEMOGLOBIN (test code = 1003) 13.2 G/DL HEMATOCRIT (test code = 1004) 39.6 % MCV (test code = 1005) 81.5 fL MCH (test code = 1006) 27.2 PG MCHC (test code = 1007) 33.3 G/DL RDW (test code = 1038) 15.0 % NEUTROPHILS (test code = 1008) 74.3 % LYMPHOCYTES (test code = 1010) 18.6 % MONOCYTES (test code = 1011) 6.2 % EOSINOPHILS (test code = 1012) 0.6 % BASOPHILS (test code = 1013) 0.3 % PLATELET COUNT (test code = 1015) 224 K/UL Chucho DraperHEMOGLOBIN [id number] 00:00:00* Test Item Value Reference Range Interpretation Comme nts HEMOGLOBIN A1c (test code = 87082) 6.1 % Chucho DraperLIPID [id number] 00:00:00* Test Item Value Reference Range Interpretation Comme nts CHOLESTEROL (test code = 2210) 141 MG/DL TRIGLYCERIDES (test code = 2232) 97 MG/DL HDL CHOLESTEROL (test code = 2220) 55 MG/DL CALC LDL CHOL (test code = 2237) 67 MG/DL RISK RATIO LDL/HDL (test cod e = 2238) 1.21 RATIO Chucho DraperCOMPREHENSIVE METABOLIC [id number] 00:00:00* Test Item Value Reference Range Interpretation Comme nts GLUCOSE (test code = 2217) 70 MG/DL BUN (test code = 2208) 16 MG/DL CREATININE (test code = 2214) 1.01 MG/DL eGFR AMER. (test cod e = 22660) 88 ML/MIN/1.73 eGFR NON- AMER. (test code = 58164) 76 ML/MIN/1.73 CALC BUN/CREAT (test code = 2235) 16 RATIO SODIUM (test code = 2231) 142 MEQ/L POTASSIUM (test code = 2228) 4.3 MEQ/L CHLORIDE (test code = 2215) 103 MEQ/L CARBON DIOXIDE (test code = 2206) 27 MEQ/L CALCIUM (test code = 2209) 9.6 MG/DL PROTEIN, TOTAL (test code = 2229) 7.4 G/DL ALBUMIN (test code = 2201) 4.5 G/DL CALC GLOBULIN (test code = 2240) 2.9 G/DL CALC A/G RATIO (test code = 2234) 1.6 RATIO BILIRUBIN, TOTAL (test code = 2207) 0.4 MG/DL ALKALINE PHOSPHATASE (test code = 2204) 71 U/L AST (test code = 2218) 14 U/L ALT (test code = 2219) 14 U/L Chucho DraperCBC W/AUTO [id number] 00:00:00* Test Item Value Reference Range Interpretation Comme nts WBC (test code = 1001) 9.4 K/UL RBC (test code = 1002) 4.86 M/UL HEMOGLOBIN (test code = 1003) 13.2 G/DL HEMATOCRIT (test code = 1004) 39.6 % MCV (test code = 1005) 81.5 fL MCH (test code = 1006) 27.2 PG MCHC (test code = 1007) 33.3 G/DL RDW (test code = 1038) 15.0 % NEUTROPHILS (test code = 1008) 74.3 % LYMPHOCYTES (test code = 1010) 18.6 % MONOCYTES (test code = 1011) 6.2 % EOSINOPHILS (test code = 1012) 0.6 % BASOPHILS (test code = 1013) 0.3 % PLATELET COUNT (test code = 1015) 224 K/UL Chucho DraperHEMOGLOBIN [id number] 00:00:00* Test Item Value Reference Range Interpretation Comme nts HEMOGLOBIN A1c (test code = 84674) 6.1 % Chucho DraperLIPID [id number] 00:00:00* Test Item Value Reference Range Interpretation Comme nts CHOLESTEROL (test code = 2210) 141 MG/DL TRIGLYCERIDES (test code = 2232) 97 MG/DL HDL CHOLESTEROL (test code = 2220) 55 MG/DL CALC LDL CHOL (test code = 2237) 67 MG/DL RISK RATIO LDL/HDL (test cod e = 2238) 1.21 RATIO Chucho DraperCOMPREHENSIVE METABOLIC [id number] 00:00:00* Test Item Value Reference Range Interpretation Comme nts GLUCOSE (test code = 2217) 70 MG/DL BUN (test code = 2208) 16 MG/DL CREATININE (test code = 2214) 1.01 MG/DL eGFR AMER. (test cod e = 76275) 88 ML/MIN/1.73 eGFR NON- AMER. (test code = 71589) 76 ML/MIN/1.73 CALC BUN/CREAT (test code = 2235) 16 RATIO SODIUM (test code = 2231) 142 MEQ/L POTASSIUM (test code = 2228) 4.3 MEQ/L CHLORIDE (test code = 2215) 103 MEQ/L CARBON DIOXIDE (test code = 2206) 27 MEQ/L CALCIUM (test code = 2209) 9.6 MG/DL PROTEIN, TOTAL (test code = 2229) 7.4 G/DL ALBUMIN (test code = 2201) 4.5 G/DL CALC GLOBULIN (test code = 2240) 2.9 G/DL CALC A/G RATIO (test code = 2234) 1.6 RATIO BILIRUBIN, TOTAL (test code = 2207) 0.4 MG/DL ALKALINE PHOSPHATASE (test code = 2204) 71 U/L AST (test code = 2218) 14 U/L ALT (test code = 2219) 14 U/L Chucho DraperCBC W/AUTO [id number] 00:00:00* Test Item Value Reference Range Interpretation Comme nts WBC (test code = 1001) 9.4 K/UL RBC (test code = 1002) 4.86 M/UL HEMOGLOBIN (test code = 1003) 13.2 G/DL HEMATOCRIT (test code = 1004) 39.6 % MCV (test code = 1005) 81.5 fL MCH (test code = 1006) 27.2 PG MCHC (test code = 1007) 33.3 G/DL RDW (test code = 1038) 15.0 % NEUTROPHILS (test code = 1008) 74.3 % LYMPHOCYTES (test code = 1010) 18.6 % MONOCYTES (test code = 1011) 6.2 % EOSINOPHILS (test code = 1012) 0.6 % BASOPHILS (test code = 1013) 0.3 % PLATELET COUNT (test code = 1015) 224 K/UL Chucho DraperHEMOGLOBIN [id number] 00:00:00* Test Item Value Reference Range Interpretation Comme nts HEMOGLOBIN A1c (test code = 26180) 6.1 % Chucho DraperLIPID [id number] 00:00:00* Test Item Value Reference Range Interpretation Comme nts CHOLESTEROL (test code = 2210) 141 MG/DL TRIGLYCERIDES (test code = 2232) 97 MG/DL HDL CHOLESTEROL (test code = 2220) 55 MG/DL CALC LDL CHOL (test code = 2237) 67 MG/DL RISK RATIO LDL/HDL (test cod e = 2238) 1.21 RATIO Chucho DraperCOMPREHENSIVE METABOLIC [id number] 00:00:00* Test Item Value Reference Range Interpretation Comme nts GLUCOSE (test code = 2217) 70 MG/DL BUN (test code = 2208) 16 MG/DL CREATININE (test code = 2214) 1.01 MG/DL eGFR AMER. (test cod e = 29872) 88 ML/MIN/1.73 eGFR NON- AMER. (test code = 62235) 76 ML/MIN/1.73 CALC BUN/CREAT (test code = 2235) 16 RATIO SODIUM (test code = 2231) 142 MEQ/L POTASSIUM (test code = 2228) 4.3 MEQ/L CHLORIDE (test code = 2215) 103 MEQ/L CARBON DIOXIDE (test code = 2206) 27 MEQ/L CALCIUM (test code = 2209) 9.6 MG/DL PROTEIN, TOTAL (test code = 2229) 7.4 G/DL ALBUMIN (test code = 2201) 4.5 G/DL CALC GLOBULIN (test code = 2240) 2.9 G/DL CALC A/G RATIO (test code = 2234) 1.6 RATIO BILIRUBIN, TOTAL (test code = 2207) 0.4 MG/DL ALKALINE PHOSPHATASE (test code = 2204) 71 U/L AST (test code = 2218) 14 U/L ALT (test code = 2219) 14 U/L Chucho Strat[place] AustinHEMOGLOBIN [id number] 00:00:00* Test Item Value Reference Range Interpretation Comme nts HEMOGLOBIN A1c (test code = 53679) 7.5 % COMPREHENSIVE METABOLIC [id number] 00:00:00* Test Item Value Reference Range Interpretation Comme nts GLUCOSE (test code = 2217) 97 MG/DL BUN (test code = 2208) 23 MG/DL CREATININE (test code = 2214) 0.97 MG/DL eGFR AMER. (test cod e = 74061) 93 ML/MIN/1.73 eGFR NON- AMER. (test code = 06547) 80 ML/MIN/1.73 CALC BUN/CREAT (test code = 2235) 24 RATIO SODIUM (test code = 2231) 143 MEQ/L POTASSIUM (test code = 2228) 4.1 MEQ/L CHLORIDE (test code = 2215) 104 MEQ/L CARBON DIOXIDE (test code = 2206) 30 MEQ/L CALCIUM (test code = 2209) 9.5 MG/DL PROTEIN, TOTAL (test code = 2229) 7.0 G/DL ALBUMIN (test code = 2201) 4.4 G/DL CALC GLOBULIN (test code = 2240) 2.6 G/DL CALC A/G RATIO (test code = 2234) 1.7 RATIO BILIRUBIN, TOTAL (test code = 2207) 0.4 MG/DL ALKALINE PHOSPHATASE (test code = 2204) 66 U/L AST (test code = 2218) 7 U/L ALT (test code = 2219) 12 U/L LIPID [id number] 00:00:00* Test Item Value Reference Range Interpretation Comme nts CHOLESTEROL (test code = 2210) 117 MG/DL TRIGLYCERIDES (test code = 2232) 114 MG/DL HDL CHOLESTEROL (test code = 2220) 43 MG/DL CALC LDL CHOL (test code = 2237) 51 MG/DL RISK RATIO LDL/HDL (test cod e = 223) 1.19 RATIO MICROALBUMIN/CREATININE, RANDOM AND [id number] 00:00:00* Test Item Value Reference Range Interpretation Comme nts CREATININE, URINE, CONC. (te st code = 2072) 158.3 MG/DL ALBUMIN, URINE, RANDOM (test code = 07424) 0.3 MG/DL CALC ALBUMIN/CREAT, RND (irina t code = 57333) 2 MG/G HEMOGLOBIN [id number] 00:00:00* Test Item Value Reference Range Interpretation Comme nts HEMOGLOBIN A1c (test code = 48169) 7.5 % COMPREHENSIVE METABOLIC [id number] 00:00:00* Test Item Value Reference Range Interpretation Comme nts GLUCOSE (test code = 2217) 97 MG/DL BUN (test code = 2208) 23 MG/DL CREATININE (test code = 2214) 0.97 MG/DL eGFR AMER. (test cod e = 38034) 93 ML/MIN/1.73 eGFR NON- AMER. (test code = 95518) 80 ML/MIN/1.73 CALC BUN/CREAT (test code = 2235) 24 RATIO SODIUM (test code = 2231) 143 MEQ/L POTASSIUM (test code = 2228) 4.1 MEQ/L CHLORIDE (test code = 2215) 104 MEQ/L CARBON DIOXIDE (test code = 2206) 30 MEQ/L CALCIUM (test code = 2209) 9.5 MG/DL PROTEIN, TOTAL (test code = 2229) 7.0 G/DL ALBUMIN (test code = 2201) 4.4 G/DL CALC GLOBULIN (test code = 2240) 2.6 G/DL CALC A/G RATIO (test code = 2234) 1.7 RATIO BILIRUBIN, TOTAL (test code = 2206) 0.4 MG/DL ALKALINE PHOSPHATASE (test code = 2204) 66 U/L AST (test code = 2218) 7 U/L ALT (test code = 2219) 12 U/L LIPID [id number] 00:00:00* Test Item Value Reference Range Interpretation Comme nts CHOLESTEROL (test code = 2210) 117 MG/DL TRIGLYCERIDES (test code = 2232) 114 MG/DL HDL CHOLESTEROL (test code = 2220) 43 MG/DL CALC LDL CHOL (test code = 2237) 51 MG/DL RISK RATIO LDL/HDL (test cod e = 2238) 1.19 RATIO MICROALBUMIN/CREATININE, RANDOM AND [id number] 00:00:00* Test Item Value Reference Range Interpretation Comme nts CREATININE, URINE, CONC. (te st code = 2072) 158.3 MG/DL ALBUMIN, URINE, RANDOM (test code = 08181) 0.3 MG/DL CALC ALBUMIN/CREAT, RND (irina t code = 15714) 2 MG/G HEMOGLOBIN [id number] 00:00:00* Test Item Value Reference Range Interpretation Comme nts HEMOGLOBIN A1c (test code = 79274) 7.5 % COMPREHENSIVE METABOLIC [id number] 00:00:00* Test Item Value Reference Range Interpretation Comme nts GLUCOSE (test code = 7) 97 MG/DL BUN (test code = 8) 23 MG/DL CREATININE (test code = 2214) 0.97 MG/DL eGFR AMER. (test cod e = 01603) 93 ML/MIN/1.73 eGFR NON- AMER. (test code = 69188) 80 ML/MIN/1.73 CALC BUN/CREAT (test code = 2235) 24 RATIO SODIUM (test code = 2231) 143 MEQ/L POTASSIUM (test code = 2228) 4.1 MEQ/L CHLORIDE (test code = 2215) 104 MEQ/L CARBON DIOXIDE (test code = 2206) 30 MEQ/L CALCIUM (test code = 2209) 9.5 MG/DL PROTEIN, TOTAL (test code = 2229) 7.0 G/DL ALBUMIN (test code = 2201) 4.4 G/DL CALC GLOBULIN (test code = 2240) 2.6 G/DL CALC A/G RATIO (test code = 2234) 1.7 RATIO BILIRUBIN, TOTAL (test code = 2207) 0.4 MG/DL ALKALINE PHOSPHATASE (test code = 2204) 66 U/L AST (test code = 2218) 7 U/L ALT (test code = 2219) 12 U/L LIPID [id number] 00:00:00* Test Item Value Reference Range Interpretation Comme nts CHOLESTEROL (test code = 2210) 117 MG/DL TRIGLYCERIDES (test code = 2232) 114 MG/DL HDL CHOLESTEROL (test code = 2220) 43 MG/DL CALC LDL CHOL (test code = 223) 51 MG/DL RISK RATIO LDL/HDL (test cod e = 2238) 1.19 RATIO MICROALBUMIN/CREATININE, RANDOM AND [id number] 00:00:00* Test Item Value Reference Range Interpretation Comme nts CREATININE, URINE, CONC. (te st code = 2072) 158.3 MG/DL ALBUMIN, URINE, RANDOM (test code = 77774) 0.3 MG/DL CALC ALBUMIN/CREAT, RND (irina t code = 85260) 2 MG/G COMPREHENSIVE METABOLIC [id number] 00:00:00* Test Item Value Reference Range Interpretation Comme nts GLUCOSE (test code = 2217) 97 MG/DL BUN (test code = 2208) 23 MG/DL CREATININE (test code = 2214) 0.97 MG/DL eGFR AMER. (test cod e = 16902) 93 ML/MIN/1.73 eGFR NON- AMER. (test code = 71694) 80 ML/MIN/1.73 CALC BUN/CREAT (test code = 2235) 24 RATIO SODIUM (test code = 2231) 143 MEQ/L POTASSIUM (test code = 2228) 4.1 MEQ/L CHLORIDE (test code = 2215) 104 MEQ/L CARBON DIOXIDE (test code = 2206) 30 MEQ/L CALCIUM (test code = 2209) 9.5 MG/DL PROTEIN, TOTAL (test code = 2229) 7.0 G/DL ALBUMIN (test code = 2201) 4.4 G/DL CALC GLOBULIN (test code = 2240) 2.6 G/DL CALC A/G RATIO (test code = 2234) 1.7 RATIO BILIRUBIN, TOTAL (test code = 2207) 0.4 MG/DL ALKALINE PHOSPHATASE (test code = 2204) 66 U/L AST (test code = 2218) 7 U/L ALT (test code = 2219) 12 U/L Chucho Stratton AustinLIPID [id number] 00:00:00* Test Item Value Reference Range Interpretation Comme nts CHOLESTEROL (test code = 2210) 117 MG/DL TRIGLYCERIDES (test code = 2232) 114 MG/DL HDL CHOLESTEROL (test code = 2220) 43 MG/DL CALC LDL CHOL (test code = 2237) 51 MG/DL RISK RATIO LDL/HDL (test cod e = 2238) 1.19 RATIO Chucho DraperMICROALBUMIN/CREATININE, RANDOM AND [id number] 00:00:00* Test Item Value Reference Range Interpretation Comme nts CREATININE, URINE, CONC. (te st code = 2072) 158.3 MG/DL ALBUMIN, URINE, RANDOM (test code = 60112) 0.3 MG/DL CALC ALBUMIN/CREAT, RND (irina t code = 99210) 2 MG/G Chucho DraperHEMOGLOBIN [id number] 00:00:00* Test Item Value Reference Range Interpretation Comme thong HEMOGLOBIN A1c (test code = 79992) 7.5 % Chucho DraperCOMPREHENSIVE METABOLIC [id number] 00:00:00* Test Item Value Reference Range Interpretation Comme nts GLUCOSE (test code = 2217) 97 MG/DL BUN (test code = 2208) 23 MG/DL CREATININE (test code = 2214) 0.97 MG/DL eGFR AMER. (test cod e = 60511) 93 ML/MIN/1.73 eGFR NON- AMER. (test code = 57757) 80 ML/MIN/1.73 CALC BUN/CREAT (test code = 2235) 24 RATIO SODIUM (test code = 2231) 143 MEQ/L POTASSIUM (test code = 2228) 4.1 MEQ/L CHLORIDE (test code = 2215) 104 MEQ/L CARBON DIOXIDE (test code = 2206) 30 MEQ/L CALCIUM (test code = 2209) 9.5 MG/DL PROTEIN, TOTAL (test code = 2229) 7.0 G/DL ALBUMIN (test code = 2201) 4.4 G/DL CALC GLOBULIN (test code = 2240) 2.6 G/DL CALC A/G RATIO (test code = 2234) 1.7 RATIO BILIRUBIN, TOTAL (test code = 2207) 0.4 MG/DL ALKALINE PHOSPHATASE (test code = 2204) 66 U/L AST (test code = 2218) 7 U/L ALT (test code = 2219) 12 U/L Chucho DraperLIPID [id number] 00:00:00* Test Item Value Reference Range Interpretation Comme nts CHOLESTEROL (test code = 2210) 117 MG/DL TRIGLYCERIDES (test code = 2232) 114 MG/DL HDL CHOLESTEROL (test code = 2220) 43 MG/DL CALC LDL CHOL (test code = 2237) 51 MG/DL RISK RATIO LDL/HDL (test cod e = 2238) 1.19 RATIO Chucho DraperMICROALBUMIN/CREATININE, RANDOM AND [id number] 00:00:00* Test Item Value Reference Range Interpretation Comme nts CREATININE, URINE, CONC. (te st code = 2072) 158.3 MG/DL ALBUMIN, URINE, RANDOM (test code = 10064) 0.3 MG/DL CALC ALBUMIN/CREAT, RND (irina t code = 78657) 2 MG/G Chucho DraperHEMOGLOBIN [id number] 00:00:00* Test Item Value Reference Range Interpretation Comme nts HEMOGLOBIN A1c (test code = 96440) 7.5 % Chucho DraperCOMPREHENSIVE METABOLIC [id number] 00:00:00* Test Item Value Reference Range Interpretation Comme nts GLUCOSE (test code = 2217) 97 MG/DL BUN (test code = 2208) 23 MG/DL CREATININE (test code = 2214) 0.97 MG/DL eGFR AMER. (test cod e = 86927) 93 ML/MIN/1.73 eGFR NON- AMER. (test code = 94133) 80 ML/MIN/1.73 CALC BUN/CREAT (test code = 2235) 24 RATIO SODIUM (test code = 2231) 143 MEQ/L POTASSIUM (test code = 2228) 4.1 MEQ/L CHLORIDE (test code = 2215) 104 MEQ/L CARBON DIOXIDE (test code = 2206) 30 MEQ/L CALCIUM (test code = 2209) 9.5 MG/DL PROTEIN, TOTAL (test code = 2229) 7.0 G/DL ALBUMIN (test code = 2201) 4.4 G/DL CALC GLOBULIN (test code = 2240) 2.6 G/DL CALC A/G RATIO (test code = 2234) 1.7 RATIO BILIRUBIN, TOTAL (test code = 2207) 0.4 MG/DL ALKALINE PHOSPHATASE (test code = 2204) 66 U/L AST (test code = 2218) 7 U/L ALT (test code = 2219) 12 U/L Chucho DraperLIPID [id number] 00:00:00* Test Item Value Reference Range Interpretation Comme nts CHOLESTEROL (test code = 2210) 117 MG/DL TRIGLYCERIDES (test code = 2232) 114 MG/DL HDL CHOLESTEROL (test code = 2220) 43 MG/DL CALC LDL CHOL (test code = 2237) 51 MG/DL RISK RATIO LDL/HDL (test cod e = 2238) 1.19 RATIO Chucho DraperMICROALBUMIN/CREATININE, RANDOM AND [id number] 00:00:00* Test Item Value Reference Range Interpretation Comme thong CREATININE, URINE, CONC. (te st code = 2072) 158.3 MG/DL ALBUMIN, URINE, RANDOM (test code = 34972) 0.3 MG/DL CALC ALBUMIN/CREAT, RND (irina t code = 63503) 2 MG/G Chucho DraperHEMOGLOBIN [id number] 00:00:00* Test Item Value Reference Range Interpretation Comme thong HEMOGLOBIN A1c (test code = 64447) 7.5 % Chucho DraperCOMPREHENSIVE METABOLIC [id number] 00:00:00* Test Item Value Reference Range Interpretation Comme nts GLUCOSE (test code = 2217) 97 MG/DL BUN (test code = 2208) 23 MG/DL CREATININE (test code = 2214) 0.97 MG/DL eGFR AMER. (test cod e = 84476) 93 ML/MIN/1.73 eGFR NON- AMER. (test code = 86963) 80 ML/MIN/1.73 CALC BUN/CREAT (test code = 2235) 24 RATIO SODIUM (test code = 2231) 143 MEQ/L POTASSIUM (test code = 2228) 4.1 MEQ/L CHLORIDE (test code = 2215) 104 MEQ/L CARBON DIOXIDE (test code = 2206) 30 MEQ/L CALCIUM (test code = 2209) 9.5 MG/DL PROTEIN, TOTAL (test code = 2229) 7.0 G/DL ALBUMIN (test code = 2201) 4.4 G/DL CALC GLOBULIN (test code = 2240) 2.6 G/DL CALC A/G RATIO (test code = 2234) 1.7 RATIO BILIRUBIN, TOTAL (test code = 2207) 0.4 MG/DL ALKALINE PHOSPHATASE (test code = 2204) 66 U/L AST (test code = 2218) 7 U/L ALT (test code = 2219) 12 U/L Chucho DraperLIPID [id number] 00:00:00* Test Item Value Reference Range Interpretation Comme nts CHOLESTEROL (test code = 2210) 117 MG/DL TRIGLYCERIDES (test code = 2232) 114 MG/DL HDL CHOLESTEROL (test code = 2220) 43 MG/DL CALC LDL CHOL (test code = 2237) 51 MG/DL RISK RATIO LDL/HDL (test cod e = 2238) 1.19 RATIO Chucho DraperMICROALBUMIN/CREATININE, RANDOM AND [id number] 00:00:00* Test Item Value Reference Range Interpretation Comme nts CREATININE, URINE, CONC. (te st code = 2072) 158.3 MG/DL ALBUMIN, URINE, RANDOM (test code = 66319) 0.3 MG/DL CALC ALBUMIN/CREAT, RND (irina t code = 44725) 2 MG/G Chucho DraperHEMOGLOBIN [id number] 00:00:00* Test Item Value Reference Range Interpretation Comme thong HEMOGLOBIN A1c (test code = 42012) 7.5 % Chucho DraperCOMPREHENSIVE METABOLIC [id number] 00:00:00* Test Item Value Reference Range Interpretation Comme nts GLUCOSE (test code = 7) 97 MG/DL BUN (test code = 8) 23 MG/DL CREATININE (test code = 2214) 0.97 MG/DL eGFR AMER. (test cod e = 79066) 93 ML/MIN/1.73 eGFR NON- AMER. (test code = 38276) 80 ML/MIN/1.73 CALC BUN/CREAT (test code = 2235) 24 RATIO SODIUM (test code = 2231) 143 MEQ/L POTASSIUM (test code = 2228) 4.1 MEQ/L CHLORIDE (test code = 2215) 104 MEQ/L CARBON DIOXIDE (test code = 2206) 30 MEQ/L CALCIUM (test code = 2209) 9.5 MG/DL PROTEIN, TOTAL (test code = 2229) 7.0 G/DL ALBUMIN (test code = 220) 4.4 G/DL CALC GLOBULIN (test code = 2240) 2.6 G/DL CALC A/G RATIO (test code = 2234) 1.7 RATIO BILIRUBIN, TOTAL (test code = 2207) 0.4 MG/DL ALKALINE PHOSPHATASE (test code = 220) 66 U/L AST (test code = 2218) 7 U/L ALT (test code = 221) 12 U/L Chucho DraperLIPID [id number] 00:00:00* Test Item Value Reference Range Interpretation Comme nts CHOLESTEROL (test code = 2210) 117 MG/DL TRIGLYCERIDES (test code = 2232) 114 MG/DL HDL CHOLESTEROL (test code = 2220) 43 MG/DL CALC LDL CHOL (test code = 2237) 51 MG/DL RISK RATIO LDL/HDL (test cod e = 2238) 1.19 RATIO Chucho Stratton AustinMICROALBUMIN/CREATININE, RANDOM AND [id number] 00:00:00* Test Item Value Reference Range Interpretation Comme nts CREATININE, URINE, CONC. (te st code = 2072) 158.3 MG/DL ALBUMIN, URINE, RANDOM (test code = 11686) 0.3 MG/DL CALC ALBUMIN/CREAT, RND (irina t code = 07353) 2 MG/G Chucho DraperHEMOGLOBIN [id number] 00:00:00* Test Item Value Reference Range Interpretation Comme nts HEMOGLOBIN A1c (test code = 21390) 7.5 % Chucho DraperCOMPREHENSIVE METABOLIC [id number] 00:00:00* Test Item Value Reference Range Interpretation Comme nts GLUCOSE (test code = 2217) 97 MG/DL BUN (test code = 8) 23 MG/DL CREATININE (test code = 2214) 0.97 MG/DL eGFR AMER. (test cod e = 62032) 93 ML/MIN/1.73 eGFR NON- AMER. (test code = 52070) 80 ML/MIN/1.73 CALC BUN/CREAT (test code = 2235) 24 RATIO SODIUM (test code = 2231) 143 MEQ/L POTASSIUM (test code = 2228) 4.1 MEQ/L CHLORIDE (test code = 2215) 104 MEQ/L CARBON DIOXIDE (test code = 2206) 30 MEQ/L CALCIUM (test code = 2209) 9.5 MG/DL PROTEIN, TOTAL (test code = 2229) 7.0 G/DL ALBUMIN (test code = 2201) 4.4 G/DL CALC GLOBULIN (test code = 2240) 2.6 G/DL CALC A/G RATIO (test code = 2234) 1.7 RATIO BILIRUBIN, TOTAL (test code = 2207) 0.4 MG/DL ALKALINE PHOSPHATASE (test code = 2204) 66 U/L AST (test code = 2218) 7 U/L ALT (test code = 2219) 12 U/L Chucho Stratton OberlinLIPID [id number] 00:00:00* Test Item Value Reference Range Interpretation Comme nts CHOLESTEROL (test code = 2210) 117 MG/DL TRIGLYCERIDES (test code = 2232) 114 MG/DL HDL CHOLESTEROL (test code = 2220) 43 MG/DL CALC LDL CHOL (test code = 2237) 51 MG/DL RISK RATIO LDL/HDL (test cod e = 2238) 1.19 RATIO Chucho Stratton OberlinMICROALBUMIN/CREATININE, RANDOM AND [id number] 00:00:00* Test Item Value Reference Range Interpretation Comme nts CREATININE, URINE, CONC. (te st code = 2072) 158.3 MG/DL ALBUMIN, URINE, RANDOM (test code = 33357) 0.3 MG/DL CALC ALBUMIN/CREAT, RND (irina t code = 70168) 2 MG/G Chucho DraperHEMOGLOBIN [id number] 00:00:00* Test Item Value Reference Range Interpretation Comme nts HEMOGLOBIN A1c (test code = 25860) 7.5 % Chucho Stratton BaronCBC W/AUTO [id number] 00:00:00* Test Item Value Reference Range Interpretation Comme nts WBC (test code = 1001) 8.9 K/UL RBC (test code = 1002) 5.09 M/UL HEMOGLOBIN (test code = 1003) 14.2 G/DL HEMATOCRIT (test code = 1004) 41.4 % MCV (test code = 1005) 81.3 fL MCH (test code = 1006) 27.9 PG MCHC (test code = 1007) 34.3 G/DL RDW (test code = 1038) 14.0 % NEUTROPHILS (test code = 1008) 69.7 % LYMPHOCYTES (test code = 1010) 21.7 % MONOCYTES (test code = 1011) 6.8 % EOSINOPHILS (test code = 1012) 1.5 % BASOPHILS (test code = 1013) 0.3 % PLATELET COUNT (test code = 1015) 231 K/UL HEMOGLOBIN [id number] 00:00:00* Test Item Value Reference Range Interpretation Comme nts HEMOGLOBIN A1c (test code = 37794) 8.9 % LIPID [id number] 00:00:00* Test Item Value Reference Range Interpretation Comme nts CHOLESTEROL (test code = 2210) 198 MG/DL TRIGLYCERIDES (test code = 2232) 302 MG/DL HDL CHOLESTEROL (test code = 2220) 39 MG/DL CALC LDL CHOL (test code = 2237) 99 MG/DL RISK RATIO LDL/HDL (test cod e = 2238) 2.53 RATIO COMPREHENSIVE METABOLIC [id number] 00:00:00* Test Item Value Reference Range Interpretation Comme nts GLUCOSE (test code = 2217) 127 MG/DL BUN (test code = 2208) 32 MG/DL CREATININE (test code = 2214) 1.09 MG/DL eGFR AMER. (test cod e = 97609) 82 ML/MIN/1.73 eGFR NON- AMER. (test code = 34023) 70 ML/MIN/1.73 CALC BUN/CREAT (test code = 2235) 29 RATIO SODIUM (test code = 2231) 141 MEQ/L POTASSIUM (test code = 2228) 4.8 MEQ/L CHLORIDE (test code = 2215) 105 MEQ/L CARBON DIOXIDE (test code = 2206) 25 MEQ/L CALCIUM (test code = 2209) 9.6 MG/DL PROTEIN, TOTAL (test code = 2229) 7.7 G/DL ALBUMIN (test code = 2201) 4.5 G/DL CALC GLOBULIN (test code = 2240) 3.2 G/DL CALC A/G RATIO (test code = 2234) 1.4 RATIO BILIRUBIN, TOTAL (test code = 2207) 0.2 MG/DL ALKALINE PHOSPHATASE (test code = 2204) 73 U/L AST (test code = 2218) 11 U/L ALT (test code = 2219) 14 U/L CBC W/AUTO [id number] 00:00:00* Test Item Value Reference Range Interpretation Comme nts WBC (test code = 1001) 8.9 K/UL RBC (test code = 1002) 5.09 M/UL HEMOGLOBIN (test code = 1003) 14.2 G/DL HEMATOCRIT (test code = 1004) 41.4 % MCV (test code = 1005) 81.3 fL MCH (test code = 1006) 27.9 PG MCHC (test code = 1007) 34.3 G/DL RDW (test code = 1038) 14.0 % NEUTROPHILS (test code = 1008) 69.7 % LYMPHOCYTES (test code = 1010) 21.7 % MONOCYTES (test code = 1011) 6.8 % EOSINOPHILS (test code = 1012) 1.5 % BASOPHILS (test code = 1013) 0.3 % PLATELET COUNT (test code = 1015) 231 K/UL HEMOGLOBIN [id number] 00:00:00* Test Item Value Reference Range Interpretation Comme nts HEMOGLOBIN A1c (test code = 39859) 8.9 % LIPID [id number] 00:00:00* Test Item Value Reference Range Interpretation Comme nts CHOLESTEROL (test code = 2210) 198 MG/DL TRIGLYCERIDES (test code = 2232) 302 MG/DL HDL CHOLESTEROL (test code = 2220) 39 MG/DL CALC LDL CHOL (test code = 2237) 99 MG/DL RISK RATIO LDL/HDL (test cod e = 2238) 2.53 RATIO COMPREHENSIVE METABOLIC [id number] 00:00:00* Test Item Value Reference Range Interpretation Comme nts GLUCOSE (test code = 2217) 127 MG/DL BUN (test code = 2208) 32 MG/DL CREATININE (test code = 2214) 1.09 MG/DL eGFR AMER. (test cod e = 15045) 82 ML/MIN/1.73 eGFR NON- AMER. (test code = 13316) 70 ML/MIN/1.73 CALC BUN/CREAT (test code = 2235) 29 RATIO SODIUM (test code = 2231) 141 MEQ/L POTASSIUM (test code = 2228) 4.8 MEQ/L CHLORIDE (test code = 2215) 105 MEQ/L CARBON DIOXIDE (test code = 2206) 25 MEQ/L CALCIUM (test code = 2209) 9.6 MG/DL PROTEIN, TOTAL (test code = 2229) 7.7 G/DL ALBUMIN (test code = 2201) 4.5 G/DL CALC GLOBULIN (test code = 2240) 3.2 G/DL CALC A/G RATIO (test code = 2234) 1.4 RATIO BILIRUBIN, TOTAL (test code = 2207) 0.2 MG/DL ALKALINE PHOSPHATASE (test code = 2204) 73 U/L AST (test code = 2218) 11 U/L ALT (test code = 2219) 14 U/L CBC W/AUTO [id number] 00:00:00* Test Item Value Reference Range Interpretation Comme nts WBC (test code = 1001) 8.9 K/UL RBC (test code = 1002) 5.09 M/UL HEMOGLOBIN (test code = 1003) 14.2 G/DL HEMATOCRIT (test code = 1004) 41.4 % MCV (test code = 1005) 81.3 fL MCH (test code = 1006) 27.9 PG MCHC (test code = 1007) 34.3 G/DL RDW (test code = 1038) 14.0 % NEUTROPHILS (test code = 1008) 69.7 % LYMPHOCYTES (test code = 1010) 21.7 % MONOCYTES (test code = 1011) 6.8 % EOSINOPHILS (test code = 1012) 1.5 % BASOPHILS (test code = 1013) 0.3 % PLATELET COUNT (test code = 1015) 231 K/UL HEMOGLOBIN [id number] 00:00:00* Test Item Value Reference Range Interpretation Comme nts HEMOGLOBIN A1c (test code = 31626) 8.9 % LIPID [id number] 00:00:00* Test Item Value Reference Range Interpretation Comme nts CHOLESTEROL (test code = 2210) 198 MG/DL TRIGLYCERIDES (test code = 2232) 302 MG/DL HDL CHOLESTEROL (test code = 2220) 39 MG/DL CALC LDL CHOL (test code = 2237) 99 MG/DL RISK RATIO LDL/HDL (test cod e = 2238) 2.53 RATIO COMPREHENSIVE METABOLIC [id number] 00:00:00* Test Item Value Reference Range Interpretation Comme nts GLUCOSE (test code = 2217) 127 MG/DL BUN (test code = 2208) 32 MG/DL CREATININE (test code = 2214) 1.09 MG/DL eGFR AMER. (test cod e = 83931) 82 ML/MIN/1.73 eGFR NON- AMER. (test code = 43002) 70 ML/MIN/1.73 CALC BUN/CREAT (test code = 2235) 29 RATIO SODIUM (test code = 2231) 141 MEQ/L POTASSIUM (test code = 2228) 4.8 MEQ/L CHLORIDE (test code = 2215) 105 MEQ/L CARBON DIOXIDE (test code = 2206) 25 MEQ/L CALCIUM (test code = 2209) 9.6 MG/DL PROTEIN, TOTAL (test code = 2229) 7.7 G/DL ALBUMIN (test code = 2201) 4.5 G/DL CALC GLOBULIN (test code = 2240) 3.2 G/DL CALC A/G RATIO (test code = 2234) 1.4 RATIO BILIRUBIN, TOTAL (test code = 2207) 0.2 MG/DL ALKALINE PHOSPHATASE (test code = 2204) 73 U/L AST (test code = 2218) 11 U/L ALT (test code = 2219) 14 U/L HEMOGLOBIN [id number] 00:00:00* Test Item Value Reference Range Interpretation Comme nts HEMOGLOBIN A1c (test code = 52251) 8.9 % Chucho Stratton AustinLIPID [id number] 00:00:00* Test Item Value Reference Range Interpretation Comme nts CHOLESTEROL (test code = 2210) 198 MG/DL TRIGLYCERIDES (test code = 2232) 302 MG/DL HDL CHOLESTEROL (test code = 2220) 39 MG/DL CALC LDL CHOL (test code = 2237) 99 MG/DL RISK RATIO LDL/HDL (test cod e = 2238) 2.53 RATIO Chucho F BaronCOMPREHENSIVE METABOLIC [id number] 00:00:00* Test Item Value Reference Range Interpretation Comme nts GLUCOSE (test code = 2217) 127 MG/DL BUN (test code = 2208) 32 MG/DL CREATININE (test code = 2214) 1.09 MG/DL eGFR AMER. (test cod e = 27100) 82 ML/MIN/1.73 eGFR NON- AMER. (test code = 92693) 70 ML/MIN/1.73 CALC BUN/CREAT (test code = 2235) 29 RATIO SODIUM (test code = 2231) 141 MEQ/L POTASSIUM (test code = 2228) 4.8 MEQ/L CHLORIDE (test code = 2215) 105 MEQ/L CARBON DIOXIDE (test code = 2206) 25 MEQ/L CALCIUM (test code = 2209) 9.6 MG/DL PROTEIN, TOTAL (test code = 2229) 7.7 G/DL ALBUMIN (test code = 2201) 4.5 G/DL CALC GLOBULIN (test code = 2240) 3.2 G/DL CALC A/G RATIO (test code = 2234) 1.4 RATIO BILIRUBIN, TOTAL (test code = 2207) 0.2 MG/DL ALKALINE PHOSPHATASE (test code = 2204) 73 U/L AST (test code = 2218) 11 U/L ALT (test code = 2219) 14 U/L Chucho DraperCBC W/AUTO [id number] 00:00:00* Test Item Value Reference Range Interpretation Comme nts WBC (test code = 1001) 8.9 K/UL RBC (test code = 1002) 5.09 M/UL HEMOGLOBIN (test code = 1003) 14.2 G/DL HEMATOCRIT (test code = 1004) 41.4 % MCV (test code = 1005) 81.3 fL MCH (test code = 1006) 27.9 PG MCHC (test code = 1007) 34.3 G/DL RDW (test code = 1038) 14.0 % NEUTROPHILS (test code = 1008) 69.7 % LYMPHOCYTES (test code = 1010) 21.7 % MONOCYTES (test code = 1011) 6.8 % EOSINOPHILS (test code = 1012) 1.5 % BASOPHILS (test code = 1013) 0.3 % PLATELET COUNT (test code = 1015) 231 K/UL Chucho DraperHEMOGLOBIN [id number] 00:00:00* Test Item Value Reference Range Interpretation Comme nts HEMOGLOBIN A1c (test code = 03305) 8.9 % Chucho DraperLIPID [id number] 00:00:00* Test Item Value Reference Range Interpretation Comme nts CHOLESTEROL (test code = 2210) 198 MG/DL TRIGLYCERIDES (test code = 2232) 302 MG/DL HDL CHOLESTEROL (test code = 2220) 39 MG/DL CALC LDL CHOL (test code = 2237) 99 MG/DL RISK RATIO LDL/HDL (test cod e = 2238) 2.53 RATIO Chucho DraperCOMPREHENSIVE METABOLIC [id number] 00:00:00* Test Item Value Reference Range Interpretation Comme nts GLUCOSE (test code = 2217) 127 MG/DL BUN (test code = 2208) 32 MG/DL CREATININE (test code = 2214) 1.09 MG/DL eGFR AMER. (test cod e = 48825) 82 ML/MIN/1.73 eGFR NON- AMER. (test code = 97971) 70 ML/MIN/1.73 CALC BUN/CREAT (test code = 2235) 29 RATIO SODIUM (test code = 2231) 141 MEQ/L POTASSIUM (test code = 2228) 4.8 MEQ/L CHLORIDE (test code = 2215) 105 MEQ/L CARBON DIOXIDE (test code = 2206) 25 MEQ/L CALCIUM (test code = 2209) 9.6 MG/DL PROTEIN, TOTAL (test code = 2229) 7.7 G/DL ALBUMIN (test code = 2201) 4.5 G/DL CALC GLOBULIN (test code = 2240) 3.2 G/DL CALC A/G RATIO (test code = 2234) 1.4 RATIO BILIRUBIN, TOTAL (test code = 2207) 0.2 MG/DL ALKALINE PHOSPHATASE (test code = 2204) 73 U/L AST (test code = 2218) 11 U/L ALT (test code = 2219) 14 U/L Chucho DraperCBC W/AUTO [id number] 00:00:00* Test Item Value Reference Range Interpretation Comme nts WBC (test code = 1001) 8.9 K/UL RBC (test code = 1002) 5.09 M/UL HEMOGLOBIN (test code = 1003) 14.2 G/DL HEMATOCRIT (test code = 1004) 41.4 % MCV (test code = 1005) 81.3 fL MCH (test code = 1006) 27.9 PG MCHC (test code = 1007) 34.3 G/DL RDW (test code = 1038) 14.0 % NEUTROPHILS (test code = 1008) 69.7 % LYMPHOCYTES (test code = 1010) 21.7 % MONOCYTES (test code = 1011) 6.8 % EOSINOPHILS (test code = 1012) 1.5 % BASOPHILS (test code = 1013) 0.3 % PLATELET COUNT (test code = 1015) 231 K/UL Chucho DraperHEMOGLOBIN [id number] 00:00:00* Test Item Value Reference Range Interpretation Comme thong HEMOGLOBIN A1c (test code = 57777) 8.9 % Chucho DraperLIPID [id number] 00:00:00* Test Item Value Reference Range Interpretation Comme nts CHOLESTEROL (test code = 2210) 198 MG/DL TRIGLYCERIDES (test code = 2232) 302 MG/DL HDL CHOLESTEROL (test code = 2220) 39 MG/DL CALC LDL CHOL (test code = 2237) 99 MG/DL RISK RATIO LDL/HDL (test cod e = 2238) 2.53 RATIO Chucho DraperCOMPREHENSIVE METABOLIC [id number] 00:00:00* Test Item Value Reference Range Interpretation Comme nts GLUCOSE (test code = 2217) 127 MG/DL BUN (test code = 2208) 32 MG/DL CREATININE (test code = 2214) 1.09 MG/DL eGFR AMER. (test cod e = 55441) 82 ML/MIN/1.73 eGFR NON- AMER. (test code = 98723) 70 ML/MIN/1.73 CALC BUN/CREAT (test code = 2235) 29 RATIO SODIUM (test code = 2231) 141 MEQ/L POTASSIUM (test code = 2228) 4.8 MEQ/L CHLORIDE (test code = 2215) 105 MEQ/L CARBON DIOXIDE (test code = 2206) 25 MEQ/L CALCIUM (test code = 2209) 9.6 MG/DL PROTEIN, TOTAL (test code = 2229) 7.7 G/DL ALBUMIN (test code = 2201) 4.5 G/DL CALC GLOBULIN (test code = 2240) 3.2 G/DL CALC A/G RATIO (test code = 2234) 1.4 RATIO BILIRUBIN, TOTAL (test code = 2207) 0.2 MG/DL ALKALINE PHOSPHATASE (test code = 2204) 73 U/L AST (test code = 2218) 11 U/L ALT (test code = 2219) 14 U/L Chucho DraperCBC W/AUTO [id number] 00:00:00* Test Item Value Reference Range Interpretation Comme nts WBC (test code = 1001) 8.9 K/UL RBC (test code = 1002) 5.09 M/UL HEMOGLOBIN (test code = 1003) 14.2 G/DL HEMATOCRIT (test code = 1004) 41.4 % MCV (test code = 1005) 81.3 fL MCH (test code = 1006) 27.9 PG MCHC (test code = 1007) 34.3 G/DL RDW (test code = 1038) 14.0 % NEUTROPHILS (test code = 1008) 69.7 % LYMPHOCYTES (test code = 1010) 21.7 % MONOCYTES (test code = 1011) 6.8 % EOSINOPHILS (test code = 1012) 1.5 % BASOPHILS (test code = 1013) 0.3 % PLATELET COUNT (test code = 1015) 231 K/UL Chucho DraperHEMOGLOBIN [id number] 00:00:00* Test Item Value Reference Range Interpretation Comme [facility] HEMOGLOBIN A1c (test code = 31408) 8.9 % Chucho DraperLIPID [id number] 00:00:00* Test Item Value Reference Range Interpretation Comme nts CHOLESTEROL (test code = 2210) 198 MG/DL TRIGLYCERIDES (test code = 2232) 302 MG/DL HDL CHOLESTEROL (test code = 2220) 39 MG/DL CALC LDL CHOL (test code = 2237) 99 MG/DL RISK RATIO LDL/HDL (test cod e = 2238) 2.53 RATIO Chucho DraperCOMPREHENSIVE METABOLIC [id number] 00:00:00* Test Item Value Reference Range Interpretation Comme nts GLUCOSE (test code = 2217) 127 MG/DL BUN (test code = 2208) 32 MG/DL CREATININE (test code = 2214) 1.09 MG/DL eGFR AMER. (test cod e = 59182) 82 ML/MIN/1.73 eGFR NON- AMER. (test code = 44126) 70 ML/MIN/1.73 CALC BUN/CREAT (test code = 2235) 29 RATIO SODIUM (test code = 2231) 141 MEQ/L POTASSIUM (test code = 2228) 4.8 MEQ/L CHLORIDE (test code = 2215) 105 MEQ/L CARBON DIOXIDE (test code = 2206) 25 MEQ/L CALCIUM (test code = 2209) 9.6 MG/DL PROTEIN, TOTAL (test code = 2229) 7.7 G/DL ALBUMIN (test code = 2201) 4.5 G/DL CALC GLOBULIN (test code = 2240) 3.2 G/DL CALC A/G RATIO (test code = 2234) 1.4 RATIO BILIRUBIN, TOTAL (test code = 2207) 0.2 MG/DL ALKALINE PHOSPHATASE (test code = 2204) 73 U/L AST (test code = 2218) 11 U/L ALT (test code = 2219) 14 U/L Chucho DraperCBC W/AUTO [id number] 00:00:00* Test Item Value Reference Range Interpretation Comme nts WBC (test code = 1001) 8.9 K/UL RBC (test code = 1002) 5.09 M/UL HEMOGLOBIN (test code = 1003) 14.2 G/DL HEMATOCRIT (test code = 1004) 41.4 % MCV (test code = 1005) 81.3 fL MCH (test code = 1006) 27.9 PG MCHC (test code = 1007) 34.3 G/DL RDW (test code = 1038) 14.0 % NEUTROPHILS (test code = 1008) 69.7 % LYMPHOCYTES (test code = 1010) 21.7 % MONOCYTES (test code = 1011) 6.8 % EOSINOPHILS (test code = 1012) 1.5 % BASOPHILS (test code = 1013) 0.3 % PLATELET COUNT (test code = 1015) 231 K/UL Chucho DraperHEMOGLOBIN [id number] 00:00:00* Test Item Value Reference Range Interpretation Comme [facility] HEMOGLOBIN A1c (test code = 38865) 8.9 % Chucho DraperLIPID [id number] 00:00:00* Test Item Value Reference Range Interpretation Comme nts CHOLESTEROL (test code = 2210) 198 MG/DL TRIGLYCERIDES (test code = 2232) 302 MG/DL HDL CHOLESTEROL (test code = 2220) 39 MG/DL CALC LDL CHOL (test code = 2237) 99 MG/DL RISK RATIO LDL/HDL (test cod e = 2238) 2.53 RATIO Chucho DraperCOMPREHENSIVE METABOLIC [id number] 00:00:00* Test Item Value Reference Range Interpretation Comme nts GLUCOSE (test code = 2217) 127 MG/DL BUN (test code = 2208) 32 MG/DL CREATININE (test code = 2214) 1.09 MG/DL eGFR AMER. (test cod e = 95883) 82 ML/MIN/1.73 eGFR NON- AMER. (test code = 23696) 70 ML/MIN/1.73 CALC BUN/CREAT (test code = 2235) 29 RATIO SODIUM (test code = 2231) 141 MEQ/L POTASSIUM (test code = 2228) 4.8 MEQ/L CHLORIDE (test code = 2215) 105 MEQ/L CARBON DIOXIDE (test code = 2206) 25 MEQ/L CALCIUM (test code = 2209) 9.6 MG/DL PROTEIN, TOTAL (test code = 2229) 7.7 G/DL ALBUMIN (test code = 2201) 4.5 G/DL CALC GLOBULIN (test code = 2240) 3.2 G/DL CALC A/G RATIO (test code = 2234) 1.4 RATIO BILIRUBIN, TOTAL (test code = 2207) 0.2 MG/DL ALKALINE PHOSPHATASE (test code = 2204) 73 U/L AST (test code = 2218) 11 U/L ALT (test code = 2219) 14 U/L Chucho DraperCBC W/AUTO [id number] 00:00:00* Test Item Value Reference Range Interpretation Comme nts WBC (test code = 1001) 8.9 K/UL RBC (test code = 1002) 5.09 M/UL HEMOGLOBIN (test code = 1003) 14.2 G/DL HEMATOCRIT (test code = 1004) 41.4 % MCV (test code = 1005) 81.3 fL MCH (test code = 1006) 27.9 PG MCHC (test code = 1007) 34.3 G/DL RDW (test code = 1038) 14.0 % NEUTROPHILS (test code = 1008) 69.7 % LYMPHOCYTES (test code = 1010) 21.7 % MONOCYTES (test code = 1011) 6.8 % EOSINOPHILS (test code = 1012) 1.5 % BASOPHILS (test code = 1013) 0.3 % PLATELET COUNT (test code = 1015) 231 K/UL Chucho DraperHEMOGLOBIN [id number] 00:00:00* Test Item Value Reference Range Interpretation Comme nts HEMOGLOBIN A1c (test code = 16952) 8.9 % Chucho DraperLIPID [id number] 00:00:00* Test Item Value Reference Range Interpretation Comme nts CHOLESTEROL (test code = 2210) 198 MG/DL TRIGLYCERIDES (test code = 2232) 302 MG/DL HDL CHOLESTEROL (test code = 2220) 39 MG/DL CALC LDL CHOL (test code = 2237) 99 MG/DL RISK RATIO LDL/HDL (test cod e = 2238) 2.53 RATIO Chucho DraperCOMPREHENSIVE METABOLIC [id number] 00:00:00* Test Item Value Reference Range Interpretation Comme nts GLUCOSE (test code = 2217) 127 MG/DL BUN (test code = 2208) 32 MG/DL CREATININE (test code = 2214) 1.09 MG/DL eGFR AMER. (test cod e = 37346) 82 ML/MIN/1.73 eGFR NON- AMER. (test code = 38075) 70 ML/MIN/1.73 CALC BUN/CREAT (test code = 2235) 29 RATIO SODIUM (test code = 2231) 141 MEQ/L POTASSIUM (test code = 2228) 4.8 MEQ/L CHLORIDE (test code = 2215) 105 MEQ/L CARBON DIOXIDE (test code = 2206) 25 MEQ/L CALCIUM (test code = 2209) 9.6 MG/DL PROTEIN, TOTAL (test code = 2229) 7.7 G/DL ALBUMIN (test code = 2201) 4.5 G/DL CALC GLOBULIN (test code = 2240) 3.2 G/DL CALC A/G RATIO (test code = 2234) 1.4 RATIO BILIRUBIN, TOTAL (test code = 2207) 0.2 MG/DL ALKALINE PHOSPHATASE (test code = 2204) 73 U/L AST (test code = 2218) 11 U/L ALT (test code = 2219) 14 U/L Chucho DraperCBC W/AUTO [id number] 00:00:00* Test Item Value Reference Range Interpretation Comme nts WBC (test code = 1001) 8.9 K/UL RBC (test code = 1002) 5.09 M/UL HEMOGLOBIN (test code = 1003) 14.2 G/DL HEMATOCRIT (test code = 1004) 41.4 % MCV (test code = 1005) 81.3 fL MCH (test code = 1006) 27.9 PG MCHC (test code = 1007) 34.3 G/DL RDW (test code = 1038) 14.0 % NEUTROPHILS (test code = 1008) 69.7 % LYMPHOCYTES (test code = 1010) 21.7 % MONOCYTES (test code = 1011) 6.8 % EOSINOPHILS (test code = 1012) 1.5 % BASOPHILS (test code = 1013) 0.3 % PLATELET COUNT (test code = 1015) 231 K/UL [facility] [place] AustinHEMOGLOBIN [id number] 00:00:00* Test Item Value Reference Range Interpretation Comme nts HEMOGLOBIN A1c (test code = 84974) 6.3 % HEMOGLOBIN [id number] 00:00:00* Test Item Value Reference Range Interpretation Comme nts HEMOGLOBIN A1c (test code = 60733) 6.3 % HEMOGLOBIN [id number] 00:00:00* Test Item Value Reference Range Interpretation Comme nts HEMOGLOBIN A1c (test code = 14250) 6.3 % HEMOGLOBIN [id number] 00:00:00* Test Item Value Reference Range Interpretation Comme nts HEMOGLOBIN A1c (test code = 98965) 6.3 % Chuch[facility] Strat[place] AustinHEMOGLOBIN [id number] 00:00:00* Test Item Value Reference Range Interpretation Comme nts HEMOGLOBIN A1c (test code = 35807) 6.3 % Chuch[facility] [place] AustinHEMOGLOBIN [id number] 00:00:00* Test Item Value Reference Range Interpretation Comme nts HEMOGLOBIN A1c (test code = 31992) 6.3 % Chucho Strat[place] AustinHEMOGLOBIN [id number] 00:00:00* Test Item Value Reference Range Interpretation Comme nts HEMOGLOBIN A1c (test code = 09071) 6.3 % Chuch[facility] Strat[place] AustinHEMOGLOBIN [id number] 00:00:00* Test Item Value Reference Range Interpretation Comme nts HEMOGLOBIN A1c (test code = 76610) 6.3 % Chucho Strat[place] AustinHEMOGLOBIN [id number] 00:00:00* Test Item Value Reference Range Interpretation Comme nts HEMOGLOBIN A1c (test code = 08162) 6.3 % Chucho DraperCOMPREHENSIVE METABOLIC [id number] 00:00:00* Test Item Value Reference Range Interpretation Comme nts GLUCOSE (test code = 2217) 77 MG/DL BUN (test code = 2208) 18 MG/DL CREATININE (test code = 2214) 0.92 MG/DL eGFR AMER. (test cod e = 97197) 100 ML/MIN/1.73 eGFR NON- AMER. (test code = 92859) 86 ML/MIN/1.73 CALC BUN/CREAT (test code = 2235) 20 RATIO SODIUM (test code = 2231) 140 MEQ/L POTASSIUM (test code = 2228) 4.3 MEQ/L CHLORIDE (test code = 2215) 101 MEQ/L CARBON DIOXIDE (test code = 2206) 27 MEQ/L CALCIUM (test code = 2209) 9.4 MG/DL PROTEIN, TOTAL (test code = 2229) 7.4 G/DL ALBUMIN (test code = 2201) 4.6 G/DL CALC GLOBULIN (test code = 2240) 2.8 G/DL CALC A/G RATIO (test code = 2234) 1.6 RATIO BILIRUBIN, TOTAL (test code = 2207) 0.5 MG/DL ALKALINE PHOSPHATASE (test code = 2204) 51 U/L AST (test code = 2218) 11 U/L ALT (test code = 2219) 13 U/L LIPID [id number] 00:00:00* Test Item Value Reference Range Interpretation Comme nts CHOLESTEROL (test code = 2210) 146 MG/DL TRIGLYCERIDES (test code = 2232) 119 MG/DL HDL CHOLESTEROL (test code = 2220) 63 MG/DL CALC LDL CHOL (test code = 2237) 59 MG/DL RISK RATIO LDL/HDL (test cod e = 2238) 0.94 RATIO CBC W/AUTO [id number] 00:00:00* Test Item Value Reference Range Interpretation Comme nts WBC (test code = 1001) 7.4 K/UL RBC (test code = 1002) 4.69 M/UL HEMOGLOBIN (test code = 1003) 13.0 G/DL HEMATOCRIT (test code = 1004) 37.7 % MCV (test code = 1005) 80.4 fL MCH (test code = 1006) 27.7 PG MCHC (test code = 1007) 34.5 G/DL RDW (test code = 1038) 14.5 % NEUTROPHILS (test code = 1008) 62.3 % LYMPHOCYTES (test code = 1010) 24.7 % MONOCYTES (test code = 1011) 11.5 % EOSINOPHILS (test code = 1012) 1.0 % BASOPHILS (test code = 1013) 0.5 % PLATELET COUNT (test code = 1015) 253 K/UL HEMOGLOBIN [id number] 00:00:00* Test Item Value Reference Range Interpretation Comme nts HEMOGLOBIN A1c (test code = 80013) 6.3 % MICROALBUMIN/CREATININE, RANDOM AND [id number] 00:00:00* Test Item Value Reference Range Interpretation Comme nts CREATININE, URINE, CONC. (te st code = 2072) 135.8 MG/DL MICROALBUMIN, RANDOM (test c ode = 53545) 0.7 MG/DL CALC MICROALB/CREAT RND (irina t code = 72655) 5 MG/G COMPREHENSIVE METABOLIC [id number] 00:00:00* Test Item Value Reference Range Interpretation Comme nts GLUCOSE (test code = 2217) 77 MG/DL BUN (test code = 2208) 18 MG/DL CREATININE (test code = 2214) 0.92 MG/DL eGFR AMER. (test cod e = 51952) 100 ML/MIN/1.73 eGFR NON- AMER. (test code = 29460) 86 ML/MIN/1.73 CALC BUN/CREAT (test code = 2235) 20 RATIO SODIUM (test code = 2231) 140 MEQ/L POTASSIUM (test code = 2228) 4.3 MEQ/L CHLORIDE (test code = 2215) 101 MEQ/L CARBON DIOXIDE (test code = 2206) 27 MEQ/L CALCIUM (test code = 2209) 9.4 MG/DL PROTEIN, TOTAL (test code = 2229) 7.4 G/DL ALBUMIN (test code = 2201) 4.6 G/DL CALC GLOBULIN (test code = 2240) 2.8 G/DL CALC A/G RATIO (test code = 2234) 1.6 RATIO BILIRUBIN, TOTAL (test code = 2207) 0.5 MG/DL ALKALINE PHOSPHATASE (test code = 2204) 51 U/L AST (test code = 2218) 11 U/L ALT (test code = 2219) 13 U/L LIPID [id number] 00:00:00* Test Item Value Reference Range Interpretation Comme nts CHOLESTEROL (test code = 2210) 146 MG/DL TRIGLYCERIDES (test code = 2232) 119 MG/DL HDL CHOLESTEROL (test code = 2220) 63 MG/DL CALC LDL CHOL (test code = 2237) 59 MG/DL RISK RATIO LDL/HDL (test cod e = 2238) 0.94 RATIO CBC W/AUTO [id number] 00:00:00* Test Item Value Reference Range Interpretation Comme nts WBC (test code = 1001) 7.4 K/UL RBC (test code = 1002) 4.69 M/UL HEMOGLOBIN (test code = 1003) 13.0 G/DL HEMATOCRIT (test code = 1004) 37.7 % MCV (test code = 1005) 80.4 fL MCH (test code = 1006) 27.7 PG MCHC (test code = 1007) 34.5 G/DL RDW (test code = 1038) 14.5 % NEUTROPHILS (test code = 1008) 62.3 % LYMPHOCYTES (test code = 1010) 24.7 % MONOCYTES (test code = 1011) 11.5 % EOSINOPHILS (test code = 1012) 1.0 % BASOPHILS (test code = 1013) 0.5 % PLATELET COUNT (test code = 1015) 253 K/UL HEMOGLOBIN [id number] 00:00:00* Test Item Value Reference Range Interpretation Comme nts HEMOGLOBIN A1c (test code = 70604) 6.3 % MICROALBUMIN/CREATININE, RANDOM AND [id number] 00:00:00* Test Item Value Reference Range Interpretation Comme nts CREATININE, URINE, CONC. (te st code = 2072) 135.8 MG/DL MICROALBUMIN, RANDOM (test c ode = 99110) 0.7 MG/DL CALC MICROALB/CREAT RND (irina t code = 50949) 5 MG/G COMPREHENSIVE METABOLIC [id number] 00:00:00* Test Item Value Reference Range Interpretation Comme nts GLUCOSE (test code = 2217) 77 MG/DL BUN (test code = 2208) 18 MG/DL CREATININE (test code = 2214) 0.92 MG/DL eGFR AMER. (test cod e = 40959) 100 ML/MIN/1.73 eGFR NON- AMER. (test code = 81384) 86 ML/MIN/1.73 CALC BUN/CREAT (test code = 2235) 20 RATIO SODIUM (test code = 2231) 140 MEQ/L POTASSIUM (test code = 2228) 4.3 MEQ/L CHLORIDE (test code = 2215) 101 MEQ/L CARBON DIOXIDE (test code = 2206) 27 MEQ/L CALCIUM (test code = 2209) 9.4 MG/DL PROTEIN, TOTAL (test code = 2229) 7.4 G/DL ALBUMIN (test code = 2201) 4.6 G/DL CALC GLOBULIN (test code = 2240) 2.8 G/DL CALC A/G RATIO (test code = 2234) 1.6 RATIO BILIRUBIN, TOTAL (test code = 2207) 0.5 MG/DL ALKALINE PHOSPHATASE (test code = 2204) 51 U/L AST (test code = 2218) 11 U/L ALT (test code = 2219) 13 U/L LIPID [id number] 00:00:00* Test Item Value Reference Range Interpretation Comme nts CHOLESTEROL (test code = 2210) 146 MG/DL TRIGLYCERIDES (test code = 2232) 119 MG/DL HDL CHOLESTEROL (test code = 2220) 63 MG/DL CALC LDL CHOL (test code = 2237) 59 MG/DL RISK RATIO LDL/HDL (test cod e = 2238) 0.94 RATIO CBC W/AUTO [id number] 00:00:00* Test Item Value Reference Range Interpretation Comme nts WBC (test code = 1001) 7.4 K/UL RBC (test code = 1002) 4.69 M/UL HEMOGLOBIN (test code = 1003) 13.0 G/DL HEMATOCRIT (test code = 1004) 37.7 % MCV (test code = 1005) 80.4 fL MCH (test code = 1006) 27.7 PG MCHC (test code = 1007) 34.5 G/DL RDW (test code = 1038) 14.5 % NEUTROPHILS (test code = 1008) 62.3 % LYMPHOCYTES (test code = 1010) 24.7 % MONOCYTES (test code = 1011) 11.5 % EOSINOPHILS (test code = 1012) 1.0 % BASOPHILS (test code = 1013) 0.5 % PLATELET COUNT (test code = 1015) 253 K/UL HEMOGLOBIN [id number] 00:00:00* Test Item Value Reference Range Interpretation Comme nts HEMOGLOBIN A1c (test code = 66548) 6.3 % MICROALBUMIN/CREATININE, RANDOM AND [id number] 00:00:00* Test Item Value Reference Range Interpretation Comme nts CREATININE, URINE, CONC. (te st code = 2072) 135.8 MG/DL MICROALBUMIN, RANDOM (test c ode = 46628) 0.7 MG/DL CALC MICROALB/CREAT RND (irina t code = 22078) 5 MG/G LIPID [id number] 00:00:00* Test Item Value Reference Range Interpretation Comme nts CHOLESTEROL (test code = 2210) 146 MG/DL TRIGLYCERIDES (test code = 2232) 119 MG/DL HDL CHOLESTEROL (test code = 2220) 63 MG/DL CALC LDL CHOL (test code = 2237) 59 MG/DL RISK RATIO LDL/HDL (test cod e = 2238) 0.94 RATIO Chucho F AustinCBC W/AUTO [id number] 00:00:00* Test Item Value Reference Range Interpretation Comme nts WBC (test code = 1001) 7.4 K/UL RBC (test code = 1002) 4.69 M/UL HEMOGLOBIN (test code = 1003) 13.0 G/DL HEMATOCRIT (test code = 1004) 37.7 % MCV (test code = 1005) 80.4 fL MCH (test code = 1006) 27.7 PG MCHC (test code = 1007) 34.5 G/DL RDW (test code = 1038) 14.5 % NEUTROPHILS (test code = 1008) 62.3 % LYMPHOCYTES (test code = 1010) 24.7 % MONOCYTES (test code = 1011) 11.5 % EOSINOPHILS (test code = 1012) 1.0 % BASOPHILS (test code = 1013) 0.5 % PLATELET COUNT (test code = 1015) 253 K/UL Chucho DraperHEMOGLOBIN [id number] 00:00:00* Test Item Value Reference Range Interpretation Comme thong HEMOGLOBIN A1c (test code = 13566) 6.3 % Chucho DraperMICROALBUMIN/CREATININE, RANDOM AND [id number] 00:00:00* Test Item Value Reference Range Interpretation Comme nts CREATININE, URINE, CONC. (te st code = 2072) 135.8 MG/DL MICROALBUMIN, RANDOM (test c ode = 74393) 0.7 MG/DL CALC MICROALB/CREAT RND (irina t code = 68273) 5 MG/G Chucho DraperCOMPREHENSIVE METABOLIC [id number] 00:00:00* Test Item Value Reference Range Interpretation Comme nts GLUCOSE (test code = 2217) 77 MG/DL BUN (test code = 2208) 18 MG/DL CREATININE (test code = 2214) 0.92 MG/DL eGFR AMER. (test cod e = 45254) 100 ML/MIN/1.73 eGFR NON- AMER. (test code = 33906) 86 ML/MIN/1.73 CALC BUN/CREAT (test code = 2235) 20 RATIO SODIUM (test code = 2231) 140 MEQ/L POTASSIUM (test code = 2228) 4.3 MEQ/L CHLORIDE (test code = 2215) 101 MEQ/L CARBON DIOXIDE (test code = 2206) 27 MEQ/L CALCIUM (test code = 2209) 9.4 MG/DL PROTEIN, TOTAL (test code = 2229) 7.4 G/DL ALBUMIN (test code = 2201) 4.6 G/DL CALC GLOBULIN (test code = 2240) 2.8 G/DL CALC A/G RATIO (test code = 2234) 1.6 RATIO BILIRUBIN, TOTAL (test code = 2207) 0.5 MG/DL ALKALINE PHOSPHATASE (test code = 2204) 51 U/L AST (test code = 2218) 11 U/L ALT (test code = 2219) 13 U/L Chucho DraperLIPID [id number] 00:00:00* Test Item Value Reference Range Interpretation Comme nts CHOLESTEROL (test code = 2210) 146 MG/DL TRIGLYCERIDES (test code = 2232) 119 MG/DL HDL CHOLESTEROL (test code = 2220) 63 MG/DL CALC LDL CHOL (test code = 2237) 59 MG/DL RISK RATIO LDL/HDL (test cod e = 2238) 0.94 RATIO Chucho DraperCBC W/AUTO [id number] 00:00:00* Test Item Value Reference Range Interpretation Comme nts WBC (test code = 1001) 7.4 K/UL RBC (test code = 1002) 4.69 M/UL HEMOGLOBIN (test code = 1003) 13.0 G/DL HEMATOCRIT (test code = 1004) 37.7 % MCV (test code = 1005) 80.4 fL MCH (test code = 1006) 27.7 PG MCHC (test code = 1007) 34.5 G/DL RDW (test code = 1038) 14.5 % NEUTROPHILS (test code = 1008) 62.3 % LYMPHOCYTES (test code = 1010) 24.7 % MONOCYTES (test code = 1011) 11.5 % EOSINOPHILS (test code = 1012) 1.0 % BASOPHILS (test code = 1013) 0.5 % PLATELET COUNT (test code = 1015) 253 K/UL Chucho DraperHEMOGLOBIN [id number] 00:00:00* Test Item Value Reference Range Interpretation Comme [facility] HEMOGLOBIN A1c (test code = 11473) 6.3 % Chucho DraperMICROALBUMIN/CREATININE, RANDOM AND [id number] 00:00:00* Test Item Value Reference Range Interpretation Comme [facility] CREATININE, URINE, CONC. (te st code = 2072) 135.8 MG/DL MICROALBUMIN, RANDOM (test c ode = 36136) 0.7 MG/DL CALC MICROALB/CREAT RND (irina t code = 20088) 5 MG/G Chucho DraperCOMPREHENSIVE METABOLIC [id number] 00:00:00* Test Item Value Reference Range Interpretation Comme nts GLUCOSE (test code = 2217) 77 MG/DL BUN (test code = 2208) 18 MG/DL CREATININE (test code = 2214) 0.92 MG/DL eGFR AMER. (test cod e = 82076) 100 ML/MIN/1.73 eGFR NON- AMER. (test code = 97276) 86 ML/MIN/1.73 CALC BUN/CREAT (test code = 2235) 20 RATIO SODIUM (test code = 2231) 140 MEQ/L POTASSIUM (test code = 2228) 4.3 MEQ/L CHLORIDE (test code = 2215) 101 MEQ/L CARBON DIOXIDE (test code = 2206) 27 MEQ/L CALCIUM (test code = 2209) 9.4 MG/DL PROTEIN, TOTAL (test code = 2229) 7.4 G/DL ALBUMIN (test code = 2201) 4.6 G/DL CALC GLOBULIN (test code = 2240) 2.8 G/DL CALC A/G RATIO (test code = 2234) 1.6 RATIO BILIRUBIN, TOTAL (test code = 2207) 0.5 MG/DL ALKALINE PHOSPHATASE (test code = 2204) 51 U/L AST (test code = 2218) 11 U/L ALT (test code = 2219) 13 U/L Chucho DraperLIPID [id number] 00:00:00* Test Item Value Reference Range Interpretation Comme nts CHOLESTEROL (test code = 2210) 146 MG/DL TRIGLYCERIDES (test code = 2232) 119 MG/DL HDL CHOLESTEROL (test code = 2220) 63 MG/DL CALC LDL CHOL (test code = 2237) 59 MG/DL RISK RATIO LDL/HDL (test cod e = 2238) 0.94 RATIO Chucho DraperCBC W/AUTO [id number] 00:00:00* Test Item Value Reference Range Interpretation Comme nts WBC (test code = 1001) 7.4 K/UL RBC (test code = 1002) 4.69 M/UL HEMOGLOBIN (test code = 1003) 13.0 G/DL HEMATOCRIT (test code = 1004) 37.7 % MCV (test code = 1005) 80.4 fL MCH (test code = 1006) 27.7 PG MCHC (test code = 1007) 34.5 G/DL RDW (test code = 1038) 14.5 % NEUTROPHILS (test code = 1008) 62.3 % LYMPHOCYTES (test code = 1010) 24.7 % MONOCYTES (test code = 1011) 11.5 % EOSINOPHILS (test code = 1012) 1.0 % BASOPHILS (test code = 1013) 0.5 % PLATELET COUNT (test code = 1015) 253 K/UL Chucho DraperHEMOGLOBIN [id number] 00:00:00* Test Item Value Reference Range Interpretation Comme thong HEMOGLOBIN A1c (test code = 28335) 6.3 % Chucho DraperMICROALBUMIN/CREATININE, RANDOM AND [id number] 00:00:00* Test Item Value Reference Range Interpretation Comme nts CREATININE, URINE, CONC. (te st code = 2072) 135.8 MG/DL MICROALBUMIN, RANDOM (test c ode = 88516) 0.7 MG/DL CALC MICROALB/CREAT RND (irina t code = 14185) 5 MG/G Chucho DraperCOMPREHENSIVE METABOLIC [id number] 00:00:00* Test Item Value Reference Range Interpretation Comme nts GLUCOSE (test code = 2217) 77 MG/DL BUN (test code = 2208) 18 MG/DL CREATININE (test code = 2214) 0.92 MG/DL eGFR AMER. (test cod e = 32708) 100 ML/MIN/1.73 eGFR NON- AMER. (test code = 82847) 86 ML/MIN/1.73 CALC BUN/CREAT (test code = 2235) 20 RATIO SODIUM (test code = 2231) 140 MEQ/L POTASSIUM (test code = 2228) 4.3 MEQ/L CHLORIDE (test code = 2215) 101 MEQ/L CARBON DIOXIDE (test code = 2206) 27 MEQ/L CALCIUM (test code = 2209) 9.4 MG/DL PROTEIN, TOTAL (test code = 2229) 7.4 G/DL ALBUMIN (test code = 2201) 4.6 G/DL CALC GLOBULIN (test code = 2240) 2.8 G/DL CALC A/G RATIO (test code = 2234) 1.6 RATIO BILIRUBIN, TOTAL (test code = 2207) 0.5 MG/DL ALKALINE PHOSPHATASE (test code = 2204) 51 U/L AST (test code = 2218) 11 U/L ALT (test code = 2219) 13 U/L Chucho DraperLIPID [id number] 00:00:00* Test Item Value Reference Range Interpretation Comme nts CHOLESTEROL (test code = 2210) 146 MG/DL TRIGLYCERIDES (test code = 2232) 119 MG/DL HDL CHOLESTEROL (test code = 2220) 63 MG/DL CALC LDL CHOL (test code = 2237) 59 MG/DL RISK RATIO LDL/HDL (test cod e = 2238) 0.94 RATIO Chucho DraperCBC W/AUTO [id number] 00:00:00* Test Item Value Reference Range Interpretation Comme nts WBC (test code = 1001) 7.4 K/UL RBC (test code = 1002) 4.69 M/UL HEMOGLOBIN (test code = 1003) 13.0 G/DL HEMATOCRIT (test code = 1004) 37.7 % MCV (test code = 1005) 80.4 fL MCH (test code = 1006) 27.7 PG MCHC (test code = 1007) 34.5 G/DL RDW (test code = 1038) 14.5 % NEUTROPHILS (test code = 1008) 62.3 % LYMPHOCYTES (test code = 1010) 24.7 % MONOCYTES (test code = 1011) 11.5 % EOSINOPHILS (test code = 1012) 1.0 % BASOPHILS (test code = 1013) 0.5 % PLATELET COUNT (test code = 1015) 253 K/UL Chucho DraperHEMOGLOBIN [id number] 00:00:00* Test Item Value Reference Range Interpretation Comme thong HEMOGLOBIN A1c (test code = 36597) 6.3 % Chucho DraperMICROALBUMIN/CREATININE, RANDOM AND [id number] 00:00:00* Test Item Value Reference Range Interpretation Comme thong CREATININE, URINE, CONC. (te st code = 2072) 135.8 MG/DL MICROALBUMIN, RANDOM (test c ode = 01252) 0.7 MG/DL CALC MICROALB/CREAT RND (irina t code = 36731) 5 MG/G Chucho DraperCOMPREHENSIVE METABOLIC [id number] 00:00:00* Test Item Value Reference Range Interpretation Comme nts GLUCOSE (test code = 2217) 77 MG/DL BUN (test code = 2208) 18 MG/DL CREATININE (test code = 2214) 0.92 MG/DL eGFR AMER. (test cod e = 03683) 100 ML/MIN/1.73 eGFR NON- AMER. (test code = 62015) 86 ML/MIN/1.73 CALC BUN/CREAT (test code = 2235) 20 RATIO SODIUM (test code = 2231) 140 MEQ/L POTASSIUM (test code = 2228) 4.3 MEQ/L CHLORIDE (test code = 2215) 101 MEQ/L CARBON DIOXIDE (test code = 2206) 27 MEQ/L CALCIUM (test code = 2209) 9.4 MG/DL PROTEIN, TOTAL (test code = 2229) 7.4 G/DL ALBUMIN (test code = 2201) 4.6 G/DL CALC GLOBULIN (test code = 2240) 2.8 G/DL CALC A/G RATIO (test code = 2234) 1.6 RATIO BILIRUBIN, TOTAL (test code = 2207) 0.5 MG/DL ALKALINE PHOSPHATASE (test code = 2204) 51 U/L AST (test code = 2218) 11 U/L ALT (test code = 2219) 13 U/L Chucho DraperLIPID [id number] 00:00:00* Test Item Value Reference Range Interpretation Comme nts CHOLESTEROL (test code = 2210) 146 MG/DL TRIGLYCERIDES (test code = 2232) 119 MG/DL HDL CHOLESTEROL (test code = 2220) 63 MG/DL CALC LDL CHOL (test code = 2237) 59 MG/DL RISK RATIO LDL/HDL (test cod e = 2238) 0.94 RATIO Chucho [place] BaronCBC W/AUTO [id number] 00:00:00* Test Item Value Reference Range Interpretation Comme nts WBC (test code = 1001) 7.4 K/UL RBC (test code = 1002) 4.69 M/UL HEMOGLOBIN (test code = 1003) 13.0 G/DL HEMATOCRIT (test code = 1004) 37.7 % MCV (test code = 1005) 80.4 fL MCH (test code = 1006) 27.7 PG MCHC (test code = 1007) 34.5 G/DL RDW (test code = 1038) 14.5 % NEUTROPHILS (test code = 1008) 62.3 % LYMPHOCYTES (test code = 1010) 24.7 % MONOCYTES (test code = 1011) 11.5 % EOSINOPHILS (test code = 1012) 1.0 % BASOPHILS (test code = 1013) 0.5 % PLATELET COUNT (test code = 1015) 253 K/UL Chucho DraperHEMOGLOBIN [id number] 00:00:00* Test Item Value Reference Range Interpretation Comme thong HEMOGLOBIN A1c (test code = 82708) 6.3 % Chucho DraperMICROALBUMIN/CREATININE, RANDOM AND [id number] 00:00:00* Test Item Value Reference Range Interpretation Comme nts CREATININE, URINE, CONC. (te st code = 2072) 135.8 MG/DL MICROALBUMIN, RANDOM (test c ode = 25348) 0.7 MG/DL CALC MICROALB/CREAT RND (irina t code = 67576) 5 MG/G Chucho DraperCOMPREHENSIVE METABOLIC [id number] 00:00:00* Test Item Value Reference Range Interpretation Comme nts GLUCOSE (test code = 2217) 77 MG/DL BUN (test code = 2208) 18 MG/DL CREATININE (test code = 2214) 0.92 MG/DL eGFR AMER. (test cod e = 02352) 100 ML/MIN/1.73 eGFR NON- AMER. (test code = 68066) 86 ML/MIN/1.73 CALC BUN/CREAT (test code = 2235) 20 RATIO SODIUM (test code = 2231) 140 MEQ/L POTASSIUM (test code = 2228) 4.3 MEQ/L CHLORIDE (test code = 2215) 101 MEQ/L CARBON DIOXIDE (test code = 2206) 27 MEQ/L CALCIUM (test code = 2209) 9.4 MG/DL PROTEIN, TOTAL (test code = 2229) 7.4 G/DL ALBUMIN (test code = 2201) 4.6 G/DL CALC GLOBULIN (test code = 2240) 2.8 G/DL CALC A/G RATIO (test code = 2234) 1.6 RATIO BILIRUBIN, TOTAL (test code = 2207) 0.5 MG/DL ALKALINE PHOSPHATASE (test code = 2204) 51 U/L AST (test code = 2218) 11 U/L ALT (test code = 2219) 13 U/L Chucho DraperLIPID [id number] 00:00:00* Test Item Value Reference Range Interpretation Comme nts CHOLESTEROL (test code = 2210) 146 MG/DL TRIGLYCERIDES (test code = 2232) 119 MG/DL HDL CHOLESTEROL (test code = 2220) 63 MG/DL CALC LDL CHOL (test code = 2237) 59 MG/DL RISK RATIO LDL/HDL (test cod e = 2238) 0.94 RATIO Chucho DraperCBC W/AUTO [id number] 00:00:00* Test Item Value Reference Range Interpretation Comme nts WBC (test code = 1001) 7.4 K/UL RBC (test code = 1002) 4.69 M/UL HEMOGLOBIN (test code = 1003) 13.0 G/DL HEMATOCRIT (test code = 1004) 37.7 % MCV (test code = 1005) 80.4 fL MCH (test code = 1006) 27.7 PG MCHC (test code = 1007) 34.5 G/DL RDW (test code = 1038) 14.5 % NEUTROPHILS (test code = 1008) 62.3 % LYMPHOCYTES (test code = 1010) 24.7 % MONOCYTES (test code = 1011) 11.5 % EOSINOPHILS (test code = 1012) 1.0 % BASOPHILS (test code = 1013) 0.5 % PLATELET COUNT (test code = 1015) 253 K/UL Chucho DraperHEMOGLOBIN [id number] 00:00:00* Test Item Value Reference Range Interpretation Comme thong HEMOGLOBIN A1c (test code = 27648) 6.3 % Chucho DraperMICROALBUMIN/CREATININE, RANDOM AND [id number] 00:00:00* Test Item Value Reference Range Interpretation Comme thong CREATININE, URINE, CONC. (te st code = 2072) 135.8 MG/DL MICROALBUMIN, RANDOM (test c ode = 44012) 0.7 MG/DL CALC MICROALB/CREAT RND (irina t code = 88390) 5 MG/G Chucho DraperCOMPREHENSIVE METABOLIC [id number] 00:00:00* Test Item Value Reference Range Interpretation Comme nts GLUCOSE (test code = 2217) 77 MG/DL BUN (test code = 2208) 18 MG/DL CREATININE (test code = 2214) 0.92 MG/DL eGFR AMER. (test cod e = 60008) 100 ML/MIN/1.73 eGFR NON- AMER. (test code = 95143) 86 ML/MIN/1.73 CALC BUN/CREAT (test code = 2235) 20 RATIO SODIUM (test code = 2231) 140 MEQ/L POTASSIUM (test code = 2228) 4.3 MEQ/L CHLORIDE (test code = 2215) 101 MEQ/L CARBON DIOXIDE (test code = 2206) 27 MEQ/L CALCIUM (test code = 2209) 9.4 MG/DL PROTEIN, TOTAL (test code = 2229) 7.4 G/DL ALBUMIN (test code = 2201) 4.6 G/DL CALC GLOBULIN (test code = 2240) 2.8 G/DL CALC A/G RATIO (test code = 2234) 1.6 RATIO BILIRUBIN, TOTAL (test code = 2207) 0.5 MG/DL ALKALINE PHOSPHATASE (test code = 2204) 51 U/L AST (test code = 2218) 11 U/L ALT (test code = 2219) 13 U/L Chucho DraperCOMPREHENSIVE METABOLIC [id number] 00:00:00* Test Item Value Reference Range Interpretation Comme nts GLUCOSE (test code = 2217) 242 MG/DL BUN (test code = 2208) 15 MG/DL CREATININE (test code = 2214) 0.82 MG/DL eGFR AMER. (test cod e = 10260) 108 ML/MIN/1.73 eGFR NON- AMER. (test code = 25519) 93 ML/MIN/1.73 CALC BUN/CREAT (test code = 2235) 18 RATIO SODIUM (test code = 2231) 139 MEQ/L POTASSIUM (test code = 2228) 4.4 MEQ/L CHLORIDE (test code = 2215) 100 MEQ/L CARBON DIOXIDE (test code = 2206) 24 MEQ/L CALCIUM (test code = 2209) 9.5 MG/DL PROTEIN, TOTAL (test code = 2229) 7.3 G/DL ALBUMIN (test code = 2201) 4.4 G/DL CALC GLOBULIN (test code = 2240) 2.9 G/DL CALC A/G RATIO (test code = 2234) 1.5 RATIO BILIRUBIN, TOTAL (test code = 2207) 0.3 MG/DL ALKALINE PHOSPHATASE (test code = 2204) 78 U/L AST (test code = 2218) 14 U/L ALT (test code = 2219) 23 U/L LIPID [id number] 00:00:00* Test Item Value Reference Range Interpretation Comme nts CHOLESTEROL (test code = 2210) 205 MG/DL TRIGLYCERIDES (test code = 2232) 251 MG/DL HDL CHOLESTEROL (test code = 2220) 45 MG/DL CALC LDL CHOL (test code = 2237) 110 MG/DL RISK RATIO LDL/HDL (test cod e = 2238) 2.44 RATIO CBC W/AUTO [id number] 00:00:00* Test Item Value Reference Range Interpretation Comme nts WBC (test code = 1001) 7.9 K/UL RBC (test code = 1002) 5.43 M/UL HEMOGLOBIN (test code = 1003) 15.3 G/DL HEMATOCRIT (test code = 1004) 44.8 % MCV (test code = 1005) 82.5 fL MCH (test code = 1006) 28.2 PG MCHC (test code = 1007) 34.2 G/DL RDW (test code = 1038) 13.7 % NEUTROPHILS (test code = 1008) 70.5 % LYMPHOCYTES (test code = 1010) 20.4 % MONOCYTES (test code = 1011) 7.4 % EOSINOPHILS (test code = 1012) 1.3 % BASOPHILS (test code = 1013) 0.4 % PLATELET COUNT (test code = 1015) 213 K/UL HEMOGLOBIN [id number] 00:00:00* Test Item Value Reference Range Interpretation Comme nts HEMOGLOBIN A1c (test code = 07128) 10.0 % [id number] 00:00:00* Test Item Value Reference Range Interpretation Comme nts TSH (test code = 2821) 1.810 UIU/ML COMPREHENSIVE METABOLIC [id number] 00:00:00* Test Item Value Reference Range Interpretation Comme nts GLUCOSE (test code = 2217) 242 MG/DL BUN (test code = 2208) 15 MG/DL CREATININE (test code = 2214) 0.82 MG/DL eGFR AMER. (test cod e = 35557) 108 ML/MIN/1.73 eGFR NON- AMER. (test code = 11401) 93 ML/MIN/1.73 CALC BUN/CREAT (test code = 2235) 18 RATIO SODIUM (test code = 2231) 139 MEQ/L POTASSIUM (test code = 2228) 4.4 MEQ/L CHLORIDE (test code = 2215) 100 MEQ/L CARBON DIOXIDE (test code = 2206) 24 MEQ/L CALCIUM (test code = 2209) 9.5 MG/DL PROTEIN, TOTAL (test code = 2229) 7.3 G/DL ALBUMIN (test code = 2201) 4.4 G/DL CALC GLOBULIN (test code = 2240) 2.9 G/DL CALC A/G RATIO (test code = 2234) 1.5 RATIO BILIRUBIN, TOTAL (test code = 2207) 0.3 MG/DL ALKALINE PHOSPHATASE (test code = 2204) 78 U/L AST (test code = 2218) 14 U/L ALT (test code = 2219) 23 U/L LIPID [id number] 00:00:00* Test Item Value Reference Range Interpretation Comme nts CHOLESTEROL (test code = 2210) 205 MG/DL TRIGLYCERIDES (test code = 2232) 251 MG/DL HDL CHOLESTEROL (test code = 2220) 45 MG/DL CALC LDL CHOL (test code = 2237) 110 MG/DL RISK RATIO LDL/HDL (test cod e = 2238) 2.44 RATIO CBC W/AUTO [id number] 00:00:00* Test Item Value Reference Range Interpretation Comme nts WBC (test code = 1001) 7.9 K/UL RBC (test code = 1002) 5.43 M/UL HEMOGLOBIN (test code = 1003) 15.3 G/DL HEMATOCRIT (test code = 1004) 44.8 % MCV (test code = 1005) 82.5 fL MCH (test code = 1006) 28.2 PG MCHC (test code = 1007) 34.2 G/DL RDW (test code = 1038) 13.7 % NEUTROPHILS (test code = 1008) 70.5 % LYMPHOCYTES (test code = 1010) 20.4 % MONOCYTES (test code = 1011) 7.4 % EOSINOPHILS (test code = 1012) 1.3 % BASOPHILS (test code = 1013) 0.4 % PLATELET COUNT (test code = 1015) 213 K/UL HEMOGLOBIN [id number] 00:00:00* Test Item Value Reference Range Interpretation Comme nts HEMOGLOBIN A1c (test code = 05029) 10.0 % [id number] 00:00:00* Test Item Value Reference Range Interpretation Comme nts TSH (test code = 2821) 1.810 UIU/ML COMPREHENSIVE METABOLIC [id number] 00:00:00* Test Item Value Reference Range Interpretation Comme nts GLUCOSE (test code = 2217) 242 MG/DL BUN (test code = 2208) 15 MG/DL CREATININE (test code = 2214) 0.82 MG/DL eGFR AMER. (test cod e = 31340) 108 ML/MIN/1.73 eGFR NON- AMER. (test code = 93911) 93 ML/MIN/1.73 CALC BUN/CREAT (test code = 2235) 18 RATIO SODIUM (test code = 2231) 139 MEQ/L POTASSIUM (test code = 2228) 4.4 MEQ/L CHLORIDE (test code = 2215) 100 MEQ/L CARBON DIOXIDE (test code = 2206) 24 MEQ/L CALCIUM (test code = 2209) 9.5 MG/DL PROTEIN, TOTAL (test code = 2229) 7.3 G/DL ALBUMIN (test code = 2201) 4.4 G/DL CALC GLOBULIN (test code = 2240) 2.9 G/DL CALC A/G RATIO (test code = 2234) 1.5 RATIO BILIRUBIN, TOTAL (test code = 2207) 0.3 MG/DL ALKALINE PHOSPHATASE (test code = 2204) 78 U/L AST (test code = 2218) 14 U/L ALT (test code = 2219) 23 U/L LIPID [id number] 00:00:00* Test Item Value Reference Range Interpretation Comme nts CHOLESTEROL (test code = 2210) 205 MG/DL TRIGLYCERIDES (test code = 2232) 251 MG/DL HDL CHOLESTEROL (test code = 2220) 45 MG/DL CALC LDL CHOL (test code = 2237) 110 MG/DL RISK RATIO LDL/HDL (test cod e = 2238) 2.44 RATIO CBC W/AUTO [id number] 00:00:00* Test Item Value Reference Range Interpretation Comme nts WBC (test code = 1001) 7.9 K/UL RBC (test code = 1002) 5.43 M/UL HEMOGLOBIN (test code = 1003) 15.3 G/DL HEMATOCRIT (test code = 1004) 44.8 % MCV (test code = 1005) 82.5 fL MCH (test code = 1006) 28.2 PG MCHC (test code = 1007) 34.2 G/DL RDW (test code = 1038) 13.7 % NEUTROPHILS (test code = 1008) 70.5 % LYMPHOCYTES (test code = 1010) 20.4 % MONOCYTES (test code = 1011) 7.4 % EOSINOPHILS (test code = 1012) 1.3 % BASOPHILS (test code = 1013) 0.4 % PLATELET COUNT (test code = 1015) 213 K/UL HEMOGLOBIN [id number] 00:00:00* Test Item Value Reference Range Interpretation Comme nts HEMOGLOBIN A1c (test code = 31350) 10.0 % [id number] 00:00:00* Test Item Value Reference Range Interpretation Comme nts TSH (test code = 2821) 1.810 UIU/ML LIPID [id number] 00:00:00* Test Item Value Reference Range Interpretation Comme nts CHOLESTEROL (test code = 2210) 205 MG/DL TRIGLYCERIDES (test code = 2232) 251 MG/DL HDL CHOLESTEROL (test code = 2220) 45 MG/DL CALC LDL CHOL (test code = 2237) 110 MG/DL RISK RATIO LDL/HDL (test cod e = 2238) 2.44 RATIO Chucho [place] AustinCBC W/AUTO [id number] 00:00:00* Test Item Value Reference Range Interpretation Comme nts WBC (test code = 1001) 7.9 K/UL RBC (test code = 1002) 5.43 M/UL HEMOGLOBIN (test code = 1003) 15.3 G/DL HEMATOCRIT (test code = 1004) 44.8 % MCV (test code = 1005) 82.5 fL MCH (test code = 1006) 28.2 PG MCHC (test code = 1007) 34.2 G/DL RDW (test code = 1038) 13.7 % NEUTROPHILS (test code = 1008) 70.5 % LYMPHOCYTES (test code = 1010) 20.4 % MONOCYTES (test code = 1011) 7.4 % EOSINOPHILS (test code = 1012) 1.3 % BASOPHILS (test code = 1013) 0.4 % PLATELET COUNT (test code = 1015) 213 K/UL Chucho DraperHEMOGLOBIN [id number] 00:00:00* Test Item Value Reference Range Interpretation Comme thong HEMOGLOBIN A1c (test code = 07826) 10.0 % Chucho [id number] 00:00:00* Test Item Value Reference Range Interpretation Comme thong TSH (test code = 2821) 1.810 UIU/ML Chucho DraperCOMPREHENSIVE METABOLIC [id number] 00:00:00* Test Item Value Reference Range Interpretation Comme nts GLUCOSE (test code = 2217) 242 MG/DL BUN (test code = 2208) 15 MG/DL CREATININE (test code = 2214) 0.82 MG/DL eGFR AMER. (test cod e = 45700) 108 ML/MIN/1.73 eGFR NON- AMER. (test code = 71338) 93 ML/MIN/1.73 CALC BUN/CREAT (test code = 2235) 18 RATIO SODIUM (test code = 2231) 139 MEQ/L POTASSIUM (test code = 2228) 4.4 MEQ/L CHLORIDE (test code = 2215) 100 MEQ/L CARBON DIOXIDE (test code = 2206) 24 MEQ/L CALCIUM (test code = 2209) 9.5 MG/DL PROTEIN, TOTAL (test code = 2229) 7.3 G/DL ALBUMIN (test code = 2201) 4.4 G/DL CALC GLOBULIN (test code = 2240) 2.9 G/DL CALC A/G RATIO (test code = 2234) 1.5 RATIO BILIRUBIN, TOTAL (test code = 2207) 0.3 MG/DL ALKALINE PHOSPHATASE (test code = 2204) 78 U/L AST (test code = 2218) 14 U/L ALT (test code = 2219) 23 U/L Chucho DraperLIPID [id number] 00:00:00* Test Item Value Reference Range Interpretation Comme nts CHOLESTEROL (test code = 2210) 205 MG/DL TRIGLYCERIDES (test code = 2232) 251 MG/DL HDL CHOLESTEROL (test code = 2220) 45 MG/DL CALC LDL CHOL (test code = 2237) 110 MG/DL RISK RATIO LDL/HDL (test cod e = 2238) 2.44 RATIO Chucho DraperCBC W/AUTO [id number] 00:00:00* Test Item Value Reference Range Interpretation Comme nts WBC (test code = 1001) 7.9 K/UL RBC (test code = 1002) 5.43 M/UL HEMOGLOBIN (test code = 1003) 15.3 G/DL HEMATOCRIT (test code = 1004) 44.8 % MCV (test code = 1005) 82.5 fL MCH (test code = 1006) 28.2 PG MCHC (test code = 1007) 34.2 G/DL RDW (test code = 1038) 13.7 % NEUTROPHILS (test code = 1008) 70.5 % LYMPHOCYTES (test code = 1010) 20.4 % MONOCYTES (test code = 1011) 7.4 % EOSINOPHILS (test code = 1012) 1.3 % BASOPHILS (test code = 1013) 0.4 % PLATELET COUNT (test code = 1015) 213 K/UL Chucho DraperHEMOGLOBIN [id number] 00:00:00* Test Item Value Reference Range Interpretation Comme thong HEMOGLOBIN A1c (test code = 35550) 10.0 % Chucho [id number] 00:00:00* Test Item Value Reference Range Interpretation Comme [facility] TSH (test code = 2821) 1.810 UIU/ML Chucho DraperCOMPREHENSIVE METABOLIC [id number] 00:00:00* Test Item Value Reference Range Interpretation Comme nts GLUCOSE (test code = 2217) 242 MG/DL BUN (test code = 2208) 15 MG/DL CREATININE (test code = 2214) 0.82 MG/DL eGFR AMER. (test cod e = 58107) 108 ML/MIN/1.73 eGFR NON- AMER. (test code = 17082) 93 ML/MIN/1.73 CALC BUN/CREAT (test code = 2235) 18 RATIO SODIUM (test code = 2231) 139 MEQ/L POTASSIUM (test code = 2228) 4.4 MEQ/L CHLORIDE (test code = 2215) 100 MEQ/L CARBON DIOXIDE (test code = 2206) 24 MEQ/L CALCIUM (test code = 2209) 9.5 MG/DL PROTEIN, TOTAL (test code = 2229) 7.3 G/DL ALBUMIN (test code = 2201) 4.4 G/DL CALC GLOBULIN (test code = 2240) 2.9 G/DL CALC A/G RATIO (test code = 2234) 1.5 RATIO BILIRUBIN, TOTAL (test code = 2207) 0.3 MG/DL ALKALINE PHOSPHATASE (test code = 2204) 78 U/L AST (test code = 2218) 14 U/L ALT (test code = 2219) 23 U/L Chucho DraperLIPID [id number] 00:00:00* Test Item Value Reference Range Interpretation Comme nts CHOLESTEROL (test code = 2210) 205 MG/DL TRIGLYCERIDES (test code = 2232) 251 MG/DL HDL CHOLESTEROL (test code = 2220) 45 MG/DL CALC LDL CHOL (test code = 2237) 110 MG/DL RISK RATIO LDL/HDL (test cod e = 2238) 2.44 RATIO Chucho DraperCBC W/AUTO [id number] 00:00:00* Test Item Value Reference Range Interpretation Comme nts WBC (test code = 1001) 7.9 K/UL RBC (test code = 1002) 5.43 M/UL HEMOGLOBIN (test code = 1003) 15.3 G/DL HEMATOCRIT (test code = 1004) 44.8 % MCV (test code = 1005) 82.5 fL MCH (test code = 1006) 28.2 PG MCHC (test code = 1007) 34.2 G/DL RDW (test code = 1038) 13.7 % NEUTROPHILS (test code = 1008) 70.5 % LYMPHOCYTES (test code = 1010) 20.4 % MONOCYTES (test code = 1011) 7.4 % EOSINOPHILS (test code = 1012) 1.3 % BASOPHILS (test code = 1013) 0.4 % PLATELET COUNT (test code = 1015) 213 K/UL Chucho DraperHEMOGLOBIN [id number] 00:00:00* Test Item Value Reference Range Interpretation Comme thong HEMOGLOBIN A1c (test code = 14566) 10.0 % Chucho [id number] 00:00:00* Test Item Value Reference Range Interpretation Comme thong TSH (test code = 2821) 1.810 UIU/ML Chucho DraperCOMPREHENSIVE METABOLIC [id number] 00:00:00* Test Item Value Reference Range Interpretation Comme nts GLUCOSE (test code = 2217) 242 MG/DL BUN (test code = 2208) 15 MG/DL CREATININE (test code = 2214) 0.82 MG/DL eGFR AMER. (test cod e = 46727) 108 ML/MIN/1.73 eGFR NON- AMER. (test code = 91850) 93 ML/MIN/1.73 CALC BUN/CREAT (test code = 2235) 18 RATIO SODIUM (test code = 2231) 139 MEQ/L POTASSIUM (test code = 2228) 4.4 MEQ/L CHLORIDE (test code = 2215) 100 MEQ/L CARBON DIOXIDE (test code = 2206) 24 MEQ/L CALCIUM (test code = 2209) 9.5 MG/DL PROTEIN, TOTAL (test code = 2229) 7.3 G/DL ALBUMIN (test code = 2201) 4.4 G/DL CALC GLOBULIN (test code = 2240) 2.9 G/DL CALC A/G RATIO (test code = 2234) 1.5 RATIO BILIRUBIN, TOTAL (test code = 2207) 0.3 MG/DL ALKALINE PHOSPHATASE (test code = 2204) 78 U/L AST (test code = 2218) 14 U/L ALT (test code = 2219) 23 U/L Chucho DraperLIPID [id number] 00:00:00* Test Item Value Reference Range Interpretation Comme nts CHOLESTEROL (test code = 2210) 205 MG/DL TRIGLYCERIDES (test code = 2232) 251 MG/DL HDL CHOLESTEROL (test code = 2220) 45 MG/DL CALC LDL CHOL (test code = 2237) 110 MG/DL RISK RATIO LDL/HDL (test cod e = 2238) 2.44 RATIO Chucho DraperCBC W/AUTO [id number] 00:00:00* Test Item Value Reference Range Interpretation Comme nts WBC (test code = 1001) 7.9 K/UL RBC (test code = 1002) 5.43 M/UL HEMOGLOBIN (test code = 1003) 15.3 G/DL HEMATOCRIT (test code = 1004) 44.8 % MCV (test code = 1005) 82.5 fL MCH (test code = 1006) 28.2 PG MCHC (test code = 1007) 34.2 G/DL RDW (test code = 1038) 13.7 % NEUTROPHILS (test code = 1008) 70.5 % LYMPHOCYTES (test code = 1010) 20.4 % MONOCYTES (test code = 1011) 7.4 % EOSINOPHILS (test code = 1012) 1.3 % BASOPHILS (test code = 1013) 0.4 % PLATELET COUNT (test code = 1015) 213 K/UL Chucho DraperHEMOGLOBIN [id number] 00:00:00* Test Item Value Reference Range Interpretation Comme thong HEMOGLOBIN A1c (test code = 82727) 10.0 % Chucho [id number] 00:00:00* Test Item Value Reference Range Interpretation Comme nts TSH (test code = 2821) 1.810 UIU/ML Chucho DraperCOMPREHENSIVE METABOLIC [id number] 00:00:00* Test Item Value Reference Range Interpretation Comme nts GLUCOSE (test code = 2217) 242 MG/DL BUN (test code = 2208) 15 MG/DL CREATININE (test code = 2214) 0.82 MG/DL eGFR AMER. (test cod e = 27299) 108 ML/MIN/1.73 eGFR NON- AMER. (test code = 94461) 93 ML/MIN/1.73 CALC BUN/CREAT (test code = 2235) 18 RATIO SODIUM (test code = 2231) 139 MEQ/L POTASSIUM (test code = 2228) 4.4 MEQ/L CHLORIDE (test code = 2215) 100 MEQ/L CARBON DIOXIDE (test code = 2206) 24 MEQ/L CALCIUM (test code = 2209) 9.5 MG/DL PROTEIN, TOTAL (test code = 2229) 7.3 G/DL ALBUMIN (test code = 2201) 4.4 G/DL CALC GLOBULIN (test code = 2240) 2.9 G/DL CALC A/G RATIO (test code = 2234) 1.5 RATIO BILIRUBIN, TOTAL (test code = 2207) 0.3 MG/DL ALKALINE PHOSPHATASE (test code = 2204) 78 U/L AST (test code = 2218) 14 U/L ALT (test code = 2219) 23 U/L Chucho DraperLIPID [id number] 00:00:00* Test Item Value Reference Range Interpretation Comme nts CHOLESTEROL (test code = 2210) 205 MG/DL TRIGLYCERIDES (test code = 2232) 251 MG/DL HDL CHOLESTEROL (test code = 2220) 45 MG/DL CALC LDL CHOL (test code = 2237) 110 MG/DL RISK RATIO LDL/HDL (test cod e = 2238) 2.44 RATIO Chucho DraperCBC W/AUTO [id number] 00:00:00* Test Item Value Reference Range Interpretation Comme nts WBC (test code = 1001) 7.9 K/UL RBC (test code = 1002) 5.43 M/UL HEMOGLOBIN (test code = 1003) 15.3 G/DL HEMATOCRIT (test code = 1004) 44.8 % MCV (test code = 1005) 82.5 fL MCH (test code = 1006) 28.2 PG MCHC (test code = 1007) 34.2 G/DL RDW (test code = 1038) 13.7 % NEUTROPHILS (test code = 1008) 70.5 % LYMPHOCYTES (test code = 1010) 20.4 % MONOCYTES (test code = 1011) 7.4 % EOSINOPHILS (test code = 1012) 1.3 % BASOPHILS (test code = 1013) 0.4 % PLATELET COUNT (test code = 1015) 213 K/UL Chucho DraperHEMOGLOBIN [id number] 00:00:00* Test Item Value Reference Range Interpretation Comme thong HEMOGLOBIN A1c (test code = 86268) 10.0 % Chucho [id number] 00:00:00* Test Item Value Reference Range Interpretation Comme thong TSH (test code = 2821) 1.810 UIU/ML Chucho DraperCOMPREHENSIVE METABOLIC [id number] 00:00:00* Test Item Value Reference Range Interpretation Comme nts GLUCOSE (test code = 2217) 242 MG/DL BUN (test code = 2208) 15 MG/DL CREATININE (test code = 2214) 0.82 MG/DL eGFR AMER. (test cod e = 76164) 108 ML/MIN/1.73 eGFR NON- AMER. (test code = 42121) 93 ML/MIN/1.73 CALC BUN/CREAT (test code = 2235) 18 RATIO SODIUM (test code = 2231) 139 MEQ/L POTASSIUM (test code = 2228) 4.4 MEQ/L CHLORIDE (test code = 2215) 100 MEQ/L CARBON DIOXIDE (test code = 2206) 24 MEQ/L CALCIUM (test code = 2209) 9.5 MG/DL PROTEIN, TOTAL (test code = 2229) 7.3 G/DL ALBUMIN (test code = 2201) 4.4 G/DL CALC GLOBULIN (test code = 2240) 2.9 G/DL CALC A/G RATIO (test code = 2234) 1.5 RATIO BILIRUBIN, TOTAL (test code = 2207) 0.3 MG/DL ALKALINE PHOSPHATASE (test code = 2204) 78 U/L AST (test code = 2218) 14 U/L ALT (test code = 2219) 23 U/L Chucho DraperLIPID [id number] 00:00:00* Test Item Value Reference Range Interpretation Comme nts CHOLESTEROL (test code = 2210) 205 MG/DL TRIGLYCERIDES (test code = 2232) 251 MG/DL HDL CHOLESTEROL (test code = 2220) 45 MG/DL CALC LDL CHOL (test code = 2237) 110 MG/DL RISK RATIO LDL/HDL (test cod e = 2238) 2.44 RATIO Chucho DraperCBC W/AUTO [id number] 00:00:00* Test Item Value Reference Range Interpretation Comme nts WBC (test code = 1001) 7.9 K/UL RBC (test code = 1002) 5.43 M/UL HEMOGLOBIN (test code = 1003) 15.3 G/DL HEMATOCRIT (test code = 1004) 44.8 % MCV (test code = 1005) 82.5 fL MCH (test code = 1006) 28.2 PG MCHC (test code = 1007) 34.2 G/DL RDW (test code = 1038) 13.7 % NEUTROPHILS (test code = 1008) 70.5 % LYMPHOCYTES (test code = 1010) 20.4 % MONOCYTES (test code = 1011) 7.4 % EOSINOPHILS (test code = 1012) 1.3 % BASOPHILS (test code = 1013) 0.4 % PLATELET COUNT (test code = 1015) 213 K/UL Chucho DraperHEMOGLOBIN [id number] 00:00:00* Test Item Value Reference Range Interpretation Comme nts HEMOGLOBIN A1c (test code = 05400) 10.0 % Chucho [id number] 00:00:00* Test Item Value Reference Range Interpretation Comme nts TSH (test code = 2821) 1.810 UIU/ML Chucho DraperCOMPREHENSIVE METABOLIC [id number] 00:00:00* Test Item Value Reference Range Interpretation Comme nts GLUCOSE (test code = 2217) 242 MG/DL BUN (test code = 2208) 15 MG/DL CREATININE (test code = 2214) 0.82 MG/DL eGFR AMER. (test cod e = 05439) 108 ML/MIN/1.73 eGFR NON- AMER. (test code = 66634) 93 ML/MIN/1.73 CALC BUN/CREAT (test code = 2235) 18 RATIO SODIUM (test code = 2231) 139 MEQ/L POTASSIUM (test code = 2228) 4.4 MEQ/L CHLORIDE (test code = 2215) 100 MEQ/L CARBON DIOXIDE (test code = 2206) 24 MEQ/L CALCIUM (test code = 2209) 9.5 MG/DL PROTEIN, TOTAL (test code = 2229) 7.3 G/DL ALBUMIN (test code = 2201) 4.4 G/DL CALC GLOBULIN (test code = 2240) 2.9 G/DL CALC A/G RATIO (test code = 2234) 1.5 RATIO BILIRUBIN, TOTAL (test code = 2207) 0.3 MG/DL ALKALINE PHOSPHATASE (test code = 2204) 78 U/L AST (test code = 2218) 14 U/L ALT (test code = 2219) 23 U/L Chucho Stratton Baron Notes Date/Time Note Provider Source Chucho Stratton[facility]elin [facility]2025-01-10 00:00:00 Chucho StrattonJoselin [facility]2024-12-06 00:00:00 Chucho Joselin [facility]2024-10-04 00:00:00 Chucho Joselin [facility]2024-07-19 00:00:00 Chucho Joselin [facility]2024-04-26 00:00:00 [facility]
--- NOTE | 2025-03-11 15:17 | RAD REPORT ---
EXAMINATION: Shoulder Right 2+ Views CLINICAL INDICATION: Male, 74 years old. PAIN RIGHT COMPARISON: No prior exam. FINDINGS: No acute fracture. High riding humeral head could indicate rotator cuff pathology. No dislocation. Moderate right AC joint and glenohumeral joint degenerative changes. Other: n/a IMPRESSION: No acute osseous abnormality.
[2025-03-11] MEDS ORDERED: AMOX/K CLAV 875 MG TAB ONE (15:57)
[2025-03-11] MEDS ORDERED: HYDROCODONE/APAP 7.5/325 MG TAB ONE (15:57)
[2025-03-11] MEDS ORDERED: TDAP (DIPHTH,PERTUSS(ACELL),TET VAC) 0.5 ML VIAL IMVAC ONE (15:58)
--- NOTE | 2025-03-11 16:28 | RAD REPORT ---
EXAMINATION: Head C Spine Mpr Wo Con CLINICAL INDICATION: Male, 74 years old. TRAUMA TECHNIQUE: Axial CT images from the skull base to the vertex without intravenous contrast. Axial CT i mages through the cervical spine were obtained without intravenous contrast. Sagittal and coronal reformatted images were created from the data set. Coronal and sagittal reformatted images were creat ed from the data set. One or more of the following dose reduction techniques were used: Automated exposure control, adjustment of the mA and/or kV according to patient size, and/or iterative reconstr uction. Unless otherwise specified, incidental findings do not require dedicated imaging follow-up. [id number]. COMPARISON: No prior exam. FINDINGS: Head: INTRACRANIAL: No acute intracranial hemorrhage. No hydrocephalus. No mass effect or midline shift. No significant white matter disease. VASCULATURE: No visualized abnormalities in the arteries or dural venous sinuses. SCALP/SKULL: No calvarial fracture identified. No acute soft tissue abnormality. SINUSES: The visualized paranasal sinuses are mostly clear. No significant mastoid fluid. Cervical spine: ALIGNMENT: Trace retrolisthesis of C5 on C6. BONE: Vertebral body heights are maintained. No aggressive osseous lesions. DEGENERATIVE: Multilevel cervical spondylosis with evidence of bilateral neural foraminal narrowing. No high grade central spinal stenosis. Moderate disc height loss at C5-6. Severe narrowing on the left at C3-4 and at C5-6 and on the right at C3-4 and C5-6. SOFT TISSUE: No significant abnormalities in the soft tissue of the neck. The visualized lung apices are clear. IMPRESSION: No acute intracranial abnormality. No acute fracture or traumatic malalignment of the cervical spine.
[2025-03-11] MEDS ORDERED: FENTANYL CITR 100 MCG/2 ML ONE (18:08)
--- NOTE | 2025-03-11 18:19 | RAD REPORT ---
EXAMINATION: Wrist Right 3 View VIEWS: As above CLINICAL INDICATION: Male, 74 years old. PAIN RIGHT COMPARISON: No prior exam. IMPRESSION: Distal radial impaction fracture with intra-articular extension. Displacement is mild. An ulnar stylo id fracture is also present. No dislocation.
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
[2025-03-11 22:12] VITALS: TEMP 98.3
[2025-03-11 22:17] VITALS: O2SAT 100
[2025-03-11 22:19] VITALS: BP 148/84
== END 2025-03-11 21:33 | disposition home or self-care (01) ==
LOC: ER 14:34
DX: S05.12XA Contusion of eyeball and orbital tissues, left eye, initial encounter (principal); S46.011A Strain of muscle(s) and tendon(s) of the rotator cuff of right shoulder, initial encounter; S52.571A Other intraarticular fracture of lower end of right radius, initial encounter for closed fracture; S52.611A Displaced fracture of right ulna styloid process, initial encounter for closed fracture; Y04.1XXA Assault by human bite, initial encounter; F17.210 Nicotine dependence, cigarettes, uncomplicated; Z23 Encounter for immunization
CPT/HCPCS: 70450; 72125; 73030; 73110; 90715; 96372; 99285; J3010